=== PATIENT | male | born 1965 | race Caucasian/White ===

== ENCOUNTER 2022-03-18 08:00 | Outpatient (RCR) | payer MEDICARE, MEDICAID, SELFPAY ==
[2022-02-25 09:05] VITALS: BP 143/31; PULSE 72; TEMP 36.1; BMI 23.8
--- NOTE | 2022-02-25 11:55 | PCM.WC.HP ---
History of Present Illness Date of Service: 02/25/22 Chief Complaint: Multiple wounds to RLE amputation stump History of Wound: Patient presents to the wound center for evaluation and management of multiple wounds to right lower extremity including BKA a stump. He is referred by Dr. Sullivan a peripheral vascular interventionalist in [place] who manages his vascular disease. His past medical history is significant for diabetes mellitus, coronary artery disease, peripheral arterial disease, paroxysmal atrial fibrillation, ACID. He has had past endovascular interventions including right femoropopliteal bypass and left SFA/pop angioplasty. He does smoke, primarily a tobacco pipe or cigars. He is not particularly interested in quitting. He takes daily ASA and Eliquis. He is alert and oriented however not the best historian. Much of history obtained from information within referral paperwork. He reports his amputation was performed in 2011. He reports it healed well initially and he had no significant issue until March 2020 at which time he had a small wound which became infected and developed an abscess in the lateral aspect of his amputation stump. This required I&D and eventually healed well. He also has a history of osteomyelitis of the left great toe. Presently, he has a wound overlying the R patella, another wound slightly distal to the R patella anteriorly, and a wound on the medial aspect of his amputation stump where he reports that prior abscess was. He reports these have been ongoing for at least 6 months. He states the wound on the medial aspect of the amputation stump is a result of rubbing against his prosthesis. He reports the 2 wounds anteriorly closer to the knee are the result of him crawling around his home particularly up his stairs as he is not currently utilizing his prosthesis. He denies any history of infection of these current wounds. He was seeing [facility] in [place] but they were not doing any debridement. He has been caring for them primarily at home over the last 6 months with supplies he has leftover from prior wounds. He states he will sometimes apply some kind of silver dressing covered with a Band-Aid. Sometimes he does not cover them at all. He does not wear any compression or otherwise protective dressing over his stump. He has not reached out to [facility] regarding refitting/adjusting his prosthesis. [facility] Home Medications apixaban 5 mg tablet (Eliquis) 5 mg PO BID 02/25/22 [History Last Taken Unknown] aspirin 81 mg capsule 81 mg PO DAILY 02/25/22 [History Last Taken Unknown] atorvastatin 80 mg tablet 80 mg PO QHS 02/25/22 [History Last Taken Unknown] carvedilol 12.5 mg tablet 12.5 mg PO BID 02/25/22 [History Last Taken Unknown] digoxin 125 mcg (0.125 mg) tablet 125 mcg PO DAILY 02/25/22 [History Last Taken Unknown] empagliflozin 10 mg tablet (Jardiance) 10 mg PO DAILY 02/25/22 [History Last Taken Unknown] ferrous sulfate 159 mg capsule,extended release See Protocol PO 02/25/22 [History Last Taken Unknown] fluoxetine 20 mg capsule 20 mg PO DAILY 02/25/22 [History Last Taken Unknown] insulin aspart U-100 100 unit/mL (3 mL) subcutaneous pen (Novolog Flexpen U-100 Insulin aspart) 100 unit subcut DAILY 02/25/22 [History Last Taken Unknown] insulin glargine 100 unit/mL (3 mL) subcutaneous pen (Lantus Solostar U-100 Insulin) 15 unit subcut BID 02/25/22 [History Last Taken Unknown] levothyroxine 100 mcg capsule 100 mcg PO DAILY 02/25/22 [History Last Taken Unknown] losartan 50 mg tablet 50 mg PO DAILY 02/25/22 [History Last Taken Unknown] metformin 1,000 mg tablet 1,000 mg PO BID 02/25/22 [History Last Taken Unknown] pantoprazole 20 mg tablet,delayed release 20 mg PO DAILY 02/25/22 [History Last Taken Unknown] spironolactone 25 mg tablet 25 mg PO DAILY 02/25/22 [History Last Taken Unknown] Allergy/AdvReac Type Severity Reaction Status Date / Time No Known Allergies Allergy Verified 02/25/22 09:37 ROS Constitutional Constitutional: Denies change in weight, chills, difficulty sleeping, fatigue, fever(s), frequent falls, lethargy, night sweats or weakness Eyes Eyes: Denies blindness, blurry vision, change in vision, eye pain or ptosis ENT HEENT: Denies abnormal hearing, change in voice, hearing loss, loss taste/smell or vertigo Cardiovascular Cardiovascular: Denies abdominal pain, chest pain, claudication, cold extremities, cyanosis, diaphoresis, dyspnea, dyspnea on exertion, fatigue, hypertension, irregular heart rhythm, leg edema, leg ulcers, orthopnea, palpitations, radiating jaw, neck or arm pain or syncope Respiratory/Chest Respiratory/Chest: Denies cough, dyspnea, hemoptysis, nail bed cyanosis, jil-oral cyanosis, portable oxygen @ home, productive cough or wheezing Gastrointestinal Gastrointestinal: Denies abdominal pain, change in bowel habits, change in stool character, coffee ground emesis, melena, rectal bleeding or weight changes Genitourinary Genitourinary: Denies abdominal discomfort, burning urination, difficulty urinating or flank pain Musculoskeletal Musculoskeletal: Denies abnormal gait, difficulty walking, joint swelling, muscle cramps, muscle weakness or numbness Integumentary Integumentary: Denies change in pigmentation, changing lesions, erythema, rash or unusual bruising Neurologic Neurologic: Denies abnormal gait, abnormal movements, abnormal speech, behavior changes, frequent falls, syncope, tingling or weakness Psychiatric Psychiatric: Denies behavioral changes, cognitive impairment or depression Endocrine Endocrinology: Denies change in body appearance, cold intolerance, excessive sweating, flushing, heat intolerance, palpitations, polydipsia, polyphagia or polyuria Hematologic/Lymphatic Hematologic/Lymphatic: Denies anemia, easy bleeding, easy bruising or lymphadenopathy Allergic/Immunologic Allergic/Immunologic: Denies seasonal rhinorrhea, throat swelling, tongue swelling, hives or asthma Vital Signs Vital Signs Vital Signs: 02/25/22 09:05 Temperature 96.9 F L Temperature Source Temporal Pulse Rate 72 Blood Pressure 143/31 H Blood Pressure Mean 68 Blood Pressure Source Monitor Weight Weight: 148 lb Body Mass Index (BMI) 23.8 Physical Exam Const alert, oriented x3, no apparent distress and well nourished General Appearance: cooperative, comfortable and well developed HEENT normocephalic, head/scalp atraumatic, hearing grossly normal bilaterally, external ears normal and external nose normal Eyes PERRL and EOMs intact bilaterally General Eye: normal appearance of both eyes Neck full ROM General: normal visual inspection and trachea midline; Negative for anterior neck swelling Resp normal respiratory effort, normal air movement, no retractions, no use of accessory muscles and clear to auscultation bilaterally Effort and Inspection: able to speak in complete sentences; Negative for labored, stridor or audible wheezes Cardio Rate: regular rate Rhythm: regular rhythm Heart Sounds: murmur Extremity Extremity Narrative: R BKA. No discoloration/pallor, appropriate warmth, no significant edema. Skin Wounds: amputation and wounds noted Wound Narrative: Wound overlying R patella, R verdugo, and R medial amputation stump. R medial amputation stump wound goes to bone, other two more shallow, subq tissue. No other visible wounds. Wounds with significant slough and periwound callus. No significant erythema, drainage, foul odor, edema, fluctuance, induration. Neuro oriented x3, CN's II-XII intact bilaterally, moves all extremities, no focal motor deficits and no sensory deficits noted Psych mental status grossly normal Appearance: grossly normal Attitude: calm Activity / Motor Behavior: appropriate eye contact Speech: normal speech Mood & Affect: euthymic mood Thought Process: normal thought process Thought Content: normal thought content Attention / Concentration: attention grossly intact Memory / Cognition: memory grossly intact Insight: insight good Judgement: judgement good Debridement Note Debridement Note Wound debrided: Right medial amputation stump Laterality: Right Type of Debridement: Excisional debridement Anesthesia Used: 5% Lidocaine Gel Depth: Down to and including healthy tissue and to bone Percentage of wound debrided: 100 Instrument Used: 3mm curette Tissue Removed: slough, devitalized tissue Amount of bleeding with debridement: Mild Bleeding Controlled with: Pressure Patient tolerated procedure: Patient tolerated procedure well Post-Debridement Measurements and Additional Note: Post-Debridement Measurements/Treatment - Nurse 1 - General Ulcer Assessment Start: 02/25/22 09:05 Freq: Status: Active Protocol: MARIELY Activity Type Activity Date Activity User E-sign Co-sign Detail Recorded Client Recorded Date Recorded By Document 02/25/22 09:05 MUSHTAQ [id number] 02/25/22 09:24 MUSHTAQ 02/25/22 09:05 - Today's Visit Information Type of service Initial Visit Arrival Mode Wheelchair Patient Identification Verified (Name & Yes ) Patient Requires Transmission-Based No Precautions Safety Precautions NA Finger Stick Blood Sugar(mg/dl) (if 154 indicated): Blood Sugar Stated by Patient Height and Weight Height 5 ft 6 in Weight 148 lb Weight in Pounds 148.0 lbs Body Mass Index (BMI) 23.8 BMI Classification Normal BSA - Haylie 1.76 Vital Signs Temperature (97.8 F-99.1 F) 96.9 F L Temperature Source Temporal Pulse Rate (60-100) 72 Pulse Location Monitor Blood Pressure (90/60-120/80) 143/31 H Blood Pressure Mean 68 Source Monitor History Since Last Visit- (Skip if this is Patient's initial visit) Left Footwear Regular Shoe Pain Scale: 0-10 Numeric Is Patient Pain Free? Yes WC - Nurse 1 - General Ulcer Measurement Start: 02/25/22 09:05 Freq: Status: Active Protocol: Activity Type Activity Date Activity User E-sign Co-sign Detail Recorded Client Recorded Date Recorded By Document 02/25/22 09:05 MUSHTAQ [id number] 02/25/22 09:24 MUSHTAQ 02/25/22 09:05 Wound Center Nurse 1 #3 medial knee -Combined with other wound No -Current Size (cm) - Length 0.2 -Current Size (cm) - Width 0.5 -Current Size (cm) - Depth 0.3 -Total Square Cm 0.10 -Date of Last Picture (Recall this 02/25/22 field) -Tunneling No -Undermining/Tunneling No -Circular Undermining No -Change in Wound Grade/Stage No -Exudate Amt Medium -Exudate Type Serosanguineous -Wound Margin Distinct, Outline Attached -Granulation Amt None Present (0 %) -Granulation Quality N/A -Slough/Fibrin Yes -Necrosis Amt Large (67-100%) -Necrotic Tissue Type Adherent Slough -Structure Exposed N/A -Texture (Jil-wound Skin Appearance) No Abnormality, Assessed -Moisture (Jil-wound Skin Appearance) No Abnormality, Assessed -Color (Jil-wound Skin Appearance) No Abnormality, Assessed -Temperature (Jil-wound Skin No Abnormality Appearance) (Pt Warm) -Tenderness on Palpation (Jil-wound No Skin Appearance) -Ulcer Cleansing Rinsed/ Irrigated with Saline -Foul Odor after Cleansing No -Anesthetic Used 5% Lidocaine Gel #2 R below the knee -Combined with other wound No -Current Size (cm) - Length 0.5 -Current Size (cm) - Width 0.6 -Current Size (cm) - Depth 0.2 -Total Square Cm 0.30 -Date of Last Picture (Recall this 02/25/22 field) -Photo Taken Yes -Tunneling No -Undermining/Tunneling No -Circular Undermining No -Change in Wound Grade/Stage No -Exudate Amt Medium -Exudate Type Serosanguineous -Wound Margin Distinct, Outline Attached -Granulation Amt None Present (0 %) -Granulation Quality N/A -Slough/Fibrin Yes -Necrosis Amt Large (67-100%) -Necrotic Tissue Type Adherent Slough -Structure Exposed N/A -Texture (Jil-wound Skin Appearance) No Abnormality, Assessed -Moisture (Jil-wound Skin Appearance) No Abnormality, Assessed -Color (Jil-wound Skin Appearance) No Abnormality, Assessed -Temperature (Jil-wound Skin No Abnormality Appearance) (Pt Warm) -Tenderness on Palpation (Jil-wound No Skin Appearance) -Ulcer Cleansing Rinsed/ Irrigated with Saline -Foul Odor after Cleansing No -Anesthetic Used 5% Lidocaine Gel #1 R knee -Combined with other wound No -Current Size (cm) - Length 0.4 -Current Size (cm) - Width 0.5 -Current Size (cm) - Depth 0.1 -Total Square Cm 0.20 -Date of Last Picture (Recall this 02/25/22 field) -Photo Taken Yes -Tunneling No -Undermining/Tunneling No -Circular Undermining No -Change in Wound Grade/Stage No -Exudate Amt Medium -Exudate Type Serosanguineous -Wound Margin Distinct, Outline Attached -Granulation Amt None Present (0 %) -Granulation Quality N/A -Slough/Fibrin Yes -Necrosis Amt Large (67-100%) -Necrotic Tissue Type Adherent Slough -Structure Exposed N/A -Texture (Jil-wound Skin Appearance) No Abnormality, Assessed -Moisture (Jil-wound Skin Appearance) No Abnormality, Assessed -Color (Jil-wound Skin Appearance) No Abnormality, Assessed -Temperature (Jil-wound Skin No Abnormality Appearance) (Pt Warm) -Tenderness on Palpation (Jil-wound No Skin Appearance) -Ulcer Cleansing Rinsed/ Irrigated with Saline -Foul Odor after Cleansing No -Anesthetic Used 5% Lidocaine Gel CHARO - Nurse 3 - General Ulcer D/C NN Start: 02/25/22 09:05 Freq: Status: Active Protocol: Activity Type Activity Date Activity User E-sign Co-sign Detail Recorded Client Recorded Date Recorded By Document 02/25/22 10:42 SHANNA [id number] 02/25/22 10:43 SHANNA 02/25/22 10:42 Wound Care Nurse 3 #3 medial knee -Ulcer Cleansing Rinsed/ Irrigated with Saline -Foul Odor after Cleansing No -Primary Dressing Applied Promogran Eric Matter -Primary Dressing Covered/Secured with Dry Gauze -Promogran Eric Matter 1 #2 R below the knee -Ulcer Cleansing Not Cleansed -Primary Dressing Applied Promogran Eric Matter -Promogran Eric Matter 0 #1 R knee -Ulcer Cleansing Rinsed/ Irrigated with Saline -Foul Odor after Cleansing No -Primary Dressing Applied Promogran Eric Matter -Primary Dressing Covered/Secured with Dry Gauze,Dry Gauze & Roll Gauze -Promogran Eric Matter 0 Right -Compression Wrap Fernando Wrap Pain Scale: 0-10 Numeric Is Patient Pain Free? Yes WC - Visit Discharge Discharge Condition Stable Ambulatory Status Wheelchair Transportation Private Auto Medication Reconcilliation completed & Yes provided to patient/care provider Clinical Summary of Care Provided Yes Additional Wound Wound debrided: Anterior RLE, overlying patella Laterality: Right Type of Debridement: Excisional debridement Anesthesia Used: 5% Lidocaine Gel Depth: Down to and including healthy tissue and in the subcutaneous layer Percentage of wound debrided: 100 Instrument Used: 3mm curette Tissue Removed: slough, devitalized tissue, callus Amount of bleeding with debridement: Mild Bleeding Controlled with: Pressure Patient tolerated procedure: Patient tolerated procedure well Additional Wound Wound debrided: RLE anterior verdugo Laterality: Right Type of Debridement: Excisional debridement Anesthesia Used: 5% Lidocaine Gel Depth: Down to and including healthy tissue and in the subcutaneous layer Percentage of wound debrided: 100 Instrument Used: 3mm curette Amount of bleeding with debridement: Mild Bleeding Controlled with: Pressure Patient tolerated procedure: Patient tolerated procedure well Charges/Coding Wound Center CF Procedures [id number]: [id number] RMVL DEVITAL TIS 20 CM/< Multi Select Codes Wound Center CF Procedures [id number]: [id number] RMVL DEVITAL TIS 20 CM/< Assessment/Plan Assessment/Plan (1) Below-knee amputation of right lower extremity: CODE(S): S88.111A - Complete traumatic amputation at level between knee and ankle, right lower leg, initial encounter (2) Non-healing wound of amputation stump: CODE(S): T87.89 - Other complications of amputation stump (3) Non-healing wound of right lower extremity: CODE(S): S81.801A - Unspecified open wound, right lower leg, initial encounter PLAN: Plan Patient tolerated debridement well. Will apply eric to all three wounds, cover with adaptic, add ABD pad for cushioning, and wrap with FERNANDO wrap for protection and compression. Changes dressings daily or more often as needed to keep clean and dry. Discussed the importance of preventing continued trauma to the areas. Ask that patient do his best to limit crawling around the home, utilize other walking assist devices and try to go up the stairs by scooting from step to step on his bottom instead of utilizing knees. Elevate legs when resting. Increase protein in diet and continue with good blood sugar control to promote wound healing. Strongly advise tobacco cessation, he will continue to consider. No signs/symptoms of active infection. Do not feel cultures indicated at this point. Will continue to be vigilant in monitoring for signs of infection. Patient will return to wound care center in 1 week. He will return sooner or present to the ED should any symptoms worsen or new concerns arise.
[2022-03-03 15:02] VITALS: BP 152/32; PULSE 71; RESP 16; TEMP 36.3; BMI 23.8
--- NOTE | 2022-03-03 16:47 | PCM.WC.PN ---
History of Present Illness Date of Service: 03/03/22 Chief Complaint: Multiple wounds to RLE amputation stump History of Wound: Patient presents to the wound center for evaluation and management of multiple wounds to right lower extremity including BKA a stump. He is referred by Dr. Sullivan a peripheral vascular interventionalist in [place] who manages his vascular disease. His past medical history is significant for diabetes mellitus, coronary artery disease, peripheral arterial disease, paroxysmal atrial fibrillation, ACID. He has had past endovascular interventions including right femoropopliteal bypass and left SFA/pop angioplasty. He does smoke, primarily a tobacco pipe or cigars. He is not particularly interested in quitting. He takes daily ASA and Eliquis. He is alert and oriented however not the best historian. Much of history obtained from information within referral paperwork. He reports his amputation was performed in 2011. He reports it healed well initially and he had no significant issue until March 2020 at which time he had a small wound which became infected and developed an abscess in the lateral aspect of his amputation stump. This required I&D and eventually healed well. He also has a history of osteomyelitis of the left great toe. Presently, he has a wound overlying the R patella, another wound slightly distal to the R verdugo, and a wound on the medial aspect of his amputation stump where he reports that prior abscess was. He reports these have been ongoing for at least 6 months. He states the wound on the medial aspect of the amputation stump is a result of rubbing against his prosthesis. He reports the 2 wounds anteriorly closer to the knee are the result of him crawling around his home particularly up his stairs as he is not currently utilizing his prosthesis. He denies any history of infection of these current wounds. He was seeing [facility] in [place] but they were not doing any debridement. He has been caring for them primarily at home over the last 6 months with supplies he has leftover from prior wounds. He states he would sometimes apply some kind of silver dressing covered with a Band-Aid. Sometimes he would not cover them at all. He was not wearing any compression or otherwise protective dressing over his stump. He has not reached out to [employer] regarding refitting/adjusting his prosthesis. Subjective Subjective Patient is doing well. He reports no issues with dressing changes; however, instead of utilizing ABD pads and tape has been applying a transparent, water-proof dressing. Otherwise, he has been changing dressings as directed. He reports he has been crawling around the house/up the stairs less but not really able to stop doing so completely. He denies F/C, N/V, increased pain, drainage, foul odor. Objective Data Objective Data Vital Signs: Vital Signs Temp Pulse Resp BP O2 Del Method 97.3 F L 71 16 152/32 H Room Air 03/03/22 15:02 03/03/22 15:02 03/03/22 15:02 03/03/22 15:02 03/03/22 15:02 Oxygen Delivery Method Room Air Weight: 148 lb Body Mass Index (BMI) 23.8 Charges/Coding Wound Center CF Procedures [id number]: [id number] RMVL DEVITAL TIS 20 CM/< Multi Select Codes Wound Center CF Procedures [id number]: [id number] RMVL DEVITAL TIS 20 CM/< Physical Exam Const alert, oriented x3, no apparent distress and well nourished General Appearance: cooperative, comfortable and well developed HEENT normocephalic, head/scalp atraumatic, hearing grossly normal bilaterally, external ears normal and external nose normal Eyes PERRL and EOMs intact bilaterally General Eye: normal appearance of both eyes Neck full ROM General: normal visual inspection and trachea midline; Negative for anterior neck swelling Resp normal respiratory effort, normal air movement, no retractions, no use of accessory muscles and clear to auscultation bilaterally Effort and Inspection: able to speak in complete sentences; Negative for labored, stridor or audible wheezes Cardio Rate: regular rate Rhythm: regular rhythm Heart Sounds: murmur Extremity Extremity Narrative: R BKA. No discoloration/pallor, appropriate warmth, no significant edema. Skin Wounds: amputation and wounds noted Wound Narrative: Wound overlying R patella, R verdugo, and R medial amputation stump. R medial amputation stump wound goes to bone, other two more shallow, subq tissue. No other visible wounds. Wounds with moderate slough and periwound callus. No significant erythema, drainage, foul odor, edema, fluctuance, induration. Neuro oriented x3, CN's II-XII intact bilaterally, moves all extremities, no focal motor deficits and no sensory deficits noted Psych mental status grossly normal Appearance: grossly normal Attitude: calm Activity / Motor Behavior: appropriate eye contact Speech: normal speech Mood & Affect: euthymic mood Thought Process: normal thought process Thought Content: normal thought content Attention / Concentration: attention grossly intact Memory / Cognition: memory grossly intact Insight: insight good Judgement: judgement good Debridement Note Debridement Note Wound debrided: Right medial amputation stump Laterality: Right Type of Debridement: Excisional debridement Anesthesia Used: 5% Lidocaine Gel Depth: Down to and including healthy tissue and to bone Percentage of wound debrided: 100 Instrument Used: 3mm curette Tissue Removed: slough, devitalized tissue Amount of bleeding with debridement: Mild Bleeding Controlled with: Pressure Patient tolerated procedure: Patient tolerated procedure well Post-Debridement Measurements and Additional Note: Post-Debridement Measurements/Treatment - Nurse 1 - General Ulcer Assessment Start: 02/25/22 09:05 Freq: Status: Active Protocol: MARIELY Activity Type Activity Date Activity User E-sign Co-sign Detail Recorded Client Recorded Date Recorded By Document 02/25/22 09:05 [facility] [id number] 02/25/22 09:24 AK Document 03/03/22 15:02 [facility] [id number] 03/03/22 15:04 [facility] 02/25/22 03/03/22 09:05 15:02 - Today's Visit Information Type of service Initial Visit Follow-up Visit (Physician/[employer]PER[employer] ) Arrival Mode Wheelchair Wheelchair Transfer Assistance None Patient Identification Verified (Name & Yes Yes ) Patient Requires Transmission-Based No No Precautions Safety Precautions NA Finger Stick Blood Sugar(mg/dl) (if 154 indicated): Blood Sugar Stated by Patient Height and Weight Height 5 ft 6 in Weight 148 lb Weight in Pounds 148.0 lbs Body Mass Index (BMI) 23.8 23.8 BMI Classification Normal Normal BSA - Haylie 1.76 Vital Signs Temperature (97.8 F-99.1 F) 96.9 F L 97.3 F L Temperature Source Temporal Temporal Pulse Rate (60-100) 72 71 Pulse Location Monitor Monitor Respiratory Rate (12-18) 16 Respiratory rate source Observation Oxygen Delivery Method Room Air Blood Pressure (90/60-120/80) 143/31 H 152/32 H Blood Pressure Mean (mm Hg) 68 72 Source Monitor Monitor Position Sitting Blood Pressure Location Left Arm History Since Last Visit- (Skip if this is Patient's initial visit) Have you changed medications since your No last visit? Any new allergies or adverse reactions No Had a fall/change in ADL's that may No increase risk of falls Signs or symptoms of abuse and/or No neglect since last visit Have you been in the hospital since your No last visit? Has dressing in place as prescribed Yes Has compression in place as prescribed Yes Has offloadiing in place as prescribed N/A Experienced any changes in pain level or No management Left Footwear Regular Shoe Pain Scale: 0-10 Numeric Is Patient Pain Free? Yes Yes WC - Nurse 1 - General Ulcer Measurement Start: 02/25/22 09:05 Freq: Status: Active Protocol: Activity Type Activity Date Activity User E-sign Co-sign Detail Recorded Client Recorded Date Recorded By Document 02/25/22 09:05 [facility] [id number] 02/25/22 09:24 [place] Document 03/03/22 15:02 [facility] [id number] 03/03/22 15:04 BM 02/25/22 03/03/22 09:05 15:02 Wound Center Nurse 1 #3 right medial knee -Combined with other wound No No -Current Size (cm) - Length 0.2 0.8 -Current Size (cm) - Width 0.5 0.5 -Current Size (cm) - Depth 0.3 0.5 -Total Square Cm 0.10 0.40 -Date of Last Picture (Recall this 02/25/22 field) -Photo Taken No -Epithelialization None Present -Tunneling No No -Undermining/Tunneling No No -Circular Undermining No No -Change in Wound Grade/Stage No -Exudate Amt Medium Small -Exudate Type Serosanguineous Serosanguineous -Wound Margin Distinct, Distinct, Outline Outline Attached Attached -Granulation Amt None Present (0 None Present (0 %) %) -Granulation Quality N/A -Slough/Fibrin Yes Yes -Necrosis Amt Large (67-100%) Large (67-100%) -Necrotic Tissue Type Adherent Slough Adherent Slough -Structure Exposed N/A -Texture (Jil-wound Skin Appearance) No Abnormality, Assessed, Assessed Scarring -Moisture (Jil-wound Skin Appearance) No Abnormality, Assessed Assessed -Color (Jil-wound Skin Appearance) No Abnormality, Assessed Assessed -Temperature (Jil-wound Skin No Abnormality No Abnormality Appearance) (Pt Warm) (Pt Warm) -Tenderness on Palpation (Jil-wound No No Skin Appearance) -Ulcer Cleansing Rinsed/ Rinsed/ Irrigated with Irrigated with Saline Saline -Foul Odor after Cleansing No No -Anesthetic Used 5% Lidocaine 5% Lidocaine Gel Gel #2 R below the knee -Combined with other wound No No -Current Size (cm) - Length 0.5 0.7 -Current Size (cm) - Width 0.6 0.7 -Current Size (cm) - Depth 0.2 0.2 -Total Square Cm 0.30 0.49 -Date of Last Picture (Recall this 02/25/22 03/03/22 field) -Photo Taken Yes Yes -Epithelialization None Present -Tunneling No No -Undermining/Tunneling No No -Circular Undermining No No -Change in Wound Grade/Stage No -Exudate Amt Medium Medium -Exudate Type Serosanguineous Serosanguineous -Wound Margin Distinct, Distinct, Outline Outline Attached Attached -Granulation Amt None Present (0 Medium (34-66%) %) -Granulation Quality N/A [place] -Slough/Fibrin Yes Yes -Necrosis Amt Large (67-100%) Medium (34-66%) -Necrotic Tissue Type Adherent Slough Adherent Slough -Structure Exposed N/A -Texture (Jil-wound Skin Appearance) No Abnormality, Assessed, Assessed Scarring -Moisture (Jil-wound Skin Appearance) No Abnormality, Assessed Assessed -Color (Jil-wound Skin Appearance) No Abnormality, Assessed Assessed -Temperature (Jil-wound Skin No Abnormality No Abnormality Appearance) (Pt Warm) (Pt Warm) -Tenderness on Palpation (Jil-wound No No Skin Appearance) -Ulcer Cleansing Rinsed/ Rinsed/ Irrigated with Irrigated with Saline Saline -Foul Odor after Cleansing No No -Anesthetic Used 5% Lidocaine 5% Lidocaine Gel Gel #1 R knee -Combined with other wound No No -Current Size (cm) - Length 0.4 0.4 -Current Size (cm) - Width 0.5 0.5 -Current Size (cm) - Depth 0.1 0.2 -Total Square Cm 0.20 0.20 -Date of Last Picture (Recall this 02/25/22 field) -Photo Taken Yes No -Epithelialization None Present -Tunneling No No -Undermining/Tunneling No No -Circular Undermining No No -Change in Wound Grade/Stage No -Exudate Amt Medium Medium -Exudate Type Serosanguineous Serosanguineous -Wound Margin Distinct, Distinct, Outline Outline Attached Attached -Granulation Amt None Present (0 None Present (0 %) %) -Granulation Quality N/A -Slough/Fibrin Yes Yes -Necrosis Amt Large (67-100%) Large (67-100%) -Necrotic Tissue Type Adherent Slough Adherent Slough -Structure Exposed N/A -Texture (Jil-wound Skin Appearance) No Abnormality, Assessed, Assessed Scarring -Moisture (Jil-wound Skin Appearance) No Abnormality, Assessed Assessed -Color (Jil-wound Skin Appearance) No Abnormality, Assessed Assessed -Temperature (Jil-wound Skin No Abnormality No Abnormality Appearance) (Pt Warm) (Pt Warm) -Tenderness on Palpation (Jil-wound No No Skin Appearance) -Ulcer Cleansing Rinsed/ Rinsed/ Irrigated with Irrigated with Saline Saline -Foul Odor after Cleansing No No -Anesthetic Used 5% Lidocaine 5% Lidocaine Gel Gel WC - Nurse 2 - General Ulcer CM Notes Start: 02/25/22 09:05 Freq: Status: Active Protocol: Activity Type Activity Date Activity User E-sign Co-sign Detail Recorded Client Recorded Date Recorded By Document 02/25/22 12:12 PL [id number] 02/25/22 12:24 PL Document 03/03/22 15:09 MW [id number] 03/03/22 15:29 MW 02/25/22 03/03/22 12:12 15:09 Wound Center Nurse 2 #3 right medial knee -Time 09:45 15:15 -Correct Patient Yes Yes -Correct Side, Site, Position Yes Yes -Correct Procedure Yes Yes -Procedure Performed Yes Yes -Type of Procedure Debridement Debridement -Clinical Debridement Subcutaneous Subcutaneous -Tissue Removed Subcutaneous Subcutaneous -Post Debridement (cm) - Length 1.0 1.0 -Post Debridement (cm) - Width 0.5 0.7 -Post Debridement (cm) - Depth 0.6 0.5 -Total Square (Post) (cm) 0.50 0.70 -Area of Debridement (cm) - Length 1.0 1.0 -Area of Debridement (cm) - Width 0.5 0.7 -Total Square (Area) (cm) 0.50 0.70 -Tunneling No No -Undermining/Tunneling No No -Circular Undermining No No -Wound/Ulcer Outcome Not Healed Not Healed -Ulcer Cleansing Rinsed/ Rinsed/ Irrigated with Irrigated with Saline Saline -Foul Odor after Cleansing No No -Bioengineered Tissue No No -Bleeding Controlled with Pressure Pressure -Treatment Response Procedure Procedure Tolerated Well Tolerated Well -Offloading No -Debridement - Subq, 1st 20sq cm No Yes #2 R below the knee -Time 09:45 15:16 -Correct Patient Yes Yes -Correct Side, Site, Position Yes Yes -Correct Procedure Yes Yes -Procedure Performed Yes Yes -Type of Procedure Debridement Debridement -Clinical Debridement Subcutaneous Subcutaneous -Tissue Removed Subcutaneous Subcutaneous -Post Debridement (cm) - Length 0.7 0.9 -Post Debridement (cm) - Width 1.2 1.0 -Post Debridement (cm) - Depth 0.3 0.3 -Total Square (Post) (cm) 0.84 0.90 -Area of Debridement (cm) - Length 0.7 0.9 -Area of Debridement (cm) - Width 1.2 1.0 -Total Square (Area) (cm) 0.84 0.90 -Tunneling No No -Undermining/Tunneling No No -Circular Undermining No No -Wound/Ulcer Outcome Not Healed Not Healed -Ulcer Cleansing Rinsed/ Rinsed/ Irrigated with Irrigated with Saline Saline -Foul Odor after Cleansing No No -Bioengineered Tissue No No -Bleeding Controlled with Pressure Pressure -Treatment Response Procedure Procedure Tolerated Well Tolerated Well -Offloading No -Debridement - Subq, 1st 20sq cm No No #1 R knee -Time 09:45 15:16 -Correct Patient Yes Yes -Correct Side, Site, Position Yes Yes -Correct Procedure Yes Yes -Procedure Performed Yes Yes -Type of Procedure Debridement Debridement -Clinical Debridement Subcutaneous Subcutaneous -Tissue Removed Subcutaneous Subcutaneous -Post Debridement (cm) - Length 0.4 0.4 -Post Debridement (cm) - Width 0.8 0.7 -Post Debridement (cm) - Depth 0.3 0.3 -Total Square (Post) (cm) 0.32 0.28 -Area of Debridement (cm) - Length 0.4 0.4 -Area of Debridement (cm) - Width 0.8 0.7 -Total Square (Area) (cm) 0.32 0.28 -Tunneling No No -Undermining/Tunneling No No -Circular Undermining No No -Wound/Ulcer Outcome Not Healed Not Healed -Ulcer Cleansing Rinsed/ Rinsed/ Irrigated with Irrigated with Saline Saline -Foul Odor after Cleansing No No -Bioengineered Tissue No No -Bleeding Controlled with Pressure Pressure -Treatment Response Procedure Procedure Tolerated Well Tolerated Well -Offloading No -Debridement - Subq, 1st 20sq cm Yes No Pain Scale: 0-10 Numeric Is Patient Pain Free? Yes Yes WC - Nurse 3 - General Ulcer D/C NN Start: 02/25/22 09:05 Freq: Status: Active Protocol: Activity Type Activity Date Activity User E-sign Co-sign Detail Recorded Client Recorded Date Recorded By Document 02/25/22 10:42 SHANNA [id number] 02/25/22 10:43 SHANNA 02/25/22 10:42 Wound Care Nurse 3 #3 right medial knee -Ulcer Cleansing Rinsed/ Irrigated with Saline -Foul Odor after Cleansing No -Primary Dressing Applied Promogran Eric Matter -Primary Dressing Covered/Secured with Dry Gauze -Promogran Eric Matter 1 #2 R below the knee -Ulcer Cleansing Not Cleansed -Primary Dressing Applied Promogran Eric Matter -Promogran Eric Matter 0 #1 R knee -Ulcer Cleansing Rinsed/ Irrigated with Saline -Foul Odor after Cleansing No -Primary Dressing Applied Promogran Eric Matter -Primary Dressing Covered/Secured with Dry Gauze,Dry Gauze & Roll Gauze -Promogran Eric Matter 0 Right -Compression Wrap Fernando Wrap Pain Scale: 0-10 Numeric Is Patient Pain Free? Yes WC - Visit Discharge Discharge Condition Stable Ambulatory Status Wheelchair Transportation Private Auto Medication Reconcilliation completed & Yes provided to patient/care provider Clinical Summary of Care Provided Yes Additional Wound Wound debrided: Anterior RLE, overlying patella Laterality: Right Type of Debridement: Excisional debridement Anesthesia Used: 5% Lidocaine Gel Depth: Down to and including healthy tissue and in the subcutaneous layer Percentage of wound debrided: 100 Instrument Used: 3mm curette Tissue Removed: slough, devitalized tissue, callus Amount of bleeding with debridement: Mild Bleeding Controlled with: Pressure Patient tolerated procedure: Patient tolerated procedure well Additional Wound Wound debrided: R verdugo Laterality: Right Type of Debridement: Excisional debridement Anesthesia Used: 5% Lidocaine Gel Depth: Down to and including healthy tissue and in the subcutaneous layer Percentage of wound debrided: 100 Instrument Used: 3mm curette Amount of bleeding with debridement: Mild Bleeding Controlled with: Pressure Patient tolerated procedure: Patient tolerated procedure well Assessment/Plan Assessment/Plan (1) Below-knee amputation of right lower extremity: CODE(S): S88.111A - Complete traumatic amputation at level between knee and ankle, right lower leg, initial encounter (2) Non-healing wound of amputation stump: CODE(S): T87.89 - Other complications of amputation stump (3) Non-healing wound of right lower extremity: CODE(S): S81.801A - Unspecified open wound, right lower leg, initial encounter PLAN: Plan Patient tolerated debridement well. Continue to apply eric to all three wounds, cover with silicone border dressings and wrap with FERNANDO wrap for protection and compression. Changes dressings daily or more often as needed to keep clean and dry. Discussed the importance of preventing continued trauma to the areas. Ask that patient do his best to limit crawling around the home, utilize other walking assist devices and try to go up the stairs by scooting from step to step on his bottom instead of utilizing knees. Also discussed possibility of obtaining a knee pad, if crawling on knees is otherwise unavoidable, he will consider this. Elevate legs when resting. Increase protein in diet and continue with good blood sugar control to promote wound healing. Strongly advise tobacco cessation. No signs/symptoms of active infection. Do not feel cultures indicated at this point. Will continue to be vigilant in monitoring for signs of infection. Patient will return to wound care center in 1 week. He will return sooner or present to the ED should any symptoms worsen or new concerns arise.
[2022-03-11 10:13] VITALS: BP 163/53; PULSE 66; RESP 18; TEMP 36.3; BMI 23.8
--- NOTE | 2022-03-11 12:20 | PN.PCM_ITS ---
History of Present Illness Date of Service: 03/11/22 Chief Complaint: Multiple wounds to RLE amputation stump History of Wound: Patient presents to the wound center for evaluation and management of multiple wounds to right lower extremity including BKA a stump. He is referred by Dr. Sullivan a peripheral vascular interventionalist in [place] who manages his vascular disease. His past medical history is significant for diabetes mellitus, coronary artery disease, peripheral arterial disease, paroxysmal atrial fibrillation, ACID. He has had past endovascular interventions including right femoropopliteal bypass and left SFA/pop angioplasty. He does smoke, primarily a tobacco pipe or cigars. He is not particularly interested in quitting. He takes daily ASA and Eliquis. He reports his amputation was performed in 2011. He reports it healed well initially and he had no significant issue until March 2020 at which time he had a small wound which became infected and developed an abscess in the lateral aspect of his amputation stump. This required I&D and eventually healed well. He also has a history of osteomyelitis of the left great toe. Presently, he has a wound overlying the R patella, another wound slightly distal to the R verdugo, and a wound on the medial aspect of his amputation stump. He reports these have been ongoing for at least 6 months. He states the wound on the medial aspect of the amputation stump is a result of rubbing against his prosthesis. He reports the 2 wounds anteriorly closer to the knee are the result of him crawling around his home particularly up his stairs as he is not currently utilizing his prosthesis. He denies any history of infection of these current wounds. Subjective Subjective Patient is doing well. He reports no issues with dressing changes, he reports the silicone-bordered dressings are easier to apply and less irritating to his skin. His blood sugars remain under good control. He denies F/C, N/V, increased pain, drainage, foul odor. Objective Data Objective Data Vital Signs: Vital Signs Temp Pulse Resp BP O2 Del Method 97.3 F L 66 18 163/53 H Room Air 03/11/22 10:13 03/11/22 10:13 03/11/22 10:13 03/11/22 10:13 03/03/22 15:02 Oxygen Delivery Method Room Air Weight: 148 lb Body Mass Index (BMI) 23.8 Charges/Coding Wound Center CF Procedures [id number]: [id number] RMVL DEVITAL TIS 20 CM/< Multi Select Codes Wound Center CF Procedures [id number]: [id number] RMVL DEVITAL TIS 20 CM/< Physical Exam Const alert, oriented x3, no apparent distress and well nourished General Appearance: cooperative, comfortable and well developed HEENT normocephalic, head/scalp atraumatic, hearing grossly normal bilaterally, external ears normal and external nose normal Eyes PERRL and EOMs intact bilaterally General Eye: normal appearance of both eyes Neck full ROM General: normal visual inspection and trachea midline; Negative for anterior neck swelling Resp normal respiratory effort, normal air movement, no retractions and no use of accessory muscles Effort and Inspection: able to speak in complete sentences; Negative for labored, stridor or audible wheezes Cardio Rate: regular rate Rhythm: regular rhythm Extremity Extremity Narrative: R BKA. No discoloration/pallor, appropriate warmth, no significant edema. Skin Wounds: amputation and wounds noted Wound Narrative: Wound overlying R patella, R verdugo, and R medial amputation stump. No other visible wounds. Wounds with moderate slough and less periwound callus than previous weeks. No significant erythema, drainage, foul odor, edema, fluctuance, induration. Neuro oriented x3, CN's II-XII intact bilaterally, moves all extremities, no focal motor deficits and no sensory deficits noted Psych mental status grossly normal Appearance: grossly normal Attitude: calm Activity / Motor Behavior: appropriate eye contact Speech: normal speech Mood & Affect: euthymic mood Thought Process: normal thought process Thought Content: normal thought content Attention / Concentration: attention grossly intact Memory / Cognition: memory grossly intact Insight: insight good Judgement: judgement good Debridement Note Debridement Note Wound debrided: Right medial amputation stump Laterality: Right Type of Debridement: Excisional debridement Anesthesia Used: 5% Lidocaine Gel Depth: Down to and including healthy tissue and to bone Percentage of wound debrided: 100 Instrument Used: 3mm curette Tissue Removed: slough, devitalized tissue Amount of bleeding with debridement: Mild Bleeding Controlled with: Pressure Patient tolerated procedure: Patient tolerated procedure well Post-Debridement Measurements and Additional Note: Post-Debridement Measurements/Treatment CHARO - Nurse 1 - General Ulcer Assessment Start: 02/25/22 09:05 Freq: Status: Active Protocol: MARIELY Activity Type Activity Date Activity User E-sign Co-sign Detail Recorded Client Recorded Date Recorded By Document 02/25/22 09:05 [place] [id number] 02/25/22 09:24 AK Document 03/03/22 15:02 [facility] [id number] 03/03/22 15:04 [facility] Document 03/11/22 10:13 JF [id number] 03/11/22 10:16 JF 02/25/22 03/03/22 03/11/22 09:05 15:02 10:13 WC - Today's Visit Information Type of service Initial Visit Follow-up Visit Follow-up Visit (Physician/DIRECT CUSTOMER SERVICE REPRESENTATIVE (Physician/DIRECT CUSTOMER SERVICE REPRESENTATIVE ) ) Arrival Mode Wheelchair Wheelchair Wheelchair Transfer Assistance None Manual Patient Identification Verified (Name & Yes Yes Yes ) Patient Requires Transmission-Based No No No Precautions Safety Precautions NA Finger Stick Blood Sugar(mg/dl) (if 154 139 indicated): Blood Sugar Stated by Stated by Patient Patient Height and Weight Height 5 ft 6 in Weight 148 lb Weight in Pounds 148.0 lbs Body Mass Index (BMI) 23.8 23.8 23.8 BMI Classification Normal Normal Normal BSA - Haylie 1.76 Vital Signs Temperature (97.8 F-99.1 F) 96.9 F L 97.3 F L 97.3 F L Temperature Source Temporal Temporal Temporal Pulse Rate (60-100) 72 71 66 Pulse Location Monitor Monitor Monitor Respiratory Rate (12-18) 16 18 Respiratory rate source Observation Observation Oxygen Delivery Method Room Air Blood Pressure (90/60-120/80) 143/31 H 152/32 H 163/53 H Blood Pressure Mean (mm Hg) 68 72 89 Source Monitor Monitor Monitor Position Sitting Semi-Fowlers Blood Pressure Location Left Arm Right Arm History Since Last Visit- (Skip if this is Patient's initial visit) Have you changed medications since your No No last visit? Any new allergies or adverse reactions No No Had a fall/change in ADL's that may No No increase risk of falls Signs or symptoms of abuse and/or No No neglect since last visit Have you been in the hospital since your No No last visit? Has dressing in place as prescribed Yes Yes Has compression in place as prescribed Yes Yes Has offloadiing in place as prescribed N/A Yes Experienced any changes in pain level or No No management Left Footwear Regular Shoe Regular Shoe Right Footwear No Footwear Pain Scale: 0-10 Numeric Is Patient Pain Free? Yes Yes Yes WC - Nurse 1 - General Ulcer Measurement Start: 02/25/22 09:05 Freq: Status: Active Protocol: Activity Type Activity Date Activity User E-sign Co-sign Detail Recorded Client Recorded Date Recorded By Document 02/25/22 09:05 AK [id number] 02/25/22 09:24 AK Document 03/03/22 15:02 [facility] [id number] 03/03/22 15:04 BM Document 03/11/22 10:13 JF [id number] 03/11/22 10:16 JF 02/25/22 03/03/22 03/11/22 09:05 15:02 10:13 Wound Center Nurse 1 #3 right medial knee -Combined with other wound No No No -Current Size (cm) - Length 0.2 0.8 0.6 -Current Size (cm) - Width 0.5 0.5 0.4 -Current Size (cm) - Depth 0.3 0.5 0.3 -Total Square Cm 0.10 0.40 0.24 -Date of Last Picture (Recall this 02/25/22 field) -Photo Taken No Yes -Epithelialization None Present Small 1-33% -Tunneling No No No -Undermining/Tunneling No No No -Circular Undermining No No No -Change in Wound Grade/Stage No -Exudate Amt Medium Small Small -Exudate Type Serosanguineous Serosanguineous Serosanguineous -Wound Margin Distinct, Distinct, Flat & Intact Outline Outline Attached Attached -Granulation Amt None Present (0 None Present (0 Medium (34-66%) %) %) -Granulation Quality N/A [place] -Slough/Fibrin Yes Yes Yes -Necrosis Amt Large (67-100%) Large (67-100%) Small (1-33%) -Necrotic Tissue Type Adherent Slough Adherent Slough Adherent Slough -Structure Exposed N/A N/A -Texture (Jil-wound Skin Appearance) No Abnormality, Assessed, Assessed Assessed Scarring -Moisture (Jil-wound Skin Appearance) No Abnormality, Assessed Assessed,Dry/ Assessed Scaly -Color (Jil-wound Skin Appearance) No Abnormality, Assessed Assessed Assessed -Temperature (Jil-wound Skin No Abnormality No Abnormality No Abnormality Appearance) (Pt Warm) (Pt Warm) (Pt Warm) -Tenderness on Palpation (Jil-wound No No No Skin Appearance) -Ulcer Cleansing Rinsed/ Rinsed/ Rinsed/ Irrigated with Irrigated with Irrigated with Saline Saline Saline -Foul Odor after Cleansing No No No -Anesthetic Used 5% Lidocaine 5% Lidocaine 5% Lidocaine Gel Gel Gel #2 R below the knee -Combined with other wound No No No -Current Size (cm) - Length 0.5 0.7 0.7 -Current Size (cm) - Width 0.6 0.7 0.9 -Current Size (cm) - Depth 0.2 0.2 0.2 -Total Square Cm 0.30 0.49 0.63 -Date of Last Picture (Recall this 02/25/22 03/03/22 field) -Photo Taken Yes Yes Yes -Epithelialization None Present Small 1-33% -Tunneling No No No -Undermining/Tunneling No No No -Circular Undermining No No No -Change in Wound Grade/Stage No -Exudate Amt Medium Medium Small -Exudate Type Serosanguineous Serosanguineous Serosanguineous -Wound Margin Distinct, Distinct, Flat & Intact Outline Outline Attached Attached -Granulation Amt None Present (0 Medium (34-66%) Medium (34-66%) %) -Granulation Quality N/A [place] -Slough/Fibrin Yes Yes Yes -Necrosis Amt Large (67-100%) Medium (34-66%) Small (1-33%) -Necrotic Tissue Type Adherent Slough Adherent Slough Adherent Slough -Structure Exposed N/A N/A -Texture (Jil-wound Skin Appearance) No Abnormality, Assessed, Assessed Assessed Scarring -Moisture (Jil-wound Skin Appearance) No Abnormality, Assessed Assessed,Dry/ Assessed Scaly -Color (Jil-wound Skin Appearance) No Abnormality, Assessed Assessed Assessed -Temperature (Jil-wound Skin No Abnormality No Abnormality No Abnormality Appearance) (Pt Warm) (Pt Warm) (Pt Warm) -Tenderness on Palpation (Jil-wound No No No Skin Appearance) -Ulcer Cleansing Rinsed/ Rinsed/ Rinsed/ Irrigated with Irrigated with Irrigated with Saline Saline Saline -Foul Odor after Cleansing No No No -Anesthetic Used 5% Lidocaine 5% Lidocaine 5% Lidocaine Gel Gel Gel #1 R knee -Combined with other wound No No No -Current Size (cm) - Length 0.4 0.4 0.3 -Current Size (cm) - Width 0.5 0.5 0.5 -Current Size (cm) - Depth 0.1 0.2 0.2 -Total Square Cm 0.20 0.20 0.15 -Date of Last Picture (Recall this 02/25/22 field) -Photo Taken Yes No Yes -Epithelialization None Present Small 1-33% -Tunneling No No No -Undermining/Tunneling No No No -Circular Undermining No No No -Change in Wound Grade/Stage No -Exudate Amt Medium Medium Small -Exudate Type Serosanguineous Serosanguineous Serosanguineous -Wound Margin Distinct, Distinct, Flat & Intact Outline Outline Attached Attached -Granulation Amt None Present (0 None Present (0 Medium (34-66%) %) %) -Granulation Quality N/A [place] -Slough/Fibrin Yes Yes Yes -Necrosis Amt Large (67-100%) Large (67-100%) Small (1-33%) -Necrotic Tissue Type Adherent Slough Adherent Slough Adherent Slough -Structure Exposed N/A N/A -Texture (Jil-wound Skin Appearance) No Abnormality, Assessed, Assessed Assessed Scarring -Moisture (Jil-wound Skin Appearance) No Abnormality, Assessed Assessed,Dry/ Assessed Scaly -Color (Jil-wound Skin Appearance) No Abnormality, Assessed Assessed Assessed -Temperature (Jil-wound Skin No Abnormality No Abnormality No Abnormality Appearance) (Pt Warm) (Pt Warm) (Pt Warm) -Tenderness on Palpation (Jil-wound No No No Skin Appearance) -Ulcer Cleansing Rinsed/ Rinsed/ Rinsed/ Irrigated with Irrigated with Irrigated with Saline Saline Saline -Foul Odor after Cleansing No No No -Anesthetic Used 5% Lidocaine 5% Lidocaine 5% Lidocaine Gel Gel Gel Lower Limb Edema Present NA WC - Nurse 2 - General Ulcer CM Notes Start: 02/25/22 09:05 Freq: Status: Active Protocol: Activity Type Activity Date Activity User E-sign Co-sign Detail Recorded Client Recorded Date Recorded By Document 02/25/22 12:12 PL [id number] 02/25/22 12:24 PL Document 03/03/22 15:09 MW [id number] 03/03/22 15:29 MW 02/25/22 03/03/22 12:12 15:09 Wound Center Nurse 2 #3 right medial knee -Time 09:45 15:15 -Correct Patient Yes Yes -Correct Side, Site, Position Yes Yes -Correct Procedure Yes Yes -Procedure Performed Yes Yes -Type of Procedure Debridement Debridement -Clinical Debridement Subcutaneous Subcutaneous -Tissue Removed Subcutaneous Subcutaneous -Post Debridement (cm) - Length 1.0 1.0 -Post Debridement (cm) - Width 0.5 0.7 -Post Debridement (cm) - Depth 0.6 0.5 -Total Square (Post) (cm) 0.50 0.70 -Area of Debridement (cm) - Length 1.0 1.0 -Area of Debridement (cm) - Width 0.5 0.7 -Total Square (Area) (cm) 0.50 0.70 -Tunneling No No -Undermining/Tunneling No No -Circular Undermining No No -Wound/Ulcer Outcome Not Healed Not Healed -Ulcer Cleansing Rinsed/ Rinsed/ Irrigated with Irrigated with Saline Saline -Foul Odor after Cleansing No No -Bioengineered Tissue No No -Bleeding Controlled with Pressure Pressure -Treatment Response Procedure Procedure Tolerated Well Tolerated Well -Offloading No -Debridement - Subq, 1st 20sq cm No Yes #2 R below the knee -Time 09:45 15:16 -Correct Patient Yes Yes -Correct Side, Site, Position Yes Yes -Correct Procedure Yes Yes -Procedure Performed Yes Yes -Type of Procedure Debridement Debridement -Clinical Debridement Subcutaneous Subcutaneous -Tissue Removed Subcutaneous Subcutaneous -Post Debridement (cm) - Length 0.7 0.9 -Post Debridement (cm) - Width 1.2 1.0 -Post Debridement (cm) - Depth 0.3 0.3 -Total Square (Post) (cm) 0.84 0.90 -Area of Debridement (cm) - Length 0.7 0.9 -Area of Debridement (cm) - Width 1.2 1.0 -Total Square (Area) (cm) 0.84 0.90 -Tunneling No No -Undermining/Tunneling No No -Circular Undermining No No -Wound/Ulcer Outcome Not Healed Not Healed -Ulcer Cleansing Rinsed/ Rinsed/ Irrigated with Irrigated with Saline Saline -Foul Odor after Cleansing No No -Bioengineered Tissue No No -Bleeding Controlled with Pressure Pressure -Treatment Response Procedure Procedure Tolerated Well Tolerated Well -Offloading No -Debridement - Subq, 1st 20sq cm No No #1 R knee -Time 09:45 15:16 -Correct Patient Yes Yes -Correct Side, Site, Position Yes Yes -Correct Procedure Yes Yes -Procedure Performed Yes Yes -Type of Procedure Debridement Debridement -Clinical Debridement Subcutaneous Subcutaneous -Tissue Removed Subcutaneous Subcutaneous -Post Debridement (cm) - Length 0.4 0.4 -Post Debridement (cm) - Width 0.8 0.7 -Post Debridement (cm) - Depth 0.3 0.3 -Total Square (Post) (cm) 0.32 0.28 -Area of Debridement (cm) - Length 0.4 0.4 -Area of Debridement (cm) - Width 0.8 0.7 -Total Square (Area) (cm) 0.32 0.28 -Tunneling No No -Undermining/Tunneling No No -Circular Undermining No No -Wound/Ulcer Outcome Not Healed Not Healed -Ulcer Cleansing Rinsed/ Rinsed/ Irrigated with Irrigated with Saline Saline -Foul Odor after Cleansing No No -Bioengineered Tissue No No -Bleeding Controlled with Pressure Pressure -Treatment Response Procedure Procedure Tolerated Well Tolerated Well -Offloading No -Debridement - Subq, 1st 20sq cm Yes No Pain Scale: 0-10 Numeric Is Patient Pain Free? Yes Yes - Nurse 3 - General Ulcer D/C NN Start: 02/25/22 09:05 Freq: Status: Active Protocol: Activity Type Activity Date Activity User E-sign Co-sign Detail Recorded Client Recorded Date Recorded By Document 02/25/22 10:42 SHANNA [id number] 02/25/22 10:43 SHANNA 02/25/22 10:42 Wound Care Nurse 3 #3 right medial knee -Ulcer Cleansing Rinsed/ Irrigated with Saline -Foul Odor after Cleansing No -Primary Dressing Applied Promogran Eric Matter -Primary Dressing Covered/Secured with Dry Gauze -Promogran Eric Matter 1 #2 R below the knee -Ulcer Cleansing Not Cleansed -Primary Dressing Applied Promogran Eric Matter -Promogran Eric Matter 0 #1 R knee -Ulcer Cleansing Rinsed/ Irrigated with Saline -Foul Odor after Cleansing No -Primary Dressing Applied Promogran Eric Matter -Primary Dressing Covered/Secured with Dry Gauze,Dry Gauze & Roll Gauze -Promogran Eric Matter 0 Right -Compression Wrap Fernando Wrap Pain Scale: 0-10 Numeric Is Patient Pain Free? Yes WC - Visit Discharge Discharge Condition Stable Ambulatory Status Wheelchair Transportation Private Auto Medication Reconcilliation completed & Yes provided to patient/care provider Clinical Summary of Care Provided Yes Additional Wound Wound debrided: Anterior RLE, overlying patella Laterality: Right Type of Debridement: Excisional debridement Anesthesia Used: 5% Lidocaine Gel Depth: Down to and including healthy tissue and in the subcutaneous layer Percentage of wound debrided: 100 Instrument Used: - (1 mm curette) Tissue Removed: slough, devitalized tissue Amount of bleeding with debridement: Mild Bleeding Controlled with: Pressure Patient tolerated procedure: Patient tolerated procedure well Additional Wound Wound debrided: R verdugo Laterality: Right Type of Debridement: Excisional debridement Anesthesia Used: 5% Lidocaine Gel Depth: Down to and including healthy tissue and in the subcutaneous layer Percentage of wound debrided: 100 Instrument Used: 3mm curette Amount of bleeding with debridement: Mild Bleeding Controlled with: Pressure Patient tolerated procedure: Patient tolerated procedure well Assessment/Plan Assessment/Plan (1) Below-knee amputation of right lower extremity: CODE(S): S88.111A - Complete traumatic amputation at level between knee and ankle, right lower leg, initial encounter (2) Non-healing wound of amputation stump: CODE(S): T87.89 - Other complications of amputation stump (3) Non-healing wound of right lower extremity: CODE(S): S81.801A - Unspecified open wound, right lower leg, initial encounter PLAN: Plan Patient tolerated debridement well. Continue to apply eric to all three wounds, cover with silicone border dressings and wrap with FERNANDO wrap for protection and compression. Changes dressings daily or more often as needed to keep clean and dry. Discussed the importance of preventing continued trauma to the areas. Ask that patient do his best to limit crawling around the home, utilize other walking assist devices and try to go up the stairs by scooting from step to step on his bottom instead of utilizing knees. Also discussed possibility of obtaining a knee pad, if crawling on knees is otherwise unavoidable, he did buy an additional padded sleeve to cover his knee. Elevate legs when resting. Increase protein in diet and continue with good blood sugar control. Strongly advise tobacco cessation. No signs/symptoms of active infection. Do not feel cultures indicated at this point. Patient will return to wound care center in 1 week. He will return sooner or present to the ED should any symptoms worsen or new concerns arise.
[2022-03-18 08:20] VITALS: BP 104/30; PULSE 68; RESP 16; TEMP 35.9; BMI 23.8
--- NOTE | 2022-03-18 09:15 | PN.PCM_ITS ---
History of Present Illness Date of Service: 03/18/22 Chief Complaint: Multiple wounds to RLE amputation stump History of Wound: Patient presents to the wound center for evaluation and management of multiple wounds to right lower extremity including BKA a stump. He is referred by Dr. Sullivan a peripheral vascular interventionalist in [place] who manages his vascular disease. His past medical history is significant for diabetes mellitus, coronary artery disease, peripheral arterial disease, paroxysmal atrial fibrillation, ACID. He has had past endovascular interventions including right femoropopliteal bypass and left SFA/pop angioplasty. He does smoke, primarily a tobacco pipe or cigars. He is not particularly interested in quitting. He takes daily ASA and Eliquis. He reports his amputation was performed in 2011. He reports it healed well initially and he had no significant issue until March 2020 at which time he had a small wound which became infected and developed an abscess in the lateral aspect of his amputation stump. This required I&D and eventually healed well. He also has a history of osteomyelitis of the left great toe. Presently, he has a wound overlying the R patella, another wound slightly distal to the R verdugo, and a wound on the medial aspect of his amputation stump. He reports these have been ongoing for at least 6 months. He states the wound on the medial aspect of the amputation stump is a result of rubbing against his prosthesis. He reports the 2 wounds anteriorly closer to the knee are the result of him crawling around his home particularly up his stairs as he is not currently utilizing his prosthesis. He denies any history of infection of these current wounds. Subjective Subjective Patient is doing well. He reports no issues with dressing changes. His blood sugars remain under good control. He denies F/C, N/V, increased pain, drainage, foul odor. Objective Data Objective Data Vital Signs: Vital Signs Temp Pulse Resp BP O2 Del Method 96.7 F L 68 16 104/30 L Room Air 03/18/22 08:20 03/18/22 08:20 03/18/22 08:20 03/18/22 08:20 03/03/22 15:02 Oxygen Delivery Method Room Air Weight: 148 lb Body Mass Index (BMI) 23.8 Charges/Coding Wound Center CF Procedures 96XXX-[id number]: 07183 RMVL DEVITAL TIS 20 CM/< Multi Select Codes Wound Center CF Procedures 96XXX-98XXX: 26121 RMVL DEVITAL TIS 20 CM/< Physical Exam Const alert, oriented x3, no apparent distress and well nourished General Appearance: cooperative, comfortable and well developed HEENT normocephalic, head/scalp atraumatic, hearing grossly normal bilaterally, external ears normal and external nose normal Eyes PERRL and EOMs intact bilaterally General Eye: normal appearance of both eyes Neck full ROM General: normal visual inspection and trachea midline; Negative for anterior neck swelling Resp normal respiratory effort, normal air movement, no retractions and no use of accessory muscles Effort and Inspection: able to speak in complete sentences; Negative for labored, stridor or audible wheezes Cardio Rate: regular rate Rhythm: regular rhythm Extremity Extremity Narrative: R BKA. No discoloration/pallor, appropriate warmth, no significant edema. Skin Wounds: amputation and wounds noted Wound Narrative: Wound overlying R patella, R verdugo, and R medial amputation stump. No other visible wounds. Wounds with moderate slough and less periwound callus than previous weeks. No significant erythema, drainage, foul odor, edema, fluctuance, induration. Neuro oriented x3, CN's II-XII intact bilaterally, moves all extremities, no focal motor deficits and no sensory deficits noted Psych mental status grossly normal Appearance: grossly normal Attitude: calm Activity / Motor Behavior: appropriate eye contact Speech: normal speech Mood & Affect: euthymic mood Thought Process: normal thought process Thought Content: normal thought content Attention / Concentration: attention grossly intact Memory / Cognition: memory grossly intact Insight: insight good Judgement: judgement good Debridement Note Debridement Note Wound debrided: Right medial amputation stump Laterality: Right Type of Debridement: Excisional debridement Anesthesia Used: 5% Lidocaine Gel Depth: Down to and including healthy tissue and to bone Percentage of wound debrided: 100 Instrument Used: 3mm curette Tissue Removed: slough, devitalized tissue Amount of bleeding with debridement: Mild Bleeding Controlled with: Pressure Patient tolerated procedure: Patient tolerated procedure well Post-Debridement Measurements and Additional Note: Post-Debridement Measurements/Treatment CHARO - Nurse 1 - General Ulcer Assessment Start: 02/25/22 09:05 Freq: Status: Active Protocol: MARIELY Activity Type Activity Date Activity User E-sign Co-sign Detail Recorded Client Recorded Date Recorded By Document 02/25/22 09:05 MUSHTAQ [id number] 02/25/22 09:24 AK Document 03/03/22 15:02 [facility] [id number] 03/03/22 15:04 BM Document 03/11/22 10:13 [id number] 03/11/22 10:16 JF Document 03/18/22 08:20 JF [id number] 03/18/22 08:23 JF 02/25/22 03/03/22 03/11/22 09:05 15:02 10:13 WC - Today's Visit Information Type of service Initial Visit Follow-up Visit Follow-up Visit (Physician/PRESIDENT/[employer] (Physician/PRESIDENT/[employer]IENCES ) ) Arrival Mode Wheelchair Wheelchair Wheelchair Transfer Assistance None Manual Patient Identification Verified (Name & Yes Yes Yes ) Patient Requires Transmission-Based No No No Precautions Safety Precautions NA Finger Stick Blood Sugar(mg/dl) (if 154 139 indicated): Blood Sugar Stated by Stated by Patient Patient Height and Weight Height 5 ft 6 in Weight 148 lb Weight in Pounds 148.0 lbs Body Mass Index (BMI) 23.8 23.8 23.8 BMI Classification Normal Normal Normal BSA - Haylie 1.76 Vital Signs Temperature (97.8 F-99.1 F) 96.9 F L 97.3 F L 97.3 F L Temperature Source Temporal Temporal Temporal Pulse Rate (60-100) 72 71 66 Pulse Location Monitor Monitor Monitor Respiratory Rate (12-18) 16 18 Respiratory rate source Observation Observation Oxygen Delivery Method Room Air Blood Pressure (90/60-120/80) 143/31 H 152/32 H 163/53 H Blood Pressure Mean (mm Hg) 68 72 89 Source Monitor Monitor Monitor Position Sitting Semi-Fowlers Blood Pressure Location Left Arm Right Arm History Since Last Visit- (Skip if this is Patient's initial visit) Have you changed medications since your No No last visit? Any new allergies or adverse reactions No No Had a fall/change in ADL's that may No No increase risk of falls Signs or symptoms of abuse and/or No No neglect since last visit Have you been in the hospital since your No No last visit? Has dressing in place as prescribed Yes Yes Has compression in place as prescribed Yes Yes Has offloadiing in place as prescribed N/A Yes Experienced any changes in pain level or No No management Left Footwear Regular Shoe Regular Shoe Right Footwear No Footwear Pain Scale: 0-10 Numeric Is Patient Pain Free? Yes Yes Yes 03/18/22 08:20 - Today's Visit Information Type of service Follow-up Visit (Physician/PRESIDENT/[employer]IENCES ) Arrival Mode Wheelchair Transfer Assistance Manual Patient Identification Verified (Name & Yes ) Patient Requires Transmission-Based No Precautions Safety Precautions Finger Stick Blood Sugar(mg/dl) (if 137 indicated): Blood Sugar Stated by Patient Height and Weight Height Weight Weight in Pounds Body Mass Index (BMI) 23.8 BMI Classification Normal BSA - Haylie Vital Signs Temperature (97.8 F-99.1 F) 96.7 F L Temperature Source Temporal Pulse Rate (60-100) 68 Pulse Location Monitor Respiratory Rate (12-18) 16 Respiratory rate source Observation Oxygen Delivery Method Blood Pressure (90/60-120/80) 104/30 L Blood Pressure Mean (mm Hg) 54 Source Monitor Position Semi-Fowlers Blood Pressure Location Left Arm History Since Last Visit- (Skip if this is Patient's initial visit) Have you changed medications since your No last visit? Any new allergies or adverse reactions No Had a fall/change in ADL's that may No increase risk of falls Signs or symptoms of abuse and/or No neglect since last visit Have you been in the hospital since your No last visit? Has dressing in place as prescribed Yes Has compression in place as prescribed Yes Has offloadiing in place as prescribed Yes Experienced any changes in pain level or No management Left Footwear Regular Shoe Right Footwear No Footwear Pain Scale: 0-10 Numeric Is Patient Pain Free? Yes - Nurse 1 - General Ulcer Measurement Start: 02/25/22 09:05 Freq: Status: Active Protocol: Activity Type Activity Date Activity User E-sign Co-sign Detail Recorded Client Recorded Date Recorded By Document 02/25/22 09:05 AK [id number] 02/25/22 09:24 AK Document 03/03/22 15:02 [facility] [id number] 03/03/22 15:04 [facility] Document 03/11/22 10:13 JF [id number] 03/11/22 10:16 JF Document 03/18/22 08:20 [id number] 03/18/22 08:23 JF 02/25/22 03/03/22 03/11/22 09:05 15:02 10:13 Wound Center Nurse 1 #3 right medial knee -Combined with other wound No No No -Current Size (cm) - Length 0.2 0.8 0.6 -Current Size (cm) - Width 0.5 0.5 0.4 -Current Size (cm) - Depth 0.3 0.5 0.3 -Total Square Cm 0.10 0.40 0.24 -Date of Last Picture (Recall this 02/25/22 field) -Photo Taken No Yes -Epithelialization None Present Small 1-33% -Tunneling No No No -Undermining/Tunneling No No No -Circular Undermining No No No -Change in Wound Grade/Stage No -Exudate Amt Medium Small Small -Exudate Type Serosanguineous Serosanguineous Serosanguineous -Wound Margin Distinct, Distinct, Flat & Intact Outline Outline Attached Attached -Granulation Amt None Present (0 None Present (0 Medium (34-66%) %) %) -Granulation Quality N/A [place] -Slough/Fibrin Yes Yes Yes -Necrosis Amt Large (67-100%) Large (67-100%) Small (1-33%) -Necrotic Tissue Type Adherent Slough Adherent Slough Adherent Slough -Structure Exposed N/A N/A -Texture (Jil-wound Skin Appearance) No Abnormality, Assessed, Assessed Assessed Scarring -Moisture (Jil-wound Skin Appearance) No Abnormality, Assessed Assessed,Dry/ Assessed Scaly -Color (Jil-wound Skin Appearance) No Abnormality, Assessed Assessed Assessed -Temperature (Jil-wound Skin No Abnormality No Abnormality No Abnormality Appearance) (Pt Warm) (Pt Warm) (Pt Warm) -Tenderness on Palpation (Jil-wound No No No Skin Appearance) -Ulcer Cleansing Rinsed/ Rinsed/ Rinsed/ Irrigated with Irrigated with Irrigated with Saline Saline Saline -Foul Odor after Cleansing No No No -Anesthetic Used 5% Lidocaine 5% Lidocaine 5% Lidocaine Gel Gel Gel #2 R below the knee -Combined with other wound No No No -Current Size (cm) - Length 0.5 0.7 0.7 -Current Size (cm) - Width 0.6 0.7 0.9 -Current Size (cm) - Depth 0.2 0.2 0.2 -Total Square Cm 0.30 0.49 0.63 -Date of Last Picture (Recall this 02/25/22 03/03/22 field) -Photo Taken Yes Yes Yes -Epithelialization None Present Small 1-33% -Tunneling No No No -Undermining/Tunneling No No No -Circular Undermining No No No -Change in Wound Grade/Stage No -Exudate Amt Medium Medium Small -Exudate Type Serosanguineous Serosanguineous Serosanguineous -Wound Margin Distinct, Distinct, Flat & Intact Outline Outline Attached Attached -Granulation Amt None Present (0 Medium (34-66%) Medium (34-66%) %) -Granulation Quality N/A [place] -Slough/Fibrin Yes Yes Yes -Necrosis Amt Large (67-100%) Medium (34-66%) Small (1-33%) -Necrotic Tissue Type Adherent Slough Adherent Slough Adherent Slough -Structure Exposed N/A N/A -Texture (Jil-wound Skin Appearance) No Abnormality, Assessed, Assessed Assessed Scarring -Moisture (Jil-wound Skin Appearance) No Abnormality, Assessed Assessed,Dry/ Assessed Scaly -Color (Jil-wound Skin Appearance) No Abnormality, Assessed Assessed Assessed -Temperature (Jil-wound Skin No Abnormality No Abnormality No Abnormality Appearance) (Pt Warm) (Pt Warm) (Pt Warm) -Tenderness on Palpation (Jil-wound No No No Skin Appearance) -Ulcer Cleansing Rinsed/ Rinsed/ Rinsed/ Irrigated with Irrigated with Irrigated with Saline Saline Saline -Foul Odor after Cleansing No No No -Anesthetic Used 5% Lidocaine 5% Lidocaine 5% Lidocaine Gel Gel Gel #1 R knee -Combined with other wound No No No -Current Size (cm) - Length 0.4 0.4 0.3 -Current Size (cm) - Width 0.5 0.5 0.5 -Current Size (cm) - Depth 0.1 0.2 0.2 -Total Square Cm 0.20 0.20 0.15 -Date of Last Picture (Recall this 02/25/22 field) -Photo Taken Yes No Yes -Epithelialization None Present Small 1-33% -Tunneling No No No -Undermining/Tunneling No No No -Circular Undermining No No No -Change in Wound Grade/Stage No -Exudate Amt Medium Medium Small -Exudate Type Serosanguineous Serosanguineous Serosanguineous -Wound Margin Distinct, Distinct, Flat & Intact Outline Outline Attached Attached -Granulation Amt None Present (0 None Present (0 Medium (34-66%) %) %) -Granulation Quality N/A [place] -Slough/Fibrin Yes Yes Yes -Necrosis Amt Large (67-100%) Large (67-100%) Small (1-33%) -Necrotic Tissue Type Adherent Slough Adherent Slough Adherent Slough -Structure Exposed N/A N/A -Texture (Jil-wound Skin Appearance) No Abnormality, Assessed, Assessed Assessed Scarring -Moisture (Jil-wound Skin Appearance) No Abnormality, Assessed Assessed,Dry/ Assessed Scaly -Color (Jil-wound Skin Appearance) No Abnormality, Assessed Assessed Assessed -Temperature (Jil-wound Skin No Abnormality No Abnormality No Abnormality Appearance) (Pt Warm) (Pt Warm) (Pt Warm) -Tenderness on Palpation (Jil-wound No No No Skin Appearance) -Ulcer Cleansing Rinsed/ Rinsed/ Rinsed/ Irrigated with Irrigated with Irrigated with Saline Saline Saline -Foul Odor after Cleansing No No No -Anesthetic Used 5% Lidocaine 5% Lidocaine 5% Lidocaine Gel Gel Gel Lower Limb Edema Present NA 03/18/22 08:20 Wound Center Nurse 1 #3 right medial knee -Combined with other wound No -Current Size (cm) - Length 0.5 -Current Size (cm) - Width 0.4 -Current Size (cm) - Depth 0.4 -Total Square Cm 0.20 -Date of Last Picture (Recall this field) -Photo Taken Yes -Epithelialization Small 1-33% -Tunneling No -Undermining/Tunneling No -Circular Undermining No -Change in Wound Grade/Stage -Exudate Amt Small -Exudate Type Serosanguineous -Wound Margin Flat & Intact -Granulation Amt Small (1-33%) -Granulation Quality Pale -Slough/Fibrin Yes -Necrosis Amt Medium (34-66%) -Necrotic Tissue Type Adherent Slough -Structure Exposed N/A -Texture (Jil-wound Skin Appearance) Assessed -Moisture (Jil-wound Skin Appearance) Assessed,Dry/ Scaly -Color (Jil-wound Skin Appearance) Assessed -Temperature (Jil-wound Skin No Abnormality Appearance) (Pt Warm) -Tenderness on Palpation (Jil-wound No Skin Appearance) -Ulcer Cleansing Rinsed/ Irrigated with Saline -Foul Odor after Cleansing No -Anesthetic Used 5% Lidocaine Gel #2 R below the knee -Combined with other wound No -Current Size (cm) - Length 0.8 -Current Size (cm) - Width 0.9 -Current Size (cm) - Depth 0.2 -Total Square Cm 0.72 -Date of Last Picture (Recall this field) -Photo Taken Yes -Epithelialization Small 1-33% -Tunneling No -Undermining/Tunneling No -Circular Undermining No -Change in Wound Grade/Stage -Exudate Amt Small -Exudate Type Serosanguineous -Wound Margin Flat & Intact -Granulation Amt Small (1-33%) -Granulation Quality Pale -Slough/Fibrin Yes -Necrosis Amt Small (1-33%) -Necrotic Tissue Type Adherent Slough -Structure Exposed N/A -Texture (Jil-wound Skin Appearance) Assessed -Moisture (Jil-wound Skin Appearance) Assessed,Dry/ Scaly -Color (Jil-wound Skin Appearance) Assessed -Temperature (Jil-wound Skin No Abnormality Appearance) (Pt Warm) -Tenderness on Palpation (Jil-wound No Skin Appearance) -Ulcer Cleansing Rinsed/ Irrigated with Saline -Foul Odor after Cleansing No -Anesthetic Used 5% Lidocaine Gel #1 R knee -Combined with other wound No -Current Size (cm) - Length 0.3 -Current Size (cm) - Width 0.5 -Current Size (cm) - Depth 0.3 -Total Square Cm 0.15 -Date of Last Picture (Recall this field) -Photo Taken Yes -Epithelialization Small 1-33% -Tunneling No -Undermining/Tunneling No -Circular Undermining No -Change in Wound Grade/Stage -Exudate Amt Small -Exudate Type Serosanguineous -Wound Margin Flat & Intact -Granulation Amt Medium (34-66%) -Granulation Quality [place] -Slough/Fibrin Yes -Necrosis Amt Small (1-33%) -Necrotic Tissue Type Eschar -Structure Exposed N/A -Texture (Jil-wound Skin Appearance) Assessed -Moisture (Jil-wound Skin Appearance) Assessed -Color (Jil-wound Skin Appearance) Assessed -Temperature (Jil-wound Skin No Abnormality Appearance) (Pt Warm) -Tenderness on Palpation (Jil-wound No Skin Appearance) -Ulcer Cleansing Rinsed/ Irrigated with Saline -Foul Odor after Cleansing No -Anesthetic Used 5% Lidocaine Gel Lower Limb Edema Present No WC - Nurse 2 - General Ulcer CM Notes Start: 02/25/22 09:05 Freq: Status: Active Protocol: Activity Type Activity Date Activity User E-sign Co-sign Detail Recorded Client Recorded Date Recorded By Document 02/25/22 12:12 PL [id number] 02/25/22 12:24 PL Document 03/03/22 15:09 MW [id number] 03/03/22 15:29 MW Document 03/11/22 13:02 PL [id number] 03/11/22 13:08 PL 02/25/22 03/03/22 03/11/22 12:12 15:09 13:02 Wound Center Nurse 2 #3 right medial knee -Time 09:45 15:15 10:19 -Correct Patient Yes Yes Yes -Correct Side, Site, Position Yes Yes Yes -Correct Procedure Yes Yes Yes -Procedure Performed Yes Yes Yes -Type of Procedure Debridement Debridement Debridement -Clinical Debridement Subcutaneous Subcutaneous Subcutaneous -Tissue Removed Subcutaneous Subcutaneous Subcutaneous -Post Debridement (cm) - Length 1.0 1.0 0.7 -Post Debridement (cm) - Width 0.5 0.7 0.7 -Post Debridement (cm) - Depth 0.6 0.5 0.5 -Total Square (Post) (cm) 0.50 0.70 0.49 -Area of Debridement (cm) - Length 1.0 1.0 0.7 -Area of Debridement (cm) - Width 0.5 0.7 0.7 -Total Square (Area) (cm) 0.50 0.70 0.49 -Tunneling No No No -Undermining/Tunneling No No No -Circular Undermining No No No -Wound/Ulcer Outcome Not Healed Not Healed Not Healed -Ulcer Cleansing Rinsed/ Rinsed/ Rinsed/ Irrigated with Irrigated with Irrigated with Saline Saline Saline -Foul Odor after Cleansing No No No -Bioengineered Tissue No No No -Bleeding Controlled with Pressure Pressure Pressure -Treatment Response Procedure Procedure Procedure Tolerated Well Tolerated Well Tolerated Well -Offloading No -Debridement - Subq, 1st 20sq cm No Yes Yes #2 R below the knee -Time 09:45 15:16 10:19 -Correct Patient Yes Yes Yes -Correct Side, Site, Position Yes Yes Yes -Correct Procedure Yes Yes Yes -Procedure Performed Yes Yes Yes -Type of Procedure Debridement Debridement Debridement -Clinical Debridement Subcutaneous Subcutaneous Subcutaneous -Tissue Removed Subcutaneous Subcutaneous Subcutaneous -Post Debridement (cm) - Length 0.7 0.9 0.6 -Post Debridement (cm) - Width 1.2 1.0 1.0 -Post Debridement (cm) - Depth 0.3 0.3 0.3 -Total Square (Post) (cm) 0.84 0.90 0.60 -Area of Debridement (cm) - Length 0.7 0.9 0.6 -Area of Debridement (cm) - Width 1.2 1.0 1.0 -Total Square (Area) (cm) 0.84 0.90 0.60 -Tunneling No No No -Undermining/Tunneling No No No -Circular Undermining No No No -Wound/Ulcer Outcome Not Healed Not Healed Not Healed -Ulcer Cleansing Rinsed/ Rinsed/ Rinsed/ Irrigated with Irrigated with Irrigated with Saline Saline Saline -Foul Odor after Cleansing No No No -Bioengineered Tissue No No No -Bleeding Controlled with Pressure Pressure Pressure -Treatment Response Procedure Procedure Procedure Tolerated Well Tolerated Well Tolerated Well -Offloading No -Debridement - Subq, 1st 20sq cm No No No #1 R knee -Time 09:45 15:16 10:19 -Correct Patient Yes Yes Yes -Correct Side, Site, Position Yes Yes Yes -Correct Procedure Yes Yes Yes -Procedure Performed Yes Yes Yes -Type of Procedure Debridement Debridement Debridement -Clinical Debridement Subcutaneous Subcutaneous Subcutaneous -Tissue Removed Subcutaneous Subcutaneous Subcutaneous -Post Debridement (cm) - Length 0.4 0.4 0.4 -Post Debridement (cm) - Width 0.8 0.7 0.6 -Post Debridement (cm) - Depth 0.3 0.3 0.2 -Total Square (Post) (cm) 0.32 0.28 0.24 -Area of Debridement (cm) - Length 0.4 0.4 0.4 -Area of Debridement (cm) - Width 0.8 0.7 0.6 -Total Square (Area) (cm) 0.32 0.28 0.24 -Tunneling No No No -Undermining/Tunneling No No No -Circular Undermining No No No -Wound/Ulcer Outcome Not Healed Not Healed Not Healed -Ulcer Cleansing Rinsed/ Rinsed/ Rinsed/ Irrigated with Irrigated with Irrigated with Saline Saline Saline -Foul Odor after Cleansing No No No -Bioengineered Tissue No No No -Bleeding Controlled with Pressure Pressure Pressure -Treatment Response Procedure Procedure Procedure Tolerated Well Tolerated Well Tolerated Well -Offloading No -Debridement - Subq, 1st 20sq cm Yes No No Pain Scale: 0-10 Numeric Is Patient Pain Free? Yes Yes Yes WC - Nurse 3 - General Ulcer D/C NN Start: 02/25/22 09:05 Freq: Status: Active Protocol: Activity Type Activity Date Activity User E-sign Co-sign Detail Recorded Client Recorded Date Recorded By Document 02/25/22 10:42 JF [id number] 02/25/22 10:43 JF Document 03/11/22 13:02 PL [id number] 03/11/22 13:08 PL Document 03/18/22 08:54 [id number] 03/18/22 08:55 02/25/22 03/11/22 03/18/22 10:42 13:02 08:54 Wound Care Center Nurse 3 #3 right medial knee -Ulcer Cleansing Rinsed/ Rinsed/ Rinsed/ Irrigated with Irrigated with Irrigated with Saline Saline Saline -Foul Odor after Cleansing No No No -Primary Dressing Applied Promogran Mepilex Border, Promogran Eric Matter Promogran Eric Matter, Mepilex Border -Primary Dressing Covered/Secured with Dry Gauze -Mepilex Border 1 1 -Promogran 1 -Promogran Eric Matter 1 1 #2 R below the knee -Ulcer Cleansing Not Cleansed Rinsed/ Rinsed/ Irrigated with Irrigated with Saline Saline -Foul Odor after Cleansing No No -Primary Dressing Applied Promogran Mepilex Border Promogran Eric Matter Eric Matter, Mepilex Border -Other Dressing Promogran -Mepilex Border 1 1 -Promogran Eric Matter 0 0 #1 R knee -Ulcer Cleansing Rinsed/ Rinsed/ Rinsed/ Irrigated with Irrigated with Irrigated with Saline Saline Saline -Foul Odor after Cleansing No No No -Primary Dressing Applied Promogran Promogran Eric Matter Eric Matter, Mepilex Border -Other Dressing Promogran covered with a mepilex border -Primary Dressing Covered/Secured with Dry Gauze,Dry Gauze & Roll Gauze -Mepilex Border 0 -Promogran Eric Matter 0 0 Right -Compression Wrap Fernando Wrap -Compression Wrap Fernando Wrap Fernando Wrap Pain Scale: 0-10 Numeric Is Patient Pain Free? Yes Yes Yes WC - Visit Discharge Discharge Condition Stable Stable Stable Ambulatory Status Wheelchair Wheelchair Wheelchair Transportation Private Auto Private Auto Private Auto Medication Reconcilliation completed & Yes Yes provided to patient/care provider Clinical Summary of Care Provided Yes Yes Additional Wound Wound debrided: Anterior RLE, overlying patella Laterality: Right Type of Debridement: Excisional debridement Anesthesia Used: 5% Lidocaine Gel Depth: Down to and including healthy tissue and in the subcutaneous layer Percentage of wound debrided: 100 Instrument Used: - (1 mm curette) Tissue Removed: slough, devitalized tissue Amount of bleeding with debridement: Mild Bleeding Controlled with: Pressure Patient tolerated procedure: Patient tolerated procedure well Additional Wound Wound debrided: R verdugo Laterality: Right Type of Debridement: Excisional debridement Anesthesia Used: 5% Lidocaine Gel Depth: Down to and including healthy tissue and in the subcutaneous layer Percentage of wound debrided: 100 Instrument Used: 3mm curette Amount of bleeding with debridement: Mild Bleeding Controlled with: Pressure Patient tolerated procedure: Patient tolerated procedure well Assessment/Plan Assessment/Plan (1) Below-knee amputation of right lower extremity: CODE(S): S88.111A - Complete traumatic amputation at level between knee and ankle, right lower leg, initial encounter (2) Non-healing wound of amputation stump: CODE(S): T87.89 - Other complications of amputation stump (3) Non-healing wound of right lower extremity: CODE(S): S81.801A - Unspecified open wound, right lower leg, initial encounter PLAN: Plan Patient tolerated debridement well. Continue to apply eric to all three wounds, cover with silicone border dressings and wrap with FERNANDO wrap for protection and compression. Changes dressings daily or more often as needed to keep clean and dry. Will apply for Epifix for verdugo wound as it meets size criteria, has been ongoing for greater than 6 months. Discussed the importance of preventing continued trauma to the areas. Elevate legs when resting. Increase protein in diet and continue with good blood sugar control. Strongly advise tobacco cessation. No signs/symptoms of active infection. Patient will return to wound care center in 1 week. He will return sooner or present to the ED should any symptoms worsen or new concerns arise.
== END 2022-03-22 23:59 | disposition home or self-care (01) ==
LOC: WC 08:00
PROVIDERS: PCP Family Medicine; Visit Provider Physician Assistant
DX: T87.89 Other complications of amputation stump (principal); E11.51 Type 2 diabetes mellitus with diabetic peripheral angiopathy without gangrene; Z89.511 Acquired absence of right leg below knee; I48.0 Paroxysmal atrial fibrillation; Z79.4 Long term (current) use of insulin; S81.001A Unspecified open wound, right knee, initial encounter; S81.801A Unspecified open wound, right lower leg, initial encounter; I25.10 Atherosclerotic heart disease of native coronary artery without angina pectoris; F17.290 Nicotine dependence, other tobacco product, uncomplicated; Z79.01 Long term (current) use of anticoagulants; Z79.82 Long term (current) use of aspirin; Z79.899 Other long term (current) drug therapy
CPT/HCPCS: 11042; 99213; G0463

== ENCOUNTER 2022-04-15 09:30 | Outpatient (RCR) | payer MEDICARE, MEDICAID, SELFPAY ==
[2022-03-23 00:10] VITALS: BP 104/30; PULSE 68; RESP 16; TEMP 35.9; BMI 23.8
[2022-03-25 10:47] VITALS: BP 196/57; PULSE 68; RESP 16; TEMP 35.9; BMI 23.8
--- NOTE | 2022-03-25 11:32 | PCM.WC.PN ---
History of Present Illness Date of Service: 03/25/22 Chief Complaint: Multiple wounds to RLE amputation stump History of Wound: Patient presents to the wound center for evaluation and management of multiple wounds to right lower extremity including BKA a stump. He is referred by Dr. Sullivan a peripheral vascular interventionalist in [place] who manages his vascular disease. His past medical history is significant for diabetes mellitus, coronary artery disease, peripheral arterial disease, paroxysmal atrial fibrillation, ACID. He has had past endovascular interventions including right femoropopliteal bypass and left SFA/pop angioplasty. He does smoke, primarily a tobacco pipe or cigars. He is not particularly interested in quitting. He takes daily ASA and Eliquis. He reports his amputation was performed in 2011. He reports it healed well initially and he had no significant issue until March 2020 at which time he had a small wound which became infected and developed an abscess in the lateral aspect of his amputation stump. This required I&D and eventually healed well. He also has a history of osteomyelitis of the left great toe. Presently, he has a wound overlying the R patella, another wound slightly distal to the R verdugo, and a wound on the medial aspect of his amputation stump. He reports these have been ongoing for at least 6 months. He states the wound on the medial aspect of the amputation stump is a result of rubbing against his prosthesis. He reports the 2 wounds anteriorly closer to the knee are the result of him crawling around his home particularly up his stairs as he is not currently utilizing his prosthesis. He denies any history of infection of these current wounds. Subjective Subjective Patient is doing well. He reports no issues with dressing changes. His blood sugars remain under good control. He denies F/C, N/V, increased pain, drainage, foul odor. Objective Data Objective Data Vital Signs: Vital Signs Temp Pulse Resp BP O2 Del Method 96.7 F L 68 16 196/57 H Room Air 03/25/22 10:47 03/25/22 10:47 03/25/22 10:47 03/25/22 10:47 03/25/22 10:47 Oxygen Delivery Method Room Air Weight: 148 lb Body Mass Index (BMI) 23.8 Charges/Coding Wound Center CF Procedures [id number]: 06345 RMVL DEVITAL TIS 20 CM/< Multi Select Codes Wound Center CF Procedures [id number]: 24441 RMVL DEVITAL TIS 20 CM/< Physical Exam Const alert, oriented x3, no apparent distress and well nourished General Appearance: cooperative, comfortable and well developed HEENT normocephalic, head/scalp atraumatic, hearing grossly normal bilaterally, external ears normal and external nose normal Eyes PERRL and EOMs intact bilaterally General Eye: normal appearance of both eyes Neck full ROM General: normal visual inspection and trachea midline; Negative for anterior neck swelling Resp normal respiratory effort, normal air movement, no retractions and no use of accessory muscles Effort and Inspection: able to speak in complete sentences; Negative for labored, stridor or audible wheezes Cardio Rate: regular rate Rhythm: regular rhythm Extremity Extremity Narrative: R BKA. No discoloration/pallor, appropriate warmth, no significant edema. Skin Wounds: amputation and wounds noted Wound Narrative: Wound overlying R patella, R verdugo, and R medial amputation stump. No other visible wounds. Wounds with moderate slough and periwound callus. No significant erythema, drainage, foul odor, edema, fluctuance, induration. Neuro oriented x3, CN's II-XII intact bilaterally, moves all extremities, no focal motor deficits and no sensory deficits noted Psych mental status grossly normal Appearance: grossly normal Attitude: calm Activity / Motor Behavior: appropriate eye contact Speech: normal speech Mood & Affect: euthymic mood Thought Process: normal thought process Thought Content: normal thought content Attention / Concentration: attention grossly intact Memory / Cognition: memory grossly intact Insight: insight good Judgement: judgement good Debridement Note Debridement Note Wound debrided: Right medial amputation stump Laterality: Right Type of Debridement: Excisional debridement Anesthesia Used: 5% Lidocaine Gel Depth: Down to and including healthy tissue and to bone Percentage of wound debrided: 100 Instrument Used: 3mm curette Tissue Removed: slough, devitalized tissue Amount of bleeding with debridement: Mild Bleeding Controlled with: Pressure Patient tolerated procedure: Patient tolerated procedure well Post-Debridement Measurements and Additional Note: Post-Debridement Measurements/Treatment CHARO - Nurse 1 - General Ulcer Assessment Start: 03/25/22 10:46 Freq: Status: Active Protocol: MARIELY Activity Type Activity Date Activity User E-sign Co-sign Detail Recorded Client Recorded Date Recorded By Document 03/25/22 10:47 [facility] [id number] 03/25/22 10:53 [facility] 03/25/22 10:47 - Today's Visit Information Type of service 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 ) Arrival Mode Wheelchair Transfer Assistance None Patient Identification Verified (Name & Yes ) Patient Requires Transmission-Based No Precautions Height and Weight Body Mass Index (BMI) 23.8 BMI Classification Normal Vital Signs Temperature (97.8 F-99.1 F) 96.7 F L Temperature Source Temporal Pulse Rate (60-100) 68 Pulse Location Monitor Respiratory Rate (12-18) 16 Respiratory rate source Observation Oxygen Delivery Method Room Air Blood Pressure (90/60-120/80) 196/57 H Blood Pressure Mean (mm Hg) 103 Source Monitor Position Sitting Blood Pressure Location Left Arm History Since Last Visit- (Skip if this is Patient's initial visit) Have you changed medications since your No last visit? Any new allergies or adverse reactions No Had a fall/change in ADL's that may No increase risk of falls Signs or symptoms of abuse and/or No neglect since last visit Have you been in the hospital since your No last visit? Has dressing in place as prescribed Yes Has compression in place as prescribed N/A Has offloadiing in place as prescribed N/A Experienced any changes in pain level or No management Pain Scale: 0-10 Numeric Is Patient Pain Free? Yes - Nurse 1 - General Ulcer Measurement Start: 03/25/22 10:46 Freq: Status: Active Protocol: Activity Type Activity Date Activity User E-sign Co-sign Detail Recorded Client Recorded Date Recorded By Document 03/25/22 10:47 [facility] [id number] 03/25/22 10:53 [facility] 03/25/22 10:47 Wound Center Nurse 1 #3 right medial knee -Combined with other wound No -Current Size (cm) - Length 0.4 -Current Size (cm) - Width 0.3 -Current Size (cm) - Depth 0.1 -Total Square Cm 0.12 -Date of Last Picture (Recall this 03/25/22 field) -Photo Taken Yes -Epithelialization None Present -Tunneling No -Undermining/Tunneling No -Circular Undermining No -Exudate Amt Small -Exudate Type Serosanguineous -Wound Margin Distinct, Outline Attached -Granulation Amt None Present (0 %) -Slough/Fibrin Yes -Necrosis Amt Large (67-100%) -Necrotic Tissue Type Adherent Slough -Texture (Jil-wound Skin Appearance) Assessed, Scarring -Moisture (Jil-wound Skin Appearance) Assessed -Color (Jil-wound Skin Appearance) Assessed -Temperature (Jil-wound Skin No Abnormality Appearance) (Pt Warm) -Tenderness on Palpation (Jil-wound No Skin Appearance) -Ulcer Cleansing Rinsed/ Irrigated with Saline -Foul Odor after Cleansing No -Anesthetic Used 5% Lidocaine Gel #2 R below the knee -Combined with other wound No -Current Size (cm) - Length 0.9 -Current Size (cm) - Width 0.8 -Current Size (cm) - Depth 0.3 -Total Square Cm 0.72 -Date of Last Picture (Recall this 03/25/22 field) -Photo Taken Yes -Epithelialization None Present -Tunneling No -Undermining/Tunneling No -Circular Undermining No -Exudate Amt Small -Exudate Type Serosanguineous -Wound Margin Distinct, Outline Attached -Granulation Amt Medium (34-66%) -Granulation Quality Red -Slough/Fibrin Yes -Necrosis Amt Medium (34-66%) -Necrotic Tissue Type Adherent Slough -Texture (Jil-wound Skin Appearance) Assessed, Scarring -Moisture (Jil-wound Skin Appearance) Assessed -Color (Jil-wound Skin Appearance) Assessed -Temperature (Jil-wound Skin No Abnormality Appearance) (Pt Warm) -Tenderness on Palpation (Jil-wound No Skin Appearance) -Ulcer Cleansing Rinsed/ Irrigated with Saline -Foul Odor after Cleansing No -Anesthetic Used 5% Lidocaine Gel #1 R knee -Combined with other wound No -Current Size (cm) - Length 0.4 -Current Size (cm) - Width 0.4 -Current Size (cm) - Depth 0.1 -Total Square Cm 0.16 -Date of Last Picture (Recall this 03/25/22 field) -Photo Taken Yes -Epithelialization None Present -Tunneling No -Undermining/Tunneling No -Circular Undermining No -Exudate Amt Small -Exudate Type Serosanguineous -Wound Margin Distinct, Outline Attached -Granulation Amt None Present (0 %) -Slough/Fibrin Yes -Necrosis Amt Large (67-100%) -Necrotic Tissue Type Adherent Slough -Texture (Jil-wound Skin Appearance) Assessed, Scarring -Moisture (Jil-wound Skin Appearance) Assessed -Color (Jil-wound Skin Appearance) Assessed -Temperature (Jil-wound Skin No Abnormality Appearance) (Pt Warm) -Tenderness on Palpation (Jil-wound No Skin Appearance) -Ulcer Cleansing Rinsed/ Irrigated with Saline -Foul Odor after Cleansing No -Anesthetic Used 5% Lidocaine Gel Additional Wound Wound debrided: Anterior RLE, overlying patella Laterality: Right Type of Debridement: Excisional debridement Anesthesia Used: 5% Lidocaine Gel Depth: Down to and including healthy tissue and in the subcutaneous layer Percentage of wound debrided: 100 Instrument Used: 3mm curette Tissue Removed: slough, devitalized tissue Amount of bleeding with debridement: Mild Bleeding Controlled with: Pressure Patient tolerated procedure: Patient tolerated procedure well Additional Wound Wound debrided: R verdugo Laterality: Right Type of Debridement: Excisional debridement Anesthesia Used: 5% Lidocaine Gel Depth: Down to and including healthy tissue and in the subcutaneous layer Percentage of wound debrided: 100 Instrument Used: 3mm curette Amount of bleeding with debridement: Mild Bleeding Controlled with: Pressure Patient tolerated procedure: Patient tolerated procedure well Assessment/Plan Assessment/Plan (1) Below-knee amputation of right lower extremity: CODE(S): S88.111A - Complete traumatic amputation at level between knee and ankle, right lower leg, initial encounter (2) Non-healing wound of amputation stump: CODE(S): T87.89 - Other complications of amputation stump (3) Non-healing wound of right lower extremity: CODE(S): S81.801A - Unspecified open wound, right lower leg, initial encounter PLAN: Plan Patient was approved for Epifix for his right lower extremity wounds and was agreeable to proceed with applications. Wound beds were debrided and resulted in good bleeding. Epifix was applied in sterile fashion, moistened with collagen hydrogel, covered with adaptic, secured with steristrips, covered with DSD. 100% of product was used. Instructed patient to leave dressing in place until he returns to clinic in 1 week, keep clean and dry. Continue with Katerina to the smaller wound overlying patella, change daily or more often as needed. Due to medial calf wound to bone and no real improvement in depth of wound would like to obtain XR to assess for radiographic signs of OM. No signs/symptoms of infection on exam. Discussed the importance of preventing continued trauma to the areas. Elevate legs when resting. Increase protein in diet and continue with good blood sugar control. Strongly advise tobacco cessation. Patient will return to wound care center in 1 week. He will return sooner or present to the ED should any symptoms worsen or new concerns arise.
[2022-04-01 09:20] VITALS: TEMP 36.2; BMI 23.8
--- NOTE | 2022-04-01 11:12 | PN.PCM_ITS ---
History of Present Illness Date of Service: 04/01/22 Chief Complaint: Multiple wounds to RLE amputation stump History of Wound: Patient presents to the wound center for evaluation and management of multiple wounds to right lower extremity including BKA a stump. He is referred by Dr. Sullivan a peripheral vascular interventionalist in [place] who manages his vascular disease. His past medical history is significant for diabetes mellitus, coronary artery disease, peripheral arterial disease, paroxysmal atrial fibrillation, ACID. He has had past endovascular interventions including right femoropopliteal bypass and left SFA/pop angioplasty. He does smoke, primarily a tobacco pipe or cigars. He is not particularly interested in quitting. He takes daily ASA and Eliquis. He reports his amputation was performed in 2011. He reports it healed well initially and he had no significant issue until March 2020 at which time he had a small wound which became infected and developed an abscess in the lateral aspect of his amputation stump. This required I&D and eventually healed well. He also has a history of osteomyelitis of the left great toe. Presently, he has a wound overlying the R patella, another wound slightly distal to the R verdugo, and a wound on the medial aspect of his amputation stump. He reports these have been ongoing for at least 6 months. He states the wound on the medial aspect of the amputation stump is a result of rubbing against his prosthesis. He reports the 2 wounds anteriorly closer to the knee are the result of him crawling around his home particularly up his stairs as he is not currently utilizing his prosthesis. He denies any history of infection of these current wounds. Subjective Subjective Patient is doing well. He reports no issues with dressing changes or keeping dressings dry/intact. His blood sugars remain under good control. He denies F/C, N/V, increased pain, drainage, foul odor. Objective Data Objective Data Vital Signs: Vital Signs Temp Pulse Resp BP O2 Del Method 97.1 F L 68 16 196/57 H Room Air 04/01/22 09:20 03/25/22 10:47 03/25/22 10:47 03/25/22 10:47 03/25/22 10:47 Oxygen Delivery Method Room Air Weight: 148 lb Body Mass Index (BMI) 23.8 Charges/Coding Wound Center CF Procedures 96XXX-98XXX: [id number] RMVL DEVITAL TIS 20 CM/< Multi Select Codes Wound Center CF Procedures [id number]: [id number] RMVL DEVITAL TIS 20 CM/< Physical Exam Const alert, oriented x3, no apparent distress and well nourished General Appearance: cooperative, comfortable and well developed HEENT normocephalic, head/scalp atraumatic, hearing grossly normal bilaterally, machine 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 No discoloration/pallor, appropriate warmth, no significant edema. Skin Wounds: amputation and wounds noted Wound Narrative: Wound overlying R patella, R verdugo, and R medial amputation stump. No other visible wounds. Wounds with moderate slough and periwound callus. No significant erythema, drainage, foul odor, edema, fluctuance, induration. Neuro oriented x3, CN's II-XII intact bilaterally, moves all extremities, no focal motor deficits and no sensory deficits noted Psych mental status grossly normal Appearance: grossly normal Attitude: calm Activity / Motor Behavior: appropriate eye contact Speech: normal speech Mood & Affect: euthymic mood Thought Process: normal thought process Thought Content: normal thought content Attention / Concentration: attention grossly intact Memory / Cognition: memory grossly intact Insight: insight good Judgement: judgement good Debridement Note Debridement Note Wound debrided: Right medial amputation stump Laterality: Right Type of Debridement: Excisional debridement Anesthesia Used: 5% Lidocaine Gel Depth: Down to and including healthy tissue and to bone Percentage of wound debrided: 100 Instrument Used: 3mm curette Tissue Removed: slough, devitalized tissue Amount of bleeding with debridement: Mild Bleeding Controlled with: Pressure Patient tolerated procedure: Patient tolerated procedure well Post-Debridement Measurements and Additional Note: Post-Debridement Measurements/Treatment CHARO - Nurse 1 - General Ulcer Assessment Start: 03/25/22 10:46 Freq: Status: Active Protocol: CHARO.KYA Activity Type Activity Date Activity User E-sign Co-sign Detail Recorded Client Recorded Date Recorded By Document 03/25/22 10:47 [facility] [id number] 03/25/22 10:53 [facility] Document 04/01/22 09:20 [place] [id number] 04/01/22 09:30 [place] 03/25/22 04/01/22 10:47 09:20 - Today's Visit Information Type of service Follow-up Visit Follow-up Visit (Physician/REGISTERED DENTAL ASSISTANT (Physician/REGISTERED DENTAL ASSISTANT ) ) Arrival Mode Wheelchair Ambulatory Transfer Assistance None Patient Identification Verified (Name & Yes Yes ) Patient Requires Transmission-Based No No Precautions Safety Precautions NA Height and Weight Body Mass Index (BMI) 23.8 23.8 BMI Classification Normal Normal Vital Signs Temperature (97.8 F-99.1 F) 96.7 F L 97.1 F L Temperature Source Temporal Temporal Pulse Rate (60-100) 68 Pulse Location Monitor Respiratory Rate (12-18) 16 Respiratory rate source Observation Oxygen Delivery Method Room Air Blood Pressure (90/60-120/80) 196/57 H Blood Pressure Mean (mm Hg) 103 Source Monitor Position Sitting Blood Pressure Location Left Arm History Since Last Visit- (Skip if this is Patient's initial visit) Have you changed medications since your No No last visit? Any new allergies or adverse reactions No No Had a fall/change in ADL's that may No No increase risk of falls Signs or symptoms of abuse and/or No No neglect since last visit Have you been in the hospital since your No No last visit? Has dressing in place as prescribed Yes Yes Has compression in place as prescribed N/A N/A Has offloadiing in place as prescribed N/A N/A Experienced any changes in pain level or No No management Left Footwear Regular Shoe Right Footwear Regular Shoe Pain Scale: 0-10 Numeric Is Patient Pain Free? Yes Yes - Nurse 1 - General Ulcer Measurement Start: 03/25/22 10:46 Freq: Status: Active Protocol: Activity Type Activity Date Activity User E-sign Co-sign Detail Recorded Client Recorded Date Recorded By Document 03/25/22 10:47 [facility] [id number] 03/25/22 10:53 [facility] Document 04/01/22 09:20 [place] [id number] 04/01/22 09:30 [place] 03/25/22 04/01/22 10:47 09:20 Wound Center Nurse 1 #3 right medial knee -Combined with other wound No No -Current Size (cm) - Length 0.4 0.1 -Current Size (cm) - Width 0.3 0.1 -Current Size (cm) - Depth 0.1 0.1 -Total Square Cm 0.12 0.01 -Date of Last Picture (Recall this 03/25/22 04/01/22 field) -Photo Taken Yes Yes -Epithelialization None Present -Tunneling No No -Undermining/Tunneling No No -Circular Undermining No No -Change in Wound Grade/Stage No -Exudate Amt Small Medium -Exudate Type Serosanguineous -Wound Margin Distinct, Outline Attached -Granulation Amt None Present (0 Medium (34-66%) %) -Slough/Fibrin Yes Yes -Necrosis Amt Large (67-100%) Large (67-100%) -Necrotic Tissue Type Adherent Slough Adherent Slough -Structure Exposed N/A -Texture (Jil-wound Skin Appearance) Assessed, No Abnormality, Scarring Assessed -Moisture (Jil-wound Skin Appearance) Assessed No Abnormality, Assessed -Color (Jil-wound Skin Appearance) Assessed No Abnormality, Assessed -Temperature (Jil-wound Skin No Abnormality No Abnormality Appearance) (Pt Warm) (Pt Warm) -Tenderness on Palpation (Jil-wound No No Skin Appearance) -Ulcer Cleansing Rinsed/ Soap and Water Irrigated with Saline -Foul Odor after Cleansing No No -Anesthetic Used 5% Lidocaine 5% Lidocaine Gel Gel #2 R below the knee -Combined with other wound No No -Current Size (cm) - Length 0.9 1 -Current Size (cm) - Width 0.8 1 -Current Size (cm) - Depth 0.3 0.2 -Total Square Cm 0.72 1 -Date of Last Picture (Recall this 03/25/22 04/01/22 field) -Photo Taken Yes Yes -Epithelialization None Present -Tunneling No No -Undermining/Tunneling No No -Circular Undermining No No -Change in Wound Grade/Stage No -Exudate Amt Small Medium -Exudate Type Serosanguineous Serosanguineous -Wound Margin Distinct, Distinct, Outline Outline Attached Attached -Granulation Amt Medium (34-66%) Medium (34-66%) -Granulation Quality Red [place] -Slough/Fibrin Yes Yes -Necrosis Amt Medium (34-66%) Medium (34-66%) -Necrotic Tissue Type Adherent Slough Adherent Slough -Structure Exposed N/A -Texture (Jil-wound Skin Appearance) Assessed, No Abnormality, Scarring Assessed -Moisture (Jil-wound Skin Appearance) Assessed No Abnormality, Assessed -Color (Jil-wound Skin Appearance) Assessed No Abnormality, Assessed -Temperature (Jil-wound Skin No Abnormality No Abnormality Appearance) (Pt Warm) (Pt Warm) -Tenderness on Palpation (Jil-wound No No Skin Appearance) -Ulcer Cleansing Rinsed/ Soap and Water Irrigated with Saline -Foul Odor after Cleansing No No -Anesthetic Used 5% Lidocaine 5% Lidocaine Gel Gel #1 R knee -Combined with other wound No -Current Size (cm) - Length 0.4 0.4 -Current Size (cm) - Width 0.4 0.7 -Current Size (cm) - Depth 0.1 0.3 -Total Square Cm 0.16 0.28 -Date of Last Picture (Recall this 03/25/22 field) -Photo Taken Yes Yes -Epithelialization None Present -Tunneling No No -Undermining/Tunneling No No -Circular Undermining No No -Change in Wound Grade/Stage No -Exudate Amt Small Medium -Exudate Type Serosanguineous Serosanguineous -Wound Margin Distinct, Distinct, Outline Outline Attached Attached -Granulation Amt None Present (0 Large (67-100%) %) -Granulation Quality [place] -Slough/Fibrin Yes No -Necrosis Amt Large (67-100%) None Present (0 %) -Necrotic Tissue Type Adherent Slough -Structure Exposed N/A -Texture (Jil-wound Skin Appearance) Assessed, No Abnormality, Scarring Assessed -Moisture (Jil-wound Skin Appearance) Assessed No Abnormality, Assessed -Color (Jil-wound Skin Appearance) Assessed No Abnormality, Assessed -Temperature (Jil-wound Skin No Abnormality No Abnormality Appearance) (Pt Warm) (Pt Warm) -Tenderness on Palpation (Jil-wound No No Skin Appearance) -Ulcer Cleansing Rinsed/ Soap and Water Irrigated with Saline -Foul Odor after Cleansing No No -Anesthetic Used 5% Lidocaine 5% Lidocaine Gel Gel WC - Nurse 2 - General Ulcer CM Notes Start: 03/25/22 10:46 Freq: Status: Active Protocol: Activity Type Activity Date Activity User E-sign Co-sign Detail Recorded Client Recorded Date Recorded By Document 03/25/22 11:52 PL [id number] 03/25/22 11:57 PL 03/25/22 11:52 Wound Center Nurse 2 #3 right medial knee -Time 11: -Correct Patient Yes -Correct Side, Site, Position Yes -Correct Procedure Yes -Procedure Performed Yes -Type of Procedure Debridement -Clinical Debridement Subcutaneous -Tissue Removed Subcutaneous -Post Debridement (cm) - Length 0.6 -Post Debridement (cm) - Width 0.5 -Post Debridement (cm) - Depth 0.6 -Total Square (Post) (cm) 0.30 -Area of Debridement (cm) - Length 0.6 -Area of Debridement (cm) - Width 0.5 -Total Square (Area) (cm) 0.30 -Tunneling No -Undermining/Tunneling No -Circular Undermining No -Wound/Ulcer Outcome Not Healed -Ulcer Cleansing Rinsed/ Irrigated with Saline -Foul Odor after Cleansing No -Bioengineered Tissue No -Bleeding Controlled with Pressure -Treatment Response Procedure Tolerated Well -Debridement - Subq, 1st 20sq cm No #2 R below the knee -Time 11: -Correct Patient Yes -Correct Side, Site, Position Yes -Correct Procedure Yes -Procedure Performed Yes -Type of Procedure Debridement -Clinical Debridement Subcutaneous -Tissue Removed Subcutaneous -Post Debridement (cm) - Length 1.0 -Post Debridement (cm) - Width 1.0 -Post Debridement (cm) - Depth 0.3 -Total Square (Post) (cm) 1.00 -Area of Debridement (cm) - Length 1.0 -Area of Debridement (cm) - Width 1.0 -Total Square (Area) (cm) 1.00 -Tunneling No -Undermining/Tunneling No -Circular Undermining No -Wound/Ulcer Outcome Not Healed -Ulcer Cleansing Rinsed/ Irrigated with Saline -Foul Odor after Cleansing No -Bioengineered Tissue Yes -Type of Bioengineered Tissue Epifix -Expiration Date 10/21/26 -Product Lot Number [id number] -Percent Used 100 -Bleeding Controlled with Pressure -Treatment Response Procedure Tolerated Well -Debridement - Subq, 1st 20sq cm No -Apply Skin Sub - 1st 25 sq cm - Legs 1 -Epifix (per sq cm) 4 #1 R knee -Time 11:01 -Correct Patient Yes -Correct Side, Site, Position Yes -Correct Procedure Yes -Procedure Performed Yes -Type of Procedure Debridement -Clinical Debridement Subcutaneous -Tissue Removed Subcutaneous -Post Debridement (cm) - Length 0.3 -Post Debridement (cm) - Width 0.5 -Post Debridement (cm) - Depth 0.4 -Total Square (Post) (cm) 0.15 -Area of Debridement (cm) - Length 0.3 -Area of Debridement (cm) - Width 0.5 -Total Square (Area) (cm) 0.15 -Tunneling No -Undermining/Tunneling No -Circular Undermining No -Wound/Ulcer Outcome Not Healed -Ulcer Cleansing Rinsed/ Irrigated with Saline -Foul Odor after Cleansing No -Bioengineered Tissue No -Bleeding Controlled with Pressure -Treatment Response Procedure Tolerated Well -Debridement - Subq, 1st 20sq cm No Pain Scale: 0-10 Numeric Is Patient Pain Free? Yes - Nurse 3 - General Ulcer D/C NN Start: 03/25/22 10:46 Freq: Status: Active Protocol: Activity Type Activity Date Activity User E-sign Co-sign Detail Recorded Client Recorded Date Recorded By Document 04/01/22 10:41 [email or web address] [id number] 04/01/22 10:43 [email or web address] 04/01/22 10:41 Wound Care Center Nurse 3 #3 right medial knee -Foul Odor after Cleansing No -Negative Pressure Wound Therapy N/A -Primary Dressing Applied Mepilex Border -Mepilex Border 1 Right -Compression Wrap Fernando Wrap Pain Scale: 0-10 Numeric Is Patient Pain Free? Yes WC - Visit Discharge Discharge Condition Stable Ambulatory Status Wheelchair Transportation Private Auto Medication Reconcilliation completed & Yes provided to patient/care provider Clinical Summary of Care Provided Yes Additional Wound Wound debrided: Anterior RLE, overlying patella Laterality: Right Type of Debridement: Excisional debridement Anesthesia Used: 5% Lidocaine Gel Depth: Down to and including healthy tissue and in the subcutaneous layer Percentage of wound debrided: 100 Instrument Used: 3mm curette Tissue Removed: slough, devitalized tissue Amount of bleeding with debridement: Mild Bleeding Controlled with: Pressure Patient tolerated procedure: Patient tolerated procedure well Additional Wound Wound debrided: R verdugo Laterality: Right Type of Debridement: Excisional debridement Anesthesia Used: 5% Lidocaine Gel Depth: Down to and including healthy tissue and in the subcutaneous layer Percentage of wound debrided: 100 Instrument Used: 5mm curette Amount of bleeding with debridement: Mild Bleeding Controlled with: Pressure Patient tolerated procedure: Patient tolerated procedure well Assessment/Plan Assessment/Plan (1) Below-knee amputation of right lower extremity: CODE(S): S88.111A - Complete traumatic amputation at level between knee and ankle, right lower leg, initial encounter (2) Non-healing wound of amputation stump: CODE(S): T87.89 - Other complications of amputation stump (3) Non-healing wound of right lower extremity: CODE(S): S81.801A - Unspecified open wound, right lower leg, initial encounter PLAN: Plan Patient was approved for Epifix for his right lower extremity wounds and was agreeable to proceed with applications. Wound beds were debrided and resulted in good bleeding. Epifix was applied in sterile fashion, moistened with collagen hydrogel, covered with adaptic, secured with steristrips, covered with DSD. 100% of product was used. Instructed patient to leave dressing in place until he returns to clinic in 1 week, keep clean and dry. Due to medial calf wound to bone and no real improvement in depth of wound would like to obtain XR to assess for radiographic signs of OM. No signs/symptoms of infection on exam. Patient has not yet completed the XR, states he will this week. Discussed the importance of preventing continued trauma to the areas. Elevate legs when resting. Increase protein in diet and continue with good blood sugar control. Strongly advise tobacco cessation. Patient will return to wound care center in 1 week. He will return sooner or present to the ED should any symptoms worsen or new concerns arise.
[2022-04-08 09:26] VITALS: BP 134/46; PULSE 80; RESP 16; TEMP 36.2; BMI 23.8
--- NOTE | 2022-04-08 10:19 | PCM.WC.PN ---
History of Present Illness Date of Service: 04/08/22 Chief Complaint: Multiple wounds to RLE amputation stump History of Wound: Patient presents to the wound center for evaluation and management of multiple wounds to right lower extremity including BKA a stump. He is referred by Dr. Sullivan a peripheral vascular interventionalist in [place] who manages his vascular disease. His past medical history is significant for diabetes mellitus, coronary artery disease, peripheral arterial disease, paroxysmal atrial fibrillation, ACID. He has had past endovascular interventions including right femoropopliteal bypass and left SFA/pop angioplasty. He does smoke, primarily a tobacco pipe or cigars. He is not particularly interested in quitting. He takes daily ASA and Eliquis. He reports his amputation was performed in 2011. He reports it healed well initially and he had no significant issue until March 2020 at which time he had a small wound which became infected and developed an abscess in the lateral aspect of his amputation stump. This required I&D and eventually healed well. He also has a history of osteomyelitis of the left great toe. Presently, he has a wound overlying the R patella, another wound slightly distal to the R verdugo, and a wound on the medial aspect of his amputation stump. He reports these have been ongoing for at least 6 months. He states the wound on the medial aspect of the amputation stump is a result of rubbing against his prosthesis. He reports the 2 wounds anteriorly closer to the knee are the result of him crawling around his home particularly up his stairs as he is not currently utilizing his prosthesis. He denies any history of infection of these current wounds. Subjective Subjective Patient is doing well overall, no complaints. No N/V, F/C, increased pain or tenderness to RLE. He has been keeping the dressings dry and intact. He does still crawl up the stairs/around the house, applying some pressure to the anterior RLE. He is still using tobacco, he says less than prior though. He states his blood sugars fluctuate, his last A1C was last fall and was less than 7. His PCP follows this, but he is not sure when he is due to next appt/check. Objective Data Objective Data Vital Signs: Vital Signs Temp Pulse Resp BP O2 Del Method 97.1 F L 80 16 134/46 H Room Air 04/08/22 09:26 04/08/22 09:26 04/08/22 09:26 04/08/22 09:26 03/25/22 10:47 Oxygen Delivery Method Room Air Weight: 148 lb Body Mass Index (BMI) 23.8 Charges/Coding Wound Center CF Procedures 96XXX-98XXX: 37999 RMVL DEVITAL TIS 20 CM/< Multi Select Codes Wound Center CF Procedures [id number]-[id number]: 61835 RMVL DEVITAL TIS 20 CM/< Physical Exam Const alert, oriented x3, no apparent distress and well nourished General Appearance: cooperative, comfortable and well developed HEENT normocephalic, head/scalp atraumatic, hearing grossly normal bilaterally, external ears normal and external nose normal Eyes PERRL and EOMs intact bilaterally General Eye: normal appearance of both eyes Neck full ROM General: normal visual inspection and trachea midline; Negative for anterior neck swelling Resp normal respiratory effort, normal air movement, no retractions and no use of accessory muscles Effort and Inspection: able to speak in complete sentences; Negative for labored, stridor or audible wheezes Cardio Rate: regular rate Rhythm: regular rhythm Extremity Extremity Narrative: R BKA. No discoloration/pallor, appropriate warmth, no significant edema. Skin Wounds: amputation and wounds noted Wound Narrative: Wound overlying R patella, R verdugo, and R medial amputation stump. No other visible wounds. Wounds with moderate slough and periwound callus. No significant erythema, drainage, foul odor, edema, fluctuance, induration. Neuro oriented x3, CN's II-XII intact bilaterally, moves all extremities, no focal motor deficits and no sensory deficits noted Psych mental status grossly normal Appearance: grossly normal Attitude: calm Activity / Motor Behavior: appropriate eye contact Speech: normal speech Mood & Affect: euthymic mood Thought Process: normal thought process Thought Content: normal thought content Attention / Concentration: attention grossly intact Memory / Cognition: memory grossly intact Insight: insight good Judgement: judgement good Debridement Note Debridement Note Wound debrided: Right medial amputation stump Laterality: Right Type of Debridement: Excisional debridement Anesthesia Used: 5% Lidocaine Gel Depth: Down to and including healthy tissue and to bone Percentage of wound debrided: 100 Instrument Used: 3mm curette Tissue Removed: slough, devitalized tissue Amount of bleeding with debridement: Mild Bleeding Controlled with: Pressure Patient tolerated procedure: Patient tolerated procedure well Post-Debridement Measurements and Additional Note: Post-Debridement Measurements/Treatment WC - Nurse 1 - General Ulcer Assessment Start: 03/25/22 10:46 Freq: Status: Active Protocol: MARIELY Activity Type Activity Date Activity User E-sign Co-sign Detail Recorded Client Recorded Date Recorded By Document 03/25/22 10:47 BMF [id number] 03/25/22 10:53 BMF Document 04/01/22 09:20 AK [id number] 04/01/22 09:30 AK Document 04/08/22 09:26 JF [id number] 04/08/22 09:32 JF 03/25/22 04/01/22 04/08/22 10:47 09:20 09:26 WC - Today's Visit Information Type of service Follow-up Visit Follow-up Visit Follow-up Visit (Physician/DRY BOSS (Physician/DRY BOSS (Physician/DRY BOSS ) ) ) Arrival Mode Wheelchair Ambulatory Wheelchair Transfer Assistance None Manual Patient Identification Verified (Name & Yes Yes ) Patient Requires Transmission-Based No No Yes Precautions Safety Precautions NA NA Height and Weight Body Mass Index (BMI) 23.8 23.8 23.8 BMI Classification Normal Normal Normal Vital Signs Temperature (97.8 F-99.1 F) 96.7 F L 97.1 F L 97.1 F L Temperature Source Temporal Temporal Temporal Pulse Rate (60-100) 68 80 Pulse Location Monitor Monitor Respiratory Rate (12-18) 16 16 Respiratory rate source Observation Observation Oxygen Delivery Method Room Air Blood Pressure (90/60-120/80) 196/57 H 134/46 H Blood Pressure Mean (mm Hg) 103 75 Source Monitor Monitor Position Sitting Sitting Blood Pressure Location Left Arm Left Arm History Since Last Visit- (Skip if this is Patient's initial visit) Have you changed medications since your No No No last visit? Any new allergies or adverse reactions No No No Had a fall/change in ADL's that may No No No increase risk of falls Signs or symptoms of abuse and/or No No No neglect since last visit Have you been in the hospital since your No No No last visit? Has dressing in place as prescribed Yes Yes Yes Has compression in place as prescribed N/A N/A Yes Has offloadiing in place as prescribed N/A N/A Yes Experienced any changes in pain level or No No management Left Footwear Regular Shoe Regular Shoe Right Footwear Regular Shoe No Footwear Pain Scale: 0-10 Numeric Is Patient Pain Free? Yes Yes Yes WC - Nurse 1 - General Ulcer Measurement Start: 03/25/22 10:46 Freq: Status: Active Protocol: Activity Type Activity Date Activity User E-sign Co-sign Detail Recorded Client Recorded Date Recorded By Document 03/25/22 10:47 BMF [id number] 03/25/22 10:53 BMF Document 04/01/22 09:20 AK [id number] 04/01/22 09:30 AK Document 04/08/22 09:26 JF [id number] 04/08/22 09:32 JF 03/25/22 04/01/22 04/08/22 10:47 09:20 09:26 Wound Center Nurse 1 #3 right medial knee -Combined with other wound No No No -Current Size (cm) - Length 0.4 0.1 0.4 -Current Size (cm) - Width 0.3 0.1 0.3 -Current Size (cm) - Depth 0.1 0.1 0.2 -Total Square Cm 0.12 0.01 0.12 -Date of Last Picture (Recall this 03/25/22 04/01/22 field) -Photo Taken Yes Yes Yes -Epithelialization None Present Small 1-33% -Tunneling No No No -Undermining/Tunneling No No No -Circular Undermining No No No -Change in Wound Grade/Stage No -Exudate Amt Small Medium Small -Exudate Type Serosanguineous Serosanguineous -Wound Margin Distinct, Indistinct, Non Outline -Visible Attached -Granulation Amt None Present (0 Medium (34-66%) Small (1-33%) %) -Granulation Quality [place] -Slough/Fibrin Yes Yes Yes -Necrosis Amt Large (67-100%) Large (67-100%) Small (1-33%) -Necrotic Tissue Type Adherent Slough Adherent Slough Adherent Slough -Structure Exposed N/A N/A -Texture (Jil-wound Skin Appearance) Assessed, No Abnormality, Assessed, Scarring Assessed Scarring -Moisture (Jil-wound Skin Appearance) Assessed No Abnormality, Assessed,Dry/ Assessed Scaly -Color (Jil-wound Skin Appearance) Assessed No Abnormality, Assessed Assessed -Temperature (Jil-wound Skin No Abnormality No Abnormality No Abnormality Appearance) (Pt Warm) (Pt Warm) (Pt Warm) -Tenderness on Palpation (Jil-wound No No No Skin Appearance) -Ulcer Cleansing Rinsed/ Soap and Water Wound Cleanser Irrigated with Saline -Foul Odor after Cleansing No No No -Anesthetic Used 5% Lidocaine 5% Lidocaine 5% Lidocaine Gel Gel Gel #2 R below the knee -Combined with other wound No No No -Current Size (cm) - Length 0.9 1 0.7 -Current Size (cm) - Width 0.8 1 0.9 -Current Size (cm) - Depth 0.3 0.2 0.2 -Total Square Cm 0.72 1 0.63 -Date of Last Picture (Recall this 03/25/22 04/01/22 field) -Photo Taken Yes Yes Yes -Epithelialization None Present Small 1-33% -Tunneling No No No -Undermining/Tunneling No No No -Circular Undermining No No No -Change in Wound Grade/Stage No -Exudate Amt Small Medium Small -Exudate Type Serosanguineous Serosanguineous Serosanguineous -Wound Margin Distinct, Distinct, Flat & Intact Outline Outline Attached Attached -Granulation Amt Medium (34-66%) Medium (34-66%) Medium (34-66%) -Granulation Quality Red [place] Red -Slough/Fibrin Yes Yes Yes -Necrosis Amt Medium (34-66%) Medium (34-66%) Small (1-33%) -Necrotic Tissue Type Adherent Slough Adherent Slough Adherent Slough -Structure Exposed N/A N/A -Texture (Jil-wound Skin Appearance) Assessed, No Abnormality, Assessed Scarring Assessed -Moisture (Jil-wound Skin Appearance) Assessed No Abnormality, Assessed,Dry/ Assessed Scaly -Color (Jil-wound Skin Appearance) Assessed No Abnormality, Assessed Assessed -Temperature (Jil-wound Skin No Abnormality No Abnormality No Abnormality Appearance) (Pt Warm) (Pt Warm) (Pt Warm) -Tenderness on Palpation (Jil-wound No No No Skin Appearance) -Ulcer Cleansing Rinsed/ Soap and Water Wound Cleanser Irrigated with Saline -Foul Odor after Cleansing No No No -Anesthetic Used 5% Lidocaine 5% Lidocaine 5% Lidocaine Gel Gel Gel #1 R knee -Combined with other wound No No -Current Size (cm) - Length 0.4 0.4 0.3 -Current Size (cm) - Width 0.4 0.7 0.4 -Current Size (cm) - Depth 0.1 0.3 0.1 -Total Square Cm 0.16 0.28 0.12 -Date of Last Picture (Recall this 03/25/22 field) -Photo Taken Yes Yes Yes -Epithelialization None Present Small 1-33% -Tunneling No No No -Undermining/Tunneling No No No -Circular Undermining No No No -Change in Wound Grade/Stage No -Exudate Amt Small Medium Small -Exudate Type Serosanguineous Serosanguineous Serosanguineous -Wound Margin Distinct, Distinct, Flat & Intact Outline Outline Attached Attached -Granulation Amt None Present (0 Large (67-100%) Medium (34-66%) %) -Granulation Quality [place] -Slough/Fibrin Yes No Yes -Necrosis Amt Large (67-100%) None Present (0 Small (1-33%) %) -Necrotic Tissue Type Adherent Slough Adherent Slough -Structure Exposed N/A N/A -Texture (Jil-wound Skin Appearance) Assessed, No Abnormality, Assessed Scarring Assessed -Moisture (Jil-wound Skin Appearance) Assessed No Abnormality, Assessed,Dry/ Assessed Scaly -Color (Jil-wound Skin Appearance) Assessed No Abnormality, Assessed Assessed -Temperature (Jil-wound Skin No Abnormality No Abnormality No Abnormality Appearance) (Pt Warm) (Pt Warm) (Pt Warm) -Tenderness on Palpation (Jil-wound No No No Skin Appearance) -Ulcer Cleansing Rinsed/ Soap and Water Wound Cleanser Irrigated with Saline -Foul Odor after Cleansing No No No -Anesthetic Used 5% Lidocaine 5% Lidocaine 5% Lidocaine Gel Gel Gel Lower Limb Edema Present NA WC - Nurse 2 - General Ulcer CM Notes Start: 03/25/22 10:46 Freq: Status: Active Protocol: Activity Type Activity Date Activity User E-sign Co-sign Detail Recorded Client Recorded Date Recorded By Document 03/25/22 11:52 PL [id number] 03/25/22 11:57 PL Document 04/01/22 13:01 PL [id number] 04/01/22 13:04 PL 03/25/22 04/01/22 11:52 13:01 Wound Center Nurse 2 #3 right medial knee -Time 11:01 09:32 -Correct Patient Yes Yes -Correct Side, Site, Position Yes Yes -Correct Procedure Yes Yes -Procedure Performed Yes Yes -Type of Procedure Debridement Debridement -Clinical Debridement Subcutaneous Subcutaneous -Tissue Removed Subcutaneous Subcutaneous -Post Debridement (cm) - Length 0.6 0.8 -Post Debridement (cm) - Width 0.5 0.4 -Post Debridement (cm) - Depth 0.6 0.4 -Total Square (Post) (cm) 0.30 0.32 -Area of Debridement (cm) - Length 0.6 0.8 -Area of Debridement (cm) - Width 0.5 0.4 -Total Square (Area) (cm) 0.30 0.32 -Tunneling No No -Undermining/Tunneling No No -Circular Undermining No No -Wound/Ulcer Outcome Not Healed Not Healed -Ulcer Cleansing Rinsed/ Rinsed/ Irrigated with Irrigated with Saline Saline -Foul Odor after Cleansing No No -Bioengineered Tissue No Yes -Type of Bioengineered Tissue Epifix -Expiration Date 10/21/26 -Product Lot Number [id number] -Percent Used 100 -Bleeding Controlled with Pressure Pressure -Treatment Response Procedure Procedure Tolerated Well Tolerated Well -Debridement - Subq, 1st 20sq cm No No -Apply Skin Sub - 1st 25 sq cm - Legs 1 -Epifix (per sq cm) 4 #2 R below the knee -Time 11:01 09:32 -Correct Patient Yes Yes -Correct Side, Site, Position Yes Yes -Correct Procedure Yes Yes -Procedure Performed Yes Yes -Type of Procedure Debridement Debridement -Clinical Debridement Subcutaneous Subcutaneous -Tissue Removed Subcutaneous Subcutaneous -Post Debridement (cm) - Length 1.0 0.9 -Post Debridement (cm) - Width 1.0 1.0 -Post Debridement (cm) - Depth 0.3 0.2 -Total Square (Post) (cm) 1.00 0.90 -Area of Debridement (cm) - Length 1.0 0.9 -Area of Debridement (cm) - Width 1.0 1.0 -Total Square (Area) (cm) 1.00 0.90 -Tunneling No No -Undermining/Tunneling No No -Circular Undermining No No -Wound/Ulcer Outcome Not Healed Not Healed -Ulcer Cleansing Rinsed/ Rinsed/ Irrigated with Irrigated with Saline Saline -Foul Odor after Cleansing No No -Bioengineered Tissue Yes No -Type of Bioengineered Tissue Epifix -Expiration Date 10/21/26 -Product Lot Number [id number] -Percent Used 100 -Bleeding Controlled with Pressure Pressure -Treatment Response Procedure Procedure Tolerated Well Tolerated Well -Debridement - Subq, 1st 20sq cm No No -Apply Skin Sub - 1st 25 sq cm - Legs 1 -Epifix (per sq cm) 4 #1 R knee -Time 11:01 09:32 -Correct Patient Yes Yes -Correct Side, Site, Position Yes Yes -Correct Procedure Yes Yes -Procedure Performed Yes Yes -Type of Procedure Debridement Debridement -Clinical Debridement Subcutaneous Subcutaneous -Tissue Removed Subcutaneous Subcutaneous -Post Debridement (cm) - Length 0.3 0.4 -Post Debridement (cm) - Width 0.5 0.5 -Post Debridement (cm) - Depth 0.4 0.4 -Total Square (Post) (cm) 0.15 0.20 -Area of Debridement (cm) - Length 0.3 0.4 -Area of Debridement (cm) - Width 0.5 0.5 -Total Square (Area) (cm) 0.15 0.20 -Tunneling No No -Undermining/Tunneling No No -Circular Undermining No No -Wound/Ulcer Outcome Not Healed Not Healed -Ulcer Cleansing Rinsed/ Rinsed/ Irrigated with Irrigated with Saline Saline -Foul Odor after Cleansing No No -Bioengineered Tissue No No -Bleeding Controlled with Pressure Pressure -Treatment Response Procedure Procedure Tolerated Well Tolerated Well -Debridement - Subq, 1st 20sq cm No No Pain Scale: 0-10 Numeric Is Patient Pain Free? Yes Yes - Nurse 3 - General Ulcer D/C NN Start: 03/25/22 10:46 Freq: Status: Active Protocol: Activity Type Activity Date Activity User E-sign Co-sign Detail Recorded Client Recorded Date Recorded By Document 04/01/22 10:41 [id number] 04/01/22 10:43 AK 04/01/22 10:41 Wound Care Center Nurse 3 #3 right medial knee -Foul Odor after Cleansing No -Negative Pressure Wound Therapy N/A -Primary Dressing Applied Mepilex Border -Mepilex Border 1 Right -Compression Wrap [place] Wrap Pain Scale: 0-10 Numeric Is Patient Pain Free? Yes WC - Visit Discharge Discharge Condition Stable Ambulatory Status Wheelchair Transportation Private Auto Medication Reconcilliation completed & Yes provided to patient/care provider Clinical Summary of Care Provided Yes Additional Wound Wound debrided: Anterior RLE, overlying patella Laterality: Right Type of Debridement: Excisional debridement Anesthesia Used: 5% Lidocaine Gel Depth: Down to and including healthy tissue and in the subcutaneous layer Percentage of wound debrided: 100 Instrument Used: 3mm curette Tissue Removed: slough, devitalized tissue Amount of bleeding with debridement: Mild Bleeding Controlled with: Pressure Patient tolerated procedure: Patient tolerated procedure well Additional Wound Wound debrided: R verdugo Laterality: Right Type of Debridement: Excisional debridement Anesthesia Used: 5% Lidocaine Gel Depth: Down to and including healthy tissue and in the subcutaneous layer Percentage of wound debrided: 100 Instrument Used: 5mm curette Amount of bleeding with debridement: Mild Bleeding Controlled with: Pressure Patient tolerated procedure: Patient tolerated procedure well Assessment/Plan Assessment/Plan (1) Below-knee amputation of right lower extremity: CODE(S): S88.111A - Complete traumatic amputation at level between knee and ankle, right lower leg, initial encounter (2) Non-healing wound of amputation stump: CODE(S): T87.89 - Other complications of amputation stump (3) Non-healing wound of right lower extremity: CODE(S): S81.801A - Unspecified open wound, right lower leg, initial encounter PLAN: Plan Patient was approved for Epifix for his right lower extremity wounds and was agreeable to proceed with applications. Wound beds were debrided and resulted in good bleeding. Epifix was applied in sterile fashion, moistened with collagen hydrogel, covered with adaptic, secured with steristrips, covered with DSD. 100% of product was used. Instructed patient to leave dressing in place until he returns to clinic in 1 week, keep clean and dry. Overall progress is somewhat stalled, discussed with patient the importance of making appropriate lifestyle modifications to support healing. Due to medial calf wound to bone and no real improvement in depth of wound would like to obtain XR to assess for radiographic signs of OM. No other signs/symptoms of infection on exam. Order was placed 2 weeks ago, patient has yet to complete. Emphasized importance of completing this prior to next visit. Discussed the importance of preventing continued trauma to the areas whenever possible. Elevate legs when resting. Increase protein in diet and continue with good blood sugar control. Strongly advise tobacco cessation. He has appt with vascular surgery in [place] in early April. Patient will return to wound care center in 1 week. He will return sooner or present to the ED should any symptoms worsen or new concerns arise.
[2022-04-15 09:28] VITALS: PULSE 68; TEMP 35.5; BMI 23.8
--- NOTE | 2022-04-15 10:08 | PCM.WC.PN ---
History of Present Illness Date of Service: 04/15/22 Chief Complaint: Multiple wounds to RLE amputation stump History of Wound: Patient presents to the wound center for evaluation and management of multiple wounds to right lower extremity including BKA a stump. He is referred by Dr. Sullivan a peripheral vascular interventionalist in [place] who manages his vascular disease. His past medical history is significant for diabetes mellitus, coronary artery disease, peripheral arterial disease, paroxysmal atrial fibrillation, ACID. He has had past endovascular interventions including right femoropopliteal bypass and left SFA/pop angioplasty. He does smoke, primarily a tobacco pipe or cigars. He is not particularly interested in quitting. He takes daily ASA and Eliquis. He reports his amputation was performed in 2011. He reports it healed well initially and he had no significant issue until March 2020 at which time he had a small wound which became infected and developed an abscess in the lateral aspect of his amputation stump. This required I&D and eventually healed well. He also has a history of osteomyelitis of the left great toe. Presently, he has a wound overlying the R patella, another wound slightly distal to the R verdugo, and a wound on the medial aspect of his amputation stump. He reports these have been ongoing for at least 6 months. He states the wound on the medial aspect of the amputation stump is a result of rubbing against his prosthesis. He reports the 2 wounds anteriorly closer to the knee are the result of him crawling around his home particularly up his stairs as he is not currently utilizing his prosthesis. He denies any history of infection of these current wounds. Subjective Subjective Patient is doing well, no complaints. He has been keeping the dressings clean and dry. He states he is working on cutting back his tobacco use. His sugars remain well controlled. He has not completed the XR I ordered 2-3 weeks ago. He states he is going to get it done today. Objective Data Objective Data Vital Signs: Vital Signs Temp Pulse Resp BP O2 Del Method 95.9 F L 68 16 134/46 H Room Air 04/15/22 09:28 04/15/22 09:28 04/08/22 09:26 04/08/22 09:26 03/25/22 10:47 Oxygen Delivery Method Room Air Weight: 148 lb Body Mass Index (BMI) 23.8 Charges/Coding Wound Center CF Procedures 96XXX-98XXX: 82002 RMVL DEVITAL TIS 20 CM/< Multi Select Codes Wound Center CF Procedures [id number]-98XXX: 26716 RMVL DEVITAL TIS 20 CM/< Physical Exam Const alert, oriented x3, no apparent distress and well nourished General Appearance: cooperative, comfortable and well developed HEENT normocephalic, head/scalp atraumatic, hearing grossly normal bilaterally, external ears normal and external nose normal Eyes PERRL and EOMs intact bilaterally General Eye: normal appearance of both eyes Neck full ROM General: normal visual inspection and trachea midline; Negative for anterior neck swelling Resp normal respiratory effort, normal air movement, no retractions and no use of accessory muscles Effort and Inspection: able to speak in complete sentences; Negative for labored, stridor or audible wheezes Cardio Rate: regular rate Rhythm: regular rhythm Extremity Extremity Narrative: R BKA. No discoloration/pallor, appropriate warmth, no significant edema. Skin Wounds: amputation and wounds noted Wound Narrative: Wound overlying R patella, R verdugo, and R medial amputation stump. No other visible wounds. Wounds with moderate slough. No significant erythema, drainage, foul odor, edema, fluctuance, induration. Neuro oriented x3, CN's II-XII intact bilaterally, moves all extremities, no focal motor deficits and no sensory deficits noted Psych mental status grossly normal Appearance: grossly normal Attitude: calm Activity / Motor Behavior: appropriate eye contact Speech: normal speech Mood & Affect: euthymic mood Thought Process: normal thought process Thought Content: normal thought content Attention / Concentration: attention grossly intact Memory / Cognition: memory grossly intact Insight: insight good Judgement: judgement good Debridement Note Debridement Note Wound debrided: Right medial amputation stump Laterality: Right Type of Debridement: Excisional debridement Anesthesia Used: 5% Lidocaine Gel Depth: Down to and including healthy tissue and to bone Percentage of wound debrided: 100 Instrument Used: 5mm curette Tissue Removed: slough, devitalized tissue Amount of bleeding with debridement: Mild Bleeding Controlled with: Pressure Patient tolerated procedure: Patient tolerated procedure well Post-Debridement Measurements and Additional Note: Post-Debridement Measurements/Treatment CHARO - Nurse 1 - General Ulcer Assessment Start: 03/25/22 10:46 Freq: Status: Active Protocol: MARIELY Activity Type Activity Date Activity User E-sign Co-sign Detail Recorded Client Recorded Date Recorded By Document 03/25/22 10:47 BMF [id number] 03/25/22 10:53 BMF Document 04/01/22 09:20 AK [id number] 04/01/22 09:30 AK Document 04/08/22 09:26 JF [id number] 04/08/22 09:32 JF Document 04/15/22 09:28 JF [id number] 04/15/22 09:34 JF 03/25/22 04/01/22 04/08/22 10:47 09:20 09:26 WC - Today's Visit Information Type of service Follow-up Visit Follow-up Visit Follow-up Visit (Physician/[employer] (Physician/[employer] (Physician/[employer] ) ) ) Arrival Mode Wheelchair Ambulatory Wheelchair Transfer Assistance None Manual Patient Identification Verified (Name & Yes Yes ) Patient Requires Transmission-Based No No Yes Precautions Safety Precautions NA NA Height and Weight Body Mass Index (BMI) 23.8 23.8 23.8 BMI Classification Normal Normal Normal Vital Signs Temperature (97.8 F-99.1 F) 96.7 F L 97.1 F L 97.1 F L Temperature Source Temporal Temporal Temporal Pulse Rate (60-100) 68 80 Pulse Location Monitor Monitor Respiratory Rate (12-18) 16 16 Respiratory rate source Observation Observation Oxygen Delivery Method Room Air Blood Pressure (90/60-120/80) 196/57 H 134/46 H Blood Pressure Mean (mm Hg) 103 75 Source Monitor Monitor Position Sitting Sitting Blood Pressure Location Left Arm Left Arm History Since Last Visit- (Skip if this is Patient's initial visit) Have you changed medications since your No No No last visit? Any new allergies or adverse reactions No No No Had a fall/change in ADL's that may No No No increase risk of falls Signs or symptoms of abuse and/or No No No neglect since last visit Have you been in the hospital since your No No No last visit? Has dressing in place as prescribed Yes Yes Yes Has compression in place as prescribed N/A N/A Yes Has offloadiing in place as prescribed N/A N/A Yes Experienced any changes in pain level or No No management Left Footwear Regular Shoe Regular Shoe Right Footwear Regular Shoe No Footwear Pain Scale: 0-10 Numeric Is Patient Pain Free? Yes Yes Yes 04/15/22 09:28 - Today's Visit Information Type of service Follow-up Visit (Physician/[employer] ) Arrival Mode Wheelchair Transfer Assistance Patient Identification Verified (Name & Yes ) Patient Requires Transmission-Based Precautions Safety Precautions Height and Weight Body Mass Index (BMI) 23.8 BMI Classification Normal Vital Signs Temperature (97.8 F-99.1 F) 95.9 F L Temperature Source Temporal Pulse Rate (60-100) 68 Pulse Location Monitor Respiratory Rate (12-18) Respiratory rate source Oxygen Delivery Method Blood Pressure (90/60-120/80) Blood Pressure Mean (mm Hg) Source Position Blood Pressure Location History Since Last Visit- (Skip if this is Patient's initial visit) Have you changed medications since your No last visit? Any new allergies or adverse reactions No Had a fall/change in ADL's that may No increase risk of falls Signs or symptoms of abuse and/or No neglect since last visit Have you been in the hospital since your No last visit? Has dressing in place as prescribed Yes Has compression in place as prescribed N/A Has offloadiing in place as prescribed N/A Experienced any changes in pain level or No management Left Footwear Regular Shoe Right Footwear No Footwear Pain Scale: 0-10 Numeric Is Patient Pain Free? Yes - Nurse 1 - General Ulcer Measurement Start: 03/25/22 10:46 Freq: Status: Active Protocol: Activity Type Activity Date Activity User E-sign Co-sign Detail Recorded Client Recorded Date Recorded By Document 03/25/22 10:47 [facility] [id number] 03/25/22 10:53 [facility] Document 04/01/22 09:20 AK [id number] 04/01/22 09:30 AK Document 04/08/22 09:26 JF [id number] 04/08/22 09:32 JF Document 04/15/22 09:28 JF [id number] 04/15/22 09:34 JF 03/25/22 04/01/22 04/08/22 10:47 09:20 09:26 Wound Center Nurse 1 #3 right medial knee -Combined with other wound No No No -Current Size (cm) - Length 0.4 0.1 0.4 -Current Size (cm) - Width 0.3 0.1 0.3 -Current Size (cm) - Depth 0.1 0.1 0.2 -Total Square Cm 0.12 0.01 0.12 -Date of Last Picture (Recall this 03/25/22 04/01/22 field) -Photo Taken Yes Yes Yes -Epithelialization None Present Small 1-33% -Tunneling No No No -Undermining/Tunneling No No No -Circular Undermining No No No -Change in Wound Grade/Stage No -Exudate Amt Small Medium Small -Exudate Type Serosanguineous Serosanguineous -Wound Margin Distinct, Indistinct, Non Outline -Visible Attached -Granulation Amt None Present (0 Medium (34-66%) Small (1-33%) %) -Granulation [place] -Slough/Fibrin Yes Yes Yes -Necrosis Amt Large (67-100%) Large (67-100%) Small (1-33%) -Necrotic Tissue Type Adherent Slough Adherent Slough Adherent Slough -Structure Exposed N/A N/A -Texture (Jil-wound Skin Appearance) Assessed, No Abnormality, Assessed, Scarring Assessed Scarring -Moisture (Jil-wound Skin Appearance) Assessed No Abnormality, Assessed,Dry/ Assessed Scaly -Color (Jil-wound Skin Appearance) Assessed No Abnormality, Assessed Assessed -Temperature (Jil-wound Skin No Abnormality No Abnormality No Abnormality Appearance) (Pt Warm) (Pt Warm) (Pt Warm) -Tenderness on Palpation (Jil-wound No No No Skin Appearance) -Ulcer Cleansing Rinsed/ Soap and Water Wound Cleanser Irrigated with Saline -Foul Odor after Cleansing No No No -Anesthetic Used 5% Lidocaine 5% Lidocaine 5% Lidocaine Gel Gel Gel #2 R below the knee -Combined with other wound No No No -Current Size (cm) - Length 0.9 1 0.7 -Current Size (cm) - Width 0.8 1 0.9 -Current Size (cm) - Depth 0.3 0.2 0.2 -Total Square Cm 0.72 1 0.63 -Date of Last Picture (Recall this 03/25/22 04/01/22 field) -Photo Taken Yes Yes Yes -Epithelialization None Present Small 1-33% -Tunneling No No No -Undermining/Tunneling No No No -Circular Undermining No No No -Change in Wound Grade/Stage No -Exudate Amt Small Medium Small -Exudate Type Serosanguineous Serosanguineous Serosanguineous -Wound Margin Distinct, Distinct, Flat & Intact Outline Outline Attached Attached -Granulation Amt Medium (34-66%) Medium (34-66%) Medium (34-66%) -Granulation Quality [place] -Slough/Fibrin Yes Yes Yes -Necrosis Amt Medium (34-66%) Medium (34-66%) Small (1-33%) -Necrotic Tissue Type Adherent Slough Adherent Slough Adherent Slough -Structure Exposed N/A N/A -Texture (Jil-wound Skin Appearance) Assessed, No Abnormality, Assessed Scarring Assessed -Moisture (Jil-wound Skin Appearance) Assessed No Abnormality, Assessed,Dry/ Assessed Scaly -Color (Jil-wound Skin Appearance) Assessed No Abnormality, Assessed Assessed -Temperature (Jil-wound Skin No Abnormality No Abnormality No Abnormality Appearance) (Pt Warm) (Pt Warm) (Pt Warm) -Tenderness on Palpation (Jil-wound No No No Skin Appearance) -Ulcer Cleansing Rinsed/ Soap and Water Wound Cleanser Irrigated with Saline -Foul Odor after Cleansing No No No -Anesthetic Used 5% Lidocaine 5% Lidocaine 5% Lidocaine Gel Gel Gel #1 R knee -Combined with other wound No No -Current Size (cm) - Length 0.4 0.4 0.3 -Current Size (cm) - Width 0.4 0.7 0.4 -Current Size (cm) - Depth 0.1 0.3 0.1 -Total Square Cm 0.16 0.28 0.12 -Date of Last Picture (Recall this 03/25/22 field) -Photo Taken Yes Yes Yes -Epithelialization None Present Small 1-33% -Tunneling No No No -Undermining/Tunneling No No No -Circular Undermining No No No -Change in Wound Grade/Stage No -Exudate Amt Small Medium Small -Exudate Type Serosanguineous Serosanguineous Serosanguineous -Wound Margin Distinct, Distinct, Flat & Intact Outline Outline Attached Attached -Granulation Amt None Present (0 Large (67-100%) Medium (34-66%) %) -Granulation [place] -Slough/Fibrin Yes No Yes -Necrosis Amt Large (67-100%) None Present (0 Small (1-33%) %) -Necrotic Tissue Type Adherent Slough Adherent Slough -Structure Exposed N/A N/A -Texture (Jil-wound Skin Appearance) Assessed, No Abnormality, Assessed Scarring Assessed -Moisture (Jil-wound Skin Appearance) Assessed No Abnormality, Assessed,Dry/ Assessed Scaly -Color (Jil-wound Skin Appearance) Assessed No Abnormality, Assessed Assessed -Temperature (Jil-wound Skin No Abnormality No Abnormality No Abnormality Appearance) (Pt Warm) (Pt Warm) (Pt Warm) -Tenderness on Palpation (Jil-wound No No No Skin Appearance) -Ulcer Cleansing Rinsed/ Soap and Water Wound Cleanser Irrigated with Saline -Foul Odor after Cleansing No No No -Anesthetic Used 5% Lidocaine 5% Lidocaine 5% Lidocaine Gel Gel Gel Lower Limb Edema Present NA 04/15/22 09:28 Wound Center Nurse 1 #3 right medial knee -Combined with other wound No -Current Size (cm) - Length 0.6 -Current Size (cm) - Width 0.8 -Current Size (cm) - Depth 0.2 -Total Square Cm 0.48 -Date of Last Picture (Recall this field) -Photo Taken No -Epithelialization -Tunneling No -Undermining/Tunneling No -Circular Undermining No -Change in Wound Grade/Stage -Exudate Amt Medium -Exudate Type Serosanguineous -Wound Margin Distinct, Outline Attached -Granulation Amt Small (1-33%) -Granulation [place] -Slough/Fibrin Yes -Necrosis Amt Large (67-100%) -Necrotic Tissue Type Adherent Slough -Structure Exposed N/A -Texture (Jil-wound Skin Appearance) No Abnormality, Assessed -Moisture (Jil-wound Skin Appearance) No Abnormality, Assessed,Not Assessed -Color (Jil-wound Skin Appearance) No Abnormality -Temperature (Jil-wound Skin No Abnormality Appearance) (Pt Warm) -Tenderness on Palpation (Jil-wound No Skin Appearance) -Ulcer Cleansing Soap and Water -Foul Odor after Cleansing No -Anesthetic Used 5% Lidocaine Gel #2 R below the knee -Combined with other wound No -Current Size (cm) - Length 0.7 -Current Size (cm) - Width 0.9 -Current Size (cm) - Depth 0.1 -Total Square Cm 0.63 -Date of Last Picture (Recall this field) -Photo Taken No -Epithelialization -Tunneling No -Undermining/Tunneling No -Circular Undermining No -Change in Wound Grade/Stage No -Exudate Amt Medium -Exudate Type Serosanguineous -Wound Margin Distinct, Outline Attached -Granulation Amt Small (1-33%) -Granulation Quality N/A,[place] -Slough/Fibrin -Necrosis Amt Large (67-100%) -Necrotic Tissue Type Adherent Slough -Structure Exposed N/A -Texture (Jil-wound Skin Appearance) No Abnormality, Assessed -Moisture (Jil-wound Skin Appearance) No Abnormality, Assessed -Color (Jil-wound Skin Appearance) No Abnormality, Assessed -Temperature (Jil-wound Skin No Abnormality Appearance) (Pt Warm) -Tenderness on Palpation (Jil-wound No Skin Appearance) -Ulcer Cleansing Soap and Water -Foul Odor after Cleansing No -Anesthetic Used 5% Lidocaine Gel #1 R knee -Combined with other wound No -Current Size (cm) - Length 0.3 -Current Size (cm) - Width 0.6 -Current Size (cm) - Depth 0.2 -Total Square Cm 0.18 -Date of Last Picture (Recall this field) -Photo Taken No -Epithelialization -Tunneling No -Undermining/Tunneling No -Circular Undermining No -Change in Wound Grade/Stage No -Exudate Amt Medium -Exudate Type Serosanguineous -Wound Margin Distinct, Outline Attached -Granulation Amt Small (1-33%) -Granulation [place] -Slough/Fibrin Yes -Necrosis Amt Large (67-100%) -Necrotic Tissue Type Adherent Slough -Structure Exposed N/A -Texture (Jil-wound Skin Appearance) No Abnormality, Assessed -Moisture (Jil-wound Skin Appearance) No Abnormality, Assessed -Color (Jil-wound Skin Appearance) No Abnormality, Assessed -Temperature (Jil-wound Skin No Abnormality Appearance) (Pt Warm) -Tenderness on Palpation (Jil-wound No Skin Appearance) -Ulcer Cleansing Soap and Water -Foul Odor after Cleansing No -Anesthetic Used 5% Lidocaine Gel Lower Limb Edema Present WC - Nurse 2 - General Ulcer CM Notes Start: 03/25/22 10:46 Freq: Status: Active Protocol: Activity Type Activity Date Activity User E-sign Co-sign Detail Recorded Client Recorded Date Recorded By Document 03/25/22 11:52 PL [id number] 02/03/23 11:57 PL Document 04/01/22 13:01 PL [id number] 04/01/22 13:04 PL Document 04/08/22 12:32 PL [id number] 04/08/22 12:35 PL 03/25/22 04/01/22 04/08/22 11:52 13:01 12:32 Wound Center Nurse 2 #3 right medial knee -Time : 09:32 09:40 -Correct Patient Yes Yes Yes -Correct Side, Site, Position Yes Yes Yes -Correct Procedure Yes Yes -Procedure Performed Yes Yes -Type of Procedure Debridement Debridement Debridement -Clinical Debridement Subcutaneous Subcutaneous Subcutaneous -Tissue Removed Subcutaneous Subcutaneous Subcutaneous -Post Debridement (cm) - Length 0.6 0.8 0.9 -Post Debridement (cm) - Width 0.5 0.4 0.5 -Post Debridement (cm) - Depth 0.6 0.4 0.6 -Total Square (Post) (cm) 0.30 0.32 0.45 -Area of Debridement (cm) - Length 0.6 0.8 0.9 -Area of Debridement (cm) - Width 0.5 0.4 0.5 -Total Square (Area) (cm) 0.30 0.32 0.45 -Tunneling No No No -Undermining/Tunneling No No No -Circular Undermining No No No -Wound/Ulcer Outcome Not Healed Not Healed Not Healed -Ulcer Cleansing Rinsed/ Rinsed/ Rinsed/ Irrigated with Irrigated with Irrigated with Saline Saline Saline -Foul Odor after Cleansing No No No -Bioengineered Tissue No Yes No -Type of Bioengineered Tissue Epifix -Expiration Date 10/21/26 -Product Lot Number [id number] -Percent Used 100 -Bleeding Controlled with Pressure Pressure Pressure -Treatment Response Procedure Procedure Procedure Tolerated Well Tolerated Well Tolerated Well -Debridement - Subq, 1st 20sq cm No No No -Apply Skin Sub - 1st 25 sq cm - Legs 1 -Epifix (per sq cm) 4 #2 R below the knee -Time : 09:32 09:40 -Correct Patient Yes Yes Yes -Correct Side, Site, Position Yes Yes Yes -Correct Procedure Yes Yes Yes -Procedure Performed Yes Yes Yes -Type of Procedure Debridement Debridement Debridement -Clinical Debridement Subcutaneous Subcutaneous Subcutaneous -Tissue Removed Subcutaneous Subcutaneous Subcutaneous -Post Debridement (cm) - Length 1.0 0.9 0.9 -Post Debridement (cm) - Width 1.0 1.0 1.0 -Post Debridement (cm) - Depth 0.3 0.2 0.3 -Total Square (Post) (cm) 1.00 0.90 0.90 -Area of Debridement (cm) - Length 1.0 0.9 0.9 -Area of Debridement (cm) - Width 1.0 1.0 1.0 -Total Square (Area) (cm) 1.00 0.90 0.90 -Tunneling No No No -Undermining/Tunneling No No No -Circular Undermining No No No -Wound/Ulcer Outcome Not Healed Not Healed Not Healed -Ulcer Cleansing Rinsed/ Rinsed/ Rinsed/ Irrigated with Irrigated with Irrigated with Saline Saline Saline -Foul Odor after Cleansing No No No -Bioengineered Tissue Yes No Yes -Type of Bioengineered Tissue Epifix Epifix -Expiration Date 10/21/26 10/21/26 -Product Lot Number [id number] -Percent Used 100 100 -Bleeding Controlled with Pressure Pressure Pressure -Treatment Response Procedure Procedure Procedure Tolerated Well Tolerated Well Tolerated Well -Debridement - Subq, 1st 20sq cm No No No -Apply Skin Sub - 1st 25 sq cm - Legs 1 1 -Epifix (per sq cm) 4 4 #1 R knee -Time 11:01 09:32 09:40 -Correct Patient Yes Yes Yes -Correct Side, Site, Position Yes Yes Yes -Correct Procedure Yes Yes Yes -Procedure Performed Yes Yes Yes -Type of Procedure Debridement Debridement Debridement -Clinical Debridement Subcutaneous Subcutaneous Subcutaneous -Tissue Removed Subcutaneous Subcutaneous Subcutaneous -Post Debridement (cm) - Length 0.3 0.4 0.4 -Post Debridement (cm) - Width 0.5 0.5 0.5 -Post Debridement (cm) - Depth 0.4 0.4 0.4 -Total Square (Post) (cm) 0.15 0.20 0.20 -Area of Debridement (cm) - Length 0.3 0.4 0.4 -Area of Debridement (cm) - Width 0.5 0.5 0.5 -Total Square (Area) (cm) 0.15 0.20 0.20 -Tunneling No No No -Undermining/Tunneling No No No -Circular Undermining No No No -Wound/Ulcer Outcome Not Healed Not Healed Not Healed -Ulcer Cleansing Rinsed/ Rinsed/ Rinsed/ Irrigated with Irrigated with Irrigated with Saline Saline Saline -Foul Odor after Cleansing No No No -Bioengineered Tissue No No No -Bleeding Controlled with Pressure Pressure Pressure -Treatment Response Procedure Procedure Procedure Tolerated Well Tolerated Well Tolerated Well -Debridement - Subq, 1st 20sq cm No No No Pain Scale: 0-10 Numeric Is Patient Pain Free? Yes Yes Yes - Nurse 3 - General Ulcer D/C NN Start: 03/25/22 10:46 Freq: Status: Active Protocol: Activity Type Activity Date Activity User E-sign Co-sign Detail Recorded Client Recorded Date Recorded By Document 04/01/22 10:41 CT [id number] 04/01/22 10:43 CT Document 04/08/22 10:29 PR [id number] 04/08/22 10:30 PR 04/01/22 04/08/22 10:41 10:29 Wound Care Center Nurse 3 #3 right medial knee -Foul Odor after Cleansing No -Negative Pressure Wound Therapy N/A -Primary Dressing Applied Mepilex Border -Mepilex Border 1 #1 R knee -Primary Dressing Applied Mepilex Border -Mepilex Border 1 Right -Compression Wrap Fernando Wrap Fernando Wrap Pain Scale: 0-10 Numeric Is Patient Pain Free? Yes Yes - Visit Discharge Discharge Condition Stable Stable Ambulatory Status Wheelchair Ambulatory, Wheelchair Transportation Private Auto Private Auto Medication Reconcilliation completed & Yes No provided to patient/care provider Clinical Summary of Care Provided Yes Yes Notes: pt knows to keep wound clean dry and intact Additional Wound Wound debrided: Anterior RLE, overlying patella Laterality: Right Type of Debridement: Excisional debridement Anesthesia Used: 5% Lidocaine Gel Depth: Down to and including healthy tissue and in the subcutaneous layer Percentage of wound debrided: 100 Instrument Used: 3mm curette Tissue Removed: slough, devitalized tissue Amount of bleeding with debridement: Mild Bleeding Controlled with: Pressure Patient tolerated procedure: Patient tolerated procedure well Additional Wound Wound debrided: R verdugo Laterality: Right Type of Debridement: Excisional debridement Anesthesia Used: 5% Lidocaine Gel Depth: Down to and including healthy tissue and in the subcutaneous layer Percentage of wound debrided: 100 Instrument Used: 5mm curette Amount of bleeding with debridement: Mild Bleeding Controlled with: Pressure Patient tolerated procedure: Patient tolerated procedure well Assessment/Plan Assessment/Plan (1) Below-knee amputation of right lower extremity: CODE(S): S88.111A - Complete traumatic amputation at level between knee and ankle, right lower leg, initial encounter (2) Non-healing wound of amputation stump: CODE(S): T87.89 - Other complications of amputation stump (3) Non-healing wound of right lower extremity: CODE(S): S81.801A - Unspecified open wound, right lower leg, initial encounter PLAN: Plan We are continuing with Epifix applications. This is application #4. Wound beds were debrided and resulted in good bleeding. Epifix was applied in sterile fashion, moistened with collagen hydrogel, covered with adaptic, secured with steristrips, covered with DSD. 100% of product was used. Instructed patient to leave dressing in place until he returns to clinic in 1 week, keep clean and dry. Overall progress remains somewhat stalled, discussed with patient the importance of making appropriate lifestyle modifications to support healing. Due to medial calf wound to bone and no real improvement in depth of wound would like to obtain XR to assess for radiographic signs of OM. No other signs/symptoms of infection on exam. Order was placed 3 weeks ago, patient has yet to complete but states he is doing so today. Discussed the importance of preventing continued trauma to the areas whenever possible. Elevate legs when resting. Increase protein in diet and continue with good blood sugar control. Strongly advise tobacco cessation. He has appt with vascular surgery in [place] in early April. Patient will return to wound care center in 1 week. He will return sooner or present to the ED should any symptoms worsen or new concerns arise.
--- NOTE | 2022-04-15 10:40 | RAD_ITS ---
INDICATION: WOUND EXAMINATION/TECHNIQUE: X-RAY - RIGHT XR Tibia/Fibula 2 Views 2 VIEWS COMPARISON: None. FINDINGS: SOFT TISSUES: No soft tissue swelling or gas. Surgical clips in the medial soft tissues. BONES/JOINTS: No acute fracture. Changes from below the knee amputation. Joint spaces anatomically aligned. No sclerotic or destructive changes observed. RAD/Tibia & Fibula 2 Views IMPRESSION: Status post right BKA. No acute findings. Electronically Signed: Mike Diaz MD at 20:35 EST ,
== END 2022-04-19 23:59 | disposition home or self-care (01) ==
LOC: WC 09:30
PROVIDERS: PCP Family Medicine; Referring Provider Physician Assistant; Visit Provider Physician Assistant
DX: T87.89 Other complications of amputation stump (principal); E11.51 Type 2 diabetes mellitus with diabetic peripheral angiopathy without gangrene; Z89.511 Acquired absence of right leg below knee; I48.0 Paroxysmal atrial fibrillation; Z79.4 Long term (current) use of insulin; S81.801A Unspecified open wound, right lower leg, initial encounter; X58.XXXA Exposure to other specified factors, initial encounter; I25.10 Atherosclerotic heart disease of native coronary artery without angina pectoris; F17.290 Nicotine dependence, other tobacco product, uncomplicated; Z95.810 Presence of automatic (implantable) cardiac defibrillator; Z95.820 Peripheral vascular angioplasty status with implants and grafts; Z79.84 Long term (current) use of oral hypoglycemic drugs; Z79.82 Long term (current) use of aspirin; Z79.899 Other long term (current) drug therapy
CPT/HCPCS: 15271; 73590; Q4186

== ENCOUNTER → 2022-04-29 | Outpatient (CLI) | payer MEDICARE, MEDICAID, SELFPAY ==
[2022-04-29 10:50] LABS: Creatinine, Serum 1.48 mg/dL (0.70-1.30); EST Glomerular Filtration Rate 52 mL/min (>60); Est Glom Filt Rate - Afr Amer 63 mL/min (>60)
== END | disposition home or self-care (01) ==
LOC: LAB 09:38
PROVIDERS: PCP Family Medicine; Referring Provider Physician Assistant; Visit Provider Physician Assistant
DX: L97.816 Non-pressure chronic ulcer of other part of right lower leg with bone involvement without evidence of necrosis (principal); L97.812 Non-pressure chronic ulcer of other part of right lower leg with fat layer exposed; S81.801A Unspecified open wound, right lower leg, initial encounter; X58.XXXA Exposure to other specified factors, initial encounter
CPT/HCPCS: 36415; 82565

== ENCOUNTER 2022-05-20 10:00 | Outpatient (RCR) | payer MEDICARE, MEDICAID, SELFPAY ==
[2022-04-20 00:10] VITALS: BP 134/46; PULSE 68; RESP 16; TEMP 35.5; BMI 23.8
[2022-04-22 09:40] VITALS: BP 134/50; PULSE 69; TEMP 36.2; BMI 23.8
--- NOTE | 2022-04-22 19:03 | PCM.WC.PN ---
History of Present Illness Date of Service: 04/22/22 Chief Complaint: Multiple wounds to RLE amputation stump History of Wound: Patient presents to the wound center for evaluation and management of multiple wounds to right lower extremity including BKA a stump. He is referred by Dr. Sulilvan a peripheral vascular interventionalist in [place] who manages his vascular disease. His past medical history is significant for diabetes mellitus, coronary artery disease, peripheral arterial disease, paroxysmal atrial fibrillation, ACID. He has had past endovascular interventions including right femoropopliteal bypass and left SFA/pop angioplasty. He does smoke, primarily a tobacco pipe or cigars. He is not particularly interested in quitting. He takes daily ASA and Eliquis. He reports his amputation was performed in 2011. He reports it healed well initially and he had no significant issue until March 2020 at which time he had a small wound which became infected and developed an abscess in the lateral aspect of his amputation stump. This required I&D and eventually healed well. He also has a history of osteomyelitis of the left great toe. Presently, he has a wound overlying the R patella, another wound slightly distal to the R verdugo, and a wound on the medial aspect of his amputation stump. He reports these have been ongoing for at least 6 months. He states the wound on the medial aspect of the amputation stump is a result of rubbing against his prosthesis. He reports the 2 wounds anteriorly closer to the knee are the result of him crawling around his home particularly up his stairs as he is not currently utilizing his prosthesis. He denies any history of infection of these current wounds. Subjective Subjective Patient is well this week, denies F/C, N/V, new/worsening pain. He has been keeping dressings clean and dry. He states he has cut back on his tobacco use this week and has been increasing his protein intake as well. Objective Data Objective Data Vital Signs: Vital Signs Temp Pulse Resp BP 97.2 F L 69 16 134/50 H 04/22/22 09:40 04/22/22 09:40 04/20/22 00:10 04/22/22 09:40 Weight: 148 lb Body Mass Index (BMI) 23.8 Charges/Coding Wound Center CF Procedures [id number]: [id number] RMVL DEVITAL TIS 20 CM/< Multi Select Codes Wound Center CF Procedures [id number]: [id number] RMVL DEVITAL TIS 20 CM/< Physical Exam Const alert, oriented x3, no apparent distress and well nourished General Appearance: cooperative, comfortable and well developed HEENT normocephalic, head/scalp atraumatic, hearing grossly normal bilaterally, external ears normal and external nose normal Eyes EOMs intact bilaterally General Eye: normal appearance of both eyes Neck full ROM General: normal visual inspection and trachea midline; Negative for anterior neck swelling Resp normal respiratory effort, normal air movement, no retractions and no use of accessory muscles Effort and Inspection: able to speak in complete sentences; Negative for labored, stridor or audible wheezes Cardio Rate: regular rate Rhythm: regular rhythm Extremity Extremity Narrative: R BKA. No discoloration/pallor, appropriate warmth, no significant edema. Skin Wounds: amputation and wounds noted Wound Narrative: Wound overlying R patella, R verdugo, and R medial amputation stump. Moderate slough. No significant erythema, drainage, foul odor, edema, fluctuance, induration. Stable in appearance from last week. Neuro oriented x3, CN's II-XII intact bilaterally, moves all extremities, no focal motor deficits and no sensory deficits noted Psych mental status grossly normal Appearance: grossly normal Attitude: calm Activity / Motor Behavior: appropriate eye contact Speech: normal speech Mood & Affect: euthymic mood Thought Process: normal thought process Thought Content: normal thought content Attention / Concentration: attention grossly intact Memory / Cognition: memory grossly intact Insight: insight good Judgement: judgement good Debridement Note Debridement Note Wound debrided: Right medial amputation stump Laterality: Right Type of Debridement: Excisional debridement Anesthesia Used: 5% Lidocaine Gel Depth: Down to and including healthy tissue and to bone Percentage of wound debrided: 100 Instrument Used: 3mm curette Tissue Removed: slough, devitalized tissue Amount of bleeding with debridement: Mild Bleeding Controlled with: Pressure Patient tolerated procedure: Patient tolerated procedure well Post-Debridement Measurements and Additional Note: Post-Debridement Measurements/Treatment - Nurse 1 - General Ulcer Assessment Start: 04/22/22 09:35 Freq: Status: Active Protocol: MARIELY Activity Type Activity Date Activity User E-sign Co-sign Detail Recorded Client Recorded Date Recorded By Document 04/22/22 09:40 [place] [id number] 04/22/22 09:47 [id number] 04/22/22 09:40 - Today's Visit Information Type of service Follow-up Visit (Physician/CUE WORKER ) Arrival Mode Wheelchair Patient Identification Verified (Name & Yes ) Patient Requires Transmission-Based No Precautions Height and Weight Body Mass Index (BMI) 23.8 BMI Classification Normal Vital Signs Temperature (97.8 F-99.1 F) 97.2 F L Temperature Source Temporal Pulse Rate (60-100) 69 Pulse Location Monitor Blood Pressure (90/60-120/80) 134/50 H Blood Pressure Mean (mm Hg) 78 Source Monitor History Since Last Visit- (Skip if this is Patient's initial visit) Have you changed medications since your No last visit? Any new allergies or adverse reactions No Had a fall/change in ADL's that may No increase risk of falls Signs or symptoms of abuse and/or No neglect since last visit Have you been in the hospital since your No last visit? Has dressing in place as prescribed Yes Has compression in place as prescribed No Has offloadiing in place as prescribed N/A Experienced any changes in pain level or No management Left Footwear Regular Shoe Pain Scale: 0-10 Numeric Is Patient Pain Free? Yes - Nurse 1 - General Ulcer Measurement Start: 04/22/22 09:35 Freq: Status: Active Protocol: Activity Type Activity Date Activity User E-sign Co-sign Detail Recorded Client Recorded Date Recorded By Document 04/22/22 09:40 [place] [id number] 04/22/22 09:47 [place] 04/22/22 09:40 Wound Center Nurse 1 #3 right medial knee -Combined with other wound No -Current Size (cm) - Length 0.2 -Current Size (cm) - Width 0.3 -Current Size (cm) - Depth 0.1 -Total Square Cm 0.06 -Photo Taken Yes -Tunneling No -Undermining/Tunneling No -Circular Undermining No -Change in Wound Grade/Stage No -Exudate Amt None Present -Wound Margin Distinct, Outline Attached -Granulation Amt None Present (0 %) -Granulation Quality N/A -Slough/Fibrin Yes -Necrosis Amt Large (67-100%) -Necrotic Tissue Type Adherent Slough -Structure Exposed N/A -Texture (Jil-wound Skin Appearance) No Abnormality, Assessed -Moisture (Jil-wound Skin Appearance) No Abnormality, Assessed -Color (Jil-wound Skin Appearance) No Abnormality, Assessed -Temperature (Jil-wound Skin No Abnormality Appearance) (Pt Warm) -Tenderness on Palpation (Jil-wound No Skin Appearance) -Ulcer Cleansing Soap and Water -Foul Odor after Cleansing No -Anesthetic Used 5% Lidocaine Gel #2 R below the knee -Combined with other wound No -Current Size (cm) - Length 0.5 -Current Size (cm) - Width 0.5 -Current Size (cm) - Depth 0.2 -Total Square Cm 0.25 -Date of Last Picture (Recall this 04/22/22 field) -Photo Taken Yes -Tunneling No -Undermining/Tunneling No -Circular Undermining No -Change in Wound Grade/Stage No -Exudate Amt Medium -Exudate Type Serosanguineous -Wound Margin Distinct, Outline Attached -Granulation Amt Medium (34-66%) -Granulation Quality [place] -Slough/Fibrin Yes -Necrosis Amt Medium (34-66%) -Necrotic Tissue Type Adherent Slough -Structure Exposed N/A -Texture (Jil-wound Skin Appearance) No Abnormality, Assessed -Moisture (Jil-wound Skin Appearance) No Abnormality, Assessed -Color (Jil-wound Skin Appearance) No Abnormality, Assessed -Temperature (Jil-wound Skin No Abnormality Appearance) (Pt Warm) -Tenderness on Palpation (Jil-wound No Skin Appearance) -Ulcer Cleansing Soap and Water -Foul Odor after Cleansing No -Anesthetic Used 5% Lidocaine Gel #1 R knee -Current Size (cm) - Length 0.6 -Current Size (cm) - Width 0.6 -Current Size (cm) - Depth 0.2 -Total Square Cm 0.36 -Photo Taken Yes -Tunneling No -Undermining/Tunneling No -Circular Undermining No -Change in Wound Grade/Stage No -Exudate Amt Medium -Exudate Type Serosanguineous -Wound Margin Distinct, Outline Attached -Granulation Amt Medium (34-66%) -Granulation Quality [place] -Slough/Fibrin Yes -Necrosis Amt Medium (34-66%) -Necrotic Tissue Type Adherent Slough -Structure Exposed N/A -Texture (Jil-wound Skin Appearance) No Abnormality, Assessed -Moisture (Jil-wound Skin Appearance) No Abnormality, Assessed -Color (Jil-wound Skin Appearance) No Abnormality, Assessed -Temperature (Jil-wound Skin No Abnormality Appearance) (Pt Warm) -Tenderness on Palpation (Jil-wound No Skin Appearance) -Ulcer Cleansing Soap and Water -Foul Odor after Cleansing No -Anesthetic Used 5% Lidocaine Gel WC - Nurse 2 - General Ulcer CM Notes Start: 04/22/22 09:35 Freq: Status: Active Protocol: Activity Type Activity Date Activity User E-sign Co-sign Detail Recorded Client Recorded Date Recorded By Document 04/22/22 12:33 PL [id number] 04/22/22 12:37 PL 04/22/22 12:33 Wound Center Nurse 2 #3 right medial knee -Time 10:08 -Correct Patient Yes -Correct Side, Site, Position Yes -Correct Procedure Yes -Procedure Performed Yes -Type of Procedure Debridement -Clinical Debridement Subcutaneous -Tissue Removed Subcutaneous -Post Debridement (cm) - Length 0.7 -Post Debridement (cm) - Width 0.5 -Post Debridement (cm) - Depth 0.6 -Total Square (Post) (cm) 0.35 -Area of Debridement (cm) - Length 0.7 -Area of Debridement (cm) - Width 0.5 -Total Square (Area) (cm) 0.35 -Tunneling No -Undermining/Tunneling No -Circular Undermining No -Wound/Ulcer Outcome Not Healed -Ulcer Cleansing Rinsed/ Irrigated with Saline -Foul Odor after Cleansing No -Bioengineered Tissue No -Bleeding Controlled with Pressure -Treatment Response Procedure Tolerated Well -Debridement - Subq, 1st 20sq cm No #2 R below the knee -Time 10:08 -Correct Patient Yes -Correct Side, Site, Position Yes -Correct Procedure Yes -Procedure Performed Yes -Type of Procedure Debridement -Clinical Debridement Subcutaneous -Tissue Removed Subcutaneous -Post Debridement (cm) - Length 0.9 -Post Debridement (cm) - Width 0.9 -Post Debridement (cm) - Depth 0.4 -Total Square (Post) (cm) 0.81 -Area of Debridement (cm) - Length 0.9 -Area of Debridement (cm) - Width 0.9 -Total Square (Area) (cm) 0.81 -Tunneling No -Undermining/Tunneling No -Circular Undermining No -Wound/Ulcer Outcome Not Healed -Ulcer Cleansing Rinsed/ Irrigated with Saline -Foul Odor after Cleansing No -Bioengineered Tissue Yes -Type of Bioengineered Tissue Epifix 18mm Disc -Expiration Date 01/20/27 -Product Lot Number [id number] -Percent Used 100 -Bleeding Controlled with Pressure -Treatment Response Procedure Tolerated Well -Debridement - Subq, 1st 20sq cm No -Apply Skin Sub - 1st 25 sq cm - Legs 1 -Epifix 18mm Disc 3 #1 R knee -Time 10:08 -Correct Patient Yes -Correct Side, Site, Position Yes -Correct Procedure Yes -Procedure Performed Yes -Type of Procedure Debridement -Clinical Debridement Subcutaneous -Tissue Removed Subcutaneous -Post Debridement (cm) - Length 0.4 -Post Debridement (cm) - Width 0.5 -Post Debridement (cm) - Depth 0.4 -Total Square (Post) (cm) 0.20 -Area of Debridement (cm) - Length 0.4 -Area of Debridement (cm) - Width 0.5 -Total Square (Area) (cm) 0.20 -Tunneling No -Undermining/Tunneling No -Circular Undermining No -Wound/Ulcer Outcome Not Healed -Ulcer Cleansing Rinsed/ Irrigated with Saline -Foul Odor after Cleansing No -Bioengineered Tissue No -Bleeding Controlled with Pressure -Treatment Response Procedure Tolerated Well -Debridement - Subq, 1st 20sq cm Yes Pain Scale: 0-10 Numeric Is Patient Pain Free? Yes - Nurse 3 - General Ulcer D/C NN Start: 04/22/22 09:35 Freq: Status: Active Protocol: Activity Type Activity Date Activity User E-sign Co-sign Detail Recorded Client Recorded Date Recorded By Document 04/22/22 11:45 MT [id number] 04/22/22 11:47 MT 04/22/22 11:45 Wound Care Center Nurse 3 #3 right medial knee -Primary Dressing Applied Mepilex Border -Mepilex Border 2 Pain Scale: 0-10 Numeric Is Patient Pain Free? Yes - Visit Discharge Discharge Condition Stable Ambulatory Status Wheelchair Transportation Private Auto Medication Reconcilliation completed & No provided to patient/care provider Clinical Summary of Care Provided Yes Additional Wound Wound debrided: Anterior RLE, overlying patella Laterality: Right Type of Debridement: Excisional debridement Anesthesia Used: 5% Lidocaine Gel Depth: Down to and including healthy tissue and in the subcutaneous layer Percentage of wound debrided: 100 Instrument Used: 3mm curette Tissue Removed: slough, devitalized tissue Amount of bleeding with debridement: Mild Bleeding Controlled with: Pressure Patient tolerated procedure: Patient tolerated procedure well Additional Wound Wound debrided: R verdugo Laterality: Right Type of Debridement: Excisional debridement Anesthesia Used: 5% Lidocaine Gel Depth: Down to and including healthy tissue and in the subcutaneous layer Percentage of wound debrided: 100 Instrument Used: 3mm curette Tissue Removed: slough, devitalized tissue Amount of bleeding with debridement: Mild Bleeding Controlled with: Pressure Patient tolerated procedure: Patient tolerated procedure well Assessment/Plan Assessment/Plan (1) Below-knee amputation of right lower extremity: CODE(S): S88.111A - Complete traumatic amputation at level between knee and ankle, right lower leg, initial encounter (2) Non-pressure chronic ulcer of other part of right lower leg with fat layer exposed: CODE(S): L97.812 - Non-pressure chronic ulcer of other part of right lower leg with fat layer exposed (3) Non-pressure chronic ulcer of other part of right lower leg with bone involvement without evidence of necrosis: CODE(S): L97.816 - Non-pressure chronic ulcer of other part of right lower leg with bone involvement without evidence of necrosis PLAN: Plan There was small reduction in wound size this week. Continue to emphasize the importance of making appropriate lifestyle modifications to support healing. We are continuing with Epifix applications. This is application #5. Wound beds were debrided and resulted in good bleeding. Epifix was applied in sterile fashion, moistened with collagen hydrogel, covered with adaptic, secured with steristrips, covered with DSD. 100% of product was used. Instructed patient to leave dressing in place until he returns to clinic in 1 week, keep clean and dry. Patient completed XR as ordered which was negative for radiographic signs of OM. Did do cultures today to r/o infection contributing to slow healing. Discussed the importance of preventing continued trauma to the areas whenever possible. Elevate legs when resting. Increase protein in diet and continue with good blood sugar control. Strongly advise tobacco cessation. He has appt with vascular surgery in [place] in 2 weeks. Patient will return to wound care center in 1 week. He will return sooner or present to the ED should any symptoms worsen or new concerns arise.
[2022-04-29 10:11] VITALS: BP 109/61; PULSE 66; TEMP 36.3; BMI 23.8
--- NOTE | 2022-04-29 15:39 | PCM.WC.PN ---
History of Present Illness Date of Service: 04/29/22 Chief Complaint: Multiple wounds to RLE amputation stump History of Wound: Patient presents to the wound center for evaluation and management of multiple wounds to right lower extremity including BKA a stump. He is referred by Dr. Sullivan a peripheral vascular interventionalist in [place] who manages his vascular disease. His past medical history is significant for diabetes mellitus, coronary artery disease, peripheral arterial disease, paroxysmal atrial fibrillation, ACID. He has had past endovascular interventions including right femoropopliteal bypass and left SFA/pop angioplasty. He does smoke, primarily a tobacco pipe or cigars. He is not particularly interested in quitting. He takes daily ASA and Eliquis. He reports his amputation was performed in 2011. He reports it healed well initially and he had no significant issue until March 2020 at which time he had a small wound which became infected and developed an abscess in the lateral aspect of his amputation stump. This required I&D and eventually healed well. He also has a history of osteomyelitis of the left great toe. Presently, he has a wound overlying the R patella, another wound slightly distal to the R verdugo, and a wound on the medial aspect of his amputation stump. He reports these have been ongoing for at least 6 months. He states the wound on the medial aspect of the amputation stump is a result of rubbing against his prosthesis. He reports the 2 wounds anteriorly closer to the knee are the result of him crawling around his home particularly up his stairs as he is not currently utilizing his prosthesis. He denies any history of infection of these current wounds. Subjective Subjective Patient is well this week, denies F/C, N/V, new/worsening pain. He has been keeping dressings clean and dry. He continues to use tobacco, some days more than others, is trying to cut back. His sugars are overall good, usually in low 100s. He is tolerating antibiotics without issue. He denies F/C, N/V, worsening pain or erythema. He is supposed to f/u with Dr. Sullivan (vascular surgery) in [place] next week. Objective Data Objective Data Vital Signs: Vital Signs Temp Pulse Resp BP 97.4 F L 66 16 109/61 04/29/22 10:11 04/29/22 10:11 04/20/22 00:10 04/29/22 10:11 Weight: 148 lb Body Mass Index (BMI) 23.8 Lab / Micro Data Micro: Microbiology 04/22/22 10:10 Wound Abcess - Leg, Right Gram Stain - Final 04/22/22 10:10 Wound Abcess - Leg, Right Wound Culture - Final Streptococcus agalactiae (B) Stenotrophomonas maltophilia 04/22/22 10:10 Wound Abcess - Leg, Right Anaerobic Culture - Final No anaerobic bacteria isolated. Charges/Coding Wound Center CF Procedures [id number]: [id number] RMVL DEVITAL TIS 20 CM/< Multi Select Codes Wound Center CF Procedures [id number]: [id number] RMVL DEVITAL TIS 20 CM/< Physical Exam Const alert, oriented x3, no apparent distress and well nourished General Appearance: cooperative, comfortable and well developed HEENT normocephalic, head/scalp atraumatic, hearing grossly normal bilaterally, external ears normal and external nose normal Eyes EOMs intact bilaterally General Eye: normal appearance of both eyes Neck full ROM General: normal visual inspection and trachea midline; Negative for anterior neck swelling Resp normal respiratory effort, normal air movement, no retractions and no use of accessory muscles Effort and Inspection: able to speak in complete sentences; Negative for labored, stridor or audible wheezes Cardio Rate: regular rate Rhythm: regular rhythm Extremity Extremity Narrative: R BKA. No discoloration/pallor, appropriate warmth, no significant edema. Skin Wounds: amputation and wounds noted Wound Narrative: Wound overlying R patella, R verdugo, and R medial amputation stump. Moderate slough/callus. No significant erythema, drainage, foul odor, edema, fluctuance, induration. Stable in appearance from last week. Neuro oriented x3, CN's II-XII intact bilaterally, moves all extremities, no focal motor deficits and no sensory deficits noted Psych mental status grossly normal Appearance: grossly normal Attitude: calm Activity / Motor Behavior: appropriate eye contact Speech: normal speech Mood & Affect: euthymic mood Thought Process: normal thought process Thought Content: normal thought content Attention / Concentration: attention grossly intact Memory / Cognition: memory grossly intact Insight: insight good Judgement: judgement good Debridement Note Debridement Note Wound debrided: Right medial amputation stump Laterality: Right Type of Debridement: Excisional debridement Anesthesia Used: 5% Lidocaine Gel Depth: Down to and including healthy tissue and to bone Percentage of wound debrided: 100 Instrument Used: 3mm curette Tissue Removed: slough, devitalized tissue Amount of bleeding with debridement: Mild Bleeding Controlled with: Pressure Patient tolerated procedure: Patient tolerated procedure well Post-Debridement Measurements and Additional Note: Post-Debridement Measurements/Treatment - Nurse 1 - General Ulcer Assessment Start: 04/22/22 09:35 Freq: Status: Active Protocol: MARIELY Activity Type Activity Date Activity User E-sign Co-sign Detail Recorded Client Recorded Date Recorded By Document 04/22/22 09:40 CT [id number] 04/22/22 09:47 AK Document 04/29/22 10:11 AK [id number] 04/29/22 10:15 AK 04/22/22 04/29/22 09:40 10:11 WC - Today's Visit Information Type of service Follow-up Visit Follow-up Visit (Physician/COST ACCOUNTING CLERK (Physician/COST ACCOUNTING CLERK ) ) Arrival Mode Wheelchair Wheelchair Patient Identification Verified (Name & Yes Yes ) Patient Requires Transmission-Based No No Precautions Safety Precautions NA Height and Weight Body Mass Index (BMI) 23.8 23.8 BMI Classification Normal Normal Vital Signs Temperature (97.8 F-99.1 F) 97.2 F L 97.4 F L Temperature Source Temporal Temporal Pulse Rate (60-100) 69 66 Pulse Location Monitor Monitor Blood Pressure (90/60-120/80) 134/50 H 109/61 Blood Pressure Mean (mm Hg) 78 77 Source Monitor Monitor History Since Last Visit- (Skip if this is Patient's initial visit) Have you changed medications since your No No last visit? Any new allergies or adverse reactions No No Had a fall/change in ADL's that may No No increase risk of falls Signs or symptoms of abuse and/or No No neglect since last visit Have you been in the hospital since your No No last visit? Has dressing in place as prescribed Yes Yes Has compression in place as prescribed No N/A Has offloadiing in place as prescribed N/A N/A Experienced any changes in pain level or No No management Left Footwear Regular Shoe Regular Shoe Right Footwear No Footwear Pain Scale: 0-10 Numeric Is Patient Pain Free? Yes Yes CHARO - Nurse 1 - General Ulcer Measurement Start: 04/22/22 09:35 Freq: Status: Active Protocol: Activity Type Activity Date Activity User E-sign Co-sign Detail Recorded Client Recorded Date Recorded By Document 04/22/22 09:40 CT [id number] 04/22/22 09:47 AK Document 04/29/22 10:11 AK [id number] 04/29/22 10:15 AK 04/22/22 04/29/22 09:40 10:11 Wound Center Nurse 1 #3 right medial knee -Combined with other wound No No -Current Size (cm) - Length 0.2 0.5 -Current Size (cm) - Width 0.3 0.5 -Current Size (cm) - Depth 0.1 0.1 -Total Square Cm 0.06 0.25 -Photo Taken Yes Yes -Tunneling No No -Undermining/Tunneling No No -Circular Undermining No No -Change in Wound Grade/Stage No No -Exudate Amt None Present Small -Exudate Type Serosanguineous -Wound Margin Distinct, Distinct, Outline Outline Attached Attached -Granulation Amt None Present (0 None Present (0 %) %) -Granulation Quality N/A N/A -Slough/Fibrin Yes Yes -Necrosis Amt Large (67-100%) Large (67-100%) -Necrotic Tissue Type Adherent Slough Adherent Slough -Structure Exposed N/A N/A -Texture (Jil-wound Skin Appearance) No Abnormality, No Abnormality, Assessed Assessed -Moisture (Jil-wound Skin Appearance) No Abnormality, No Abnormality, Assessed Assessed -Color (Jil-wound Skin Appearance) No Abnormality, No Abnormality, Assessed Assessed -Temperature (Jil-wound Skin No Abnormality No Abnormality Appearance) (Pt Warm) (Pt Warm) -Tenderness on Palpation (Jil-wound No No Skin Appearance) -Ulcer Cleansing Soap and Water Soap and Water -Foul Odor after Cleansing No No -Anesthetic Used 5% Lidocaine 5% Lidocaine Gel Gel #2 R below the knee -Combined with other wound No No -Current Size (cm) - Length 0.5 0.7 -Current Size (cm) - Width 0.5 0.9 -Current Size (cm) - Depth 0.2 0.2 -Total Square Cm 0.25 0.63 -Date of Last Picture (Recall this 04/22/22 field) -Photo Taken Yes Yes -Tunneling No No -Undermining/Tunneling No No -Circular Undermining No No -Change in Wound Grade/Stage No No -Exudate Amt Medium Medium -Exudate Type Serosanguineous Serosanguineous -Wound Margin Distinct, Distinct, Outline Outline Attached Attached -Granulation Amt Medium (34-66%) Medium (34-66%) -Granulation Quality [place] -Slough/Fibrin Yes Yes -Necrosis Amt Medium (34-66%) Medium (34-66%) -Necrotic Tissue Type Adherent Slough Adherent Slough -Structure Exposed N/A N/A -Texture (Jil-wound Skin Appearance) No Abnormality, No Abnormality, Assessed Assessed -Moisture (Jil-wound Skin Appearance) No Abnormality, No Abnormality, Assessed Assessed -Color (Jil-wound Skin Appearance) No Abnormality, No Abnormality, Assessed Assessed -Temperature (Jil-wound Skin No Abnormality No Abnormality Appearance) (Pt Warm) (Pt Warm) -Tenderness on Palpation (Jil-wound No No Skin Appearance) -Ulcer Cleansing Soap and Water Soap and Water -Foul Odor after Cleansing No No -Anesthetic Used 5% Lidocaine 5% Lidocaine Gel Gel #1 R knee -Combined with other wound No -Current Size (cm) - Length 0.6 0.4 -Current Size (cm) - Width 0.6 0.3 -Current Size (cm) - Depth 0.2 0.2 -Total Square Cm 0.36 0.12 -Date of Last Picture (Recall this 04/29/22 field) -Photo Taken Yes Yes -Tunneling No -Undermining/Tunneling No No -Circular Undermining No No -Change in Wound Grade/Stage No No -Exudate Amt Medium Medium -Exudate Type Serosanguineous Serosanguineous -Wound Margin Distinct, Distinct, Outline Outline Attached Attached -Granulation Amt Medium (34-66%) Medium (34-66%) -Granulation Quality [place] -Slough/Fibrin Yes Yes -Necrosis Amt Medium (34-66%) Medium (34-66%) -Necrotic Tissue Type Adherent Slough Adherent Slough -Structure Exposed N/A N/A -Texture (Jil-wound Skin Appearance) No Abnormality, No Abnormality, Assessed Assessed -Moisture (Jil-wound Skin Appearance) No Abnormality, No Abnormality, Assessed Assessed -Color (Jil-wound Skin Appearance) No Abnormality, No Abnormality, Assessed Assessed -Temperature (Jil-wound Skin No Abnormality No Abnormality Appearance) (Pt Warm) (Pt Warm) -Tenderness on Palpation (Jil-wound No No Skin Appearance) -Ulcer Cleansing Soap and Water Soap and Water -Foul Odor after Cleansing No No -Anesthetic Used 5% Lidocaine 5% Lidocaine Gel Gel WC - Nurse 2 - General Ulcer CM Notes Start: 04/22/22 09:35 Freq: Status: Active Protocol: Activity Type Activity Date Activity User E-sign Co-sign Detail Recorded Client Recorded Date Recorded By Document 04/22/22 12:33 PL [id number] 04/22/22 12:37 PL Document 04/29/22 12:25 PL [id number] 04/29/22 12:29 PL 04/22/22 04/29/22 12:33 12:25 Wound Center Nurse 2 #3 right medial knee -Time 10:08 10:36 -Correct Patient Yes Yes -Correct Side, Site, Position Yes Yes -Correct Procedure Yes Yes -Procedure Performed Yes Yes -Type of Procedure Debridement Debridement -Clinical Debridement Subcutaneous Subcutaneous -Tissue Removed Subcutaneous Subcutaneous -Post Debridement (cm) - Length 0.7 0.7 -Post Debridement (cm) - Width 0.5 0.5 -Post Debridement (cm) - Depth 0.6 0.4 -Total Square (Post) (cm) 0.35 0.35 -Area of Debridement (cm) - Length 0.7 0.7 -Area of Debridement (cm) - Width 0.5 0.5 -Total Square (Area) (cm) 0.35 0.35 -Tunneling No No -Undermining/Tunneling No No -Circular Undermining No No -Wound/Ulcer Outcome Not Healed Not Healed -Ulcer Cleansing Rinsed/ Rinsed/ Irrigated with Irrigated with Saline Saline -Foul Odor after Cleansing No No -Bioengineered Tissue No No -Bleeding Controlled with Pressure Pressure -Treatment Response Procedure Procedure Tolerated Well Tolerated Well -Debridement - Subq, 1st 20sq cm No No #2 R below the knee -Time 10:08 10:36 -Correct Patient Yes Yes -Correct Side, Site, Position Yes Yes -Correct Procedure Yes Yes -Procedure Performed Yes Yes -Type of Procedure Debridement Debridement -Clinical Debridement Subcutaneous Subcutaneous -Tissue Removed Subcutaneous Subcutaneous -Post Debridement (cm) - Length 0.9 0.9 -Post Debridement (cm) - Width 0.9 0.9 -Post Debridement (cm) - Depth 0.4 0.2 -Total Square (Post) (cm) 0.81 0.81 -Area of Debridement (cm) - Length 0.9 0.9 -Area of Debridement (cm) - Width 0.9 0.9 -Total Square (Area) (cm) 0.81 0.81 -Tunneling No No -Undermining/Tunneling No No -Circular Undermining No No -Wound/Ulcer Outcome Not Healed Not Healed -Ulcer Cleansing Rinsed/ Rinsed/ Irrigated with Irrigated with Saline Saline -Foul Odor after Cleansing No No -Bioengineered Tissue Yes No -Type of Bioengineered Tissue Epifix 18mm Disc -Expiration Date 01/20/27 -Product Lot Number [id number] -Percent Used 100 -Bleeding Controlled with Pressure Pressure -Treatment Response Procedure Procedure Tolerated Well Tolerated Well -Debridement - Subq, 1st 20sq cm No No -Apply Skin Sub - 1st 25 sq cm - Legs 1 -Epifix 18mm Disc 3 #1 R knee -Time 10:08 10:36 -Correct Patient Yes Yes -Correct Side, Site, Position Yes Yes -Correct Procedure Yes Yes -Procedure Performed Yes Yes -Type of Procedure Debridement Debridement -Clinical Debridement Subcutaneous Subcutaneous -Tissue Removed Subcutaneous Subcutaneous -Post Debridement (cm) - Length 0.4 0.3 -Post Debridement (cm) - Width 0.5 0.5 -Post Debridement (cm) - Depth 0.4 0.4 -Total Square (Post) (cm) 0.20 0.15 -Area of Debridement (cm) - Length 0.4 0.3 -Area of Debridement (cm) - Width 0.5 0.5 -Total Square (Area) (cm) 0.20 0.15 -Tunneling No No -Undermining/Tunneling No No -Circular Undermining No No -Wound/Ulcer Outcome Not Healed Not Healed -Ulcer Cleansing Rinsed/ Rinsed/ Irrigated with Irrigated with Saline Saline -Foul Odor after Cleansing No No -Bioengineered Tissue No No -Bleeding Controlled with Pressure NA -Treatment Response Procedure Procedure Tolerated Well Tolerated Well -Debridement - Subq, 1st 20sq cm Yes Yes Pain Scale: 0-10 Numeric Is Patient Pain Free? Yes No WC - Nurse 3 - General Ulcer D/C NN Start: 04/22/22 09:35 Freq: Status: Active Protocol: Activity Type Activity Date Activity User E-sign Co-sign Detail Recorded Client Recorded Date Recorded By Document 04/22/22 11:45 MT [id number] 04/22/22 11:47 MT Document 04/29/22 11:08 AK [id number] 04/29/22 11:08 AK 04/22/22 04/29/22 11:45 11:08 Wound Care Center Nurse 3 #3 right medial knee -Ulcer Cleansing Not Cleansed -Foul Odor after Cleansing No -Negative Pressure Wound Therapy N/A -Primary Dressing Applied Mepilex Border Mepilex Border -Mepilex Border 2 1 #2 R below the knee -Ulcer Cleansing Not Cleansed -Primary Dressing Applied Mepilex Border -Mepilex Border 1 #1 R knee -Ulcer Cleansing Not Cleansed Pain Scale: 0-10 Numeric Is Patient Pain Free? Yes Yes WC - Visit Discharge Discharge Condition Stable Stable Ambulatory Status Wheelchair Wheelchair Transportation Private Auto Private Auto Medication Reconcilliation completed & No Yes provided to patient/care provider Clinical Summary of Care Provided Yes Yes Additional Wound Wound debrided: Anterior RLE, overlying patella Laterality: Right Type of Debridement: Excisional debridement Anesthesia Used: 5% Lidocaine Gel Depth: Down to and including healthy tissue and in the subcutaneous layer Percentage of wound debrided: 100 Instrument Used: 3mm curette Tissue Removed: slough, devitalized tissue Amount of bleeding with debridement: Mild Bleeding Controlled with: Pressure Patient tolerated procedure: Patient tolerated procedure well Additional Wound Wound debrided: R verdugo Laterality: Right Type of Debridement: Excisional debridement Anesthesia Used: 5% Lidocaine Gel Depth: Down to and including healthy tissue and in the subcutaneous layer Percentage of wound debrided: 100 Instrument Used: 3mm curette Tissue Removed: slough, devitalized tissue Amount of bleeding with debridement: Mild Bleeding Controlled with: Pressure Patient tolerated procedure: Patient tolerated procedure well Assessment/Plan Assessment/Plan (1) Below-knee amputation of right lower extremity: CODE(S): S88.111A - Complete traumatic amputation at level between knee and ankle, right lower leg, initial encounter (2) Non-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 Continue to emphasize the importance of making appropriate lifestyle modifications to support healing. We are continuing with Epifix applications. This is application #6. Wound beds were debrided and resulted in good bleeding. Epifix was applied in sterile fashion, moistened with collagen hydrogel, covered with adaptic, secured with steristrips, covered with DSD. 100% of product was used. Instructed patient to leave dressing in place until he returns to clinic in 1 week, keep clean and dry. Cultures were positive for GBS and stenotrophomonas. Treating with Keflex 500mg every 6 hours x 7 days and Bactrim DS BID x 14 days. Discussed the importance of preventing continued trauma to the areas whenever possible. Elevate legs when resting. Increase protein in diet and continue with good blood sugar control. Strongly advise tobacco cessation. He has appt with vascular surgery in [place] next week. Patient will return to wound care center in 1 week. He will return sooner or present to the ED should any symptoms worsen or new concerns arise.
[2022-05-06 10:07] VITALS: BP 153/42; PULSE 71; RESP 16; TEMP 36.1; BMI 23.8
--- NOTE | 2022-05-06 11:12 | PCM.WC.PN ---
History of Present Illness Date of Service: 05/06/22 Chief Complaint: Multiple wounds to RLE amputation stump History of Wound: Patient presents to the wound center for evaluation and management of multiple wounds to right lower extremity including BKA a stump. He is referred by Dr. Sullivan a peripheral vascular interventionalist in [place] who manages his vascular disease. His past medical history is significant for diabetes mellitus, coronary artery disease, peripheral arterial disease, paroxysmal atrial fibrillation, ACID. He has had past endovascular interventions including right femoropopliteal bypass and left SFA/pop angioplasty. He does smoke, primarily a tobacco pipe or cigars. He takes daily ASA and Eliquis. He reports his amputation was performed in 2011. He reports it healed well initially and he had no significant issue until March 2020 at which time he had a small wound which became infected and developed an abscess in the lateral aspect of his amputation stump. This required I&D and eventually healed well. He also has a history of osteomyelitis of the left great toe. Presently, he has a wound overlying the R patella, another wound slightly distal to the R verdugo, and a wound on the medial aspect of his amputation stump. He reports these have been ongoing for at least 6 months. He states the wound on the medial aspect of the amputation stump is a result of rubbing against his prosthesis. He reports the 2 wounds anteriorly closer to the knee are the result of him crawling around his home particularly up his stairs as he is not currently utilizing his prosthesis. He denies any history of infection of these current wounds. Subjective Subjective Patient denies F/C, N/V, new/worsening pain. He has been keeping dressings clean and dry. He says he is still working on cutting back on tobacco use. He continues to take abx as prescribed without issue. He says his appt with Dr. Sullivan got moved to next week. Objective Data Objective Data Vital Signs: Vital Signs Temp Pulse Resp BP O2 Del Method 97 F L 71 16 153/42 H Room Air 05/06/22 10:07 05/06/22 10:07 05/06/22 10:07 05/06/22 10:07 05/06/22 10:07 Oxygen Delivery Method Room Air Weight: 148 lb Body Mass Index (BMI) 23.8 Lab / Micro Data Micro: Microbiology 04/22/22 10:10 Wound Abcess - Leg, Right Gram Stain - Final 04/22/22 10:10 Wound Abcess - Leg, Right Wound Culture - Final Streptococcus agalactiae (B) Stenotrophomonas maltophilia 04/22/22 10:10 Wound Abcess - Leg, Right Anaerobic Culture - Final No anaerobic bacteria isolated. Charges/Coding Wound Center CF Procedures [id number]: [id number] RMVL DEVITAL TIS 20 CM/< Multi Select Codes Wound Center CF Procedures [id number]: [id number] RMVL DEVITAL TIS 20 CM/< Physical Exam Const alert, oriented x3, no apparent distress and well nourished General Appearance: cooperative, comfortable and well developed HEENT normocephalic, head/scalp atraumatic, hearing grossly normal bilaterally, external ears normal and external nose normal Eyes EOMs intact bilaterally General Eye: normal appearance of both eyes Neck full ROM General: normal visual inspection and trachea midline; Negative for anterior neck swelling Resp normal respiratory effort, normal air movement, no retractions and no use of accessory muscles Effort and Inspection: able to speak in complete sentences; Negative for labored, stridor or audible wheezes Cardio Rate: regular rate Rhythm: regular rhythm Extremity Extremity Narrative: R BKA. No discoloration/pallor, appropriate warmth, no significant edema. Skin Wounds: amputation and wounds noted Wound Narrative: Wound overlying R patella, R verdugo, and R medial amputation stump. Moderate slough/callus. No significant erythema, drainage, foul odor, edema, fluctuance, induration. Stable in appearance from last week. Neuro oriented x3, CN's II-XII intact bilaterally, moves all extremities, no focal motor deficits and no sensory deficits noted Psych mental status grossly normal Appearance: grossly normal Attitude: calm Activity / Motor Behavior: appropriate eye contact Speech: normal speech Mood & Affect: euthymic mood Thought Process: normal thought process Thought Content: normal thought content Attention / Concentration: attention grossly intact Memory / Cognition: memory grossly intact Insight: insight good Judgement: judgement good Debridement Note Debridement Note Wound debrided: Right medial amputation stump Laterality: Right Type of Debridement: Excisional debridement Anesthesia Used: 5% Lidocaine Gel Depth: Down to and including healthy tissue and to bone Percentage of wound debrided: 100 Instrument Used: 3mm curette Tissue Removed: slough, devitalized tissue Amount of bleeding with debridement: Mild Bleeding Controlled with: Pressure Patient tolerated procedure: Patient tolerated procedure well Post-Debridement Measurements and Additional Note: Post-Debridement Measurements/Treatment WC - Nurse 1 - General Ulcer Assessment Start: 04/22/22 09:35 Freq: Status: Active Protocol: MARIELY Activity Type Activity Date Activity User E-sign Co-sign Detail Recorded Client Recorded Date Recorded By Document 04/22/22 09:40 AK [id number] 04/22/22 09:47 AK Document 04/29/22 10:11 AK [id number] 04/29/22 10:15 AK Document 05/06/22 10:07 AK [id number] 05/06/22 10:20 MT 04/22/22 04/29/22 05/06/22 09:40 10:11 10:07 - Today's Visit Information Type of service Follow-up Visit Follow-up Visit Follow-up Visit (Physician/AUDITING MANAGER (Physician/AUDITING MANAGER (Physician/AUDITING MANAGER ) ) ) Arrival Mode Wheelchair Wheelchair Wheelchair Accompanied by self Patient Identification Verified (Name & Yes Yes Yes ) Patient Requires Transmission-Based No No Precautions Safety Precautions NA Fall Prevention Finger Stick Blood Sugar(mg/dl) (if 112 indicated): Blood Sugar Stated by Patient Height and Weight Body Mass Index (BMI) 23.8 23.8 23.8 BMI Classification Normal Normal Normal Vital Signs Temperature (97.8 F-99.1 F) 97.2 F L 97.4 F L 97 F L Temperature Source Temporal Temporal Temporal Pulse Rate (60-100) 69 66 71 Pulse Location Monitor Monitor Monitor Respiratory Rate (12-18) 16 Respiratory rate source Observation Oxygen Delivery Method Room Air Blood Pressure (90/60-120/80) 134/50 H 109/61 153/42 H Blood Pressure Mean (mm Hg) 78 77 79 Source Monitor Monitor Monitor Position Sitting Blood Pressure Location Left Arm History Since Last Visit- (Skip if this is Patient's initial visit) Have you changed medications since your No No last visit? Any new allergies or adverse reactions No No Had a fall/change in ADL's that may No No increase risk of falls Signs or symptoms of abuse and/or No No neglect since last visit Have you been in the hospital since your No No last visit? Has dressing in place as prescribed Yes Yes Yes Has compression in place as prescribed No N/A Yes Has offloadiing in place as prescribed N/A N/A Yes Experienced any changes in pain level or No No Yes management Left Footwear Regular Shoe Regular Shoe Regular Shoe Right Footwear No Footwear No Footwear Pain Scale: 0-10 Numeric Is Patient Pain Free? Yes Yes Yes WC - Nurse 1 - General Ulcer Measurement Start: 04/22/22 09:35 Freq: Status: Active Protocol: Activity Type Activity Date Activity User E-sign Co-sign Detail Recorded Client Recorded Date Recorded By Document 04/22/22 09:40 W[place] [id number] 04/22/22 09:47 AK Document 04/29/22 10:11 AK [id number] 04/29/22 10:15 AK Document 05/06/22 10:07 AK [id number] 05/06/22 10:20 AK 04/22/22 04/29/22 05/06/22 09:40 10:11 10:07 Wound Center Nurse 1 #3 right medial knee -Combined with other wound No No -Current Size (cm) - Length 0.2 0.5 0.9 -Current Size (cm) - Width 0.3 0.5 0.9 -Current Size (cm) - Depth 0.1 0.1 0.1 -Total Square Cm 0.06 0.25 0.81 -Photo Taken Yes Yes -Tunneling No No -Undermining/Tunneling No No -Circular Undermining No No -Change in Wound Grade/Stage No No -Exudate Amt None Present Small None Present -Exudate Type Serosanguineous -Wound Margin Distinct, Distinct, Outline Outline Attached Attached -Granulation Amt None Present (0 None Present (0 Large (67-100%) %) %) -Granulation Quality N/A N/A Pale,Longbranch -Slough/Fibrin Yes Yes -Necrosis Amt Large (67-100%) Large (67-100%) None Present (0 %) -Necrotic Tissue Type Adherent Slough Adherent Slough -Structure Exposed N/A N/A -Texture (Jil-wound Skin Appearance) No Abnormality, No Abnormality, Assessed Assessed Assessed -Moisture (Jil-wound Skin Appearance) No Abnormality, No Abnormality, Assessed Assessed Assessed -Color (Jil-wound Skin Appearance) No Abnormality, No Abnormality, Assessed Assessed Assessed -Temperature (Jil-wound Skin No Abnormality No Abnormality No Abnormality Appearance) (Pt Warm) (Pt Warm) (Pt Warm) -Tenderness on Palpation (Jil-wound No No No Skin Appearance) -Ulcer Cleansing Soap and Water Soap and Water Wound Cleanser -Foul Odor after Cleansing No No -Anesthetic Used 5% Lidocaine 5% Lidocaine 5% Lidocaine Gel Gel Gel #2 R below the knee -Combined with other wound No No -Current Size (cm) - Length 0.5 0.7 0.7 -Current Size (cm) - Width 0.5 0.9 0.6 -Current Size (cm) - Depth 0.2 0.2 0.1 -Total Square Cm 0.25 0.63 0.42 -Date of Last Picture (Recall this 04/22/22 field) -Photo Taken Yes Yes -Tunneling No No -Undermining/Tunneling No No -Circular Undermining No No -Change in Wound Grade/Stage No No -Exudate Amt Medium Medium -Exudate Type Serosanguineous Serosanguineous -Wound Margin Distinct, Distinct, Flat & Intact Outline Outline Attached Attached -Granulation Amt Medium (34-66%) Medium (34-66%) Large (67-100%) -Granulation Quality [place] Pale,[place] -Slough/Fibrin Yes Yes -Necrosis Amt Medium (34-66%) Medium (34-66%) None Present (0 %) -Necrotic Tissue Type Adherent Slough Adherent Slough -Structure Exposed N/A N/A -Texture (Jil-wound Skin Appearance) No Abnormality, No Abnormality, Assessed Assessed Assessed -Moisture (Jil-wound Skin Appearance) No Abnormality, No Abnormality, Assessed Assessed Assessed -Color (Jil-wound Skin Appearance) No Abnormality, No Abnormality, Assessed Assessed Assessed -Temperature (Jil-wound Skin No Abnormality No Abnormality No Abnormality Appearance) (Pt Warm) (Pt Warm) (Pt Warm) -Tenderness on Palpation (Jil-wound No No No Skin Appearance) -Ulcer Cleansing Soap and Water Soap and Water Wound Cleanser -Foul Odor after Cleansing No No No -Anesthetic Used 5% Lidocaine 5% Lidocaine 5% Lidocaine Gel Gel Gel #1 R knee -Combined with other wound No -Current Size (cm) - Length 0.6 0.4 0.3 -Current Size (cm) - Width 0.6 0.3 0.5 -Current Size (cm) - Depth 0.2 0.2 0.2 -Total Square Cm 0.36 0.12 0.15 -Date of Last Picture (Recall this 04/29/22 field) -Photo Taken Yes Yes -Tunneling No -Undermining/Tunneling No No -Circular Undermining No No -Change in Wound Grade/Stage No No -Exudate Amt Medium Medium None Present -Exudate Type Serosanguineous Serosanguineous -Wound Margin Distinct, Distinct, Flat & Intact Outline Outline Attached Attached -Granulation Amt Medium (34-66%) Medium (34-66%) Large (67-100%) -Granulation Quality [place] Pale,[place]branch -Slough/Fibrin Yes Yes -Necrosis Amt Medium (34-66%) Medium (34-66%) None Present (0 %) -Necrotic Tissue Type Adherent Slough Adherent Slough -Structure Exposed N/A N/A -Texture (Jil-wound Skin Appearance) No Abnormality, No Abnormality, Assessed Assessed Assessed -Moisture (Jil-wound Skin Appearance) No Abnormality, No Abnormality, Assessed Assessed Assessed -Color (Jil-wound Skin Appearance) No Abnormality, No Abnormality, Assessed Assessed Assessed -Temperature (Jil-wound Skin No Abnormality No Abnormality No Abnormality Appearance) (Pt Warm) (Pt Warm) (Pt Warm) -Tenderness on Palpation (Jil-wound No No No Skin Appearance) -Ulcer Cleansing Soap and Water Soap and Water Wound Cleanser -Foul Odor after Cleansing No No No -Anesthetic Used 5% Lidocaine 5% Lidocaine 5% Lidocaine Gel Gel Gel Lower Limb Edema Present NA WC - Nurse 2 - General Ulcer CM Notes Start: 04/22/22 09:35 Freq: Status: Active Protocol: Activity Type Activity Date Activity User E-sign Co-sign Detail Recorded Client Recorded Date Recorded By Document 04/22/22 12:33 PL [id number] 04/22/22 12:37 PL Document 04/29/22 12:25 PL [id number] 04/29/22 12:29 PL Edit Result 04/29/22 12:25 PL (1) [id number] 05/02/22 06:57 PL (1) #3 right medial knee - Bioengineered Tissue No => Yes - Type of Bioengineered Tissue => Epifix 18mm Disc - Expiration Date => 01/20/27 - Product Lot Number => [id number] - Percent Used => 100 - Epifix 18mm Disc => 3 #1 R knee - Debridement - Subq, 1st 20sq cm Yes => No 04/22/22 04/29/22 12:33 12:25 Wound Center Nurse 2 #3 right medial knee -Time 10:08 10:36 -Correct Patient Yes Yes -Correct Side, Site, Position Yes Yes -Correct Procedure Yes Yes -Procedure Performed Yes Yes -Type of Procedure Debridement Debridement -Clinical Debridement Subcutaneous Subcutaneous -Tissue Removed Subcutaneous Subcutaneous -Post Debridement (cm) - Length 0.7 0.7 -Post Debridement (cm) - Width 0.5 0.5 -Post Debridement (cm) - Depth 0.6 0.4 -Total Square (Post) (cm) 0.35 0.35 -Area of Debridement (cm) - Length 0.7 0.7 -Area of Debridement (cm) - Width 0.5 0.5 -Total Square (Area) (cm) 0.35 0.35 -Tunneling No No -Undermining/Tunneling No No -Circular Undermining No No -Wound/Ulcer Outcome Not Healed Not Healed -Ulcer Cleansing Rinsed/ Rinsed/ Irrigated with Irrigated with Saline Saline -Foul Odor after Cleansing No No -Bioengineered Tissue No Yes -Type of Bioengineered Tissue Epifix 18mm Disc -Expiration Date 01/20/27 -Product Lot Number [id number] -Percent Used 100 -Bleeding Controlled with Pressure Pressure -Treatment Response Procedure Procedure Tolerated Well Tolerated Well -Debridement - Subq, 1st 20sq cm No No -Epifix 18mm Disc 3 #2 R below the knee -Time 10:08 10:36 -Correct Patient Yes Yes -Correct Side, Site, Position Yes Yes -Correct Procedure Yes Yes -Procedure Performed Yes Yes -Type of Procedure Debridement Debridement -Clinical Debridement Subcutaneous Subcutaneous -Tissue Removed Subcutaneous Subcutaneous -Post Debridement (cm) - Length 0.9 0.9 -Post Debridement (cm) - Width 0.9 0.9 -Post Debridement (cm) - Depth 0.4 0.2 -Total Square (Post) (cm) 0.81 0.81 -Area of Debridement (cm) - Length 0.9 0.9 -Area of Debridement (cm) - Width 0.9 0.9 -Total Square (Area) (cm) 0.81 0.81 -Tunneling No No -Undermining/Tunneling No No -Circular Undermining No No -Wound/Ulcer Outcome Not Healed Not Healed -Ulcer Cleansing Rinsed/ Rinsed/ Irrigated with Irrigated with Saline Saline -Foul Odor after Cleansing No No -Bioengineered Tissue Yes No -Type of Bioengineered Tissue Epifix 18mm Disc -Expiration Date 01/20/27 -Product Lot Number [id number] -Percent Used 100 -Bleeding Controlled with Pressure Pressure -Treatment Response Procedure Procedure Tolerated Well Tolerated Well -Debridement - Subq, 1st 20sq cm No No -Apply Skin Sub - 1st 25 sq cm - Legs 1 -Epifix 18mm Disc 3 #1 R knee -Time 10:08 10:36 -Correct Patient Yes Yes -Correct Side, Site, Position Yes Yes -Correct Procedure Yes Yes -Procedure Performed Yes Yes -Type of Procedure Debridement Debridement -Clinical Debridement Subcutaneous Subcutaneous -Tissue Removed Subcutaneous Subcutaneous -Post Debridement (cm) - Length 0.4 0.3 -Post Debridement (cm) - Width 0.5 0.5 -Post Debridement (cm) - Depth 0.4 0.4 -Total Square (Post) (cm) 0.20 0.15 -Area of Debridement (cm) - Length 0.4 0.3 -Area of Debridement (cm) - Width 0.5 0.5 -Total Square (Area) (cm) 0.20 0.15 -Tunneling No No -Undermining/Tunneling No No -Circular Undermining No No -Wound/Ulcer Outcome Not Healed Not Healed -Ulcer Cleansing Rinsed/ Rinsed/ Irrigated with Irrigated with Saline Saline -Foul Odor after Cleansing No No -Bioengineered Tissue No No -Bleeding Controlled with Pressure NA -Treatment Response Procedure Procedure Tolerated Well Tolerated Well -Debridement - Subq, 1st 20sq cm Yes No Pain Scale: 0-10 Numeric Is Patient Pain Free? Yes No WC - Nurse 3 - General Ulcer D/C NN Start: 04/22/22 09:35 Freq: Status: Active Protocol: Activity Type Activity Date Activity User E-sign Co-sign Detail Recorded Client Recorded Date Recorded By Document 04/22/22 11:45 MT [id number] 04/22/22 11:47 MT Document 04/29/22 11:08 AK [id number] 04/29/22 11:08 AK Document 05/06/22 10:43 AK [id number] 05/06/22 10:46 MT 04/22/22 04/29/22 05/06/22 11:45 11:08 10:43 Wound Care Center Nurse 3 #3 right medial knee -Ulcer Cleansing Not Cleansed -Foul Odor after Cleansing No -Negative Pressure Wound Therapy N/A -Primary Dressing Applied Mepilex Border Mepilex Border Mepilex Border -Mepilex Border 2 1 2 #2 R below the knee -Ulcer Cleansing Not Cleansed -Primary Dressing Applied Mepilex Border Promogran -Mepilex Border 1 -Promogran 1 #1 R knee -Ulcer Cleansing Not Cleansed Right -Tubular Bandage Single Layer -Size of Tubigrip Used Size D -Size D ($) 1 Pain Scale: 0-10 Numeric Is Patient Pain Free? Yes Yes Yes WC - Visit Discharge Discharge Condition Stable Stable Stable Ambulatory Status Wheelchair Wheelchair Wheelchair Transportation Private Auto Private Auto Private Auto Medication Reconcilliation completed & No Yes No provided to patient/care provider Clinical Summary of Care Provided Yes Yes Yes Notes: pt verbalizes understanding to keep wound clean and dry. Additional Wound Wound debrided: Anterior RLE, overlying patella Laterality: Right Type of Debridement: Excisional debridement Anesthesia Used: 5% Lidocaine Gel Depth: Down to and including healthy tissue and in the subcutaneous layer Percentage of wound debrided: 100 Instrument Used: 3mm curette Tissue Removed: slough, devitalized tissue Amount of bleeding with debridement: Mild Bleeding Controlled with: Pressure Patient tolerated procedure: Patient tolerated procedure well Additional Wound Wound debrided: R verdugo Laterality: Right Type of Debridement: Excisional debridement Anesthesia Used: 5% Lidocaine Gel Depth: Down to and including healthy tissue and in the subcutaneous layer Percentage of wound debrided: 100 Instrument Used: 3mm curette Tissue Removed: slough, devitalized tissue Amount of bleeding with debridement: Mild Bleeding Controlled with: Pressure Patient tolerated procedure: Patient tolerated procedure well Assessment/Plan Assessment/Plan (1) Below-knee amputation of right lower extremity: CODE(S): S88.111A - Complete traumatic amputation at level between knee and ankle, right lower leg, initial encounter (2) Non-pressure chronic ulcer of other part of right lower leg with fat layer exposed: CODE(S): L97.812 - Non-pressure chronic ulcer of other part of right lower leg with fat layer exposed (3) Non-pressure chronic ulcer of other part of right lower leg with bone involvement without evidence of necrosis: CODE(S): L97.816 - Non-pressure chronic ulcer of other part of right lower leg with bone involvement without evidence of necrosis PLAN: Plan There was small reduction in depth/size of wounds this week, still with very slow progress. Continue to emphasize the importance of making appropriate lifestyle modifications to support healing. We are pausing Epifix applications this week. Will apply moistened promogran to all wound beds, cover with silicone bordered dressing. Change dressings daily or more often as needed to keep clean and dry. Apply good moisturizer to the rest of the leg to help with dry/scaly skin. Cultures were positive for GBS and stenotrophomonas. Treating with Keflex 500mg every 6 hours x 7 days and Bactrim DS BID x 14 days. Discussed the importance of preventing continued trauma to the areas whenever possible. Elevate legs when resting. Increase protein in diet and continue with good blood sugar control. Strongly advise tobacco cessation. Patient will return to wound care center in 1 week. He will return sooner or present to the ED should any symptoms worsen or new concerns arise.
[2022-05-13 10:04] VITALS: BP 161/61; PULSE 68; RESP 16; TEMP 35.9; BMI 23.8
--- NOTE | 2022-05-13 10:38 | PCM.WC.PN ---
History of Present Illness Date of Service: 05/13/22 Chief Complaint: Multiple wounds to RLE amputation stump History of Wound: Patient presents to the wound center for evaluation and management of multiple wounds to right lower extremity including BKA a stump. He is referred by Dr. Sullivan a peripheral vascular interventionalist in [place] who manages his vascular disease. His past medical history is significant for diabetes mellitus, coronary artery disease, peripheral arterial disease, paroxysmal atrial fibrillation, ACID. He has had past endovascular interventions including right femoropopliteal bypass and left SFA/pop angioplasty. He does smoke, primarily a tobacco pipe or cigars. He takes daily ASA and Eliquis. He reports his amputation was performed in 2011. He reports it healed well initially and he had no significant issue until March 2020 at which time he had a small wound which became infected and developed an abscess in the lateral aspect of his amputation stump. This required I&D and eventually healed well. He also has a history of osteomyelitis of the left great toe. Presently, he has a wound overlying the R patella, another wound slightly distal to the R verdugo, and a wound on the medial aspect of his amputation stump. He reports these have been ongoing for at least 6 months. He states the wound on the medial aspect of the amputation stump is a result of rubbing against his prosthesis. He reports the 2 wounds anteriorly closer to the knee are the result of him crawling around his home particularly up his stairs as he is not currently utilizing his prosthesis. Subjective Subjective Patient did well with daily dressing changes this week, no increased drainage, foul odor, pain, erythema. Has tolerated the tubigrip compression. He does continue to smoke, says he no longer smokes in his house though so has cut back a little in this regard. Objective Data Objective Data Vital Signs: Vital Signs Temp Pulse Resp BP O2 Del Method 96.6 F L 68 16 161/61 H Room Air 05/13/22 10:04 05/13/22 10:04 05/13/22 10:04 05/13/22 10:04 05/06/22 10:07 Oxygen Delivery Method Room Air Weight: 148 lb Body Mass Index (BMI) 23.8 Lab / Micro Data Micro: Microbiology 04/22/22 10:10 Wound Abcess - Leg, Right Gram Stain - Final 04/22/22 10:10 Wound Abcess - Leg, Right Wound Culture - Final Streptococcus agalactiae (B) Stenotrophomonas maltophilia 04/22/22 10:10 Wound Abcess - Leg, Right Anaerobic Culture - Final No anaerobic bacteria isolated. Charges/Coding Wound Center CF Procedures [id number]: [id number] RMVL DEVITAL TIS 20 CM/< Multi Select Codes Wound Center CF Procedures [id number]: [id number] RMVL DEVITAL TIS 20 CM/< Physical Exam Const alert, oriented x3, no apparent distress and well nourished General Appearance: cooperative, comfortable and well developed HEENT normocephalic, head/scalp atraumatic, hearing grossly normal bilaterally, external ears normal and external nose normal Eyes EOMs intact bilaterally General Eye: normal appearance of both eyes Neck full ROM General: normal visual inspection and trachea midline; Negative for anterior neck swelling Resp normal respiratory effort, normal air movement, no retractions and no use of accessory muscles Effort and Inspection: able to speak in complete sentences; Negative for labored, stridor or audible wheezes Cardio Rate: regular rate Rhythm: regular rhythm Extremity Extremity Narrative: R BKA. No discoloration/pallor, appropriate warmth, no significant edema. Skin Wounds: amputation and wounds noted Wound Narrative: Wound overlying R patella, R verdugo, and R medial amputation stump. Moderate slough/callus. No significant erythema, drainage, foul odor, edema, fluctuance, induration. Amputation stump wound smaller in outer diameter and depth this week, others stable in appearance. Neuro oriented x3, CN's II-XII intact bilaterally, moves all extremities, no focal motor deficits and no sensory deficits noted Psych mental status grossly normal Appearance: grossly normal Attitude: calm Activity / Motor Behavior: appropriate eye contact Speech: normal speech Mood & Affect: euthymic mood Thought Process: normal thought process Thought Content: normal thought content Attention / Concentration: attention grossly intact Memory / Cognition: memory grossly intact Insight: insight good Judgement: judgement good Debridement Note Debridement Note Wound debrided: Right medial amputation stump Laterality: Right Type of Debridement: Excisional debridement Anesthesia Used: 5% Lidocaine Gel Depth: Down to and including healthy tissue and to bone Percentage of wound debrided: 100 Instrument Used: 3mm curette Tissue Removed: slough, devitalized tissue Amount of bleeding with debridement: Mild Bleeding Controlled with: Pressure Patient tolerated procedure: Patient tolerated procedure well Post-Debridement Measurements and Additional Note: Post-Debridement Measurements/Treatment WC - Nurse 1 - General Ulcer Assessment Start: 04/22/22 09:35 Freq: Status: Active Protocol: MARIELY Activity Type Activity Date Activity User E-sign Co-sign Detail Recorded Client Recorded Date Recorded By Document 04/22/22 09:40 AK [id number] 04/22/22 09:47 AK Document 04/29/22 10:11 AK [id number] 04/29/22 10:15 AK Document 05/06/22 10:07 MT [id number] 05/06/22 10:20 MT Document 05/13/22 10:04 JF [id number] 05/13/22 10:11 JF 04/22/22 04/29/22 05/06/22 09:40 10:11 10:07 - Today's Visit Information Type of service Follow-up Visit Follow-up Visit Follow-up Visit (Physician/ACUTE DIALYSIS REGISTERED NURSE (Physician/ACUTE DIALYSIS REGISTERED NURSE (Physician/ACUTE DIALYSIS REGISTERED NURSE ) ) ) Arrival Mode Wheelchair Wheelchair Wheelchair Transfer Assistance Accompanied by self Patient Identification Verified (Name & Yes Yes Yes ) Patient Requires Transmission-Based No No Precautions Safety Precautions NA Fall Prevention Finger Stick Blood Sugar(mg/dl) (if 112 indicated): Blood Sugar Stated by Patient Height and Weight Body Mass Index (BMI) 23.8 23.8 23.8 BMI Classification Normal Normal Normal Vital Signs Temperature (97.8 F-99.1 F) 97.2 F L 97.4 F L 97 F L Temperature Source Temporal Temporal Temporal Pulse Rate (60-100) 69 66 71 Pulse Location Monitor Monitor Monitor Respiratory Rate (12-18) 16 Respiratory rate source Observation Oxygen Delivery Method Room Air Blood Pressure (90/60-120/80) 134/50 H 109/61 153/42 H Blood Pressure Mean (mm Hg) 78 77 79 Source Monitor Monitor Monitor Position Sitting Blood Pressure Location Left Arm History Since Last Visit- (Skip if this is Patient's initial visit) Have you changed medications since your No No last visit? Any new allergies or adverse reactions No No Had a fall/change in ADL's that may No No increase risk of falls Signs or symptoms of abuse and/or No No neglect since last visit Have you been in the hospital since your No No last visit? Has dressing in place as prescribed Yes Yes Yes Has compression in place as prescribed No N/A Yes Has offloadiing in place as prescribed N/A N/A Yes Experienced any changes in pain level or No No Yes management Left Footwear Regular Shoe Regular Shoe Regular Shoe Right Footwear No Footwear No Footwear Pain Scale: 0-10 Numeric Is Patient Pain Free? Yes Yes Yes 05/13/22 10:04 WC - Today's Visit Information Type of service Follow-up Visit (Physician/ACUTE DIALYSIS REGISTERED NURSE ) Arrival Mode Wheelchair Transfer Assistance Manual Accompanied by Patient Identification Verified (Name & Yes ) Patient Requires Transmission-Based No Precautions Safety Precautions Finger Stick Blood Sugar(mg/dl) (if indicated): Blood Sugar Height and Weight Body Mass Index (BMI) 23.8 BMI Classification Normal Vital Signs Temperature (97.8 F-99.1 F) 96.6 F L Temperature Source Temporal Pulse Rate (60-100) 68 Pulse Location Monitor Respiratory Rate (12-18) 16 Respiratory rate source Observation Oxygen Delivery Method Blood Pressure (90/60-120/80) 161/61 H Blood Pressure Mean (mm Hg) 94 Source Monitor Position Semi-Fowlers Blood Pressure Location Left Arm History Since Last Visit- (Skip if this is Patient's initial visit) Have you changed medications since your No last visit? Any new allergies or adverse reactions No Had a fall/change in ADL's that may No increase risk of falls Signs or symptoms of abuse and/or No neglect since last visit Have you been in the hospital since your No last visit? Has dressing in place as prescribed Yes Has compression in place as prescribed Has offloadiing in place as prescribed Yes Experienced any changes in pain level or No management Left Footwear Regular Shoe Right Footwear No Footwear Pain Scale: 0-10 Numeric Is Patient Pain Free? Yes - Nurse 1 - General Ulcer Measurement Start: 04/22/22 09:35 Freq: Status: Active Protocol: Activity Type Activity Date Activity User E-sign Co-sign Detail Recorded Client Recorded Date Recorded By Document 04/22/22 09:40 AK [id number] 04/22/22 09:47 AK Document 04/29/22 10:11 AK [id number] 04/29/22 10:15 AK Document 05/06/22 10:07 AL [id number] 05/06/22 10:20 MT Document 05/13/22 10:04 [id number] 05/13/22 10:11 JF 04/22/22 04/29/22 05/06/22 09:40 10:11 10:07 Wound Center Nurse 1 #3 right medial knee -Combined with other wound No No -Current Size (cm) - Length 0.2 0.5 0.9 -Current Size (cm) - Width 0.3 0.5 0.9 -Current Size (cm) - Depth 0.1 0.1 0.1 -Total Square Cm 0.06 0.25 0.81 -Photo Taken Yes Yes -Epithelialization -Tunneling No No -Undermining/Tunneling No No -Circular Undermining No No -Change in Wound Grade/Stage No No -Exudate Amt None Present Small None Present -Exudate Type Serosanguineous -Wound Margin Distinct, Distinct, Outline Outline Attached Attached -Granulation Amt None Present (0 None Present (0 Large (67-100%) %) %) -Granulation Quality N/A N/A Pale,[place] -Slough/Fibrin Yes Yes -Necrosis Amt Large (67-100%) Large (67-100%) None Present (0 %) -Necrotic Tissue Type Adherent Slough Adherent Slough -Structure Exposed N/A N/A -Texture (Jil-wound Skin Appearance) No Abnormality, No Abnormality, Assessed Assessed Assessed -Moisture (Jil-wound Skin Appearance) No Abnormality, No Abnormality, Assessed Assessed Assessed -Color (Jil-wound Skin Appearance) No Abnormality, No Abnormality, Assessed Assessed Assessed -Temperature (Jil-wound Skin No Abnormality No Abnormality No Abnormality Appearance) (Pt Warm) (Pt Warm) (Pt Warm) -Tenderness on Palpation (Jil-wound No No No Skin Appearance) -Ulcer Cleansing Soap and Water Soap and Water Wound Cleanser -Foul Odor after Cleansing No No -Anesthetic Used 5% Lidocaine 5% Lidocaine 5% Lidocaine Gel Gel Gel #2 R below the knee -Combined with other wound No No -Current Size (cm) - Length 0.5 0.7 0.7 -Current Size (cm) - Width 0.5 0.9 0.6 -Current Size (cm) - Depth 0.2 0.2 0.1 -Total Square Cm 0.25 0.63 0.42 -Date of Last Picture (Recall this 04/22/22 field) -Photo Taken Yes Yes -Epithelialization -Tunneling No No -Undermining/Tunneling No No -Circular Undermining No No -Change in Wound Grade/Stage No No -Exudate Amt Medium Medium -Exudate Type Serosanguineous Serosanguineous -Wound Margin Distinct, Distinct, Flat & Intact Outline Outline Attached Attached -Granulation Amt Medium (34-66%) Medium (34-66%) Large (67-100%) -Granulation Quality [place] Pale,[place] -Slough/Fibrin Yes Yes -Necrosis Amt Medium (34-66%) Medium (34-66%) None Present (0 %) -Necrotic Tissue Type Adherent Slough Adherent Slough -Structure Exposed N/A N/A -Texture (Jil-wound Skin Appearance) No Abnormality, No Abnormality, Assessed Assessed Assessed -Moisture (Jil-wound Skin Appearance) No Abnormality, No Abnormality, Assessed Assessed Assessed -Color (Jil-wound Skin Appearance) No Abnormality, No Abnormality, Assessed Assessed Assessed -Temperature (Jil-wound Skin No Abnormality No Abnormality No Abnormality Appearance) (Pt Warm) (Pt Warm) (Pt Warm) -Tenderness on Palpation (Jil-wound No No No Skin Appearance) -Ulcer Cleansing Soap and Water Soap and Water Wound Cleanser -Foul Odor after Cleansing No No No -Anesthetic Used 5% Lidocaine 5% Lidocaine 5% Lidocaine Gel Gel Gel #1 R knee -Combined with other wound No -Current Size (cm) - Length 0.6 0.4 0.3 -Current Size (cm) - Width 0.6 0.3 0.5 -Current Size (cm) - Depth 0.2 0.2 0.2 -Total Square Cm 0.36 0.12 0.15 -Date of Last Picture (Recall this 04/29/22 field) -Photo Taken Yes Yes -Epithelialization -Tunneling No -Undermining/Tunneling No No -Circular Undermining No No -Change in Wound Grade/Stage No No -Exudate Amt Medium Medium None Present -Exudate Type Serosanguineous Serosanguineous -Wound Margin Distinct, Distinct, Flat & Intact Outline Outline Attached Attached -Granulation Amt Medium (34-66%) Medium (34-66%) Large (67-100%) -Granulation Quality [place] Pale,[place] -Slough/Fibrin Yes Yes -Necrosis Amt Medium (34-66%) Medium (34-66%) None Present (0 %) -Necrotic Tissue Type Adherent Slough Adherent Slough -Structure Exposed N/A N/A -Texture (Jil-wound Skin Appearance) No Abnormality, No Abnormality, Assessed Assessed Assessed -Moisture (Jil-wound Skin Appearance) No Abnormality, No Abnormality, Assessed Assessed Assessed -Color (Jil-wound Skin Appearance) No Abnormality, No Abnormality, Assessed Assessed Assessed -Temperature (Jil-wound Skin No Abnormality No Abnormality No Abnormality Appearance) (Pt Warm) (Pt Warm) (Pt Warm) -Tenderness on Palpation (Jil-wound No No No Skin Appearance) -Ulcer Cleansing Soap and Water Soap and Water Wound Cleanser -Foul Odor after Cleansing No No No -Anesthetic Used 5% Lidocaine 5% Lidocaine 5% Lidocaine Gel Gel Gel Lower Limb Edema Present NA 05/13/22 10:04 Wound Center Nurse 1 #3 right medial knee -Combined with other wound No -Current Size (cm) - Length 0.5 -Current Size (cm) - Width 0.5 -Current Size (cm) - Depth 0.5 -Total Square Cm 0.25 -Photo Taken Yes -Epithelialization None Present -Tunneling No -Undermining/Tunneling No -Circular Undermining No -Change in Wound Grade/Stage -Exudate Amt None Present -Exudate Type -Wound Margin Flat & Intact -Granulation Amt None Present (0 %) -Granulation Quality -Slough/Fibrin Yes -Necrosis Amt Large (67-100%) -Necrotic Tissue Type Adherent Slough -Structure Exposed N/A -Texture (Jil-wound Skin Appearance) Assessed -Moisture (Jil-wound Skin Appearance) Assessed,Dry/ Scaly -Color (Jil-wound Skin Appearance) Assessed -Temperature (Jil-wound Skin No Abnormality Appearance) (Pt Warm) -Tenderness on Palpation (Jil-wound No Skin Appearance) -Ulcer Cleansing Rinsed/ Irrigated with Saline -Foul Odor after Cleansing No -Anesthetic Used 5% Lidocaine Gel #2 R below the knee -Combined with other wound No -Current Size (cm) - Length 1.0 -Current Size (cm) - Width 0.9 -Current Size (cm) - Depth 0.1 -Total Square Cm 0.90 -Date of Last Picture (Recall this field) -Photo Taken Yes -Epithelialization None Present -Tunneling No -Undermining/Tunneling No -Circular Undermining No -Change in Wound Grade/Stage -Exudate Amt None Present -Exudate Type -Wound Margin Flat & Intact -Granulation Amt None Present (0 %) -Granulation Quality -Slough/Fibrin Yes -Necrosis Amt Large (67-100%) -Necrotic Tissue Type Adherent Slough -Structure Exposed N/A -Texture (Jil-wound Skin Appearance) Assessed -Moisture (Jil-wound Skin Appearance) Assessed,Dry/ Scaly -Color (Jil-wound Skin Appearance) Assessed -Temperature (Jil-wound Skin No Abnormality Appearance) (Pt Warm) -Tenderness on Palpation (Jil-wound No Skin Appearance) -Ulcer Cleansing Rinsed/ Irrigated with Saline -Foul Odor after Cleansing No -Anesthetic Used 5% Lidocaine Gel #1 R knee -Combined with other wound No -Current Size (cm) - Length 0.2 -Current Size (cm) - Width 0.4 -Current Size (cm) - Depth 0.2 -Total Square Cm 0.08 -Date of Last Picture (Recall this field) -Photo Taken Yes -Epithelialization None Present -Tunneling No -Undermining/Tunneling No -Circular Undermining No -Change in Wound Grade/Stage -Exudate Amt None Present -Exudate Type -Wound Margin Flat & Intact -Granulation Amt None Present (0 %) -Granulation Quality -Slough/Fibrin Yes -Necrosis Amt Medium (34-66%) -Necrotic Tissue Type Adherent Slough -Structure Exposed N/A -Texture (Ijl-wound Skin Appearance) Assessed -Moisture (Jil-wound Skin Appearance) Assessed,Dry/ Scaly -Color (Jil-wound Skin Appearance) Assessed -Temperature (Jil-wound Skin No Abnormality Appearance) (Pt Warm) -Tenderness on Palpation (Jil-wound No Skin Appearance) -Ulcer Cleansing Rinsed/ Irrigated with Saline -Foul Odor after Cleansing No -Anesthetic Used 5% Lidocaine Gel Lower Limb Edema Present NA WC - Nurse 2 - General Ulcer CM Notes Start: 04/22/22 09:35 Freq: Status: Active Protocol: Activity Type Activity Date Activity User E-sign Co-sign Detail Recorded Client Recorded Date Recorded By Document 04/22/22 12:33 PL [id number] 04/22/22 12:37 PL Document 04/29/22 12:25 PL [id number] 04/29/22 12:29 PL Edit Result 04/29/22 12:25 PL (1) [id number] 05/02/22 06:57 PL Document 05/06/22 12:21 PL [id number] 05/06/22 12:23 PL (1) #3 right medial knee - Bioengineered Tissue No => Yes - Type of Bioengineered Tissue => Epifix 18mm Disc - Expiration Date => 01/20/27 - Product Lot Number => [id number] - Percent Used => 100 - Epifix 18mm Disc => 3 #1 R knee - Debridement - Subq, 1st 20sq cm Yes => No 04/22/22 04/29/22 05/06/22 12:33 12:25 12:21 Wound Center Nurse 2 #3 right medial knee -Time 10:08 10:36 10:24 -Correct Patient Yes Yes Yes -Correct Side, Site, Position Yes Yes Yes -Correct Procedure Yes Yes Yes -Procedure Performed Yes Yes Yes -Type of Procedure Debridement Debridement Debridement -Clinical Debridement Subcutaneous Subcutaneous Subcutaneous -Tissue Removed Subcutaneous Subcutaneous Subcutaneous -Post Debridement (cm) - Length 0.7 0.7 0.6 -Post Debridement (cm) - Width 0.5 0.5 0.4 -Post Debridement (cm) - Depth 0.6 0.4 0.4 -Total Square (Post) (cm) 0.35 0.35 0.24 -Area of Debridement (cm) - Length 0.7 0.7 0.6 -Area of Debridement (cm) - Width 0.5 0.5 0.4 -Total Square (Area) (cm) 0.35 0.35 0.24 -Tunneling No No No -Undermining/Tunneling No No No -Circular Undermining No No No -Wound/Ulcer Outcome Not Healed Not Healed Not Healed -Ulcer Cleansing Rinsed/ Rinsed/ Rinsed/ Irrigated with Irrigated with Irrigated with Saline Saline Saline -Foul Odor after Cleansing No No No -Bioengineered Tissue No Yes No -Type of Bioengineered Tissue Epifix 18mm Disc -Expiration Date 01/20/27 -Product Lot Number [id number] -Percent Used 100 -Bleeding Controlled with Pressure Pressure Pressure -Treatment Response Procedure Procedure Procedure Tolerated Well Tolerated Well Tolerated Well -Debridement - Subq, 1st 20sq cm No No No -Epifix 18mm Disc 3 #2 R below the knee -Time 10:08 10:36 10:24 -Correct Patient Yes Yes Yes -Correct Side, Site, Position Yes Yes Yes -Correct Procedure Yes Yes Yes -Procedure Performed Yes Yes Yes -Type of Procedure Debridement Debridement Debridement -Clinical Debridement Subcutaneous Subcutaneous Subcutaneous -Tissue Removed Subcutaneous Subcutaneous Subcutaneous -Post Debridement (cm) - Length 0.9 0.9 0.9 -Post Debridement (cm) - Width 0.9 0.9 0.9 -Post Debridement (cm) - Depth 0.4 0.2 0.3 -Total Square (Post) (cm) 0.81 0.81 0.81 -Area of Debridement (cm) - Length 0.9 0.9 0.9 -Area of Debridement (cm) - Width 0.9 0.9 0.9 -Total Square (Area) (cm) 0.81 0.81 0.81 -Tunneling No No No -Undermining/Tunneling No No No -Circular Undermining No No No -Wound/Ulcer Outcome Not Healed Not Healed Not Healed -Ulcer Cleansing Rinsed/ Rinsed/ Rinsed/ Irrigated with Irrigated with Irrigated with Saline Saline Saline -Foul Odor after Cleansing No No No -Bioengineered Tissue Yes No No -Type of Bioengineered Tissue Epifix 18mm Disc -Expiration Date 01/20/27 -Product Lot Number [id number] -Percent Used 100 -Bleeding Controlled with Pressure Pressure Pressure -Treatment Response Procedure Procedure Procedure Tolerated Well Tolerated Well Tolerated Well -Debridement - Subq, 1st 20sq cm No No No -Apply Skin Sub - 1st 25 sq cm - Legs 1 -Epifix 18mm Disc 3 #1 R knee -Time 10:08 10:36 10:24 -Correct Patient Yes Yes Yes -Correct Side, Site, Position Yes Yes Yes -Correct Procedure Yes Yes Yes -Procedure Performed Yes Yes Yes -Type of Procedure Debridement Debridement Debridement -Clinical Debridement Subcutaneous Subcutaneous Subcutaneous -Tissue Removed Subcutaneous Subcutaneous Subcutaneous -Post Debridement (cm) - Length 0.4 0.3 0.5 -Post Debridement (cm) - Width 0.5 0.5 0.5 -Post Debridement (cm) - Depth 0.4 0.4 0.3 -Total Square (Post) (cm) 0.20 0.15 0.25 -Area of Debridement (cm) - Length 0.4 0.3 0.5 -Area of Debridement (cm) - Width 0.5 0.5 0.5 -Total Square (Area) (cm) 0.20 0.15 0.25 -Tunneling No No No -Undermining/Tunneling No No No -Circular Undermining No No No -Wound/Ulcer Outcome Not Healed Not Healed Not Healed -Ulcer Cleansing Rinsed/ Rinsed/ Rinsed/ Irrigated with Irrigated with Irrigated with Saline Saline Saline -Foul Odor after Cleansing No No No -Bioengineered Tissue No No No -Bleeding Controlled with Pressure NA Pressure -Treatment Response Procedure Procedure Procedure Tolerated Well Tolerated Well Tolerated Well -Debridement - Subq, 1st 20sq cm Yes No Yes Pain Scale: 0-10 Numeric Is Patient Pain Free? Yes No Yes - Nurse 3 - General Ulcer D/C NN Start: 04/22/22 09:35 Freq: Status: Active Protocol: Activity Type Activity Date Activity User E-sign Co-sign Detail Recorded Client Recorded Date Recorded By Document 04/22/22 11:45 AL [id number] 04/22/22 11:47 AL Document 04/29/22 11:08 W[place] [id number] 04/29/22 11:08 W[place] Document 05/06/22 10:43 AL [id number] 05/06/22 10:46 AL 04/22/22 04/29/22 05/06/22 11:45 11:08 10:43 Wound Care Center Nurse 3 #3 right medial knee -Ulcer Cleansing Not Cleansed -Foul Odor after Cleansing No -Negative Pressure Wound Therapy N/A -Primary Dressing Applied Mepilex Border Mepilex Border Mepilex Border -Mepilex Border 2 1 2 #2 R below the knee -Ulcer Cleansing Not Cleansed -Primary Dressing Applied Mepilex Border Promogran -Mepilex Border 1 -Promogran 1 #1 R knee -Ulcer Cleansing Not Cleansed Right -Tubular Bandage Single Layer -Size of Tubigrip Used Size D -Size D ($) 1 Pain Scale: 0-10 Numeric Is Patient Pain Free? Yes Yes Yes WC - Visit Discharge Discharge Condition Stable Stable Stable Ambulatory Status Wheelchair Wheelchair Wheelchair Transportation Private Auto Private Auto Private Auto Medication Reconcilliation completed & No Yes No provided to patient/care provider Clinical Summary of Care Provided Yes Yes Yes Notes: pt verbalizes understanding to keep wound clean and dry. Additional Wound Wound debrided: Anterior RLE, overlying patella Laterality: Right Type of Debridement: Excisional debridement Anesthesia Used: 5% Lidocaine Gel Depth: Down to and including healthy tissue and in the subcutaneous layer Percentage of wound debrided: 100 Instrument Used: - (1 mm curette) Tissue Removed: slough, devitalized tissue Amount of bleeding with debridement: Mild Bleeding Controlled with: Pressure Patient tolerated procedure: Patient tolerated procedure well Additional Wound Wound debrided: R verdugo Laterality: Right Type of Debridement: Excisional debridement Anesthesia Used: 5% Lidocaine Gel Depth: Down to and including healthy tissue and in the subcutaneous layer Percentage of wound debrided: 100 Instrument Used: 3mm curette Tissue Removed: slough, devitalized tissue Amount of bleeding with debridement: Mild Bleeding Controlled with: Pressure Patient tolerated procedure: Patient tolerated procedure well Assessment/Plan Assessment/Plan (1) Below-knee amputation of right lower extremity: CODE(S): S88.111A - Complete traumatic amputation at level between knee and ankle, right lower leg, initial encounter (2) Non-pressure chronic ulcer of other part of right lower leg with fat layer exposed: CODE(S): L97.812 - Non-pressure chronic ulcer of other part of right lower leg with fat layer exposed (3) Non-pressure chronic ulcer of other part of right lower leg with bone involvement without evidence of necrosis: CODE(S): L97.816 - Non-pressure chronic ulcer of other part of right lower leg with bone involvement without evidence of necrosis PLAN: Plan Moderate improvement in size/depth of amputation stump wound, still with very slow progress ovreall. Continue to emphasize the importance of making appropriate lifestyle modifications to support healing. Continue to hold Epifix applications this week. Continue moistened promogran to all wound beds, cover with silicone bordered dressing. Change dressings daily or more often as needed to keep clean and dry. Apply good moisturizer to the rest of the leg to help with dry/scaly skin. Tubigrip for compression. Patient completed antibiotics without issue. No signs/symptoms of infection today. Discussed the importance of preventing continued trauma to the areas whenever possible. Elevate legs when resting. Increase protein in diet and continue with good blood sugar control. Strongly advise tobacco cessation. Patient will return to wound care center in 1 week. He will return sooner or present to the ED should any symptoms worsen or new concerns arise.
[2022-05-20 09:20] VITALS: BP 146/39; PULSE 75; RESP 18; TEMP 35.9; BMI 23.8
--- NOTE | 2022-05-20 11:51 | PN.PCM_ITS ---
History of Present Illness Date of Service: 05/20/22 Chief Complaint: Multiple wounds to RLE amputation stump History of Wound: Patient presents to the wound center for evaluation and management of multiple wounds to right lower extremity including BKA a stump. He is referred by Dr. Sullivan a peripheral vascular interventionalist in [place] who manages his vascular disease. His past medical history is significant for diabetes mellitus, coronary artery disease, peripheral arterial disease, paroxysmal atrial fibrillation, ACID. He has had past endovascular interventions including right femoropopliteal bypass and left SFA/pop angioplasty. He does smoke, primarily a tobacco pipe or cigars. He takes daily ASA and Eliquis. He reports his amputation was performed in 2011. He reports it healed well initially and he had no significant issue until March 2020 at which time he had a small wound which became infected and developed an abscess in the lateral aspect of his amputation stump. This required I&D and eventually healed well. He also has a history of osteomyelitis of the left great toe. Presently, he has a wound overlying the R patella, another wound slightly distal to the R verdugo, and a wound on the medial aspect of his amputation stump. He reports these have been ongoing for at least 6 months. He states the wound on the medial aspect of the amputation stump is a result of rubbing against his prosthesis. He reports the 2 wounds anteriorly closer to the knee are the re sult of him crawling around his home particularly up his stairs as he is not currently utilizing his prosthesis. Subjective Subjective Patient did well with daily dressing changes, no increased drainage, foul odor, pain, erythema. Has tolerated the tubigrip compression. No N/V, F/C. Objective Data Objective Data Vital Signs: Vital Signs Temp Pulse Resp BP O2 Del Method 96.6 F L 75 18 146/39 H Room Air 05/20/22 09:20 05/20/22 09:20 05/20/22 09:20 05/20/22 09:20 05/06/22 10:07 Oxygen Delivery Method Room Air Weight: 148 lb Body Mass Index (BMI) 23.8 Lab / Micro Data Micro: Microbiology 04/22/22 10:10 Wound Abcess - Leg, Right Gram Stain - Final 04/22/22 10:10 Wound Abcess - Leg, Right Wound Culture - Final Streptococcus agalactiae (B) Stenotrophomonas maltophilia 04/22/22 10:10 Wound Abcess - Leg, Right Anaerobic Culture - Final No anaerobic bacteria isolated. Charges/Coding Wound Center CF Procedures [id number]: [id number] RMVL DEVITAL TIS ADDL 20CM/< Multi Select Codes Wound Center CF Procedures [id number]: [id number] RMVL DEVITAL TIS ADDL 20CM/< Physical Exam Const alert, oriented x3, no apparent distress and well nourished General Appearance: cooperative, comfortable and well developed HEENT normocephalic, head/scalp atraumatic, hearing grossly normal bilaterally, external ears normal and external nose normal Eyes EOMs intact bilaterally General Eye: normal appearance of both eyes Neck full ROM General: normal visual inspection and trachea midline; Negative for anterior neck swelling Resp normal respiratory effort, normal air movement, no retractions and no use of accessory muscles Effort and Inspection: able to speak in complete sentences; Negative for labored, stridor or audible wheezes Cardio Rate: regular rate Rhythm: regular rhythm Extremity Extremity Narrative: R BKA. No discoloration/pallor, appropriate warmth, no significant edema. Skin Wounds: amputation and wounds noted Wound Narrative: Wound overlying R patella, R verdugo, and R medial amputation stump. Moderate slough/callus. No significant erythema, drainage, foul odor, edema, fluctuance, induration. Stable in appearance and size. Neuro oriented x3, CN's II-XII intact bilaterally, moves all extremities, no focal motor deficits and no sensory deficits noted Psych mental status grossly normal Appearance: grossly normal Attitude: calm Activity / Motor Behavior: appropriate eye contact Speech: normal speech Mood & Affect: euthymic mood Thought Process: normal thought process Thought Content: normal thought content Attention / Concentration: attention grossly intact Memory / Cognition: memory grossly intact Insight: insight good Judgement: judgement good Debridement Note Debridement Note Wound debrided: Right medial amputation stump Laterality: Right Type of Debridement: Excisional debridement Anesthesia Used: 5% Lidocaine Gel Depth: Down to and including healthy tissue and to bone Percentage of wound debrided: 100 Instrument Used: 3mm curette Tissue Removed: slough, devitalized tissue Amount of bleeding with debridement: Mild Bleeding Controlled with: Pressure Patient tolerated procedure: Patient tolerated procedure well Post-Debridement Measurements and Additional Note: Post-Debridement Measurements/Treatment WC - Nurse 1 - General Ulcer Assessment Start: 04/22/22 09:35 Freq: Status: Active Protocol: WC.LOWEXT Activity Type Activity Date Activity User E-sign Co-sign Detail Recorded Client Recorded Date Recorded By Document 04/22/22 09:40 AK [id number] 04/22/22 09:47 AK Document 04/29/22 10:11 AK [id number] 04/29/22 10:15 AK Document 05/06/22 10:07 OR [id number] 05/06/22 10:20 MT Document 05/13/22 10:04 [id number] 05/13/22 10:11 JF Document 05/20/22 09:20 Desktop 05/20/22 09:30 JF 04/22/22 04/29/22 05/06/22 09:40 10:11 10:07 - Today's Visit Information Type of service Follow-up Visit Follow-up Visit Follow-up Visit (Physician/PHYSICAL THERAPY COORDINATOR (Physician/PHYSICAL THERAPY COORDINATOR (Physician/PHYSICAL THERAPY COORDINATOR ) ) ) Arrival Mode Wheelchair Wheelchair Wheelchair Transfer Assistance Accompanied by self Patient Identification Verified (Name & Yes Yes Yes ) Patient Requires Transmission-Based No No Precautions Safety Precautions NA Fall Prevention Finger Stick Blood Sugar(mg/dl) (if 112 indicated): Blood Sugar Stated by Patient Height and Weight Body Mass Index (BMI) 23.8 23.8 23.8 BMI Classification Normal Normal Normal Vital Signs Temperature (97.8 F-99.1 F) 97.2 F L 97.4 F L 97 F L Temperature Source Temporal Temporal Temporal Pulse Rate (60-100) 69 66 71 Pulse Location Monitor Monitor Monitor Respiratory Rate (12-18) 16 Respiratory rate source Observation Oxygen Delivery Method Room Air Blood Pressure (90/60-120/80) 134/50 H 109/61 153/42 H Blood Pressure Mean (mm Hg) 78 77 79 Source Monitor Monitor Monitor Position Sitting Blood Pressure Location Left Arm History Since Last Visit- (Skip if this is Patient's initial visit) Have you changed medications since your No No last visit? Any new allergies or adverse reactions No No Had a fall/change in ADL's that may No No increase risk of falls Signs or symptoms of abuse and/or No No neglect since last visit Have you been in the hospital since your No No last visit? Has dressing in place as prescribed Yes Yes Yes Has compression in place as prescribed No N/A Yes Has offloadiing in place as prescribed N/A N/A Yes Experienced any changes in pain level or No No Yes management Left Footwear Regular Shoe Regular Shoe Regular Shoe Right Footwear No Footwear No Footwear Pain Scale: 0-10 Numeric Is Patient Pain Free? Yes Yes Yes 05/13/22 05/20/22 10:04 09:20 WC - Today's Visit Information Type of service Follow-up Visit Follow-up Visit (Physician/PHYSICAL THERAPY COORDINATOR (Physician/PHYSICAL THERAPY COORDINATOR ) ) Arrival Mode Wheelchair Wheelchair Transfer Assistance Manual Manual Accompanied by Patient Identification Verified (Name & Yes Yes ) Patient Requires Transmission-Based No No Precautions Safety Precautions Finger Stick Blood Sugar(mg/dl) (if 117 indicated): Blood Sugar Stated by Patient Height and Weight Body Mass Index (BMI) 23.8 23.8 BMI Classification Normal Normal Vital Signs Temperature (97.8 F-99.1 F) 96.6 F L 96.6 F L Temperature Source Temporal Temporal Pulse Rate (60-100) 68 75 Pulse Location Monitor Monitor Respiratory Rate (12-18) 16 18 Respiratory rate source Observation Observation Oxygen Delivery Method Blood Pressure (90/60-120/80) 161/61 H 146/39 H Blood Pressure Mean (mm Hg) 94 74 Source Monitor Monitor Position Semi-Fowlers Semi-Fowlers Blood Pressure Location Left Arm Left Arm History Since Last Visit- (Skip if this is Patient's initial visit) Have you changed medications since your No No last visit? Any new allergies or adverse reactions No No Had a fall/change in ADL's that may No No increase risk of falls Signs or symptoms of abuse and/or No No neglect since last visit Have you been in the hospital since your No No last visit? Has dressing in place as prescribed Yes Yes Has compression in place as prescribed Yes Has offloadiing in place as prescribed Yes Yes Experienced any changes in pain level or No No management Left Footwear Regular Shoe Regular Shoe Right Footwear No Footwear No Footwear Pain Scale: 0-10 Numeric Is Patient Pain Free? Yes Yes - Nurse 1 - General Ulcer Measurement Start: 04/22/22 09:35 Freq: Status: Active Protocol: Activity Type Activity Date Activity User E-sign Co-sign Detail Recorded Client Recorded Date Recorded By Document 04/22/22 09:40 AK [id number] 04/22/22 09:47 AK Document 04/29/22 10:11 AK [id number] 04/29/22 10:15 AK Document 05/06/22 10:07 OR [id number] 05/06/22 10:20 OR Document 05/13/22 10:04 [id number] 05/13/22 10:11 Document 05/20/22 09:20 Desktop 05/20/22 09:30 04/22/22 04/29/22 05/06/22 09:40 10:11 10:07 Wound Center Nurse 1 #3 right medial knee -Combined with other wound No No -Current Size (cm) - Length 0.2 0.5 0.9 -Current Size (cm) - Width 0.3 0.5 0.9 -Current Size (cm) - Depth 0.1 0.1 0.1 -Total Square Cm 0.06 0.25 0.81 -Date of Last Picture (Recall this field) -Photo Taken Yes Yes -Epithelialization -Tunneling No No -Undermining/Tunneling No No -Circular Undermining No No -Change in Wound Grade/Stage No No -Exudate Amt None Present Small None Present -Exudate Type Serosanguineous -Wound Margin Distinct, Distinct, Outline Outline Attached Attached -Granulation Amt None Present (0 None Present (0 Large (67-100%) %) %) -Granulation Quality N/A N/A Pale,[place] -Slough/Fibrin Yes Yes -Necrosis Amt Large (67-100%) Large (67-100%) None Present (0 %) -Necrotic Tissue Type Adherent Slough Adherent Slough -Structure Exposed N/A N/A -Texture (Jil-wound Skin Appearance) No Abnormality, No Abnormality, Assessed Assessed Assessed -Moisture (Jil-wound Skin Appearance) No Abnormality, No Abnormality, Assessed Assessed Assessed -Color (Jil-wound Skin Appearance) No Abnormality, No Abnormality, Assessed Assessed Assessed -Temperature (Jil-wound Skin No Abnormality No Abnormality No Abnormality Appearance) (Pt Warm) (Pt Warm) (Pt Warm) -Tenderness on Palpation (Jil-wound No No No Skin Appearance) -Ulcer Cleansing Soap and Water Soap and Water Wound Cleanser -Foul Odor after Cleansing No No -Anesthetic Used 5% Lidocaine 5% Lidocaine 5% Lidocaine Gel Gel Gel #2 R below the knee -Combined with other wound No No -Current Size (cm) - Length 0.5 0.7 0.7 -Current Size (cm) - Width 0.5 0.9 0.6 -Current Size (cm) - Depth 0.2 0.2 0.1 -Total Square Cm 0.25 0.63 0.42 -Date of Last Picture (Recall this 04/22/22 field) -Photo Taken Yes Yes -Epithelialization -Tunneling No No -Undermining/Tunneling No No -Circular Undermining No No -Change in Wound Grade/Stage No No -Exudate Amt Medium Medium -Exudate Type Serosanguineous Serosanguineous -Wound Margin Distinct, Distinct, Flat & Intact Outline Outline Attached Attached -Granulation Amt Medium (34-66%) Medium (34-66%) Large (67-100%) -Granulation Quality [place] Pale,[place] -Slough/Fibrin Yes Yes -Necrosis Amt Medium (34-66%) Medium (34-66%) None Present (0 %) -Necrotic Tissue Type Adherent Slough Adherent Slough -Structure Exposed N/A N/A -Texture (Jil-wound Skin Appearance) No Abnormality, No Abnormality, Assessed Assessed Assessed -Moisture (Jil-wound Skin Appearance) No Abnormality, No Abnormality, Assessed Assessed Assessed -Color (Jil-wound Skin Appearance) No Abnormality, No Abnormality, Assessed Assessed Assessed -Temperature (Jil-wound Skin No Abnormality No Abnormality No Abnormality Appearance) (Pt Warm) (Pt Warm) (Pt Warm) -Tenderness on Palpation (Jil-wound No No No Skin Appearance) -Ulcer Cleansing Soap and Water Soap and Water Wound Cleanser -Foul Odor after Cleansing No No No -Anesthetic Used 5% Lidocaine 5% Lidocaine 5% Lidocaine Gel Gel Gel #1 R knee -Combined with other wound No -Current Size (cm) - Length 0.6 0.4 0.3 -Current Size (cm) - Width 0.6 0.3 0.5 -Current Size (cm) - Depth 0.2 0.2 0.2 -Total Square Cm 0.36 0.12 0.15 -Date of Last Picture (Recall this 04/29/22 field) -Photo Taken Yes Yes -Epithelialization -Tunneling No -Undermining/Tunneling No No -Circular Undermining No No -Change in Wound Grade/Stage No No -Exudate Amt Medium Medium None Present -Exudate Type Serosanguineous Serosanguineous -Wound Margin Distinct, Distinct, Flat & Intact Outline Outline Attached Attached -Granulation Amt Medium (34-66%) Medium (34-66%) Large (67-100%) -Granulation Quality [place] Pale,[place] -Slough/Fibrin Yes Yes -Necrosis Amt Medium (34-66%) Medium (34-66%) None Present (0 %) -Necrotic Tissue Type Adherent Slough Adherent Slough -Structure Exposed N/A N/A -Texture (Jil-wound Skin Appearance) No Abnormality, No Abnormality, Assessed Assessed Assessed -Moisture (Jil-wound Skin Appearance) No Abnormality, No Abnormality, Assessed Assessed Assessed -Color (Jil-wound Skin Appearance) No Abnormality, No Abnormality, Assessed Assessed Assessed -Temperature (Jil-wound Skin No Abnormality No Abnormality No Abnormality Appearance) (Pt Warm) (Pt Warm) (Pt Warm) -Tenderness on Palpation (Jil-wound No No No Skin Appearance) -Ulcer Cleansing Soap and Water Soap and Water Wound Cleanser -Foul Odor after Cleansing No No No -Anesthetic Used 5% Lidocaine 5% Lidocaine 5% Lidocaine Gel Gel Gel Lower Limb Edema Present NA 05/13/22 05/20/22 10:04 09:20 Wound Center Nurse 1 #3 right medial knee -Combined with other wound No No -Current Size (cm) - Length 0.5 0.3 -Current Size (cm) - Width 0.5 0.5 -Current Size (cm) - Depth 0.5 0.2 -Total Square Cm 0.25 0.15 -Date of Last Picture (Recall this 05/20/22 field) -Photo Taken Yes Yes -Epithelialization None Present Small 1-33% -Tunneling No No -Undermining/Tunneling No No -Circular Undermining No No -Change in Wound Grade/Stage -Exudate Amt None Present Small -Exudate Type Serosanguineous -Wound Margin Flat & Intact Distinct, Outline Attached -Granulation Amt None Present (0 Large (67-100%) %) -Granulation Quality Red -Slough/Fibrin Yes Yes -Necrosis Amt Large (67-100%) Small (1-33%) -Necrotic Tissue Type Adherent Slough Adherent Slough -Structure Exposed N/A -Texture (Jil-wound Skin Appearance) Assessed Assessed, Scarring -Moisture (Jil-wound Skin Appearance) Assessed,Dry/ Assessed Scaly -Color (Jil-wound Skin Appearance) Assessed Assessed -Temperature (Jil-wound Skin No Abnormality No Abnormality Appearance) (Pt Warm) (Pt Warm) -Tenderness on Palpation (Jil-wound No No Skin Appearance) -Ulcer Cleansing Rinsed/ Rinsed/ Irrigated with Irrigated with Saline Saline -Foul Odor after Cleansing No No -Anesthetic Used 5% Lidocaine 5% Lidocaine Gel Gel #2 R below the knee -Combined with other wound No No -Current Size (cm) - Length 1.0 0.9 -Current Size (cm) - Width 0.9 0.7 -Current Size (cm) - Depth 0.1 0.2 -Total Square Cm 0.90 0.63 -Date of Last Picture (Recall this 05/20/22 field) -Photo Taken Yes Yes -Epithelialization None Present Small 1-33% -Tunneling No No -Undermining/Tunneling No No -Circular Undermining No No -Change in Wound Grade/Stage -Exudate Amt None Present Small -Exudate Type Serosanguineous -Wound Margin Flat & Intact Distinct, Outline Attached -Granulation Amt None Present (0 Large (67-100%) %) -Granulation Quality Red -Slough/Fibrin Yes Yes -Necrosis Amt Large (67-100%) Small (1-33%) -Necrotic Tissue Type Adherent Slough Adherent Slough -Structure Exposed N/A -Texture (Jil-wound Skin Appearance) Assessed Assessed, Scarring -Moisture (Jil-wound Skin Appearance) Assessed,Dry/ Assessed Scaly -Color (Jil-wound Skin Appearance) Assessed Assessed -Temperature (Jil-wound Skin No Abnormality No Abnormality Appearance) (Pt Warm) (Pt Warm) -Tenderness on Palpation (Jil-wound No No Skin Appearance) -Ulcer Cleansing Rinsed/ Soap and Water Irrigated with Saline -Foul Odor after Cleansing No No -Anesthetic Used 5% Lidocaine 5% Lidocaine Gel Gel #1 R knee -Combined with other wound No No -Current Size (cm) - Length 0.2 0.2 -Current Size (cm) - Width 0.4 0.2 -Current Size (cm) - Depth 0.2 0.3 -Total Square Cm 0.08 0.04 -Date of Last Picture (Recall this 05/20/22 field) -Photo Taken Yes Yes -Epithelialization None Present Small 1-33% -Tunneling No No -Undermining/Tunneling No No -Circular Undermining No No -Change in Wound Grade/Stage -Exudate Amt None Present Small -Exudate Type Serosanguineous -Wound Margin Flat & Intact Distinct, Outline Attached -Granulation Amt None Present (0 Small (1-33%) %) -Granulation Quality Red -Slough/Fibrin Yes No -Necrosis Amt Medium (34-66%) None Present (0 %) -Necrotic Tissue Type Adherent Slough -Structure Exposed N/A -Texture (Jil-wound Skin Appearance) Assessed Assessed, Scarring -Moisture (Jil-wound Skin Appearance) Assessed,Dry/ Assessed Scaly -Color (Jil-wound Skin Appearance) Assessed Assessed -Temperature (Jil-wound Skin No Abnormality No Abnormality Appearance) (Pt Warm) (Pt Warm) -Tenderness on Palpation (Jil-wound No No Skin Appearance) -Ulcer Cleansing Rinsed/ Rinsed/ Irrigated with Irrigated with Saline Saline -Foul Odor after Cleansing No No -Anesthetic Used 5% Lidocaine 5% Lidocaine Gel Gel Lower Limb Edema Present NA WC - Nurse 2 - General Ulcer CM Notes Start: 04/22/22 09:35 Freq: Status: Active Protocol: Activity Type Activity Date Activity User E-sign Co-sign Detail Recorded Client Recorded Date Recorded By Document 04/22/22 12:33 PL [id number] 04/22/22 12:37 PL Document 04/29/22 12:25 PL [id number] 04/29/22 12:29 PL Edit Result 04/29/22 12:25 PL (1) [id number] 05/02/22 06:57 PL Document 05/06/22 12:21 PL [id number] 05/06/22 12:23 PL Document 05/13/22 12:09 PL [id number] 05/13/22 12:13 PL (1) #3 right medial knee - Bioengineered Tissue No => Yes - Type of Bioengineered Tissue => Epifix 18mm Disc - Expiration Date => 01/20/27 - Product Lot Number => [id number] - Percent Used => 100 - Epifix 18mm Disc => 3 #1 R knee - Debridement - Subq, 1st 20sq cm Yes => No 04/22/22 04/29/22 05/06/22 12:33 12:25 12:21 Wound Center Nurse 2 #3 right medial knee -Time 10:08 10:36 10:24 -Correct Patient Yes Yes Yes -Correct Side, Site, Position Yes Yes Yes -Correct Procedure Yes Yes Yes -Procedure Performed Yes Yes Yes -Type of Procedure Debridement Debridement Debridement -Clinical Debridement Subcutaneous Subcutaneous Subcutaneous -Tissue Removed Subcutaneous Subcutaneous Subcutaneous -Post Debridement (cm) - Length 0.7 0.7 0.6 -Post Debridement (cm) - Width 0.5 0.5 0.4 -Post Debridement (cm) - Depth 0.6 0.4 0.4 -Total Square (Post) (cm) 0.35 0.35 0.24 -Area of Debridement (cm) - Length 0.7 0.7 0.6 -Area of Debridement (cm) - Width 0.5 0.5 0.4 -Total Square (Area) (cm) 0.35 0.35 0.24 -Tunneling No No No -Undermining/Tunneling No No No -Circular Undermining No No No -Wound/Ulcer Outcome Not Healed Not Healed Not Healed -Ulcer Cleansing Rinsed/ Rinsed/ Rinsed/ Irrigated with Irrigated with Irrigated with Saline Saline Saline -Foul Odor after Cleansing No No No -Bioengineered Tissue No Yes No -Type of Bioengineered Tissue Epifix 18mm Disc -Expiration Date 01/20/27 -Product Lot Number [id number] -Percent Used 100 -Bleeding Controlled with Pressure Pressure Pressure -Treatment Response Procedure Procedure Procedure Tolerated Well Tolerated Well Tolerated Well -Debridement - Subq, 1st 20sq cm No No No -Epifix 18mm Disc 3 #2 R below the knee -Time 10: 10:36 10:24 -Correct Patient Yes Yes Yes -Correct Side, Site, Position Yes Yes Yes -Correct Procedure Yes Yes Yes -Procedure Performed Yes Yes Yes -Type of Procedure Debridement Debridement Debridement -Clinical Debridement Subcutaneous Subcutaneous Subcutaneous -Tissue Removed Subcutaneous Subcutaneous Subcutaneous -Post Debridement (cm) - Length 0.9 0.9 0.9 -Post Debridement (cm) - Width 0.9 0.9 0.9 -Post Debridement (cm) - Depth 0.4 0.2 0.3 -Total Square (Post) (cm) 0.81 0.81 0.81 -Area of Debridement (cm) - Length 0.9 0.9 0.9 -Area of Debridement (cm) - Width 0.9 0.9 0.9 -Total Square (Area) (cm) 0.81 0.81 0.81 -Tunneling No No No -Undermining/Tunneling No No No -Circular Undermining No No No -Wound/Ulcer Outcome Not Healed Not Healed Not Healed -Ulcer Cleansing Rinsed/ Rinsed/ Rinsed/ Irrigated with Irrigated with Irrigated with Saline Saline Saline -Foul Odor after Cleansing No No No -Bioengineered Tissue Yes No No -Type of Bioengineered Tissue Epifix 18mm Disc -Expiration Date 01/20/27 -Product Lot Number [id number] -Percent Used 100 -Bleeding Controlled with Pressure Pressure Pressure -Treatment Response Procedure Procedure Procedure Tolerated Well Tolerated Well Tolerated Well -Debridement - Subq, 1st 20sq cm No No No -Apply Skin Sub - 1st 25 sq cm - Legs 1 -Epifix 18mm Disc 3 #1 R knee -Time 10:08 10:36 10:24 -Correct Patient Yes Yes Yes -Correct Side, Site, Position Yes Yes Yes -Correct Procedure Yes Yes Yes -Procedure Performed Yes Yes Yes -Type of Procedure Debridement Debridement Debridement -Clinical Debridement Subcutaneous Subcutaneous Subcutaneous -Tissue Removed Subcutaneous Subcutaneous Subcutaneous -Post Debridement (cm) - Length 0.4 0.3 0.5 -Post Debridement (cm) - Width 0.5 0.5 0.5 -Post Debridement (cm) - Depth 0.4 0.4 0.3 -Total Square (Post) (cm) 0.20 0.15 0.25 -Area of Debridement (cm) - Length 0.4 0.3 0.5 -Area of Debridement (cm) - Width 0.5 0.5 0.5 -Total Square (Area) (cm) 0.20 0.15 0.25 -Tunneling No No No -Undermining/Tunneling No No No -Circular Undermining No No No -Wound/Ulcer Outcome Not Healed Not Healed Not Healed -Ulcer Cleansing Rinsed/ Rinsed/ Rinsed/ Irrigated with Irrigated with Irrigated with Saline Saline Saline -Foul Odor after Cleansing No No No -Bioengineered Tissue No No No -Bleeding Controlled with Pressure NA Pressure -Treatment Response Procedure Procedure Procedure Tolerated Well Tolerated Well Tolerated Well -Debridement - Subq, 1st 20sq cm Yes No Yes Pain Scale: 0-10 Numeric Is Patient Pain Free? Yes No Yes 05/13/22 12:09 Wound Center Nurse 2 #3 right medial knee -Time 10:17 -Correct Patient Yes -Correct Side, Site, Position Yes -Correct Procedure Yes -Procedure Performed Yes -Type of Procedure Debridement -Clinical Debridement Subcutaneous -Tissue Removed Subcutaneous -Post Debridement (cm) - Length 0.4 -Post Debridement (cm) - Width 0.3 -Post Debridement (cm) - Depth 0.3 -Total Square (Post) (cm) 0.12 -Area of Debridement (cm) - Length 0.4 -Area of Debridement (cm) - Width 0.3 -Total Square (Area) (cm) 0.12 -Tunneling No -Undermining/Tunneling No -Circular Undermining No -Wound/Ulcer Outcome Not Healed -Ulcer Cleansing Rinsed/ Irrigated with Saline -Foul Odor after Cleansing No -Bioengineered Tissue No -Type of Bioengineered Tissue -Expiration Date -Product Lot Number -Percent Used -Bleeding Controlled with Pressure -Treatment Response Procedure Tolerated Well -Debridement - Subq, 1st 20sq cm No -Epifix 18mm Disc #2 R below the knee -Time 10:17 -Correct Patient Yes -Correct Side, Site, Position Yes -Correct Procedure Yes -Procedure Performed Yes -Type of Procedure Debridement -Clinical Debridement Subcutaneous -Tissue Removed Subcutaneous -Post Debridement (cm) - Length 0.9 -Post Debridement (cm) - Width 0.8 -Post Debridement (cm) - Depth 0.1 -Total Square (Post) (cm) 0.72 -Area of Debridement (cm) - Length 0.9 -Area of Debridement (cm) - Width 0.8 -Total Square (Area) (cm) 0.72 -Tunneling No -Undermining/Tunneling No -Circular Undermining No -Wound/Ulcer Outcome Not Healed -Ulcer Cleansing Rinsed/ Irrigated with Saline -Foul Odor after Cleansing No -Bioengineered Tissue No -Type of Bioengineered Tissue -Expiration Date -Product Lot Number -Percent Used -Bleeding Controlled with Pressure -Treatment Response Procedure Tolerated Well -Debridement - Subq, 1st 20sq cm No -Apply Skin Sub - 1st 25 sq cm - Legs -Epifix 18mm Disc #1 R knee -Time 10:17 -Correct Patient Yes -Correct Side, Site, Position Yes -Correct Procedure Yes -Procedure Performed Yes -Type of Procedure Debridement -Clinical Debridement Subcutaneous -Tissue Removed Subcutaneous -Post Debridement (cm) - Length 0.3 -Post Debridement (cm) - Width 0.3 -Post Debridement (cm) - Depth 0.1 -Total Square (Post) (cm) 0.09 -Area of Debridement (cm) - Length 0.3 -Area of Debridement (cm) - Width 0.3 -Total Square (Area) (cm) 0.09 -Tunneling No -Undermining/Tunneling No -Circular Undermining No -Wound/Ulcer Outcome Not Healed -Ulcer Cleansing Rinsed/ Irrigated with Saline -Foul Odor after Cleansing No -Bioengineered Tissue No -Bleeding Controlled with Pressure -Treatment Response Procedure Tolerated Well -Debridement - Subq, 1st 20sq cm Yes Pain Scale: 0-10 Numeric Is Patient Pain Free? Yes - Nurse 3 - General Ulcer D/C NN Start: 04/22/22 09:35 Freq: Status: Active Protocol: Activity Type Activity Date Activity User E-sign Co-sign Detail Recorded Client Recorded Date Recorded By Document 04/22/22 11:45 OR [id number] 04/22/22 11:47 OR Document 04/29/22 11:08 AK [id number] 04/29/22 11:08 VA Document 05/06/22 10:43 OR [id number] 05/06/22 10:46 OR Document 05/13/22 15:10 VA [id number] 05/13/22 15:10 VA Document 05/20/22 10:05 Desktop 05/20/22 10:08 04/22/22 04/29/22 05/06/22 11:45 11:08 10:43 Wound Care Center Nurse 3 #3 right medial knee -Ulcer Cleansing Not Cleansed -Foul Odor after Cleansing No -Negative Pressure Wound Therapy N/A -Primary Dressing Applied Mepilex Border Mepilex Border Mepilex Border -Mepilex Border 2 1 2 -Promogran Katerina Matter #2 R below the knee -Ulcer Cleansing Not Cleansed -Primary Dressing Applied Mepilex Border Promogran -Mepilex Border 1 -Promogran 1 #1 R knee -Ulcer Cleansing Not Cleansed -Foul Odor after Cleansing -Primary Dressing Applied -Mepilex Border Right -Tubular Bandage Single Layer -Size of Tubigrip Used Size D -Size D ($) 1 Pain Scale: 0-10 Numeric Is Patient Pain Free? Yes Yes Yes WC - Visit Discharge Discharge Condition Stable Stable Stable Ambulatory Status Wheelchair Wheelchair Wheelchair Transportation Private Auto Private Auto Private Auto Medication Reconcilliation completed & No Yes No provided to patient/care provider Clinical Summary of Care Provided Yes Yes Yes Notes: pt verbalizes understanding to keep wound clean and dry. 05/13/22 05/20/22 15:10 10:05 Wound Care Center Nurse 3 #3 right medial knee -Ulcer Cleansing Rinsed/ Rinsed/ Irrigated with Irrigated with Saline Saline -Foul Odor after Cleansing No No -Negative Pressure Wound Therapy N/A -Primary Dressing Applied Promogran Mepilex Border Katerina Matter, Mepilex Border -Mepilex Border 1 1 -Promogran Katerina Matter 1 #2 R below the knee -Ulcer Cleansing -Primary Dressing Applied Mepilex Border -Mepilex Border 1 -Promogran #1 R knee -Ulcer Cleansing Rinsed/ Irrigated with Saline -Foul Odor after Cleansing No -Primary Dressing Applied Mepilex Border -Mepilex Border 0 Right -Tubular Bandage Single Layer -Size of Tubigrip Used Size D -Size D ($) 0 Pain Scale: 0-10 Numeric Is Patient Pain Free? Yes Yes WC - Visit Discharge Discharge Condition Stable Stable Ambulatory Status Wheelchair Wheelchair Transportation Private Auto Private Auto Medication Reconcilliation completed & Yes Yes provided to patient/care provider Clinical Summary of Care Provided Yes Yes Notes: Additional Wound Wound debrided: Anterior RLE, overlying patella Laterality: Right Type of Debridement: Excisional debridement Anesthesia Used: 5% Lidocaine Gel Depth: Down to and including healthy tissue and in the subcutaneous layer Percentage of wound debrided: 100 Instrument Used: - (1 mm curette) Tissue Removed: slough, devitalized tissue Amount of bleeding with debridement: Mild Bleeding Controlled with: Pressure Patient tolerated procedure: Patient tolerated procedure well Additional Wound Wound debrided: R verdugo Laterality: Right Type of Debridement: Excisional debridement Anesthesia Used: 5% Lidocaine Gel Depth: Down to and including healthy tissue and in the subcutaneous layer Percentage of wound debrided: 100 Instrument Used: 3mm curette Tissue Removed: slough, devitalized tissue Amount of bleeding with debridement: Mild Bleeding Controlled with: Pressure Patient tolerated procedure: Patient tolerated procedure well Assessment/Plan Assessment/Plan (1) Below-knee amputation of right lower extremity: CODE(S): S88.111A - Complete traumatic amputation at level between knee and ankle, right lower leg, initial encounter (2) Non-pressure chronic ulcer of other part of right lower leg with fat layer exposed: CODE(S): L97.812 - Non-pressure chronic ulcer of other part of right lower leg with fat layer exposed (3) Non-pressure chronic ulcer of other part of right lower leg with bone i nvolvement without evidence of necrosis: CODE(S): L97.816 - Non-pressure chronic ulcer of other part of right lower leg with bone involvement without evidence of necrosis PLAN: Plan No significant decrease in size this week, very slow progress ovreall. Continue to emphasize the importance of making appropriate lifestyle modifications to support healing. Discussed the importance of preventing continued trauma to the areas whenever possible. Returned to epifix applications this week. Wounds were debrided and had good bleeding in the wound beds. Epifix was applied in a sterile fashion followed by collagen hydrogel, covered with adaptic, secured with steri-strips. Continue silicone-border dressing over top. 100% of the product was used. Patient was instructed to keep dressing clean and dry. He understands he is to leave it in place until his visit next week. Continue with tubigrip for compression and elevate leg when resting. Patient completed antibiotics without issue. No signs/symptoms of infection today. Patient will return to wound care center in 1 week. He will return sooner or present to the ED should any symptoms worsen or new concerns arise.
--- NOTE | 2022-06-07 15:15 | WC ---
05/20/22 Just below knee
== END 2022-05-20 23:59 | disposition home or self-care (01) ==
LOC: WC 10:00
PROVIDERS: PCP Family Medicine; Referring Provider Physician Assistant; Visit Provider Physician Assistant
DX: T87.89 Other complications of amputation stump (principal); E11.51 Type 2 diabetes mellitus with diabetic peripheral angiopathy without gangrene; Z89.511 Acquired absence of right leg below knee; L97.812 Non-pressure chronic ulcer of other part of right lower leg with fat layer exposed; L97.816 Non-pressure chronic ulcer of other part of right lower leg with bone involvement without evidence of necrosis; I48.0 Paroxysmal atrial fibrillation; Z79.4 Long term (current) use of insulin; Y83.5 Amputation of limb(s) as the cause of abnormal reaction of the patient, or of later complication, without mention of misadventure at the time of the procedure; I25.10 Atherosclerotic heart disease of native coronary artery without angina pectoris; S81.801A Unspecified open wound, right lower leg, initial encounter; X58.XXXA Exposure to other specified factors, initial encounter; Z79.82 Long term (current) use of aspirin; Z79.01 Long term (current) use of anticoagulants; Z79.84 Long term (current) use of oral hypoglycemic drugs; Z79.890 Hormone replacement therapy; Z79.899 Other long term (current) drug therapy; F17.290 Nicotine dependence, other tobacco product, uncomplicated; Z95.810 Presence of automatic (implantable) cardiac defibrillator; Z95.820 Peripheral vascular angioplasty status with implants and grafts
CPT/HCPCS: 11042; 15271; 36415; 82565; 87070; 87075; 87077; 87186; 87205; Q4186

== ENCOUNTER 2022-06-17 10:30 | Outpatient (RCR) | payer MEDICARE, MEDICAID, SELFPAY ==
[2022-05-21 01:01] VITALS: BP 146/39; PULSE 75; RESP 18; TEMP 35.9; BMI 23.8
[2022-05-27 10:19] VITALS: BP 141/56; PULSE 68; RESP 18; TEMP 36.1; BMI 23.8
--- NOTE | 2022-05-27 13:12 | PCM.WC.PN ---
History of Present Illness Date of Service: 05/27/22 Chief Complaint: Multiple wounds to RLE amputation stump History of Wound: Patient presents to the wound center for evaluation and management of multiple wounds to right lower extremity including BKA a stump. He is referred by Dr. Sullivan a peripheral vascular interventionalist in [place] who manages his vascular disease. His past medical history is significant for diabetes mellitus, coronary artery disease, peripheral arterial disease, paroxysmal atrial fibrillation, ACID. He has had past endovascular interventions including right femoropopliteal bypass and left SFA/pop angioplasty. He does smoke, primarily a tobacco pipe or cigars. He takes daily ASA and Eliquis. He reports his amputation was performed in 2011. He reports it healed well initially and he had no significant issue until March 2020 at which time he had a small wound which became infected and developed an abscess in the lateral aspect of his amputation stump. This required I&D and eventually healed well. He also has a history of osteomyelitis of the left great toe. Presently, he has a wound overlying the R patella, another wound slightly distal to the R verdugo, and a wound on the medial aspect of his amputation stump. He reports these have been ongoing for at least 6 months. He states the wound on the medial aspect of the amputation stump is a result of rubbing against his prosthesis. He reports the 2 wounds anteriorly closer to the knee are the result of him crawling around his home particularly up his stairs as he is not currently utilizing his prosthesis. Subjective Subjective Patient denies increased drainage, foul odor, pain, erythema. Tolerating the tubigrip compression. No N/V, F/C. He continues to smoke. He does have diabetes. He does continue to apply pressure/friction to RLE by crawling around house/upstairs since not using prosthetic. Objective Data Objective Data Vital Signs: Vital Signs Temp Pulse Resp BP 96.9 F L 68 18 141/56 H 05/27/22 10:19 05/27/22 10:19 05/27/22 10:19 05/27/22 10:19 Weight: 148 lb Body Mass Index (BMI) 23.8 Charges/Coding Multi Select Codes Integumentary Integumentary CPT Codes: 81264 Natalya subq tissue 20 sq cm/< [place] 63456 Skin sub graft trnk/arm/leg Physical Exam Const alert, oriented x3, no apparent distress and well nourished General Appearance: cooperative, comfortable and well developed HEENT normocephalic, head/scalp atraumatic, hearing grossly normal bilaterally, external ears normal and external nose normal Eyes EOMs intact bilaterally General Eye: normal appearance of both eyes Neck full ROM General: normal visual inspection and trachea midline; Negative for anterior neck swelling Resp normal respiratory effort, normal air movement, no retractions and no use of accessory muscles Effort and Inspection: able to speak in complete sentences; Negative for labored, stridor or audible wheezes Cardio Rate: regular rate Rhythm: regular rhythm Extremity Extremity Narrative: R BKA. No discoloration/pallor, appropriate warmth, no significant edema. Skin Wounds: amputation and wounds noted Wound Narrative: Wound overlying R patella, R verdugo, and R medial amputation stump. Moderate slough/callus. No significant erythema, drainage, foul odor, edema, fluctuance, induration. Stable in appearance and size. Neuro oriented x3, CN's II-XII intact bilaterally, moves all extremities, no focal motor deficits and no sensory deficits noted Psych mental status grossly normal Appearance: grossly normal Attitude: calm Activity / Motor Behavior: appropriate eye contact Speech: normal speech Mood & Affect: euthymic mood Thought Process: normal thought process Thought Content: normal thought content Attention / Concentration: attention grossly intact Memory / Cognition: memory grossly intact Insight: insight good Judgement: judgement good Debridement Note Debridement Note Wound debrided: Right medial amputation stump Laterality: Right Type of Debridement: Excisional debridement Anesthesia Used: 5% Lidocaine Gel Depth: Down to and including healthy tissue and to bone Percentage of wound debrided: 100 Instrument Used: 3mm curette Tissue Removed: slough, devitalized tissue Amount of bleeding with debridement: Mild Bleeding Controlled with: Pressure Patient tolerated procedure: Patient tolerated procedure well Post-Debridement Measurements and Additional Note: Post-Debridement Measurements/Treatment CHARO - Nurse 1 - General Ulcer Assessment Start: 05/27/22 10:18 Freq: Status: Active Protocol: MARIELY Activity Type Activity Date Activity User E-sign Co-sign Detail Recorded Client Recorded Date Recorded By Document 05/27/22 10:19 SHANNA [id number] 05/27/22 10:26 SHANNA 05/27/22 10:19 CHARO - Today's Visit Information Type of service Follow-up Visit (Physician/[employer] ) Arrival Mode Wheelchair Transfer Assistance Manual Patient Identification Verified (Name & Yes ) Patient Requires Transmission-Based No Precautions Finger Stick Blood Sugar(mg/dl) (if 130 indicated): Blood Sugar Stated by Patient Height and Weight Body Mass Index (BMI) 23.8 BMI Classification Normal Vital Signs Temperature (97.8 F-99.1 F) 96.9 F L Temperature Source Temporal Pulse Rate (60-100) 68 Pulse Location Monitor Respiratory Rate (12-18) 18 Respiratory rate source Observation Blood Pressure (90/60-120/80) 141/56 H Blood Pressure Mean (mm Hg) 84 Source Monitor Position Sitting Blood Pressure Location Left Arm History Since Last Visit- (Skip if this is Patient's initial visit) Have you changed medications since your No last visit? Any new allergies or adverse reactions No Had a fall/change in ADL's that may No increase risk of falls Signs or symptoms of abuse and/or No neglect since last visit Have you been in the hospital since your No last visit? Has dressing in place as prescribed Yes Has compression in place as prescribed N/A Has offloadiing in place as prescribed Yes Experienced any changes in pain level or No management Left Footwear Regular Shoe Right Footwear No Footwear Pain Scale: 0-10 Numeric Is Patient Pain Free? Yes WC - Nurse 1 - General Ulcer Measurement Start: 05/27/22 10:18 Freq: Status: Active Protocol: Activity Type Activity Date Activity User E-sign Co-sign Detail Recorded Client Recorded Date Recorded By Document 05/27/22 10:19 SHANNA [id number] 05/27/22 10:26 SHANNA 05/27/22 10:19 Wound Center Nurse 1 #3 right medial knee -Combined with other wound No -Current Size (cm) - Length 0.4 -Current Size (cm) - Width 0.3 -Current Size (cm) - Depth 0.1 -Total Square Cm 0.12 -Photo Taken Yes -Epithelialization Small 1-33% -Tunneling No -Undermining/Tunneling No -Circular Undermining No -Exudate Amt Medium -Exudate Type Serosanguineous -Wound Margin Flat & Intact -Granulation Amt Medium (34-66%) -Granulation Quality Red -Slough/Fibrin Yes -Necrosis Amt Small (1-33%) -Necrotic Tissue Type Adherent Slough -Structure Exposed N/A -Texture (Jil-wound Skin Appearance) Assessed -Moisture (Jil-wound Skin Appearance) Assessed,Dry/ Scaly -Color (Jil-wound Skin Appearance) Assessed -Temperature (Jil-wound Skin No Abnormality Appearance) (Pt Warm) -Tenderness on Palpation (Jil-wound No Skin Appearance) -Ulcer Cleansing Wound Cleanser -Foul Odor after Cleansing No -Anesthetic Used 5% Lidocaine Gel #2 R below the knee -Combined with other wound No -Current Size (cm) - Length 0.7 -Current Size (cm) - Width 0.7 -Current Size (cm) - Depth 0.2 -Total Square Cm 0.49 -Photo Taken Yes -Epithelialization Small 1-33% -Tunneling No -Undermining/Tunneling No -Circular Undermining No -Exudate Amt Small -Exudate Type Serosanguineous -Wound Margin Flat & Intact -Granulation Amt Medium (34-66%) -Granulation Quality Red -Slough/Fibrin Yes -Necrosis Amt Small (1-33%) -Necrotic Tissue Type Adherent Slough -Structure Exposed N/A -Texture (Jil-wound Skin Appearance) Assessed -Moisture (Jil-wound Skin Appearance) Assessed, Maceration -Color (Jil-wound Skin Appearance) Assessed -Temperature (Jil-wound Skin No Abnormality Appearance) (Pt Warm) -Tenderness on Palpation (Jil-wound No Skin Appearance) -Ulcer Cleansing Wound Cleanser -Foul Odor after Cleansing No -Anesthetic Used 5% Lidocaine Gel #1 R knee -Combined with other wound No -Current Size (cm) - Length 0.1 -Current Size (cm) - Width 0.2 -Current Size (cm) - Depth 0.1 -Total Square Cm 0.02 -Photo Taken Yes -Epithelialization Medium 34-66% -Tunneling No -Undermining/Tunneling No -Circular Undermining No -Exudate Amt Small -Exudate Type Serosanguineous -Wound Margin Indistinct, Non -Visible -Granulation Amt Large (67-100%) -Granulation Quality [place] -Slough/Fibrin Yes -Necrosis Amt Small (1-33%) -Necrotic Tissue Type Adherent Slough -Structure Exposed N/A -Texture (Jil-wound Skin Appearance) Assessed -Moisture (Jil-wound Skin Appearance) Assessed, Maceration -Color (Jil-wound Skin Appearance) Assessed -Temperature (Jil-wound Skin No Abnormality Appearance) (Pt Warm) -Tenderness on Palpation (Jil-wound No Skin Appearance) -Ulcer Cleansing Wound Cleanser -Foul Odor after Cleansing No -Anesthetic Used 5% Lidocaine Gel Lower Limb Edema Present NA WC - Nurse 2 - General Ulcer CM Notes Start: 05/27/22 10:18 Freq: Status: Active Protocol: Activity Type Activity Date Activity User E-sign Co-sign Detail Recorded Client Recorded Date Recorded By Document 05/27/22 11:18 PL [id number] 05/27/22 11:25 PL 05/27/22 11:18 Wound Center Nurse 2 #3 right medial knee -Time 10:35 -Correct Patient Yes -Correct Side, Site, Position Yes -Correct Procedure Yes -Procedure Performed Yes -Type of Procedure Debridement -Clinical Debridement Subcutaneous -Tissue Removed Subcutaneous -Post Debridement (cm) - Length 0.3 -Post Debridement (cm) - Width 0.5 -Post Debridement (cm) - Depth 0.1 -Total Square (Post) (cm) 0.15 -Area of Debridement (cm) - Length 0.3 -Area of Debridement (cm) - Width 0.5 -Total Square (Area) (cm) 0.15 -Tunneling No -Undermining/Tunneling No -Circular Undermining No -Wound/Ulcer Outcome Not Healed -Ulcer Cleansing Rinsed/ Irrigated with Saline -Foul Odor after Cleansing No -Bioengineered Tissue Yes -Type of Bioengineered Tissue Epifix 18mm Disc -Expiration Date 02/20/27 -Product Lot Number [id number] -Percent Used 100 -Bleeding Controlled with Pressure -Treatment Response Procedure Tolerated Well -Debridement - Subq, 1st 20sq cm No -Apply Skin Sub - 1st 25 sq cm - Legs 1 -Epifix 18mm Disc 3 #2 R below the knee -Time 10:35 -Correct Patient Yes -Correct Side, Site, Position Yes -Correct Procedure Yes -Procedure Performed Yes -Type of Procedure Debridement -Clinical Debridement Subcutaneous -Tissue Removed Subcutaneous -Post Debridement (cm) - Length 0.8 -Post Debridement (cm) - Width 0.9 -Post Debridement (cm) - Depth 0.2 -Total Square (Post) (cm) 0.72 -Area of Debridement (cm) - Length 0.8 -Area of Debridement (cm) - Width 0.9 -Total Square (Area) (cm) 0.72 -Tunneling No -Undermining/Tunneling No -Circular Undermining No -Wound/Ulcer Outcome Not Healed -Ulcer Cleansing Rinsed/ Irrigated with Saline -Foul Odor after Cleansing No -Bioengineered Tissue No -Bleeding Controlled with Pressure -Treatment Response Procedure Tolerated Well -Debridement - Subq, 1st 20sq cm No #1 R knee -Time 10:35 -Correct Patient Yes -Correct Side, Site, Position Yes -Correct Procedure Yes -Procedure Performed Yes -Type of Procedure Debridement -Clinical Debridement Subcutaneous -Tissue Removed Subcutaneous -Post Debridement (cm) - Length 0.3 -Post Debridement (cm) - Width 0.4 -Post Debridement (cm) - Depth 0.2 -Total Square (Post) (cm) 0.12 -Area of Debridement (cm) - Length 0.3 -Area of Debridement (cm) - Width 0.2 -Total Square (Area) (cm) 0.06 -Tunneling No -Undermining/Tunneling No -Circular Undermining No -Wound/Ulcer Outcome Not Healed -Ulcer Cleansing Rinsed/ Irrigated with Saline -Foul Odor after Cleansing No -Bioengineered Tissue No -Bleeding Controlled with Pressure -Treatment Response Procedure Tolerated Well -Debridement - Subq, 1st 20sq cm No Pain Scale: 0-10 Numeric Is Patient Pain Free? Yes Additional Wound Wound debrided: Anterior RLE, overlying patella Laterality: Right Type of Debridement: Excisional debridement Anesthesia Used: 5% Lidocaine Gel Depth: Down to and including healthy tissue and in the subcutaneous layer Percentage of wound debrided: 100 Instrument Used: - (1 mm curette) Tissue Removed: slough, devitalized tissue Amount of bleeding with debridement: Mild Bleeding Controlled with: Pressure Patient tolerated procedure: Patient tolerated procedure well Additional Wound Wound debrided: R verdugo Laterality: Right Type of Debridement: Excisional debridement Anesthesia Used: 5% Lidocaine Gel Depth: Down to and including healthy tissue and in the subcutaneous layer Percentage of wound debrided: 100 Instrument Used: 3mm curette Tissue Removed: slough, devitalized tissue Amount of bleeding with debridement: Mild Bleeding Controlled with: Pressure Patient tolerated procedure: Patient tolerated procedure well Assessment/Plan Assessment/Plan (1) Below-knee amputation of right lower extremity: CODE(S): S88.111A - Complete traumatic amputation at level between knee and ankle, right lower leg, initial encounter (2) Non-pressure chronic ulcer of other part of right lower leg with fat layer exposed: CODE(S): L97.812 - Non-pressure chronic ulcer of other part of right lower leg with fat layer exposed (3) Non-pressure chronic ulcer of other part of right lower leg with bone involvement without evidence of necrosis: CODE(S): L97.816 - Non-pressure chronic ulcer of other part of right lower leg with bone involvement without evidence of necrosis PLAN: Plan Again, no significant decrease in size this week, very slow progress overall. Continue to emphasize the importance of making appropriate lifestyle modifications to support healing including tobacco cessation and watching his diet/sugars. We talked about how both smoking and his diabetes put him at a disadvantage with respect to healing. Discussed the importance of preventing continued trauma to the areas whenever possible as continuing to crawl and place pressure on the R knee/verdugo is also likely inhibiting healing. Wounds were debrided and had good bleeding in the wound beds. Epifix #8 was applied in a sterile fashion followed by collagen hydrogel, covered with adaptic, secured with steri-strips. Continue silicone-border dressing over top. 100% of the product was used. Patient was instructed to keep dressing clean and dry. He understands he is to leave it in place until his visit next week. Continue with tubigrip for compression and elevate leg when resting. No signs/symptoms of infection today. Patient will return to wound care center in 1 week. He will return sooner as needed.
[2022-06-03 09:30] VITALS: BP 157/53; PULSE 72; RESP 16; TEMP 36.2; BMI 23.8
--- NOTE | 2022-06-03 14:03 | PCM.WC.PN ---
History of Present Illness Date of Service: 06/03/22 Chief Complaint: Multiple wounds to RLE amputation stump History of Wound: Patient presents to the wound center for evaluation and management of multiple wounds to right lower extremity including BKA a stump. He is referred by Dr. Sullivan a peripheral vascular interventionalist in [place] who manages his vascular disease. His past medical history is significant for diabetes mellitus, coronary artery disease, peripheral arterial disease, paroxysmal atrial fibrillation, ACID. He has had past endovascular interventions including right femoropopliteal bypass and left SFA/pop angioplasty. He does smoke, primarily a tobacco pipe or cigars. He takes daily ASA and Eliquis. He reports his amputation was performed in 2011. He reports it healed well initially and he had no significant issue until March 2020 at which time he had a small wound which became infected and developed an abscess in the lateral aspect of his amputation stump. This required I&D and eventually healed well. He also has a history of osteomyelitis of the left great toe. Presently, he has a wound overlying the R patella, another wound slightly distal to the R verdugo, and a wound on the medial aspect of his amputation stump. He reports these have been ongoing for at least 6 months. He states the wound on the medial aspect of the amputation stump is a result of rubbing against his prosthesis. He reports the 2 wounds anteriorly closer to the knee are the result of him crawling around his home particularly up his stairs as he is not currently utilizing his prosthesis. Subjective Subjective Patient denies increased drainage, foul odor, pain, erythema. Tolerating the tubigrip compression. No N/V, F/C. He continues to smoke, but is trying to cut back. He does have diabetes. He does continue to apply pressure/friction to RLE by crawling around house/upstairs since not using prosthetic. Objective Data Objective Data Vital Signs: Vital Signs Temp Pulse Resp BP O2 Del Method 97.2 F L 72 16 157/53 H Room Air 06/03/22 09:30 06/03/22 09:30 06/03/22 09:30 06/03/22 09:30 06/03/22 09:30 Oxygen Delivery Method Room Air Weight: 148 lb Body Mass Index (BMI) 23.8 Charges/Coding Procedures Integumentary 111xxx-113xx: 11393 Natalya subq tissue 20 sq cm/< 150xxx-152xx: 52999 Skin sub graft trnk/arm/leg Multi Select Codes Integumentary Integumentary CPT Codes: 79718 Natalya subq tissue 20 sq cm/< and 21510 Skin sub graft trnk/arm/leg Physical Exam Const alert, oriented x3, no apparent distress and well nourished General Appearance: cooperative, comfortable and well developed HEENT normocephalic, head/scalp atraumatic, hearing grossly normal bilaterally, external ears normal and external nose normal Eyes EOMs intact bilaterally General Eye: normal appearance of both eyes Neck full ROM General: normal visual inspection and trachea midline; Negative for anterior neck swelling Resp normal respiratory effort, normal air movement, no retractions and no use of accessory muscles Effort and Inspection: able to speak in complete sentences; Negative for labored, stridor or audible wheezes Cardio Rate: regular rate Rhythm: regular rhythm Extremity Extremity Narrative: R BKA. No discoloration/pallor, appropriate warmth, no significant edema. Skin Wounds: amputation and wounds noted Wound Narrative: Wound overlying R patella appears epithelialized. R verdugo, and R medial amputation stump with moderate slough/callus. No significant erythema, drainage, foul odor, edema, fluctuance, induration. Stable in appearance and size. Neuro oriented x3, CN's II-XII intact bilaterally, moves all extremities, no focal motor deficits and no sensory deficits noted Psych mental status grossly normal Appearance: grossly normal Attitude: calm Activity / Motor Behavior: appropriate eye contact Speech: normal speech Mood & Affect: euthymic mood Thought Process: normal thought process Thought Content: normal thought content Attention / Concentration: attention grossly intact Memory / Cognition: memory grossly intact Insight: insight good Judgement: judgement good Debridement Note Debridement Note Wound debrided: Right medial amputation stump Laterality: Right Type of Debridement: Excisional debridement Anesthesia Used: 5% Lidocaine Gel Depth: Down to and including healthy tissue and to bone Percentage of wound debrided: 100 Instrument Used: 3mm curette Tissue Removed: slough, devitalized tissue Amount of bleeding with debridement: Mild Bleeding Controlled with: Pressure Patient tolerated procedure: Patient tolerated procedure well Post-Debridement Measurements and Additional Note: Post-Debridement Measurements/Treatment CHARO - Nurse 1 - General Ulcer Assessment Start: 05/27/22 10:18 Freq: Status: Active Protocol: MARIELY Activity Type Activity Date Activity User E-sign Co-sign Detail Recorded Client Recorded Date Recorded By Document 05/27/22 10:19 [id number] 05/27/22 10:26 Document 06/03/22 09:30 [facility] [id number] 06/03/22 09:35 BM 05/27/22 06/03/22 10:19 09:30 - Today's Visit Information Type of service Follow-up Visit Follow-up Visit (Physician/[facility] [facility] (Physician/[facility] ) ) Arrival Mode Wheelchair Wheelchair Transfer Assistance Manual None Patient Identification Verified (Name & Yes Yes ) Patient Requires Transmission-Based No No Precautions Finger Stick Blood Sugar(mg/dl) (if 130 indicated): Blood Sugar Stated by Patient Height and Weight Body Mass Index (BMI) 23.8 23.8 BMI Classification Normal Normal Vital Signs Temperature (97.8 F-99.1 F) 96.9 F L 97.2 F L Temperature Source Temporal Temporal Pulse Rate (60-100) 68 72 Pulse Location Monitor Monitor Respiratory Rate (12-18) 18 16 Respiratory rate source Observation Observation Oxygen Delivery Method Room Air Blood Pressure (90/60-120/80) 141/56 H 157/53 H Blood Pressure Mean (mm Hg) 84 87 Source Monitor Monitor Position Sitting Sitting Blood Pressure Location Left Arm Left Arm History Since Last Visit- (Skip if this is Patient's initial visit) Have you changed medications since your No No last visit? Any new allergies or adverse reactions No No Had a fall/change in ADL's that may No No increase risk of falls Signs or symptoms of abuse and/or No No neglect since last visit Have you been in the hospital since your No No last visit? Has dressing in place as prescribed Yes Yes Has compression in place as prescribed N/A Yes Has offloadiing in place as prescribed Yes N/A Experienced any changes in pain level or No No management Left Footwear Regular Shoe Right Footwear No Footwear Pain Scale: 0-10 Numeric Is Patient Pain Free? Yes Yes - Nurse 1 - General Ulcer Measurement Start: 05/27/22 10:18 Freq: Status: Active Protocol: Activity Type Activity Date Activity User E-sign Co-sign Detail Recorded Client Recorded Date Recorded By Document 05/27/22 10:19 SHANNA [id number] 05/27/22 10:26 JF Document 06/03/22 09:30 [facility] [id number] 06/03/22 09:35 BMF 05/27/22 06/03/22 10:19 09:30 Wound Center Nurse 1 #1 R knee -Combined with other wound No No -Current Size (cm) - Length 0.1 0.1 -Current Size (cm) - Width 0.2 0.3 -Current Size (cm) - Depth 0.1 0.1 -Total Square Cm 0.02 0.03 -Date of Last Picture (Recall this 06/03/22 field) -Photo Taken Yes Yes -Epithelialization Medium 34-66% Small 1-33% -Tunneling No No -Undermining/Tunneling No No -Circular Undermining No No -Exudate Amt Small Small -Exudate Type Serosanguineous Serosanguineous -Wound Margin Indistinct, Non Distinct, -Visible Outline Attached -Granulation Amt Large (67-100%) None Present (0 %) -Granulation Quality [place] -Slough/Fibrin Yes Yes -Necrosis Amt Small (1-33%) Large (67-100%) -Necrotic Tissue Type Adherent Slough Adherent Slough -Structure Exposed N/A -Texture (Jil-wound Skin Appearance) Assessed Assessed, Scarring -Moisture (Jil-wound Skin Appearance) Assessed, Assessed Maceration -Color (Jil-wound Skin Appearance) Assessed Assessed -Temperature (Jil-wound Skin No Abnormality No Abnormality Appearance) (Pt Warm) (Pt Warm) -Tenderness on Palpation (Jil-wound No No Skin Appearance) -Ulcer Cleansing Wound Cleanser Soap and Water -Foul Odor after Cleansing No No -Anesthetic Used 5% Lidocaine 5% Lidocaine Gel Gel #3 right medial knee -Combined with other wound No No -Current Size (cm) - Length 0.4 0.4 -Current Size (cm) - Width 0.3 0.4 -Current Size (cm) - Depth 0.1 0.1 -Total Square Cm 0.12 0.16 -Date of Last Picture (Recall this 06/03/22 field) -Photo Taken Yes Yes -Epithelialization Small 1-33% Small 1-33% -Tunneling No No -Undermining/Tunneling No No -Circular Undermining No No -Exudate Amt Medium Small -Exudate Type Serosanguineous Serosanguineous -Wound Margin Flat & Intact Distinct, Outline Attached -Granulation Amt Medium (34-66%) Medium (34-66%) -Granulation Quality Red Red -Slough/Fibrin Yes Yes -Necrosis Amt Small (1-33%) Medium (34-66%) -Necrotic Tissue Type Adherent Slough Adherent Slough -Structure Exposed N/A -Texture (Jil-wound Skin Appearance) Assessed Assessed, Scarring -Moisture (Jil-wound Skin Appearance) Assessed,Dry/ Assessed Scaly -Color (Jil-wound Skin Appearance) Assessed Assessed -Temperature (Jil-wound Skin No Abnormality No Abnormality Appearance) (Pt Warm) (Pt Warm) -Tenderness on Palpation (Jil-wound No Skin Appearance) -Ulcer Cleansing Wound Cleanser Rinsed/ Irrigated with Saline -Foul Odor after Cleansing No No -Anesthetic Used 5% Lidocaine 5% Lidocaine Gel Gel #2 R below the knee -Combined with other wound No No -Current Size (cm) - Length 0.7 0.7 -Current Size (cm) - Width 0.7 0.7 -Current Size (cm) - Depth 0.2 0.2 -Total Square Cm 0.49 0.49 -Date of Last Picture (Recall this 06/03/22 field) -Photo Taken Yes Yes -Epithelialization Small 1-33% Small 1-33% -Tunneling No No -Undermining/Tunneling No No -Circular Undermining No No -Exudate Amt Small Small -Exudate Type Serosanguineous Serosanguineous -Wound Margin Flat & Intact Distinct, Outline Attached -Granulation Amt Medium (34-66%) Medium (34-66%) -Granulation Quality Red Red -Slough/Fibrin Yes Yes -Necrosis Amt Small (1-33%) Medium (34-66%) -Necrotic Tissue Type Adherent Slough Adherent Slough -Structure Exposed N/A -Texture (Jil-wound Skin Appearance) Assessed Assessed, Scarring -Moisture (Jil-wound Skin Appearance) Assessed, Assessed Maceration -Color (Jil-wound Skin Appearance) Assessed Assessed -Temperature (Jil-wound Skin No Abnormality No Abnormality Appearance) (Pt Warm) (Pt Warm) -Tenderness on Palpation (Jil-wound No No Skin Appearance) -Ulcer Cleansing Wound Cleanser Soap and Water -Foul Odor after Cleansing No No -Anesthetic Used 5% Lidocaine 5% Lidocaine Gel Gel Lower Limb Edema Present NA WC - Nurse 2 - General Ulcer CM Notes Start: 05/27/22 10:18 Freq: Status: Active Protocol: Activity Type Activity Date Activity User E-sign Co-sign Detail Recorded Client Recorded Date Recorded By Document 05/27/22 11:18 PL [id number] 05/27/22 11:25 PL Document 06/03/22 11:34 PL [id number] 06/03/22 11:37 PL 05/27/22 06/03/22 11:18 11:34 Wound Center Nurse 2 #1 R knee -Time 10:35 -Correct Patient Yes -Correct Side, Site, Position Yes -Correct Procedure Yes -Procedure Performed Yes -Type of Procedure Debridement -Clinical Debridement Subcutaneous -Tissue Removed Subcutaneous -Post Debridement (cm) - Length 0.3 -Post Debridement (cm) - Width 0.4 -Post Debridement (cm) - Depth 0.2 -Total Square (Post) (cm) 0.12 -Area of Debridement (cm) - Length 0.3 -Area of Debridement (cm) - Width 0.2 -Total Square (Area) (cm) 0.06 -Tunneling No -Undermining/Tunneling No -Circular Undermining No -Wound/Ulcer Outcome Not Healed -Ulcer Cleansing Rinsed/ Irrigated with Saline -Foul Odor after Cleansing No -Bioengineered Tissue No -Bleeding Controlled with Pressure -Treatment Response Procedure Tolerated Well -Debridement - Subq, 1st 20sq cm No #3 right medial knee -Time 10:35 09:41 -Correct Patient Yes Yes -Correct Side, Site, Position Yes Yes -Correct Procedure Yes Yes -Procedure Performed Yes Yes -Type of Procedure Debridement Debridement -Clinical Debridement Subcutaneous Subcutaneous -Tissue Removed Subcutaneous Subcutaneous -Post Debridement (cm) - Length 0.3 0.4 -Post Debridement (cm) - Width 0.5 0.3 -Post Debridement (cm) - Depth 0.1 0.1 -Total Square (Post) (cm) 0.15 0.12 -Area of Debridement (cm) - Length 0.3 0.4 -Area of Debridement (cm) - Width 0.5 0.3 -Total Square (Area) (cm) 0.15 0.12 -Tunneling No No -Undermining/Tunneling No No -Circular Undermining No No -Wound/Ulcer Outcome Not Healed Not Healed -Ulcer Cleansing Rinsed/ Rinsed/ Irrigated with Irrigated with Saline Saline -Foul Odor after Cleansing No No -Bioengineered Tissue Yes Yes -Type of Bioengineered Tissue Epifix 18mm Epifix 18mm Disc Disc -Expiration Date 02/20/27 03/23/27 -Product Lot Number [id number] -Percent Used 100 100 -Bleeding Controlled with Pressure Pressure -Treatment Response Procedure Procedure Tolerated Well Tolerated Well -Debridement - Subq, 1st 20sq cm No No -Apply Skin Sub - 1st 25 sq cm - Legs 1 1 -Epifix 18mm Disc 3 3 #2 R below the knee -Time 10:35 09:41 -Correct Patient Yes Yes -Correct Side, Site, Position Yes Yes -Correct Procedure Yes Yes -Procedure Performed Yes Yes -Type of Procedure Debridement Debridement -Clinical Debridement Subcutaneous Subcutaneous -Tissue Removed Subcutaneous Subcutaneous -Post Debridement (cm) - Length 0.8 0.8 -Post Debridement (cm) - Width 0.9 0.8 -Post Debridement (cm) - Depth 0.2 0.2 -Total Square (Post) (cm) 0.72 0.64 -Area of Debridement (cm) - Length 0.8 0.8 -Area of Debridement (cm) - Width 0.9 0.8 -Total Square (Area) (cm) 0.72 0.64 -Tunneling No No -Undermining/Tunneling No No -Circular Undermining No No -Wound/Ulcer Outcome Not Healed Not Healed -Ulcer Cleansing Rinsed/ Rinsed/ Irrigated with Irrigated with Saline Saline -Foul Odor after Cleansing No No -Bioengineered Tissue No No -Bleeding Controlled with Pressure Pressure -Treatment Response Procedure Procedure Tolerated Well Tolerated Well -Debridement - Subq, 1st 20sq cm No No Pain Scale: 0-10 Numeric Is Patient Pain Free? Yes Yes WC - Nurse 3 - General Ulcer D/C NN Start: 05/27/22 10:18 Freq: Status: Active Protocol: Activity Type Activity Date Activity User E-sign Co-sign Detail Recorded Client Recorded Date Recorded By Document 05/27/22 14:50 PL [id number] 05/27/22 14:51 PL Document 06/03/22 10:06 [facility] [id number] 06/03/22 10:07 BMF 05/27/22 06/03/22 14:50 10:06 Wound Care Center Nurse 3 #3 right medial knee -Primary Dressing Applied Mepilex Border Mepilex Border -Other Dressing EPIFIX -Other Covering DRSG PER JF RN -Mepilex Border 1 1 #2 R below the knee -Primary Dressing Applied Mepilex Border Mepilex Border -Other Dressing EPIFIX -Other Covering DRSG PER SHANNA RN -Mepilex Border 1 1 Right -Tubular Bandage Single Layer -Size of Tubigrip Used Size D -Size D ($) 2 -Other REAPPLIED PTS OWN TUBI Treatment Response Procedure Tolerated Well Pain Scale: 0-10 Numeric Is Patient Pain Free? Yes Yes WC - Visit Discharge Discharge Condition Unstable Stable Ambulatory Status Walker Wheelchair Transportation Private Auto Private Auto Additional Wound Wound debrided: Anterior RLE, overlying patella Operative Diagnosis: epithelialized/healed Additional Wound Wound debrided: R verdugo Laterality: Right Type of Debridement: Excisional debridement Anesthesia Used: 5% Lidocaine Gel Depth: Down to and including healthy tissue and in the subcutaneous layer Percentage of wound debrided: 100 Instrument Used: 3mm curette Tissue Removed: slough, devitalized tissue Amount of bleeding with debridement: Mild Bleeding Controlled with: Pressure Patient tolerated procedure: Patient tolerated procedure well Assessment/Plan Assessment/Plan (1) Non-pressure chronic ulcer of other part of right lower leg with fat layer exposed: CODE(S): L97.812 - Non-pressure chronic ulcer of other part of right lower leg with fat layer exposed (2) History of right below knee amputation: CODE(S): Z89.511 - Acquired absence of right leg below knee PLAN: Plan Wound over R patella is epithelialized this week. Still with very slow progress overall of other two wounds. Continue to emphasize the importance of making appropriate lifestyle modifications to support healing including tobacco cessation and watching his diet/sugars. We talked about how both smoking and his diabetes put him at a disadvantage with respect to healing. Discussed the importance of preventing continued trauma to the areas whenever possible as continuing to crawl and place pressure on the R knee/verdugo is also likely inhibiting healing. Apply collagen hydrogel to R patella wound, pad and protect. R verdugo and amputation stump wounds were debrided and had good bleeding in the wound beds. Epifix #8 was applied in a sterile fashion followed by collagen hydrogel, covered with adaptic, secured with steri-strips. Continue silicone-border dressing over top. 100% of the product was used. Patient was instructed to keep dressing clean and dry. He understands he is to leave it in place until his visit next week. Continue with tubigrip for compression and elevate leg when resting. No signs/symptoms of infection today. Patient will return to wound care center in 1 week. He will return sooner as needed.
[2022-06-10 09:55] VITALS: BP 119/66; PULSE 72; RESP 16; TEMP 35.6; BMI 23.8
--- NOTE | 2022-06-10 13:36 | PCM.WC.PN ---
History of Present Illness Date of Service: 06/10/22 Chief Complaint: Multiple wounds to RLE amputation stump History of Wound: Patient presents to the wound center for evaluation and management of multiple wounds to right lower extremity including BKA a stump. He is referred by Dr. Sullivan who manages his vascular disease. He has had past endovascular interventions including right femoropopliteal bypass and left SFA/pop angioplasty. Past medical history is significant for diabetes mellitus, coronary artery disease, peripheral arterial disease, paroxysmal atrial fibrillation, ACID. He does smoke, primarily a tobacco pipe or cigars. He takes daily ASA and Eliquis. He reports his amputation was performed in 2011. It healed well initially and he had no significant issue until March 2020 at which time he had a small wound which became infected and developed an abscess in the lateral aspect of his amputation stump. This required I&D and eventually healed well. At initial presentation, he had a wound overlying the R patella, another wound slightly distal to the R verdugo, and a wound on the medial aspect of his amputation stump which had been ongoing about 6 months. The wound on the medial aspect of the amputation stump was result of rubbing against his prosthesis. The 2 wounds anteriorly closer to the knee were the result of him crawling around his home particularly up his stairs as he is not currently utilizing his prosthesis. Subjective Subjective Patient denies increased drainage, foul odor, pain, erythema. No N/V, F/C. Kept dressing C/D/I this week. Continues to smoke but working on cutting back. Objective Data Objective Data Vital Signs: Vital Signs Temp Pulse Resp BP O2 Del Method 96.1 F L 72 16 119/66 Room Air 06/10/22 09:55 06/10/22 09:55 06/10/22 09:55 06/10/22 09:55 06/10/22 09:55 Oxygen Delivery Method Room Air Weight: 148 lb Body Mass Index (BMI) 23.8 Charges/Coding Procedures Integumentary 150xxx-152xx: 88192 Skin sub graft trnk/arm/leg Physical Exam Const alert, oriented x3, no apparent distress and well nourished General Appearance: cooperative, comfortable and well developed HEENT normocephalic, head/scalp atraumatic, hearing grossly normal bilaterally, external ears normal and external nose normal Eyes EOMs intact bilaterally General Eye: normal appearance of both eyes Neck full ROM General: normal visual inspection and trachea midline; Negative for anterior neck swelling Resp normal respiratory effort, normal air movement, no retractions and no use of accessory muscles Effort and Inspection: able to speak in complete sentences; Negative for labored, stridor or audible wheezes Cardio Rate: regular rate Rhythm: regular rhythm Extremity Extremity Narrative: R BKA. No discoloration/pallor, appropriate warmth, no significant edema. Skin Wounds: amputation and wounds noted Wound Narrative: Wound overlying R patella appears healed still. R medial amputation stump wound appears epithelialized this week. R verdugo amputation stump slightly smaller in size with moderate slough/callus. No significant erythema, drainage, foul odor, edema, fluctuance, induration. Neuro oriented x3, CN's II-XII intact bilaterally, moves all extremities, no focal motor deficits and no sensory deficits noted Psych mental status grossly normal Appearance: grossly normal Attitude: calm Activity / Motor Behavior: appropriate eye contact Speech: normal speech Mood & Affect: euthymic mood Thought Process: normal thought process Thought Content: normal thought content Attention / Concentration: attention grossly intact Memory / Cognition: memory grossly intact Insight: insight good Judgement: judgement good Debridement Note Debridement Note Post-Debridement Measurements and Additional Note: Post-Debridement Measurements/Treatment - Nurse 1 - General Ulcer Assessment Start: 05/27/22 10:18 Freq: Status: Active Protocol: MARIELY Activity Type Activity Date Activity User E-sign Co-sign Detail Recorded Client Recorded Date Recorded By Document 05/27/22 10:19 [id number] 05/27/22 10:26 Document 06/03/22 09:30 [facility] [id number] 06/03/22 09:35 [facility] Document 06/10/22 09:55 [facility] [id number] 06/10/22 10:00 [facility] 05/27/22 06/03/22 06/10/22 10:19 09:30 09:55 - Today's Visit Information Type of service Follow-up Visit Follow-up Visit Follow-up Visit (Physician/INSPECTOR CHIEF (Physician/INSPECTOR CHIEF (Physician/INSPECTOR CHIEF ) ) ) Arrival Mode Wheelchair Wheelchair Wheelchair Transfer Assistance Manual None None Patient Identification Verified (Name & Yes Yes Yes ) Patient Requires Transmission-Based No No No Precautions Finger Stick Blood Sugar(mg/dl) (if 130 indicated): Blood Sugar Stated by Patient Height and Weight Body Mass Index (BMI) 23.8 23.8 23.8 BMI Classification Normal Normal Normal Vital Signs Temperature (97.8 F-99.1 F) 96.9 F L 97.2 F L 96.1 F L Temperature Source Temporal Temporal Temporal Pulse Rate (60-100) 68 72 72 Pulse Location Monitor Monitor Monitor Respiratory Rate (12-18) 18 16 16 Respiratory rate source Observation Observation Observation Oxygen Delivery Method Room Air Room Air Blood Pressure (90/60-120/80) 141/56 H 157/53 H 119/66 Blood Pressure Mean (mm Hg) 84 87 83 Source Monitor Monitor Monitor Position Sitting Sitting Sitting Blood Pressure Location Left Arm Left Arm Right Arm History Since Last Visit- (Skip if this is Patient's initial visit) Have you changed medications since your No No No last visit? Any new allergies or adverse reactions No No No Had a fall/change in ADL's that may No No No increase risk of falls Signs or symptoms of abuse and/or No No No neglect since last visit Have you been in the hospital since your No No No last visit? Has dressing in place as prescribed Yes Yes Yes Has compression in place as prescribed N/A Yes Yes Has offloadiing in place as prescribed Yes N/A Yes Experienced any changes in pain level or No No No management Left Footwear Regular Shoe Right Footwear No Footwear Pain Scale: 0-10 Numeric Is Patient Pain Free? Yes Yes Yes WC - Nurse 1 - General Ulcer Measurement Start: 05/27/22 10:18 Freq: Status: Active Protocol: Activity Type Activity Date Activity User E-sign Co-sign Detail Recorded Client Recorded Date Recorded By Document 05/27/22 10:19 [id number] 05/27/22 10:26 Document 06/03/22 09:30 [facility] [id number] 06/03/22 09:35 [facility] Document 06/10/22 09:55 [facility] [id number] 06/10/22 10:00 F 05/27/22 06/03/22 06/10/22 10:19 09:30 09:55 Wound Center Nurse 1 #3 right medial knee -Combined with other wound No No No -Current Size (cm) - Length 0.4 0.4 0.3 -Current Size (cm) - Width 0.3 0.4 0.3 -Current Size (cm) - Depth 0.1 0.1 0.1 -Total Square Cm 0.12 0.16 0.09 -Date of Last Picture (Recall this 06/03/22 06/10/22 field) -Photo Taken Yes Yes Yes -Epithelialization Small 1-33% Small 1-33% None Present -Tunneling No No No -Undermining/Tunneling No No No -Circular Undermining No No No -Exudate Amt Medium Small Small -Exudate Type Serosanguineous Serosanguineous Serosanguineous -Wound Margin Flat & Intact Distinct, Distinct, Outline Outline Attached Attached -Granulation Amt Medium (34-66%) Medium (34-66%) None Present (0 %) -Granulation Quality Red Red -Slough/Fibrin Yes Yes Yes -Necrosis Amt Small (1-33%) Medium (34-66%) Large (67-100%) -Necrotic Tissue Type Adherent Slough Adherent Slough Eschar -Structure Exposed N/A -Texture (Jil-wound Skin Appearance) Assessed Assessed, Not Assessed, Scarring Scarring -Moisture (Jil-wound Skin Appearance) Assessed,Dry/ Assessed Assessed Scaly -Color (Jil-wound Skin Appearance) Assessed Assessed Assessed -Temperature (Jil-wound Skin No Abnormality No Abnormality No Abnormality Appearance) (Pt Warm) (Pt Warm) (Pt Warm) -Tenderness on Palpation (Jil-wound No No Skin Appearance) -Ulcer Cleansing Wound Cleanser Rinsed/ Soap and Water Irrigated with Saline -Foul Odor after Cleansing No No No -Anesthetic Used 5% Lidocaine 5% Lidocaine 5% Lidocaine Gel Gel Gel #1 R knee -Combined with other wound No No -Current Size (cm) - Length 0.1 0.1 -Current Size (cm) - Width 0.2 0.3 -Current Size (cm) - Depth 0.1 0.1 -Total Square Cm 0.02 0.03 -Date of Last Picture (Recall this 06/03/22 field) -Photo Taken Yes Yes -Epithelialization Medium 34-66% Small 1-33% -Tunneling No No -Undermining/Tunneling No No -Circular Undermining No No -Exudate Amt Small Small -Exudate Type Serosanguineous Serosanguineous -Wound Margin Indistinct, Non Distinct, -Visible Outline Attached -Granulation Amt Large (67-100%) None Present (0 %) -Granulation Quality [place] -Slough/Fibrin Yes Yes -Necrosis Amt Small (1-33%) Large (67-100%) -Necrotic Tissue Type Adherent Slough Adherent Slough -Structure Exposed N/A -Texture (Jil-wound Skin Appearance) Assessed Assessed, Scarring -Moisture (Jil-wound Skin Appearance) Assessed, Assessed Maceration -Color (Jil-wound Skin Appearance) Assessed Assessed -Temperature (Jil-wound Skin No Abnormality No Abnormality Appearance) (Pt Warm) (Pt Warm) -Tenderness on Palpation (Jil-wound No No Skin Appearance) -Ulcer Cleansing Wound Cleanser Soap and Water -Foul Odor after Cleansing No No -Anesthetic Used 5% Lidocaine 5% Lidocaine Gel Gel #2 R below the knee -Combined with other wound No No No -Current Size (cm) - Length 0.7 0.7 0.6 -Current Size (cm) - Width 0.7 0.7 0.8 -Current Size (cm) - Depth 0.2 0.2 0.3 -Total Square Cm 0.49 0.49 0.48 -Date of Last Picture (Recall this 06/03/22 06/10/22 field) -Photo Taken Yes Yes Yes -Epithelialization Small 1-33% Small 1-33% None Present -Tunneling No No No -Undermining/Tunneling No No No -Circular Undermining No No No -Exudate Amt Small Small Medium -Exudate Type Serosanguineous Serosanguineous Serosanguineous -Wound Margin Flat & Intact Distinct, Distinct, Outline Outline Attached Attached -Granulation Amt Medium (34-66%) Medium (34-66%) Small (1-33%) -Granulation Quality Red Red Red -Slough/Fibrin Yes Yes Yes -Necrosis Amt Small (1-33%) Medium (34-66%) Large (67-100%) -Necrotic Tissue Type Adherent Slough Adherent Slough Eschar -Structure Exposed N/A -Texture (Jil-wound Skin Appearance) Assessed Assessed, Assessed, Scarring Scarring -Moisture (Jil-wound Skin Appearance) Assessed, Assessed Assessed Maceration -Color (Jil-wound Skin Appearance) Assessed Assessed Assessed -Temperature (Jil-wound Skin No Abnormality No Abnormality No Abnormality Appearance) (Pt Warm) (Pt Warm) (Pt Warm) -Tenderness on Palpation (Jil-wound No No No Skin Appearance) -Ulcer Cleansing Wound Cleanser Soap and Water Soap and Water -Foul Odor after Cleansing No No No -Anesthetic Used 5% Lidocaine 5% Lidocaine 5% Lidocaine Gel Gel Gel Lower Limb Edema Present NA WC - Nurse 2 - General Ulcer CM Notes Start: 05/27/22 10:18 Freq: Status: Active Protocol: Activity Type Activity Date Activity User E-sign Co-sign Detail Recorded Client Recorded Date Recorded By Document 05/27/22 11:18 PL [id number] 05/27/22 11:25 PL Document 06/03/22 11:34 PL [id number] 06/03/22 11:37 PL Document 06/10/22 11:47 PL [id number] 06/10/22 11:48 PL 05/27/22 06/03/22 06/10/22 11:18 11:34 11:47 Wound Center Nurse 2 #3 right medial knee -Time 10:35 09:41 -Correct Patient Yes Yes -Correct Side, Site, Position Yes Yes -Correct Procedure Yes Yes -Procedure Performed Yes Yes -Type of Procedure Debridement Debridement -Clinical Debridement Subcutaneous Subcutaneous -Tissue Removed Subcutaneous Subcutaneous -Post Debridement (cm) - Length 0.3 0.4 -Post Debridement (cm) - Width 0.5 0.3 -Post Debridement (cm) - Depth 0.1 0.1 -Total Square (Post) (cm) 0.15 0.12 -Area of Debridement (cm) - Length 0.3 0.4 -Area of Debridement (cm) - Width 0.5 0.3 -Total Square (Area) (cm) 0.15 0.12 -Tunneling No No -Undermining/Tunneling No No -Circular Undermining No No -Wound/Ulcer Outcome Not Healed Not Healed -Ulcer Cleansing Rinsed/ Rinsed/ Irrigated with Irrigated with Saline Saline -Foul Odor after Cleansing No No -Bioengineered Tissue Yes Yes -Type of Bioengineered Tissue Epifix 18mm Epifix 18mm Disc Disc -Expiration Date 02/20/27 03/23/27 -Product Lot Number [id number] -Percent Used 100 100 -Bleeding Controlled with Pressure Pressure -Treatment Response Procedure Procedure Tolerated Well Tolerated Well -Debridement - Subq, 1st 20sq cm No No -Apply Skin Sub - 1st 25 sq cm - Legs 1 1 -Epifix 18mm Disc 3 3 #1 R knee -Time 10:35 -Correct Patient Yes -Correct Side, Site, Position Yes -Correct Procedure Yes -Procedure Performed Yes -Type of Procedure Debridement -Clinical Debridement Subcutaneous -Tissue Removed Subcutaneous -Post Debridement (cm) - Length 0.3 -Post Debridement (cm) - Width 0.4 -Post Debridement (cm) - Depth 0.2 -Total Square (Post) (cm) 0.12 -Area of Debridement (cm) - Length 0.3 -Area of Debridement (cm) - Width 0.2 -Total Square (Area) (cm) 0.06 -Tunneling No -Undermining/Tunneling No -Circular Undermining No -Wound/Ulcer Outcome Not Healed -Ulcer Cleansing Rinsed/ Irrigated with Saline -Foul Odor after Cleansing No -Bioengineered Tissue No -Bleeding Controlled with Pressure -Treatment Response Procedure Tolerated Well -Debridement - Subq, 1st 20sq cm No #2 R below the knee -Time 10:35 09:41 10:10 -Correct Patient Yes Yes Yes -Correct Side, Site, Position Yes Yes Yes -Correct Procedure Yes Yes Yes -Procedure Performed Yes Yes Yes -Type of Procedure Debridement Debridement Debridement -Clinical Debridement Subcutaneous Subcutaneous Subcutaneous -Tissue Removed Subcutaneous Subcutaneous Subcutaneous -Post Debridement (cm) - Length 0.8 0.8 0.6 -Post Debridement (cm) - Width 0.9 0.8 0.8 -Post Debridement (cm) - Depth 0.2 0.2 0.3 -Total Square (Post) (cm) 0.72 0.64 0.48 -Area of Debridement (cm) - Length 0.8 0.8 0.6 -Area of Debridement (cm) - Width 0.9 0.8 0.8 -Total Square (Area) (cm) 0.72 0.64 0.48 -Tunneling No No No -Undermining/Tunneling No No No -Circular Undermining No No No -Wound/Ulcer Outcome Not Healed Not Healed Not Healed -Ulcer Cleansing Rinsed/ Rinsed/ Rinsed/ Irrigated with Irrigated with Irrigated with Saline Saline Saline -Foul Odor after Cleansing No No No -Bioengineered Tissue No No Yes -Type of Bioengineered Tissue Epifix 18mm Disc -Expiration Date 03/23/27 -Product Lot Number [id number] -Percent Used 100 -Bleeding Controlled with Pressure Pressure Pressure -Treatment Response Procedure Procedure Procedure Tolerated Well Tolerated Well Tolerated Well -Debridement - Subq, 1st 20sq cm No No No -Apply Skin Sub - 1st 25 sq cm - Legs 1 -Epifix 18mm Disc 3 Pain Scale: 0-10 Numeric Is Patient Pain Free? Yes Yes Yes - Nurse 3 - General Ulcer D/C NN Start: 05/27/22 10:18 Freq: Status: Active Protocol: Activity Type Activity Date Activity User E-sign Co-sign Detail Recorded Client Recorded Date Recorded By Document 05/27/22 14:50 PL [id number] 05/27/22 14:51 PL Document 06/03/22 10:06 [facility] [id number] 06/03/22 10:07 [facility] Document 06/10/22 10:26 [facility] [id number] 06/10/22 10:27 BMF 05/27/22 06/03/22 06/10/22 14:50 10:06 10:26 Wound Care Center Nurse 3 #3 right medial knee -Primary Dressing Applied Mepilex Border Mepilex Border -Other Dressing EPIFIX -Other Covering DRSG PER OSVALDO RN -Mepilex Border 1 1 #2 R below the knee -Primary Dressing Applied Mepilex Border Mepilex Border Mepilex Border -Other Dressing EPIFIX epifix -Other Covering DRSG PER OSVALDO RN drsg per fn -Mepilex Border 1 1 1 Right -Tubular Bandage Single Layer -Size of Tubigrip Used Size D -Size D ($) 2 -Other REAPPLIED PTS pts own tubi OWN TUBI reapplied; osvaldo applied hydrogel and gauze to healed r med knee Treatment Response Procedure Procedure Tolerated Well Tolerated Well Pain Scale: 0-10 Numeric Is Patient Pain Free? Yes Yes Yes - Visit Discharge Discharge Condition Unstable Stable Stable Ambulatory Status Walker Wheelchair Wheelchair Transportation Private Auto Private Auto Private Auto Additional Wound Wound debrided: R verdugo Laterality: Right Type of Debridement: Excisional debridement Anesthesia Used: 5% Lidocaine Gel Depth: Down to and including healthy tissue and in the subcutaneous layer Percentage of wound debrided: 100 Instrument Used: 3mm curette Tissue Removed: slough, devitalized tissue Amount of bleeding with debridement: Mild Bleeding Controlled with: Pressure Patient tolerated procedure: Patient tolerated procedure well Assessment/Plan Assessment/Plan (1) Non-pressure chronic ulcer of other part of right lower leg with fat layer exposed: CODE(S): L97.812 - Non-pressure chronic ulcer of other part of right lower leg with fat layer exposed (2) History of right below knee amputation: CODE(S): Z89.511 - Acquired absence of right leg below knee PLAN: Plan Wound on R medial amputation stump is epithelialized this week. Prior R patella wound remains healed. Continue to emphasize the importance of making appropriate lifestyle modifications to support healing including tobacco cessation and watching his diet/sugars. We talked about how both smoking and his diabetes put him at a disadvantage with respect to healing. Discussed the importance of preventing continued trauma to the areas whenever possible as continuing to crawl and place pressure on the R knee/verdugo is also likely inhibiting healing. Apply collagen hydrogel to R patella and R medial amputation stump healed wounds, pad and protect. R verdugo wound was debrided and had good bleeding. Epifix #10 was applied in a sterile fashion followed by collagen hydrogel, covered with adaptic, secured with steri-strips. Continue silicone-border dressing over top. 100% of the product was used. Patient was instructed to keep dressing clean and dry. He understands he is to leave it in place until his visit next week. Continue with tubigrip for compression and elevate leg when resting. No signs/symptoms of infection today. Patient will return to wound care center in 1 week. He will return sooner as needed.
[2022-06-17 09:58] VITALS: BP 140/50; PULSE 71; RESP 20; TEMP 35.3; BMI 23.8
--- NOTE | 2022-06-17 14:00 | PCM.WC.PN ---
History of Present Illness Date of Service: 06/17/22 Chief Complaint: Multiple wounds to RLE amputation stump History of Wound: Patient presents to the wound center for evaluation and management of multiple wounds to right lower extremity including BKA a stump. He is referred by Dr. Sullivan who manages his vascular disease. He has had past endovascular interventions including right femoropopliteal bypass and left SFA/pop angioplasty. Past medical history is significant for diabetes mellitus, coronary artery disease, peripheral arterial disease, paroxysmal atrial fibrillation, ACID. He does smoke, primarily a tobacco pipe or cigars. He takes daily ASA and Eliquis. He reports his amputation was performed in 2011. It healed well initially and he had no significant issue until March 2020 at which time he had a small wound which became infected and developed an abscess in the lateral aspect of his amputation stump. This required I&D and eventually healed well. At initial presentation, he had a wound overlying the R patella, another wound slightly distal to the R verdugo, and a wound on the medial aspect of his amputation stump which had been ongoing about 6 months. The wound on the medial aspect of the amputation stump was result of rubbing against his prosthesis. The 2 wounds anteriorly closer to the knee were the result of him crawling around his home particularly up his stairs as he is not currently utilizing his prosthesis. Subjective Subjective Patient denies increased drainage, foul odor, pain, erythema. No N/V, F/C. Continues to smoke but working on cutting back. Objective Data Objective Data Vital Signs: Vital Signs Temp Pulse Resp BP O2 Del Method 95.6 F L 71 20 H 140/50 H Room Air 06/17/22 09:58 06/17/22 09:58 06/17/22 09:58 06/17/22 09:58 06/10/22 09:55 Oxygen Delivery Method Room Air Weight: 148 lb Body Mass Index (BMI) 23.8 Charges/Coding Procedures Integumentary 111xxx-113xx: [id number] Natalya subq tissue 20 sq cm/< Physical Exam Const alert, oriented x3, no apparent distress and well nourished General Appearance: cooperative, comfortable and well developed HEENT normocephalic, head/scalp atraumatic, hearing grossly normal bilaterally, external ears normal and external nose normal Eyes EOMs intact bilaterally General Eye: normal appearance of both eyes Neck full ROM General: normal visual inspection and trachea midline; Negative for anterior neck swelling Resp normal respiratory effort, normal air movement, no retractions and no use of accessory muscles Effort and Inspection: able to speak in complete sentences; Negative for labored, stridor or audible wheezes Cardio Rate: regular rate Rhythm: regular rhythm Extremity Extremity Narrative: R BKA. No discoloration/pallor, appropriate warmth, no significant edema. Skin Wounds: amputation and wounds noted Wound Narrative: R verdugo wound smaller in size with moderate slough/callus. No significant erythema, drainage, foul odor, edema, fluctuance, induration. Neuro oriented x3, CN's II-XII intact bilaterally, moves all extremities, no focal motor deficits and no sensory deficits noted Psych mental status grossly normal Appearance: grossly normal Attitude: calm Activity / Motor Behavior: appropriate eye contact Speech: normal speech Mood & Affect: euthymic mood Thought Process: normal thought process Thought Content: normal thought content Attention / Concentration: attention grossly intact Memory / Cognition: memory grossly intact Insight: insight good Judgement: judgement good Debridement Note Debridement Note Post-Debridement Measurements and Additional Note: Post-Debridement Measurements/Treatment - Nurse 1 - General Ulcer Assessment Start: 05/27/22 10:18 Freq: Status: Active Protocol: CHARO.KYA Activity Type Activity Date Activity User E-sign Co-sign Detail Recorded Client Recorded Date Recorded By Document 05/27/22 10:19 [id number] 05/27/22 10:26 Document 06/03/22 09:30 [facility] [id number] 06/03/22 09:35 [facility] Document 06/10/22 09:55 [facility] [id number] 06/10/22 10:00 [facility] Document 06/17/22 09:58 PL [id number] 06/17/22 10:06 PL 05/27/22 06/03/22 06/10/22 10:19 09:30 09:55 - Today's Visit Information Type of service Follow-up Visit Follow-up Visit Follow-up Visit (Physician/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 STEEL 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 APPRENTICE (Physician/STRUCTURAL STEEL WORKER APPRENTICE (Physician/STRUCTURAL STEEL WORKER APPRENTICE ) ) ) Arrival Mode Wheelchair Wheelchair Wheelchair Transfer Assistance Manual None None Patient Identification Verified (Name & Yes Yes Yes ) Patient Requires Transmission-Based No No No Precautions Safety Precautions Finger Stick Blood Sugar(mg/dl) (if 130 indicated): Blood Sugar Stated by Patient Height and Weight Body Mass Index (BMI) 23.8 23.8 23.8 BMI Classification Normal Normal Normal Vital Signs Temperature (97.8 F-99.1 F) 96.9 F L 97.2 F L 96.1 F L Temperature Source Temporal Temporal Temporal Pulse Rate (60-100) 68 72 72 Pulse Location Monitor Monitor Monitor Respiratory Rate (12-18) 18 16 16 Respiratory rate source Observation Observation Observation Oxygen Delivery Method Room Air Room Air Blood Pressure (90/60-120/80) 141/56 H 157/53 H 119/66 Blood Pressure Mean (mm Hg) 84 87 83 Source Monitor Monitor Monitor Position Sitting Sitting Sitting Blood Pressure Location Left Arm Left Arm Right Arm History Since Last Visit- (Skip if this is Patient's initial visit) Have you changed medications since your No No No last visit? Any new allergies or adverse reactions No No No Had a fall/change in ADL's that may No No No increase risk of falls Signs or symptoms of abuse and/or No No No neglect since last visit Have you been in the hospital since your No No No last visit? Has dressing in place as prescribed Yes Yes Yes Has compression in place as prescribed N/A Yes Yes Has offloadiing in place as prescribed Yes N/A Yes Experienced any changes in pain level or No No No management Left Footwear Regular Shoe Right Footwear No Footwear Pain Scale: 0-10 Numeric Is Patient Pain Free? Yes Yes Yes 06/17/22 09:58 WC - Today's Visit Information Type of service Follow-up Visit (Physician/STRUCTURAL STEEL WORKER APPRENTICE ) Arrival Mode Wheelchair Transfer Assistance None Patient Identification Verified (Name & Yes ) Patient Requires Transmission-Based No Precautions Safety Precautions NA Finger Stick Blood Sugar(mg/dl) (if indicated): Blood Sugar Height and Weight Body Mass Index (BMI) 23.8 BMI Classification Normal Vital Signs Temperature (97.8 F-99.1 F) 95.6 F L Temperature Source Temporal Pulse Rate (60-100) 71 Pulse Location Respiratory Rate (12-18) 20 H Respiratory rate source Oxygen Delivery Method Blood Pressure (90/60-120/80) 140/50 H Blood Pressure Mean (mm Hg) 80 Source Position Blood Pressure Location History Since Last Visit- (Skip if this is Patient's initial visit) Have you changed medications since your No last visit? Any new allergies or adverse reactions No Had a fall/change in ADL's that may No increase risk of falls Signs or symptoms of abuse and/or No neglect since last visit Have you been in the hospital since your No last visit? Has dressing in place as prescribed Yes Has compression in place as prescribed Yes Has offloadiing in place as prescribed Yes Experienced any changes in pain level or management Left Footwear Right Footwear Pain Scale: 0-10 Numeric Is Patient Pain Free? Yes WC - Nurse 1 - General Ulcer Measurement Start: 05/27/22 10:18 Freq: Status: Active Protocol: Activity Type Activity Date Activity User E-sign Co-sign Detail Recorded Client Recorded Date Recorded By Document 05/27/22 10:19 [id number] 05/27/22 10:26 Document 06/03/22 09:30 [facility] [id number] 06/03/22 09:35 [facility] Document 06/10/22 09:55 [facility] [id number] 06/10/22 10:00 [facility] Document 06/17/22 09:58 PL [id number] 06/17/22 10:06 PL 05/27/22 06/03/22 06/10/22 10:19 09:30 09:55 Wound Center Nurse 1 #3 right medial knee -Combined with other wound No No No -Current Size (cm) - Length 0.4 0.4 0.3 -Current Size (cm) - Width 0.3 0.4 0.3 -Current Size (cm) - Depth 0.1 0.1 0.1 -Total Square Cm 0.12 0.16 0.09 -Date of Last Picture (Recall this 06/03/22 06/10/22 field) -Photo Taken Yes Yes Yes -Epithelialization Small 1-33% Small 1-33% None Present -Tunneling No No No -Undermining/Tunneling No No No -Circular Undermining No No No -Exudate Amt Medium Small Small -Exudate Type Serosanguineous Serosanguineous Serosanguineous -Wound Margin Flat & Intact Distinct, Distinct, Outline Outline Attached Attached -Granulation Amt Medium (34-66%) Medium (34-66%) None Present (0 %) -Granulation Quality Red Red -Slough/Fibrin Yes Yes Yes -Necrosis Amt Small (1-33%) Medium (34-66%) Large (67-100%) -Necrotic Tissue Type Adherent Slough Adherent Slough Eschar -Structure Exposed N/A -Texture (Jil-wound Skin Appearance) Assessed Assessed, Not Assessed, Scarring Scarring -Moisture (Jil-wound Skin Appearance) Assessed,Dry/ Assessed Assessed Scaly -Color (Jil-wound Skin Appearance) Assessed Assessed Assessed -Temperature (Jil-wound Skin No Abnormality No Abnormality No Abnormality Appearance) (Pt Warm) (Pt Warm) (Pt Warm) -Tenderness on Palpation (Jil-wound No No Skin Appearance) -Ulcer Cleansing Wound Cleanser Rinsed/ Soap and Water Irrigated with Saline -Foul Odor after Cleansing No No No -Anesthetic Used 5% Lidocaine 5% Lidocaine 5% Lidocaine Gel Gel Gel #1 R knee -Combined with other wound No No -Current Size (cm) - Length 0.1 0.1 -Current Size (cm) - Width 0.2 0.3 -Current Size (cm) - Depth 0.1 0.1 -Total Square Cm 0.02 0.03 -Date of Last Picture (Recall this 06/03/22 field) -Photo Taken Yes Yes -Epithelialization Medium 34-66% Small 1-33% -Tunneling No No -Undermining/Tunneling No No -Circular Undermining No No -Exudate Amt Small Small -Exudate Type Serosanguineous Serosanguineous -Wound Margin Indistinct, Non Distinct, -Visible Outline Attached -Granulation Amt Large (67-100%) None Present (0 %) -Granulation Quality [place] -Slough/Fibrin Yes Yes -Necrosis Amt Small (1-33%) Large (67-100%) -Necrotic Tissue Type Adherent Slough Adherent Slough -Structure Exposed N/A -Texture (Jil-wound Skin Appearance) Assessed Assessed, Scarring -Moisture (Jil-wound Skin Appearance) Assessed, Assessed Maceration -Color (Jil-wound Skin Appearance) Assessed Assessed -Temperature (Jil-wound Skin No Abnormality No Abnormality Appearance) (Pt Warm) (Pt Warm) -Tenderness on Palpation (Jil-wound No No Skin Appearance) -Ulcer Cleansing Wound Cleanser Soap and Water -Foul Odor after Cleansing No No -Anesthetic Used 5% Lidocaine 5% Lidocaine Gel Gel #2 R below the knee -Combined with other wound No No No -Current Size (cm) - Length 0.7 0.7 0.6 -Current Size (cm) - Width 0.7 0.7 0.8 -Current Size (cm) - Depth 0.2 0.2 0.3 -Total Square Cm 0.49 0.49 0.48 -Date of Last Picture (Recall this 06/03/22 06/10/22 field) -Photo Taken Yes Yes Yes -Epithelialization Small 1-33% Small 1-33% None Present -Tunneling No No No -Undermining/Tunneling No No No -Circular Undermining No No No -Exudate Amt Small Small Medium -Exudate Type Serosanguineous Serosanguineous Serosanguineous -Wound Margin Flat & Intact Distinct, Distinct, Outline Outline Attached Attached -Granulation Amt Medium (34-66%) Medium (34-66%) Small (1-33%) -Granulation Quality Red Red Red -Slough/Fibrin Yes Yes Yes -Necrosis Amt Small (1-33%) Medium (34-66%) Large (67-100%) -Necrotic Tissue Type Adherent Slough Adherent Slough Eschar -Structure Exposed N/A -Texture (Jil-wound Skin Appearance) Assessed Assessed, Assessed, Scarring Scarring -Moisture (Jil-wound Skin Appearance) Assessed, Assessed Assessed Maceration -Color (Jil-wound Skin Appearance) Assessed Assessed Assessed -Temperature (Jil-wound Skin No Abnormality No Abnormality No Abnormality Appearance) (Pt Warm) (Pt Warm) (Pt Warm) -Tenderness on Palpation (Jil-wound No No No Skin Appearance) -Ulcer Cleansing Wound Cleanser Soap and Water Soap and Water -Foul Odor after Cleansing No No No -Anesthetic Used 5% Lidocaine 5% Lidocaine 5% Lidocaine Gel Gel Gel Lower Limb Edema Present NA 06/17/22 09:58 Wound Center Nurse 1 #3 right medial knee -Combined with other wound -Current Size (cm) - Length -Current Size (cm) - Width -Current Size (cm) - Depth -Total Square Cm -Date of Last Picture (Recall this field) -Photo Taken -Epithelialization -Tunneling -Undermining/Tunneling -Circular Undermining -Exudate Amt -Exudate Type -Wound Margin -Granulation Amt -Granulation Quality -Slough/Fibrin -Necrosis Amt -Necrotic Tissue Type -Structure Exposed -Texture (Jil-wound Skin Appearance) -Moisture (Jil-wound Skin Appearance) -Color (Jil-wound Skin Appearance) -Temperature (Jil-wound Skin Appearance) -Tenderness on Palpation (Jil-wound Skin Appearance) -Ulcer Cleansing -Foul Odor after Cleansing -Anesthetic Used #1 R knee -Combined with other wound -Current Size (cm) - Length -Current Size (cm) - Width -Current Size (cm) - Depth -Total Square Cm -Date of Last Picture (Recall this field) -Photo Taken -Epithelialization -Tunneling -Undermining/Tunneling -Circular Undermining -Exudate Amt -Exudate Type -Wound Margin -Granulation Amt -Granulation Quality -Slough/Fibrin -Necrosis Amt -Necrotic Tissue Type -Structure Exposed -Texture (Jil-wound Skin Appearance) -Moisture (Jil-wound Skin Appearance) -Color (Jil-wound Skin Appearance) -Temperature (Jil-wound Skin Appearance) -Tenderness on Palpation (Jil-wound Skin Appearance) -Ulcer Cleansing -Foul Odor after Cleansing -Anesthetic Used #2 R below the knee -Combined with other wound No -Current Size (cm) - Length 0.5 -Current Size (cm) - Width 0.5 -Current Size (cm) - Depth 0.2 -Total Square Cm 0.25 -Date of Last Picture (Recall this field) -Photo Taken No -Epithelialization Large 67-100% -Tunneling No -Undermining/Tunneling No -Circular Undermining -Exudate Amt Medium -Exudate Type Serosanguineous -Wound Margin -Granulation Amt Medium (34-66%) -Granulation Quality [place] -Slough/Fibrin Yes -Necrosis Amt Medium (34-66%) -Necrotic Tissue Type Adherent Slough -Structure Exposed -Texture (Jil-wound Skin Appearance) -Moisture (Jil-wound Skin Appearance) -Color (Jil-wound Skin Appearance) -Temperature (Jil-wound Skin No Abnormality Appearance) (Pt Warm) -Tenderness on Palpation (Jil-wound No Skin Appearance) -Ulcer Cleansing Wound Cleanser -Foul Odor after Cleansing No -Anesthetic Used 5% Lidocaine Gel Lower Limb Edema Present WC - Nurse 2 - General Ulcer CM Notes Start: 05/27/22 10:18 Freq: Status: Active Protocol: Activity Type Activity Date Activity User E-sign Co-sign Detail Recorded Client Recorded Date Recorded By Document 05/27/22 11:18 PL [id number] 05/27/22 11:25 PL Document 06/03/22 11:34 PL [id number] 06/03/22 11:37 PL Document 06/10/22 11:47 PL [id number] 06/10/22 11:48 PL Document 06/17/22 10:21 [id number] 06/17/22 10:23 JF 05/27/22 06/03/22 06/10/22 11:18 11:34 11:47 Wound Center Nurse 2 #3 right medial knee -Time 10:35 09:41 -Correct Patient Yes Yes -Correct Side, Site, Position Yes Yes -Correct Procedure Yes Yes -Procedure Performed Yes Yes -Type of Procedure Debridement Debridement -Clinical Debridement Subcutaneous Subcutaneous -Tissue Removed Subcutaneous Subcutaneous -Post Debridement (cm) - Length 0.3 0.4 -Post Debridement (cm) - Width 0.5 0.3 -Post Debridement (cm) - Depth 0.1 0.1 -Total Square (Post) (cm) 0.15 0.12 -Area of Debridement (cm) - Length 0.3 0.4 -Area of Debridement (cm) - Width 0.5 0.3 -Total Square (Area) (cm) 0.15 0.12 -Tunneling No No -Undermining/Tunneling No No -Circular Undermining No No -Wound/Ulcer Outcome Not Healed Not Healed -Ulcer Cleansing Rinsed/ Rinsed/ Irrigated with Irrigated with Saline Saline -Foul Odor after Cleansing No No -Bioengineered Tissue Yes Yes -Type of Bioengineered Tissue Epifix 18mm Epifix 18mm Disc Disc -Expiration Date 02/20/27 03/23/27 -Product Lot Number [id number] -Percent Used 100 100 -Bleeding Controlled with Pressure Pressure -Treatment Response Procedure Procedure Tolerated Well Tolerated Well -Debridement - Subq, 1st 20sq cm No No -Apply Skin Sub - 1st 25 sq cm - Legs 1 1 -Epifix 18mm Disc 3 3 #1 R knee -Time 10:35 -Correct Patient Yes -Correct Side, Site, Position Yes -Correct Procedure Yes -Procedure Performed Yes -Type of Procedure Debridement -Clinical Debridement Subcutaneous -Tissue Removed Subcutaneous -Post Debridement (cm) - Length 0.3 -Post Debridement (cm) - Width 0.4 -Post Debridement (cm) - Depth 0.2 -Total Square (Post) (cm) 0.12 -Area of Debridement (cm) - Length 0.3 -Area of Debridement (cm) - Width 0.2 -Total Square (Area) (cm) 0.06 -Tunneling No -Undermining/Tunneling No -Circular Undermining No -Wound/Ulcer Outcome Not Healed -Ulcer Cleansing Rinsed/ Irrigated with Saline -Foul Odor after Cleansing No -Bioengineered Tissue No -Bleeding Controlled with Pressure -Treatment Response Procedure Tolerated Well -Debridement - Subq, 1st 20sq cm No #2 R below the knee -Time 10:35 09:41 10:10 -Correct Patient Yes Yes Yes -Correct Side, Site, Position Yes Yes Yes -Correct Procedure Yes Yes Yes -Procedure Performed Yes Yes Yes -Type of Procedure Debridement Debridement Debridement -Clinical Debridement Subcutaneous Subcutaneous Subcutaneous -Tissue Removed Subcutaneous Subcutaneous Subcutaneous -Post Debridement (cm) - Length 0.8 0.8 0.6 -Post Debridement (cm) - Width 0.9 0.8 0.8 -Post Debridement (cm) - Depth 0.2 0.2 0.3 -Total Square (Post) (cm) 0.72 0.64 0.48 -Area of Debridement (cm) - Length 0.8 0.8 0.6 -Area of Debridement (cm) - Width 0.9 0.8 0.8 -Total Square (Area) (cm) 0.72 0.64 0.48 -Tunneling No No No -Undermining/Tunneling No No No -Circular Undermining No No No -Wound/Ulcer Outcome Not Healed Not Healed Not Healed -Ulcer Cleansing Rinsed/ Rinsed/ Rinsed/ Irrigated with Irrigated with Irrigated with Saline Saline Saline -Foul Odor after Cleansing No No No -Bioengineered Tissue No No Yes -Type of Bioengineered Tissue Epifix 18mm Disc -Expiration Date 03/23/27 -Product Lot Number [id number] -Percent Used 100 -Bleeding Controlled with Pressure Pressure Pressure -Treatment Response Procedure Procedure Procedure Tolerated Well Tolerated Well Tolerated Well -Offloading -Assistive Device(s) -Debridement - Subq, 1st 20sq cm No No No -Apply Skin Sub - 1st 25 sq cm - Legs 1 -Epifix 18mm Disc 3 Pain Scale: 0-10 Numeric Is Patient Pain Free? Yes Yes Yes 06/17/22 10:21 Wound Center Nurse 2 #3 right medial knee -Time -Correct Patient -Correct Side, Site, Position -Correct Procedure -Procedure Performed -Type of Procedure -Clinical Debridement -Tissue Removed -Post Debridement (cm) - Length -Post Debridement (cm) - Width -Post Debridement (cm) - Depth -Total Square (Post) (cm) -Area of Debridement (cm) - Length -Area of Debridement (cm) - Width -Total Square (Area) (cm) -Tunneling -Undermining/Tunneling -Circular Undermining -Wound/Ulcer Outcome -Ulcer Cleansing -Foul Odor after Cleansing -Bioengineered Tissue -Type of Bioengineered Tissue -Expiration Date -Product Lot Number -Percent Used -Bleeding Controlled with -Treatment Response -Debridement - Subq, 20sq cm -Apply Skin Sub - 1st 25 sq cm - Legs -Epifix 18mm Disc #1 R knee -Time -Correct Patient -Correct Side, Site, Position -Correct Procedure -Procedure Performed -Type of Procedure -Clinical Debridement -Tissue Removed -Post Debridement (cm) - Length -Post Debridement (cm) - Width -Post Debridement (cm) - Depth -Total Square (Post) (cm) -Area of Debridement (cm) - Length -Area of Debridement (cm) - Width -Total Square (Area) (cm) -Tunneling -Undermining/Tunneling -Circular Undermining -Wound/Ulcer Outcome -Ulcer Cleansing -Foul Odor after Cleansing -Bioengineered Tissue -Bleeding Controlled with -Treatment Response -Debridement - Subq, 20sq cm #2 R below the knee -Time 10:21 -Correct Patient Yes -Correct Side, Site, Position Yes -Correct Procedure Yes -Procedure Performed Yes -Type of Procedure Debridement -Clinical Debridement Subcutaneous -Tissue Removed Subcutaneous -Post Debridement (cm) - Length 0.5 -Post Debridement (cm) - Width 0.5 -Post Debridement (cm) - Depth 0.2 -Total Square (Post) (cm) 0.25 -Area of Debridement (cm) - Length 0.5 -Area of Debridement (cm) - Width 0.5 -Total Square (Area) (cm) 0.25 -Tunneling No -Undermining/Tunneling No -Circular Undermining No -Wound/Ulcer Outcome Not Healed -Ulcer Cleansing Rinsed/ Irrigated with Saline -Foul Odor after Cleansing No -Bioengineered Tissue No -Type of Bioengineered Tissue -Expiration Date -Product Lot Number -Percent Used -Bleeding Controlled with Pressure -Treatment Response Procedure Tolerated Well -Offloading No -Assistive Device(s) Wheelchair -Debridement - Subq, 1st 20sq cm Yes -Apply Skin Sub - 1st 25 sq cm - Legs -Epifix 18mm Disc Pain Scale: 0-10 Numeric Is Patient Pain Free? Yes - Nurse 3 - General Ulcer D/C NN Start: 05/27/22 10:18 Freq: Status: Active Protocol: Activity Type Activity Date Activity User E-sign Co-sign Detail Recorded Client Recorded Date Recorded By Document 05/27/22 14:50 PL [id number] 05/27/22 14:51 PL Document 06/03/22 10:06 [facility] [id number] 06/03/22 10:07 [facility] Document 06/10/22 10:26 [facility] [id number] 06/10/22 10:27 F 05/27/22 06/03/22 06/10/22 14:50 10:06 10:26 Wound Care Center Nurse 3 #3 right medial knee -Primary Dressing Applied Mepilex Border Mepilex Border -Other Dressing EPIFIX -Other Covering DRSG PER SHANNA RN -Mepilex Border 1 1 #2 R below the knee -Primary Dressing Applied Mepilex Border Mepilex Border Mepilex Border -Other Dressing EPIFIX epifix -Other Covering DRSG PER SHANNA RN drsg per jr fn -Mepilex Border 1 1 1 Right -Tubular Bandage Single Layer -Size of Tubigrip Used Size D -Size D ($) 2 -Other REAPPLIED PTS pts own tubi OWN TUBI reapplied; shanna applied hydrogel and gauze to healed r med knee Treatment Response Procedure Procedure Tolerated Well Tolerated Well Pain Scale: 0-10 Numeric Is Patient Pain Free? Yes Yes Yes WC - Visit Discharge Discharge Condition Unstable Stable Stable Ambulatory Status Walker Wheelchair Wheelchair Transportation Private Auto Private Auto Private Auto Additional Wound Wound debrided: R verdugo Laterality: Right Type of Debridement: Excisional debridement Anesthesia Used: 5% Lidocaine Gel Depth: Down to and including healthy tissue and in the subcutaneous layer Percentage of wound debrided: 100 Instrument Used: 3mm curette Tissue Removed: slough, devitalized tissue Amount of bleeding with debridement: Mild Bleeding Controlled with: Pressure Patient tolerated procedure: Patient tolerated procedure well Assessment/Plan Assessment/Plan (1) Non-pressure chronic ulcer of other part of right lower leg with fat layer exposed: CODE(S): L97.812 - Non-pressure chronic ulcer of other part 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 We have completed 10 treatments of Epifix. Will now apply moistened promogran, cover with adaptic and mepilex dressing. Change dressing daily or more often as needed to keep clean and dry. Continue with tubigrips for compression. Continue to emphasize the importance of making appropriate lifestyle modifications to support healing including tobacco cessation and watching his diet/sugars. We talked about how both smoking and his diabetes put him at a disadvantage with respect to healing. Discussed the importance of preventing continued trauma to the areas whenever possible as continuing to crawl and place pressure on the R knee/verdugo is also likely inhibiting healing. No signs/symptoms of infection today. I will be out of town next Monday. Patient will return to wound care center in 2 weeks.
== END 2022-06-19 23:59 | disposition home or self-care (01) ==
LOC: WC 10:30
PROVIDERS: PCP Family Medicine; Referring Provider Physician Assistant; Visit Provider Physician Assistant
DX: T87.89 Other complications of amputation stump (principal); E11.51 Type 2 diabetes mellitus with diabetic peripheral angiopathy without gangrene; Z89.511 Acquired absence of right leg below knee; L97.812 Non-pressure chronic ulcer of other part of right lower leg with fat layer exposed; L97.816 Non-pressure chronic ulcer of other part of right lower leg with bone involvement without evidence of necrosis; I48.0 Paroxysmal atrial fibrillation; Z79.4 Long term (current) use of insulin; Y83.5 Amputation of limb(s) as the cause of abnormal reaction of the patient, or of later complication, without mention of misadventure at the time of the procedure; I25.10 Atherosclerotic heart disease of native coronary artery without angina pectoris; F17.290 Nicotine dependence, other tobacco product, uncomplicated; Z79.01 Long term (current) use of anticoagulants; Z79.82 Long term (current) use of aspirin; Z79.890 Hormone replacement therapy; Z79.899 Other long term (current) drug therapy; Z95.810 Presence of automatic (implantable) cardiac defibrillator; Z95.1 Presence of aortocoronary bypass graft
CPT/HCPCS: 11042; 15271; Q4186

== ENCOUNTER 2022-07-08 10:21 | Outpatient (RCR) | payer MEDICARE, MEDICAID, SELFPAY ==
[2022-06-20 00:21] VITALS: BP 140/50; PULSE 71; RESP 20; TEMP 35.3; BMI 23.8
[2022-07-08 10:37] VITALS: BP 118/70; PULSE 69; TEMP 36.2; BMI 23.8
--- NOTE | 2022-07-08 20:22 | PCM.WC.PN ---
History of Present Illness Date of Service: 07/08/22 Chief Complaint: Multiple wounds to RLE amputation stump History of Wound: Patient presents to the wound center for evaluation and management of multiple wounds to right lower extremity including BKA a stump. He is referred by Dr. Sullivan who manages his vascular disease. He has had past endovascular interventions including right femoropopliteal bypass and left SFA/pop angioplasty. Past medical history is significant for diabetes mellitus, coronary artery disease, peripheral arterial disease, paroxysmal atrial fibrillation, ACID. He does smoke, primarily a tobacco pipe or cigars. He takes daily ASA and Eliquis. He reports his amputation was performed in 2011. It healed well initially and he had no significant issue until March 2020 at which time he had a small wound which became infected and developed an abscess in the lateral aspect of his amputation stump. This required I&D and eventually healed well. At initial presentation, he had a wound overlying the R patella, another wound slightly distal to the R verdugo, and a wound on the medial aspect of his amputation stump which had been ongoing about 6 months. The wound on the medial aspect of the amputation stump was result of rubbing against his prosthesis. The 2 wounds anteriorly closer to the knee were the result of him crawling around his home particularly up his stairs as he is not currently utilizing his prosthesis. Subjective Subjective Patient missed a few weeks between transportation issues and the week I was out. He has been doing well though, no new/increased pain, swelling, redness, drainage. The knee and stump wounds remain healed, the verdugo wound persists. He has been inconsistently wearing compression, has been changing his dressings daily otherwise. Has not made further progress in tobacco cessation. He just saw his PCP today and had bloodwork, not sure what his A1c was yet. Objective Data Objective Data Vital Signs: Vital Signs Temp Pulse Resp BP 97.1 F L 69 20 H 118/70 07/08/22 10:37 07/08/22 10:37 06/20/22 00:21 07/08/22 10:37 Weight: 148 lb Body Mass Index (BMI) 23.8 Charges/Coding Procedures Integumentary 111xxx-113xx: 03108 Natalya subq tissue 20 sq cm/< Physical Exam Const alert, oriented x3, no apparent distress and well nourished General Appearance: cooperative, comfortable and well developed HEENT normocephalic, head/scalp atraumatic, hearing grossly normal bilaterally, external ears normal and external nose normal Eyes EOMs intact bilaterally General Eye: normal appearance of both eyes Neck full ROM General: normal visual inspection and trachea midline; Negative for anterior neck swelling Resp normal respiratory effort, normal air movement, no retractions and no use of accessory muscles Effort and Inspection: able to speak in complete sentences; Negative for labored, stridor or audible wheezes Cardio Rate: regular rate Rhythm: regular rhythm Extremity Extremity Narrative: R BKA. No discoloration/pallor, appropriate warmth, no significant edema. Skin Wounds: amputation and wounds noted Wound Narrative: R verdugo wound stable in size with moderate slough/callus. No significant erythema, drainage, foul odor, edema, fluctuance, induration. Neuro oriented x3, CN's II-XII intact bilaterally, moves all extremities, no focal motor deficits and no sensory deficits noted Psych mental status grossly normal Appearance: grossly normal Attitude: calm Activity / Motor Behavior: appropriate eye contact Speech: normal speech Mood & Affect: euthymic mood Thought Process: normal thought process Thought Content: normal thought content Attention / Concentration: attention grossly intact Memory / Cognition: memory grossly intact Insight: insight good Judgement: judgement good Debridement Note Debridement Note Wound debrided: R verdugo Laterality: Right Type of Debridement: Excisional debridement Anesthesia Used: 5% Lidocaine Gel Depth: Down to and including healthy tissue and in the subcutaneous layer Percentage of wound debrided: 100 Instrument Used: 3mm curette Tissue Removed: slough Severity: Fat Layer Exposed Amount of bleeding with debridement: Mild Bleeding Controlled with: Pressure Patient tolerated procedure: Patient tolerated procedure well Post-Debridement Measurements and Additional Note: Post-Debridement Measurements/Treatment - Nurse 1 - General Ulcer Assessment Start: 07/08/22 10:36 Freq: Status: Active Protocol: [email or web address].[email or web address] Activity Type Activity Date Activity User E-sign Co-sign Detail Recorded Client Recorded Date Recorded By Document 07/08/22 10:37 [email or web address] [id number] 07/08/22 10:38 MUSHTAQ 07/08/22 10:37 - Today's Visit Information Type of service Follow-up Visit (Physician/CONTROLLER OPERATIONS AND HR MANAGER ) Arrival Mode Wheelchair Patient Identification Verified (Name & Yes ) Patient Requires Transmission-Based No Precautions Safety Precautions NA Height and Weight Body Mass Index (BMI) 23.8 BMI Classification Normal Vital Signs Temperature (97.8 F-99.1 F) 97.1 F L Temperature Source Temporal Pulse Rate (60-100) 69 Pulse Location Monitor Blood Pressure (90/60-120/80) 118/70 Blood Pressure Mean (mm Hg) 86 Source Monitor History Since Last Visit- (Skip if this is Patient's initial visit) Have you changed medications since your No last visit? Any new allergies or adverse reactions No Had a fall/change in ADL's that may No increase risk of falls Signs or symptoms of abuse and/or No neglect since last visit Have you been in the hospital since your No last visit? Has dressing in place as prescribed Yes Has compression in place as prescribed N/A Has offloadiing in place as prescribed N/A Experienced any changes in pain level or No management Left Footwear Regular Shoe Right Footwear No Footwear Pain Scale: 0-10 Numeric Is Patient Pain Free? Yes WC - Nurse 1 - General Ulcer Measurement Start: 07/08/22 10:36 Freq: Status: Active Protocol: Activity Type Activity Date Activity User E-sign Co-sign Detail Recorded Client Recorded Date Recorded By Document 07/08/22 10:37 MO [id number] 07/08/22 10:38 [email or web address] 07/08/22 10:37 Wound Center Nurse 1 #2 R below the knee -Combined with other wound No -Current Size (cm) - Length 0.2 -Current Size (cm) - Width 0.3 -Current Size (cm) - Depth 0.2 -Total Square Cm 0.06 -Date of Last Picture (Recall this 07/08/22 field) -Photo Taken Yes -Tunneling No -Undermining/Tunneling No -Circular Undermining No -Change in Wound Grade/Stage No -Exudate Amt Medium -Exudate Type Serosanguineous -Wound Margin Distinct, Outline Attached -Granulation Amt None Present (0 %) -Granulation Quality N/A -Slough/Fibrin Yes -Necrosis Amt Small (1-33%) -Necrotic Tissue Type Adherent Slough -Structure Exposed N/A -Texture (Jil-wound Skin Appearance) No Abnormality, Assessed -Moisture (Jil-wound Skin Appearance) No Abnormality, Assessed -Color (Jil-wound Skin Appearance) No Abnormality, Assessed -Temperature (Jil-wound Skin No Abnormality Appearance) (Pt Warm) -Tenderness on Palpation (Jil-wound No Skin Appearance) -Ulcer Cleansing Rinsed/ Irrigated with Saline -Foul Odor after Cleansing No -Anesthetic Used 5% Lidocaine Gel WC - Nurse 2 - General Ulcer CM Notes Start: 07/08/22 10:36 Freq: Status: Active Protocol: Activity Type Activity Date Activity User E-sign Co-sign Detail Recorded Client Recorded Date Recorded By Document 07/08/22 11:55 PL [id number] 07/08/22 11:56 PL 07/08/22 11:55 Wound Center Nurse 2 -Time 10:45 -Correct Patient Yes -Correct Side, Site, Position Yes -Correct Procedure Yes -Procedure Performed Yes -Type of Procedure Debridement -Clinical Debridement Subcutaneous -Tissue Removed Subcutaneous -Post Debridement (cm) - Length 0.5 -Post Debridement (cm) - Width 0.5 -Post Debridement (cm) - Depth 0.2 -Total Square (Post) (cm) 0.25 -Area of Debridement (cm) - Length 0.5 -Area of Debridement (cm) - Width 0.5 -Total Square (Area) (cm) 0.25 -Tunneling No -Undermining/Tunneling No -Circular Undermining No -Wound/Ulcer Outcome Not Healed -Ulcer Cleansing Rinsed/ Irrigated with Saline -Foul Odor after Cleansing No -Bioengineered Tissue No -Bleeding Controlled with Pressure -Treatment Response Procedure Tolerated Well -Debridement - Subq, 1st 20sq cm Yes Pain Scale: 0-10 Numeric Is Patient Pain Free? Yes - Nurse 3 - General Ulcer D/C NN Start: 07/08/22 10:36 Freq: Status: Active Protocol: Activity Type Activity Date Activity User E-sign Co-sign Detail Recorded Client Recorded Date Recorded By Document 07/08/22 12:08 AK [id number] 07/08/22 12:10 AK 07/08/22 12:08 Wound Care Center Nurse 3 #2 R below the knee -Ulcer Cleansing Rinsed/ Irrigated with Saline -Foul Odor after Cleansing No -Negative Pressure Wound Therapy N/A -Primary Dressing Applied Mepilex Border, Promogran -Mepilex Border 1 -Promogran 1 Pain Scale: 0-10 Numeric Is Patient Pain Free? Yes WC - Visit Discharge Discharge Condition Stable Ambulatory Status Ambulatory Medication Reconcilliation completed & Yes provided to patient/care provider Clinical Summary of Care Provided Yes Additional Wound Tissue Removed: slough, devitalized tissue Assessment/Plan Assessment/Plan (1) Non-pressure chronic ulcer of other part of right lower leg with fat layer exposed: CODE(S): L97.812 - Non-pressure chronic ulcer of other part of right lower leg with fat layer exposed (2) History of right below knee amputation: CODE(S): Z89.511 - Acquired absence of right leg below knee PLAN: Plan Continue to apply moistened promogran, cover with adaptic and mepilex dressing. Change dressing daily or more often as needed to keep clean and dry. Continue with tubigrips for compression, emphasized importance of consistently wearing these. Continue to emphasize the importance of making appropriate lifestyle modifications to support healing including tobacco cessation and watching his diet/sugars. We talked about how both smoking and his diabetes put him at a disadvantage with respect to healing. Discussed the importance of preventing continued trauma to the areas whenever possible as continuing to crawl and place pressure on the R knee/verdugo is also likely inhibiting healing. No signs/symptoms of infection today. I will be out of town the next two Fridays. Patient will return to clinic in 2 weeks for a nurse visit and in 3 weeks to see me.
== END 2022-07-20 23:59 | disposition home or self-care (01) ==
LOC: WC 10:21
PROVIDERS: PCP Family Medicine; Referring Provider Physician Assistant; Visit Provider Physician Assistant
DX: E11.622 Type 2 diabetes mellitus with other skin ulcer (principal); E11.51 Type 2 diabetes mellitus with diabetic peripheral angiopathy without gangrene; Z89.511 Acquired absence of right leg below knee; L97.812 Non-pressure chronic ulcer of other part of right lower leg with fat layer exposed; I48.0 Paroxysmal atrial fibrillation; Z79.4 Long term (current) use of insulin; I25.10 Atherosclerotic heart disease of native coronary artery without angina pectoris; F17.290 Nicotine dependence, other tobacco product, uncomplicated; Z79.82 Long term (current) use of aspirin; Z79.01 Long term (current) use of anticoagulants; Z79.84 Long term (current) use of oral hypoglycemic drugs; Z79.890 Hormone replacement therapy; Z79.899 Other long term (current) drug therapy; Z95.820 Peripheral vascular angioplasty status with implants and grafts; Z95.810 Presence of automatic (implantable) cardiac defibrillator
CPT/HCPCS: 11042

== ENCOUNTER 2022-08-12 10:15 | Outpatient (RCR) | payer MEDICARE, MEDICAID, SELFPAY ==
[2022-07-21 00:20] VITALS: BP 118/70; PULSE 69; RESP 20; TEMP 36.2; BMI 23.8
[2022-07-22 09:59] VITALS: BP 150/45; PULSE 82; RESP 18; TEMP 36.2; BMI 23.8
[2022-08-05 09:34] VITALS: BP 148/58; PULSE 67; RESP 16; TEMP 35.9; BMI 23.8
--- NOTE | 2022-08-05 15:24 | PCM.WC.PN ---
History of Present Illness Date of Service: 08/05/22 Chief Complaint: Multiple wounds to RLE amputation stump History of Wound: Patient presents to the wound center for evaluation and management of multiple wounds to right lower extremity including BKA a stump. He is referred by Dr. Sullivan who manages his vascular disease. He has had past endovascular interventions including right femoropopliteal bypass and left SFA/pop angioplasty. Past medical history is significant for diabetes mellitus, coronary artery disease, peripheral arterial disease, paroxysmal atrial fibrillation, ACID. He does smoke, primarily a tobacco pipe or cigars. He takes daily ASA and Eliquis. He reports his amputation was performed in 2011. It healed well initially and he had no significant issue until March 2020 at which time he had a small wound which became infected and developed an abscess in the lateral aspect of his amputation stump. This required I&D and eventually healed well. At initial presentation, he had a wound overlying the R patella, another wound slightly distal to the R verdugo, and a wound on the medial aspect of his amputation stump which had been ongoing about 6 months. The wound on the medial aspect of the amputation stump was result of rubbing against his prosthesis. The 2 wounds anteriorly closer to the knee were the result of him crawling around his home particularly up his stairs as he is not currently utilizing his prosthesis. Subjective Subjective A lot has happened since his last visit to [facility] on 07/08/22. Patient reports that about 2 weeks ago the tips of his 1st, 2nd, and 3rd left toes became darker in appearance and then he was rodrigues-hogging and developed a very large blister involving these three toes. He presented to the ER and they unroofed/drained the blister, placed him on antibiotics, and also instructed him to see Dr. Sullivan (his vascular surgeon in [place]) urgently. Subsequently, he underwent revascularization in the LLE and was started on Plavix and another medication he cannot recall. He was also referred to a renewable energy engineer for continued management of these toes who he saw Monday and will f/u with again next Monday. Currently, the tips of his L 1st, 2nd, and 3rd toes are dusky and he has a superficial wound which extends across the dorsal aspect of these three toes and extends somewhat into the interweb space. He reports the renewable energy engineer is managing with betadine and DSD for now. Objective Data Objective Data Vital Signs: Vital Signs Temp Pulse Resp BP O2 Del Method 96.6 F L 67 16 148/58 H Room Air 08/05/22 09:34 08/05/22 09:34 08/05/22 09:34 08/05/22 09:34 08/05/22 09:34 Oxygen Delivery Method Room Air Weight: 148 lb Body Mass Index (BMI) 23.8 Charges/Coding Procedures Integumentary 111xxx-113xx: 26922 Natalya subq tissue 20 sq cm/< Physical Exam Const alert, oriented x3, no apparent distress and well nourished General Appearance: cooperative, comfortable and well developed HEENT normocephalic, head/scalp atraumatic, hearing grossly normal bilaterally, external ears normal and external nose normal Eyes EOMs intact bilaterally General Eye: normal appearance of both eyes Neck full ROM General: normal visual inspection and trachea midline; Negative for anterior neck swelling Resp normal respiratory effort, normal air movement, no retractions and no use of accessory muscles Effort and Inspection: able to speak in complete sentences; Negative for labored, stridor or audible wheezes Cardio Rate: regular rate Rhythm: regular rhythm Extremity Extremity Narrative: R BKA. No discoloration/pallor, appropriate warmth, no significant edema. L 1st, 2nd, and 3rd toes with cyanotic discoloration of the distal tips, no gangrenous changes at this time. Further wound as described below. Skin Wounds: amputation and wounds noted Wound Narrative: R verdugo wound stable in size with moderate slough/callus. No significant erythema, drainage, foul odor, edema, fluctuance, induration. L 1st, 2nd, and 3rd toes with superficial wound stretching across and extending slightly into the interweb space, minimal slough, mild erythema likely reactive or secondary to revascularization. No significant drainage or foul odor. Neuro oriented x3, CN's II-XII intact bilaterally, moves all extremities, no focal motor deficits and no sensory deficits noted Psych mental status grossly normal Appearance: grossly normal Attitude: calm Activity / Motor Behavior: appropriate eye contact Speech: normal speech Mood & Affect: euthymic mood Thought Process: normal thought process Thought Content: normal thought content Attention / Concentration: attention grossly intact Memory / Cognition: memory grossly intact Insight: insight good Judgement: judgement good Debridement Note Debridement Note Wound debrided: R verdugo Laterality: Right Type of Debridement: Excisional debridement Anesthesia Used: 5% Lidocaine Gel Depth: Down to and including healthy tissue and in the subcutaneous layer Percentage of wound debrided: 100 Instrument Used: 3mm curette Tissue Removed: slough Severity: Fat Layer Exposed Amount of bleeding with debridement: Mild Bleeding Controlled with: Pressure Patient tolerated procedure: Patient tolerated procedure well Post-Debridement Measurements and Additional Note: Post-Debridement Measurements/Treatment WC - Nurse 1 - General Ulcer Assessment Start: 07/22/22 09:59 Freq: Status: Active Protocol: MARIELY Activity Type Activity Date Activity User E-sign Co-sign Detail Recorded Client Recorded Date Recorded By Document 07/22/22 09:59 RB [id number] 07/22/22 10:03 RB Document 08/05/22 09:34 KW [id number] 08/05/22 09:52 KW 07/22/22 08/05/22 09:59 09:34 - Today's Visit Information Type of service Nurse-only Follow-up Visit Visit (Physician/PROGRESSIVE ASSEMBLER AND FITTER ) Arrival Mode Wheelchair Wheelchair Transfer Assistance None Patient Identification Verified (Name & Yes Yes ) Patient Requires Transmission-Based No No Precautions Safety Precautions Fall Prevention Height and Weight Body Mass Index (BMI) 23.8 23.8 BMI Classification Normal Normal Vital Signs Temperature (97.8 F-99.1 F) 97.2 F L 96.6 F L Temperature Source Temporal Temporal Pulse Rate (60-100) 82 67 Pulse Location Monitor Monitor Respiratory Rate (12-18) 18 16 Respiratory rate source Observation Ausculation Oxygen Delivery Method Room Air Blood Pressure (90/60-120/80) 150/45 H 148/58 H Blood Pressure Mean (mm Hg) 80 88 Source Monitor Monitor Position Sitting Sitting Blood Pressure Location Left Arm Left Arm History Since Last Visit- (Skip if this is Patient's initial visit) Have you changed medications since your No Yes last visit? Any new allergies or adverse reactions No No Had a fall/change in ADL's that may No No increase risk of falls Signs or symptoms of abuse and/or No No neglect since last visit Have you been in the hospital since your No No last visit? Has dressing in place as prescribed Yes Yes Has compression in place as prescribed No No Has offloadiing in place as prescribed No No Experienced any changes in pain level or No management Left Footwear Regular Shoe Right Footwear No Footwear Pain Scale: 0-10 Numeric Is Patient Pain Free? Yes Yes - Nurse 1 - General Ulcer Measurement Start: 07/22/22 09:59 Freq: Status: Active Protocol: Activity Type Activity Date Activity User E-sign Co-sign Detail Recorded Client Recorded Date Recorded By Document 07/22/22 09:59 RB [id number] 07/22/22 10:03 RB Document 08/05/22 09:34 KW [id number] 08/05/22 09:52 KW 07/22/22 08/05/22 09:59 09:34 Wound Center Nurse 1 #2 R below the knee -Combined with other wound No -Photo Taken No -Exudate Amt Small -Exudate Type Serosanguineous -Wound Margin Distinct, Outline Attached -Granulation Amt Medium (34-66%) Small (1-33%) -Granulation Quality [place] Red -Slough/Fibrin Yes -Necrosis Amt Medium (34-66%) Small (1-33%) -Necrotic Tissue Type Adherent Slough Adherent Slough -Structure Exposed N/A -Texture (Jil-wound Skin Appearance) Assessed Assessed -Moisture (Jil-wound Skin Appearance) No Abnormality Assessed -Color (Jil-wound Skin Appearance) Assessed Assessed -Temperature (Jil-wound Skin No Abnormality Appearance) (Pt Warm) -Tenderness on Palpation (Jil-wound No Skin Appearance) -Ulcer Cleansing Wound Cleanser Rinsed/ Irrigated with Saline -Foul Odor after Cleansing No No -Anesthetic Used 5% Lidocaine Gel - Nurse 2 - General Ulcer CM Notes Start: 07/22/22 09:59 Freq: Status: Active Protocol: Activity Type Activity Date Activity User E-sign Co-sign Detail Recorded Client Recorded Date Recorded By Document 08/05/22 14:25 PL [id number] 08/05/22 14:26 PL 08/05/22 14:25 Wound Center Nurse 2 -Time 09:57 -Correct Patient Yes -Correct Side, Site, Position Yes -Correct Procedure Yes -Procedure Performed Yes -Type of Procedure Debridement -Clinical Debridement Subcutaneous -Tissue Removed Subcutaneous -Post Debridement (cm) - Length 0.3 -Post Debridement (cm) - Width 0.3 -Post Debridement (cm) - Depth 0.2 -Total Square (Post) (cm) 0.09 -Area of Debridement (cm) - Length 0.3 -Area of Debridement (cm) - Width 0.3 -Total Square (Area) (cm) 0.09 -Tunneling No -Undermining/Tunneling No -Circular Undermining No -Wound/Ulcer Outcome Not Healed -Ulcer Cleansing Rinsed/ Irrigated with Saline -Foul Odor after Cleansing No -Bioengineered Tissue No -Bleeding Controlled with Pressure -Treatment Response Procedure Tolerated Well -Debridement - Subq, 1st 20sq cm Yes Pain Scale: 0-10 Numeric Is Patient Pain Free? Yes - Nurse 3 - General Ulcer D/C NN Start: 07/22/22 09:59 Freq: Status: Active Protocol: Activity Type Activity Date Activity User E-sign Co-sign Detail Recorded Client Recorded Date Recorded By Document 07/22/22 09:59 RB [id number] 07/22/22 10:03 RB Document 08/05/22 14:49 PL [id number] 08/05/22 14:50 PL 07/22/22 08/05/22 09:59 14:49 Vital Signs Temperature (97.8 F-99.1 F) 97.2 F L Temperature Source Temporal Pulse Rate (60-100) 82 Pulse Location Monitor Respiratory Rate (12-18) 18 Respiratory rate source Observation Blood Pressure (90/60-120/80) 150/45 H Blood Pressure Mean (mm Hg) 80 Source Monitor Position Sitting Blood Pressure Location Left Arm Pain Scale: 0-10 Numeric Is Patient Pain Free? Yes Yes Wound Care Center Nurse 3 #2 R below the knee -Ulcer Cleansing Rinsed/ Rinsed/ Irrigated with Irrigated with Saline Saline -Foul Odor after Cleansing No -Primary Dressing Applied Mepilex Border, Mepilex Border, NonAdherent Promogran Contact Layer, Promogran -Mepilex Border 1 1 -Promogran 1 1 Treatment Response Procedure Tolerated Well WC - Visit Discharge Discharge Condition Stable Stable Ambulatory Status Wheelchair Ambulatory Transportation Private Auto Private Auto Medication Reconcilliation completed & No provided to patient/care provider Clinical Summary of Care Provided Yes Notes: pt states I was brush hogging yesterday 8 acres and now I have blisters on my left toes . pt left great toe and 2nd and 3rd toes blisters noted and intact. Pascual Son notified of above and instructed pt to wash LLE daily and cover with adaptic and dry gauze. pt acknowledged . Assessment/Plan Assessment/Plan (1) Non-pressure chronic ulcer of other part of right lower leg with fat layer exposed: CODE(S): L97.812 - Non-pressure chronic ulcer of other part of right lower leg with fat layer exposed (2) History of right below knee amputation: CODE(S): Z89.511 - Acquired absence of right leg below knee (3) Blue toe syndrome of left lower extremity: CODE(S): I75.022 - Atheroembolism of left lower extremity (4) Skin ulcer of left foot including toes, limited to breakdown of skin: CODE(S): L97.521 - Non-pressure chronic ulcer of other part of left foot limited to breakdown of skin PLAN: Plan It appears that patient had atheroembolic event to his L 1st, 2nd, and 3rd toes and has subsequently had LLE revascularization with Dr. Sullivan. It seems he has been referred to podiatry for continued management of these toes and they are doing betadine with dry dressing. I did not debride these wounds and will not alter this wound management regimen, but will help patient dress these wounds here today. I instructed him to keep his f/u as scheduled with both podiatry and Dr. Sullivan for continued management. We will try to obtain records from both offices. Regarding the R verdugo wound, there has been improvement in size since last visit. Continue to apply moistened promogran, cover with adaptic and mepilex dressing. Change dressing daily or more often as needed to keep clean and dry. Continue with tubigrips for compression, emphasized importance of consistently wearing these. Continue to emphasize the importance of making appropriate lifestyle modifications to support healing including tobacco cessation and watching his diet/sugars. We talked about how both smoking and his diabetes put him at a disadvantage with respect to healing. Discussed the importance of preventing continued trauma to the areas whenever possible as continuing to crawl and place pressure on the R knee/verdugo is also likely inhibiting healing. I also emphasized the importance of adhering to Plavix therapy. No signs/symptoms of infection today. Return to clinic in 1 week.
--- NOTE | 2022-08-12 07:32 | PCM.WC.PN ---
History of Present Illness Date of Service: 08/12/22 Chief Complaint: Multiple wounds to RLE amputation stump History of Wound: Patient presents to the wound center for evaluation and management of multiple wounds to right lower extremity including BKA a stump. He is referred by Dr. Sullivan who manages his vascular disease. He has had past endovascular interventions including right femoropopliteal bypass and left SFA/pop angioplasty. Past medical history is significant for diabetes mellitus, coronary artery disease, peripheral arterial disease, paroxysmal atrial fibrillation, ACID. He does smoke, primarily a tobacco pipe or cigars. He takes daily ASA and Eliquis. He reports his amputation was performed in 2011. It healed well initially and he had no significant issue until March 2020 at which time he had a small wound which became infected and developed an abscess in the lateral aspect of his amputation stump. This required I&D and eventually healed well. At initial presentation, he had a wound overlying the R patella, another wound slightly distal to the R verdugo, and a wound on the medial aspect of his amputation stump which had been ongoing about 6 months. The wound on the medial aspect of the amputation stump was result of rubbing against his prosthesis. The 2 wounds anteriorly closer to the knee were the result of him crawling around his home particularly up his stairs as he is not currently utilizing his prosthesis. Subjective Subjective Patient was just at podiatry office before appointment here. His L toes wounds were examined and dressings changed there so these dressings were not removed for our visualization today. He reports they are stable. He is following with either podiatry or Dr. Sullivan on a weekly basis regarding these toe wounds. Continues to do fine with dressing changes for R verdugo wound. It is stable in appearance overall. Objective Data Objective Data Vital Signs: Vital Signs Temp Pulse Resp BP O2 Del Method 96.6 F L 67 16 148/58 H Room Air 08/05/22 09:34 08/05/22 09:34 08/05/22 09:34 08/05/22 09:34 08/05/22 09:34 Oxygen Delivery Method Room Air Weight: 148 lb Body Mass Index (BMI) 23.8 Charges/Coding Procedures Integumentary 111xxx-113xx: 29983 Natalya subq tissue 20 sq cm/< Physical Exam Const alert, oriented x3, no apparent distress and well nourished General Appearance: cooperative, comfortable and well developed HEENT normocephalic, head/scalp atraumatic, hearing grossly normal bilaterally, external ears normal and external nose normal Eyes EOMs intact bilaterally General Eye: normal appearance of both eyes Neck full ROM General: normal visual inspection and trachea midline; Negative for anterior neck swelling Resp normal respiratory effort, normal air movement, no retractions and no use of accessory muscles Effort and Inspection: able to speak in complete sentences; Negative for labored, stridor or audible wheezes Cardio Rate: regular rate Rhythm: regular rhythm Extremity Extremity Narrative: R BKA. No discoloration/pallor, appropriate warmth, no significant edema. L 1st, 2nd, and 3rd toes not visualized today. Skin Wounds: amputation and wounds noted Wound Narrative: R verdugo wound stable in size with moderate slough/callus. No significant erythema, drainage, foul odor, edema, fluctuance, induration. L 1st, 2nd, and 3rd toes not visualized today. Neuro oriented x3, CN's II-XII intact bilaterally, moves all extremities, no focal motor deficits and no sensory deficits noted Psych mental status grossly normal Appearance: grossly normal Attitude: calm Activity / Motor Behavior: appropriate eye contact Speech: normal speech Mood & Affect: euthymic mood Thought Process: normal thought process Thought Content: normal thought content Attention / Concentration: attention grossly intact Memory / Cognition: memory grossly intact Insight: insight good Judgement: judgement good Debridement Note Debridement Note Wound debrided: R verdugo Laterality: Right Type of Debridement: Excisional debridement Anesthesia Used: 5% Lidocaine Gel Depth: Down to and including healthy tissue and in the subcutaneous layer Percentage of wound debrided: 100 Instrument Used: 3mm curette Tissue Removed: slough Severity: Fat Layer Exposed Amount of bleeding with debridement: Mild Bleeding Controlled with: Pressure Patient tolerated procedure: Patient tolerated procedure well Post-Debridement Measurements and Additional Note: Post-Debridement Measurements/Treatment CHARO - Nurse 1 - General Ulcer Assessment Start: 07/22/22 09:59 Freq: Status: Active Protocol: MARIELY Activity Type Activity Date Activity User E-sign Co-sign Detail Recorded Client Recorded Date Recorded By Document 07/22/22 09:59 RB [id number] 07/22/22 10:03 RB Document 08/05/22 09:34 KW [id number] 08/05/22 09:52 KW 07/22/22 08/05/22 09:59 09:34 - Today's Visit Information Type of service Nurse-only Follow-up 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 ) Arrival Mode Wheelchair Wheelchair Transfer Assistance None Patient Identification Verified (Name & Yes Yes ) Patient Requires Transmission-Based No No Precautions Safety Precautions Fall Prevention Height and Weight Body Mass Index (BMI) 23.8 23.8 BMI Classification Normal Normal Vital Signs Temperature (97.8 F-99.1 F) 97.2 F L 96.6 F L Temperature Source Temporal Temporal Pulse Rate (60-100) 82 67 Pulse Location Monitor Monitor Respiratory Rate (12-18) 18 16 Respiratory rate source Observation Ausculation Oxygen Delivery Method Room Air Blood Pressure (90/60-120/80) 150/45 H 148/58 H Blood Pressure Mean (mm Hg) 80 88 Source Monitor Monitor Position Sitting Sitting Blood Pressure Location Left Arm Left Arm History Since Last Visit- (Skip if this is Patient's initial visit) Have you changed medications since your No Yes last visit? Any new allergies or adverse reactions No No Had a fall/change in ADL's that may No No increase risk of falls Signs or symptoms of abuse and/or No No neglect since last visit Have you been in the hospital since your No No last visit? Has dressing in place as prescribed Yes Yes Has compression in place as prescribed No No Has offloadiing in place as prescribed No No Experienced any changes in pain level or No management Left Footwear Regular Shoe Right Footwear No Footwear Pain Scale: 0-10 Numeric Is Patient Pain Free? Yes Yes - Nurse 1 - General Ulcer Measurement Start: 07/22/22 09:59 Freq: Status: Active Protocol: Activity Type Activity Date Activity User E-sign Co-sign Detail Recorded Client Recorded Date Recorded By Document 07/22/22 09:59 RB [id number] 07/22/22 10:03 RB Document 08/05/22 09:34 KW [id number] 08/05/22 09:52 KW 07/22/22 08/05/22 09:59 09:34 Wound Center Nurse 1 #2 R below the knee -Combined with other wound No -Photo Taken No -Exudate Amt Small -Exudate Type Serosanguineous -Wound Margin Distinct, Outline Attached -Granulation Amt Medium (34-66%) Small (1-33%) -Granulation Quality [place] Red -Slough/Fibrin Yes -Necrosis Amt Medium (34-66%) Small (1-33%) -Necrotic Tissue Type Adherent Slough Adherent Slough -Structure Exposed N/A -Texture (Jil-wound Skin Appearance) Assessed Assessed -Moisture (Jil-wound Skin Appearance) No Abnormality Assessed -Color (Jil-wound Skin Appearance) Assessed Assessed -Temperature (Jil-wound Skin No Abnormality Appearance) (Pt Warm) -Tenderness on Palpation (Jil-wound No Skin Appearance) -Ulcer Cleansing Wound Cleanser Rinsed/ Irrigated with Saline -Foul Odor after Cleansing No No -Anesthetic Used 5% Lidocaine Gel WC - Nurse 2 - General Ulcer CM Notes Start: 07/22/22 09:59 Freq: Status: Active Protocol: Activity Type Activity Date Activity User E-sign Co-sign Detail Recorded Client Recorded Date Recorded By Document 08/05/22 14:25 PL [id number] 08/05/22 14:26 PL 08/05/22 14:25 Wound Center Nurse 2 -Time 09:57 -Correct Patient Yes -Correct Side, Site, Position Yes -Correct Procedure Yes -Procedure Performed Yes -Type of Procedure Debridement -Clinical Debridement Subcutaneous -Tissue Removed Subcutaneous -Post Debridement (cm) - Length 0.3 -Post Debridement (cm) - Width 0.3 -Post Debridement (cm) - Depth 0.2 -Total Square (Post) (cm) 0.09 -Area of Debridement (cm) - Length 0.3 -Area of Debridement (cm) - Width 0.3 -Total Square (Area) (cm) 0.09 -Tunneling No -Undermining/Tunneling No -Circular Undermining No -Wound/Ulcer Outcome Not Healed -Ulcer Cleansing Rinsed/ Irrigated with Saline -Foul Odor after Cleansing No -Bioengineered Tissue No -Bleeding Controlled with Pressure -Treatment Response Procedure Tolerated Well -Debridement - Subq, 1st 20sq cm Yes Pain Scale: 0-10 Numeric Is Patient Pain Free? Yes - Nurse 3 - General Ulcer D/C NN Start: 07/22/22 09:59 Freq: Status: Active Protocol: Activity Type Activity Date Activity User E-sign Co-sign Detail Recorded Client Recorded Date Recorded By Document 07/22/22 09:59 RB [id number] 07/22/22 10:03 RB Document 08/05/22 14:49 PL [id number] 08/05/22 14:50 PL 07/22/22 08/05/22 09:59 14:49 Vital Signs Temperature (97.8 F-99.1 F) 97.2 F L Temperature Source Temporal Pulse Rate (60-100) 82 Pulse Location Monitor Respiratory Rate (12-18) 18 Respiratory rate source Observation Blood Pressure (90/60-120/80) 150/45 H Blood Pressure Mean (mm Hg) 80 Source Monitor Position Sitting Blood Pressure Location Left Arm Pain Scale: 0-10 Numeric Is Patient Pain Free? Yes Yes Wound Care Center Nurse 3 #2 R below the knee -Ulcer Cleansing Rinsed/ Rinsed/ Irrigated with Irrigated with Saline Saline -Foul Odor after Cleansing No -Primary Dressing Applied Mepilex Border, Mepilex Border, NonAdherent Promogran Contact Layer, Promogran -Mepilex Border 1 1 -Promogran 1 1 Treatment Response Procedure Tolerated Well WC - Visit Discharge Discharge Condition Stable Stable Ambulatory Status Wheelchair Ambulatory Transportation Private Auto Private Auto Medication Reconcilliation completed & No provided to patient/care provider Clinical Summary of Care Provided Yes Notes: pt states I was brush hogging yesterday 8 acres and now I have blisters on my left toes . pt left great toe and 2nd and 3rd toes blisters noted and intact. Pascual Son notified of above and instructed pt to wash LLE daily and cover with adaptic and dry gauze. pt acknowledged . Assessment/Plan Assessment/Plan (1) Non-pressure chronic ulcer of other part of right lower leg with fat layer exposed: CODE(S): L97.812 - Non-pressure chronic ulcer of other part of right lower leg with fat layer exposed (2) History of right below knee amputation: CODE(S): Z89.511 - Acquired absence of right leg below knee (3) Blue toe syndrome of left lower extremity: CODE(S): I75.022 - Atheroembolism of left lower extremity (4) Skin ulcer of left foot including toes, limited to breakdown of skin: CODE(S): L97.521 - Non-pressure chronic ulcer of other part of left foot limited to breakdown of skin PLAN: Plan Still waiting on recent records from vascular and podiatry; however, he was seen by podiatry today and states his L toe wounds are stable. Podiatry is managing that wound care, betadine and dry dressing. He will continue to follow with them weekly. Regarding the R verdugo wound, stable in size from last week. Continue to apply moistened promogran, cover with adaptic and mepilex dressing. Change dressing daily or more often as needed to keep clean and dry. Continue with tubigrips for compression. Encouraged smoking cessation, dietary changes, and preventing continued trauma to R leg. No signs/symptoms of infection today. Return to clinic in 2 weeks.
[2022-08-12 10:08] VITALS: BP 114/40; PULSE 69; RESP 16; BMI 23.8
== END 2022-08-19 23:59 | disposition home or self-care (01) ==
LOC: WC 10:15
PROVIDERS: PCP Family Medicine; Referring Provider Physician Assistant; Visit Provider Physician Assistant
DX: E11.622 Type 2 diabetes mellitus with other skin ulcer (principal); E11.51 Type 2 diabetes mellitus with diabetic peripheral angiopathy without gangrene; Z89.511 Acquired absence of right leg below knee; L97.812 Non-pressure chronic ulcer of other part of right lower leg with fat layer exposed; L97.521 Non-pressure chronic ulcer of other part of left foot limited to breakdown of skin; I75.022 Atheroembolism of left lower extremity; I48.0 Paroxysmal atrial fibrillation; Z79.4 Long term (current) use of insulin; I25.10 Atherosclerotic heart disease of native coronary artery without angina pectoris; F17.290 Nicotine dependence, other tobacco product, uncomplicated; Z79.84 Long term (current) use of oral hypoglycemic drugs; Z79.82 Long term (current) use of aspirin; Z79.01 Long term (current) use of anticoagulants; Z79.02 Long term (current) use of antithrombotics/antiplatelets; Z79.890 Hormone replacement therapy; Z79.899 Other long term (current) drug therapy; Z95.820 Peripheral vascular angioplasty status with implants and grafts; Z95.810 Presence of automatic (implantable) cardiac defibrillator
CPT/HCPCS: 11042; 99211; G0463

== ENCOUNTER 2022-09-16 10:30 | Outpatient (RCR) | payer MEDICARE, MEDICAID, SELFPAY ==
[2022-08-20 00:47] VITALS: BP 114/40; PULSE 69; RESP 16; TEMP 35.9; BMI 23.8
--- NOTE | 2022-08-26 07:33 | PN.PCM_ITS ---
History of Present Illness Date of Service: 08/26/22 Chief Complaint: Multiple wounds to RLE amputation stump History of Wound: Patient presents to the wound center for evaluation and management of multiple wounds to right lower extremity including BKA a stump. He is referred by Dr. Sullivan who manages his vascular disease. He has had past endovascular interventions including right femoropopliteal bypass and left SFA/pop angioplasty. Past medical history is significant for diabetes mellitus, coronary artery disease, peripheral arterial disease, paroxysmal atrial fibrillation, ACID. He does smoke, primarily a tobacco pipe or cigars. He takes daily ASA and Eliquis. He reports his amputation was performed in 2011. It healed well initially and he had no significant issue until March 2020 at which time he had a small wound which became infected and developed an abscess in the lateral aspect of his amputation stump. This required I&D and eventually healed well. At initial presentation, he had a wound overlying the R patella, another wound slightly distal to the R verdugo, and a wound on the medial aspect of his amputation stump which had been ongoing about 6 months. The wound on the medial aspect of the amputation stump was result of rubbing against his prosthesis. The 2 wounds anteriorly closer to the knee were the result of him crawling around his home particularly up his stairs as he is not currently utilizing his prosthesis. Subjective Subjective R verdugo wound is stable, improving. L toe wounds are stable, he continues to follow with podiatry weekly for monitoring and wound care. No new or worsening pain, edema, or redness in BLE. No N/V, F/C. Objective Data Objective Data Vital Signs: Vital Signs Temp Pulse Resp BP 96.6 F L 69 16 114/40 L 08/20/22 00:47 08/20/22 00:47 08/20/22 00:47 08/20/22 00:47 Weight: 148 lb Body Mass Index (BMI) 23.8 Charges/Coding Procedures Integumentary 111xxx-113xx: 69913 Natalya subq tissue 20 sq cm/< Physical Exam Const alert, oriented x3, no apparent distress and well nourished General Appearance: cooperative, comfortable and well developed HEENT normocephalic, head/scalp atraumatic, hearing grossly normal bilaterally, external ears normal and external nose normal Eyes EOMs intact bilaterally General Eye: normal appearance of both eyes Neck full ROM General: normal visual inspection and trachea midline; Negative for anterior neck swelling Resp normal respiratory effort, normal air movement, no retractions and no use of accessory muscles Effort and Inspection: able to speak in complete sentences; Negative for labored, stridor or audible wheezes Cardio Rate: regular rate Rhythm: regular rhythm Extremity Extremity Narrative: R BKA. No discoloration/pallor, appropriate warmth, no significant edema. Skin Wounds: amputation and wounds noted Wound Narrative: R verdugo wound stable in size with moderate slough/callus. No significant erythema, drainage, foul odor, edema, fluctuance, induration. L 1st, 2nd, and 3rd toes with stable cyanotic discoloration and areas of necroti c tissue. No erythema, swelling, drainage noted. Neuro oriented x3, CN's II-XII intact bilaterally, moves all extremities, no focal motor deficits and no sensory deficits noted Psych mental status grossly normal Appearance: grossly normal Attitude: calm Activity / Motor Behavior: appropriate eye contact Speech: normal speech Mood & Affect: euthymic mood Thought Process: normal thought process Thought Content: normal thought content Attention / Concentration: attention grossly intact Memory / Cognition: memory grossly intact Insight: insight good Judgement: judgement good Debridement Note Debridement Note Wound debrided: R verdugo Laterality: Right Type of Debridement: Excisional debridement Anesthesia Used: 5% Lidocaine Gel Depth: Down to and including healthy tissue and in the subcutaneous layer Percentage of wound debrided: 100 Instrument Used: - (1mm curette) Tissue Removed: slough Severity: Fat Layer Exposed Amount of bleeding with debridement: Mild Bleeding Controlled with: Pressure Patient tolerated procedure: Patient tolerated procedure well Post-Debridement Measurements and Additional Note: Post-Debridement Measurements/Treatment - Nurse 1 - General Ulcer Assessment Start: 07/22/22 09:59 Freq: Status: Active Protocol: CHARO.LOWMELODIET Activity Type Activity Date Activity User E-sign Co-sign Detail Recorded Client Recorded Date Recorded By Document 07/22/22 09:59 RB [id number] 07/22/22 10:03 RB Document 08/05/22 09:34 KW [id number] 08/05/22 09:52 KW 07/22/22 08/05/22 09:59 09:34 - Today's Visit Information Type of service Nurse-only Follow-up Visit 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 ) Arrival Mode Wheelchair Wheelchair Transfer Assistance None Patient Identification Verified (Name & Yes Yes ) Patient Requires Transmission-Based No No Precautions Safety Precautions Fall Prevention Height and Weight Body Mass Index (BMI) 23.8 23.8 BMI Classification Normal Normal Vital Signs Temperature (97.8 F-99.1 F) 97.2 F L 96.6 F L Temperature Source Temporal Temporal Pulse Rate (60-100) 82 67 Pulse Location Monitor Monitor Respiratory Rate (12-18) 18 16 Respiratory rate source Observation Ausculation Oxygen Delivery Method Room Air Blood Pressure (90/60-120/80) 150/45 H 148/58 H Blood Pressure Mean (mm Hg) 80 88 Source Monitor Monitor Position Sitting Sitting Blood Pressure Location Left Arm Left Arm History Since Last Visit- (Skip if this is Patient's initial visit) Have you changed medications since your No Yes last visit? Any new allergies or adverse reactions No No Had a fall/change in ADL's that may No No increase risk of falls Signs or symptoms of abuse and/or No No neglect since last visit Have you been in the hospital since your No No last visit? Has dressing in place as prescribed Yes Yes Has compression in place as prescribed No No Has offloadiing in place as prescribed No No Experienced any changes in pain level or No management Left Footwear Regular Shoe Right Footwear No Footwear Pain Scale: 0-10 Numeric Is Patient Pain Free? Yes Yes - Nurse 1 - General Ulcer Measurement Start: 07/22/22 09:59 Freq: Status: Active Protocol: Activity Type Activity Date Activity User E-sign Co-sign Detail Recorded Client Recorded Date Recorded By Document 07/22/22 09:59 RB [id number] 07/22/22 10:03 RB Document 08/05/22 09:34 KW [id number] 08/05/22 09:52 KW 07/22/22 08/05/22 09:59 09:34 Wound Center Nurse 1 #2 R below the knee -Combined with other wound No -Photo Taken No -Exudate Amt Small -Exudate Type Serosanguineous -Wound Margin Distinct, Outline Attached -Granulation Amt Medium (34-66%) Small (1-33%) -Granulation Quality [place] Red -Slough/Fibrin Yes -Necrosis Amt Medium (34-66%) Small (1-33%) -Necrotic Tissue Type Adherent Slough Adherent Slough -Structure Exposed N/A -Texture (Jil-wound Skin Appearance) Assessed Assessed -Moisture (Jil-wound Skin Appearance) No Abnormality Assessed -Color (Jil-wound Skin Appearance) Assessed Assessed -Temperature (Jil-wound Skin No Abnormality Appearance) (Pt Warm) -Tenderness on Palpation (Jil-wound No Skin Appearance) -Ulcer Cleansing Wound Cleanser Rinsed/ Irrigated with Saline -Foul Odor after Cleansing No No -Anesthetic Used 5% Lidocaine Gel WC - Nurse 2 - General Ulcer CM Notes Start: 07/22/22 09:59 Freq: Status: Active Protocol: Activity Type Activity Date Activity User E-sign Co-sign Detail Recorded Client Recorded Date Recorded By Document 08/05/22 14:25 PL [id number] 08/05/22 14:26 PL 08/05/22 14:25 Wound Center Nurse 2 -Time 09:57 -Correct Patient Yes -Correct Side, Site, Position Yes -Correct Procedure Yes -Procedure Performed Yes -Type of Procedure Debridement -Clinical Debridement Subcutaneous -Tissue Removed Subcutaneous -Post Debridement (cm) - Length 0.3 -Post Debridement (cm) - Width 0.3 -Post Debridement (cm) - Depth 0.2 -Total Square (Post) (cm) 0.09 -Area of Debridement (cm) - Length 0.3 -Area of Debridement (cm) - Width 0.3 -Total Square (Area) (cm) 0.09 -Tunneling No -Undermining/Tunneling No -Circular Undermining No -Wound/Ulcer Outcome Not Healed -Ulcer Cleansing Rinsed/ Irrigated with Saline -Foul Odor after Cleansing No -Bioengineered Tissue No -Bleeding Controlled with Pressure -Treatment Response Procedure Tolerated Well -Debridement - Subq, 1st 20sq cm Yes Pain Scale: 0-10 Numeric Is Patient Pain Free? Yes WC - Nurse 3 - General Ulcer D/C NN Start: 07/22/22 09:59 Freq: Status: Active Protocol: Activity Type Activity Date Activity User E-sign Co-sign Detail Recorded Client Recorded Date Recorded By Document 07/22/22 09:59 RB [id number] 07/22/22 10:03 RB Document 08/05/22 14:49 PL [id number] 08/05/22 14:50 PL 07/22/22 08/05/22 09:59 14:49 Vital Signs Temperature (97.8 F-99.1 F) 97.2 F L Temperature Source Temporal Pulse Rate (60-100) 82 Pulse Location Monitor Respiratory Rate (12-18) 18 Respiratory rate source Observation Blood Pressure (90/60-120/80) 150/45 H Blood Pressure Mean (mm Hg) 80 Source Monitor Position Sitting Blood Pressure Location Left Arm Pain Scale: 0-10 Numeric Is Patient Pain Free? Yes Yes Wound Care Center Nurse 3 #2 R below the knee -Ulcer Cleansing Rinsed/ Rinsed/ Irrigated with Irrigated with Saline Saline -Foul Odor after Cleansing No -Primary Dressing Applied Mepilex Border, Mepilex Border, NonAdherent Promogran Contact Layer, Promogran -Mepilex Border 1 1 -Promogran 1 1 Treatment Response Procedure Tolerated Well WC - Visit Discharge Discharge Condition Stable Stable Ambulatory Status Wheelchair Ambulatory Transportation Private Auto Private Auto Medication Reconcilliation completed & No provided to patient/care provider Clinical Summary of Care Provided Yes Notes: pt states I was brush hogging yesterday 8 acres and now I have blisters on my left toes . pt left great toe and 2nd and 3rd toes blisters noted and intact. Pascual Son notified of above and instructed pt to wash LLE daily and cover with adaptic and dry gauze. pt acknowledged . Assessment/Plan Assessment/Plan (1) Non-pressure chronic ulcer of other part of right lower leg with fat layer exposed: CODE(S): L97.812 - Non-pressure chronic ulcer of other part of right lower leg with fat layer exposed (2) History of right below knee amputation: CODE(S): Z89.511 - Acquired absence of right leg below knee (3) Blue toe syndrome of left lower extremity: CODE(S): I75.022 - Atheroembolism of left lower extremity (4) Skin ulcer of left foot including toes, limited to breakdown of skin: CODE(S): L97.521 - Non-pressure chronic ulcer of other part of left foot limited to breakdown of skin PLAN: Plan Patient just had vascular labs completed and his L foot dressing was disrupted. His left toes were re-dressed with betadine and dry gauze wrap between and around the toes. He will continue to follow with podiatry. Regarding the R verdugo wound, decreased in size from last vist. Still with very slow, but positive progress. Continue to apply moistened promogran, cover with adaptic and mepilex dressing. Change dressing daily or more often as needed to keep clean and dry. Continue with tubigrips for compression. Encouraged smoking cessation, dietary changes, and preventing continued trauma to R leg. No signs/symptoms of infection today. Return to clinic in 3 weeks.
[2022-08-26 10:48] VITALS: BP 120/24; PULSE 71; RESP 18; TEMP 36.6; BMI 23.8
[2022-09-16 09:53] VITALS: BP 128/46; PULSE 64; RESP 16; BMI 23.8
--- NOTE | 2022-09-16 11:02 | PN.PCM_ITS ---
History of Present Illness Date of Service: 09/16/22 Chief Complaint: Multiple wounds to RLE amputation stump History of Wound: Patient presents to the wound center for evaluation and management of multiple wounds to right lower extremity including BKA a stump. He is referred by Dr. Sullivan who manages his vascular disease. He has had past endovascular interventions including right femoropopliteal bypass and left SFA/pop angioplasty. Past medical history is significant for diabetes mellitus, coronary artery disease, peripheral arterial disease, paroxysmal atrial fibrillation, ACID. He does smoke, primarily a tobacco pipe or cigars. He takes daily ASA and Eliquis. He reports his amputation was performed in 2011. It healed well initially and he had no significant issue until March 2020 at which time he had a small wound which became infected and developed an abscess in the lateral aspect of his amputation stump. This required I&D and eventually healed well. At initial presentation, he had a wound overlying the R patella, another wound slightly distal to the R verdugo, and a wound on the medial aspect of his amputation stump which had been ongoing about 6 months. The wound on the medial aspect of the amputation stump was result of rubbing against his prosthesis. The 2 wounds anteriorly closer to the knee were the result of him crawling around his home particularly up his stairs as he is not currently utilizing his prosthesis. Subjective Subjective With respect to his R verdugo wound this is healed today, now all RLE wounds are healed. Unfortunately, one of the toes on his left foot has taken a turn for the worse, this is being managed by podiatry and vascular in [place]. He tells me he has an angiogram next week. He has not yet reached out to [facility] regarding adjusting his prosthetic to prevent wound recurrence with use. Objective Data Objective Data Vital Signs: Vital Signs Temp Pulse Resp BP O2 Del Method 97.8 F 64 16 128/46 H Room Air 08/26/22 10:48 09/16/22 09:53 09/16/22 09:53 09/16/22 09:53 09/16/22 09:53 Oxygen Delivery Method Room Air Weight: 148 lb Body Mass Index (BMI) 23.8 Charges/Coding Visit Charges Office Visits / Consults: 27061 OV L2 Est Physical Exam Const alert, oriented x3, no apparent distress and well nourished General Appearance: cooperative, comfortable and well developed HEENT normocephalic, head/scalp atraumatic, hearing grossly normal bilaterally, external ears normal and external nose normal Eyes EOMs intact bilaterally General Eye: normal appearance of both eyes Neck full ROM General: normal visual inspection and trachea midline; Negative for anterior neck swelling Resp normal respiratory effort, normal air movement, no retractions and no use of accessory muscles Effort and Inspection: able to speak in complete sentences; Negative for labored, stridor or audible wheezes Cardio Rate: regular rate Rhythm: regular rhythm Extremity Extremity Narrative: R BKA. No discoloration/pallor, appropriate warmth, no significant edema. Skin Wounds: amputation and wounds noted Wound Narrative: R verdugo wound is healed. L toes were not visualized today. Neuro oriented x3, CN's II-XII intact bilaterally, moves all extremities, no focal motor deficits and no sensory deficits noted Psych mental status grossly normal Appearance: grossly normal Attitude: calm Activity / Motor Behavior: appropriate eye contact Speech: normal speech Debridement Note Debridement Note No debridement was completed: No debridement was completed today Post-Debridement Measurements and Additional Note: Post-Debridement Measurements/Treatment - Nurse 1 - General Ulcer Assessment Start: 08/26/22 10:48 Freq: Status: Active Protocol: MARIELY Activity Type Activity Date Activity User E-sign Co-sign Detail Recorded Client Recorded Date Recorded By Document 08/26/22 10:48 PL [id number] 08/26/22 10:51 PL Document 09/16/22 09:53 [facility] [id number] 09/16/22 09:58 [facility] 08/26/22 09/16/22 10:48 09:53 - Today's Visit Information Type of service Follow-up Visit Follow-up Visit (Physician/IN STORE MARKETING REPRESENTATIVE (Physician/IN STORE MARKETING REPRESENTATIVE ) ) Arrival Mode Wheelchair Wheelchair Transfer Assistance None None Patient Identification Verified (Name & Yes Yes ) Patient Requires Transmission-Based No No Precautions Safety Precautions NA Height and Weight Body Mass Index (BMI) 23.8 23.8 BMI Classification Normal Normal Vital Signs Temperature (97.8 F-99.1 F) 97.8 F Temperature Source Temporal Temporal Pulse Rate (60-100) 71 64 Pulse Location Monitor Respiratory Rate (12-18) 18 16 Respiratory rate source Observation Oxygen Delivery Method Room Air Blood Pressure (90/60-120/80) 120/24 L 128/46 H Blood Pressure Mean (mm Hg) 56 73 Source Monitor Position Sitting Blood Pressure Location Left Arm History Since Last Visit- (Skip if this is Patient's initial visit) Have you changed medications since your No last visit? Any new allergies or adverse reactions No Had a fall/change in ADL's that may No increase risk of falls Signs or symptoms of abuse and/or No neglect since last visit Have you been in the hospital since your No last visit? Has dressing in place as prescribed Yes Has compression in place as prescribed N/A Has offloadiing in place as prescribed N/A Experienced any changes in pain level or No management Pain Scale: 0-10 Numeric Is Patient Pain Free? Yes Yes CHARO - Nurse 1 - General Ulcer Measurement Start: 08/26/22 10:48 Freq: Status: Active Protocol: Activity Type Activity Date Activity User E-sign Co-sign Detail Recorded Client Recorded Date Recorded By Document 09/16/22 09:53 [facility] [id number] 09/16/22 09:58 [facility] 09/16/22 09:53 Wound Center Nurse 1 #2 R below the knee -Combined with other wound No -Current Size (cm) - Length 0.1 -Current Size (cm) - Width 0.1 -Current Size (cm) - Depth 0.1 -Total Square Cm 0.01 -Date of Last Picture (Recall this 09/16/22 field) -Photo Taken Yes -Epithelialization Large 67-100% -Tunneling No -Undermining/Tunneling No -Circular Undermining No -Exudate Amt None Present -Wound Margin Distinct, Outline Attached -Granulation Amt Small (1-33%) -Granulation Quality Red -Texture (Jil-wound Skin Appearance) Assessed, Scarring -Moisture (Jil-wound Skin Appearance) Assessed -Color (Jil-wound Skin Appearance) Assessed -Temperature (Jil-wound Skin No Abnormality Appearance) (Pt Warm) -Tenderness on Palpation (Jil-wound No Skin Appearance) -Ulcer Cleansing Rinsed/ Irrigated with Saline -Foul Odor after Cleansing No -Anesthetic Used 5% Lidocaine Gel CHARO - Nurse 2 - General Ulcer CM Notes Start: 08/26/22 10:48 Freq: Status: Active Protocol: Activity Type Activity Date Activity User E-sign Co-sign Detail Recorded Client Recorded Date Recorded By Document 08/26/22 12:18 PL [id number] 08/26/22 12:19 PL 08/26/22 12:18 Wound Center Nurse 2 -Time 10:57 -Correct Patient Yes -Correct Side, Site, Position Yes -Correct Procedure Yes -Procedure Performed Yes -Type of Procedure Debridement -Clinical Debridement Subcutaneous -Tissue Removed Subcutaneous -Post Debridement (cm) - Length 0.2 -Post Debridement (cm) - Width 0.2 -Post Debridement (cm) - Depth 0.2 -Total Square (Post) (cm) 0.04 -Area of Debridement (cm) - Length 0.2 -Area of Debridement (cm) - Width 0.2 -Total Square (Area) (cm) 0.04 -Tunneling No -Undermining/Tunneling No -Circular Undermining No -Wound/Ulcer Outcome Not Healed -Ulcer Cleansing Rinsed/ Irrigated with Saline -Foul Odor after Cleansing No -Bioengineered Tissue No -Bleeding Controlled with Pressure -Treatment Response Procedure Tolerated Well -Debridement - Subq, 1st 20sq cm Yes Pain Scale: 0-10 Numeric Is Patient Pain Free? Yes - Nurse 3 - General Ulcer D/C NN Start: 08/26/22 10:48 Freq: Status: Active Protocol: Activity Type Activity Date Activity User E-sign Co-sign Detail Recorded Client Recorded Date Recorded By Document 08/26/22 11:22 SHANNA [id number] 08/26/22 11:23 SHANNA 08/26/22 11:22 Wound Care Center Nurse 3 #2 R below the knee -Ulcer Cleansing Rinsed/ Irrigated with Saline -Foul Odor after Cleansing No -Primary Dressing Applied Mepilex Border, NonAdherent Contact Layer, Promogran -Other Covering betadine gauze to left foot toes. -Mepilex Border 1 -Promogran 1 Pain Scale: 0-10 Numeric Is Patient Pain Free? Yes WC - Visit Discharge Discharge Condition Stable Ambulatory Status Wheelchair Transportation Private Auto Medication Reconcilliation completed & Yes provided to patient/care provider Clinical Summary of Care Provided Yes Assessment/Plan Assessment/Plan (1) Non-pressure chronic ulcer of other part of right lower leg with fat layer exposed: CODE(S): L97.812 - Non-pressure chronic ulcer of other part of right lower leg with fat layer exposed (2) History of right below knee amputation: CODE(S): Z89.511 - Acquired absence of right leg below knee (3) Blue toe syndrome of left lower extremity: CODE(S): I75.022 - Atheroembolism of left lower extremity (4) Skin ulcer of left foot including toes, limited to breakdown of skin: CODE(S): L97.521 - Non-pressure chronic ulcer of other part of left foot limited to breakdown of skin PLAN: Plan Patient's R verdugo wound has healed, now all three wounds which were present are healed. He continues to follow with both podiatry and vascular in [place] who are managing the ischemic tissue damage to his L foot. I encouraged patient to contact [facility] in regards to his prosthesis. I encouraged him to continue working toward tobacco cessation. He is discharged from wound healing center. Return as needed.
== END 2022-09-19 23:59 | disposition home or self-care (01) ==
LOC: WC 10:30
PROVIDERS: PCP Family Medicine; Referring Provider Physician Assistant; Visit Provider Physician Assistant
DX: T87.89 Other complications of amputation stump (principal); E11.621 Type 2 diabetes mellitus with foot ulcer; E11.51 Type 2 diabetes mellitus with diabetic peripheral angiopathy without gangrene; Z89.511 Acquired absence of right leg below knee; L97.812 Non-pressure chronic ulcer of other part of right lower leg with fat layer exposed; L97.521 Non-pressure chronic ulcer of other part of left foot limited to breakdown of skin; I75.022 Atheroembolism of left lower extremity; I48.0 Paroxysmal atrial fibrillation; Y83.5 Amputation of limb(s) as the cause of abnormal reaction of the patient, or of later complication, without mention of misadventure at the time of the procedure; I25.10 Atherosclerotic heart disease of native coronary artery without angina pectoris; F17.290 Nicotine dependence, other tobacco product, uncomplicated; Z95.820 Peripheral vascular angioplasty status with implants and grafts
CPT/HCPCS: 11042; 99213; G0463